=== PATIENT | female | born 1955 | race Caucasian/White ===

== ENCOUNTER 2016-08-07 20:48 | Observation (INO) | payer MEDICARE ==
[~2016-08-07] VITALS: Ht 157.5 cm; Wt 108.2 kg
[~2016-08-07 20:48] MED LIST: AVANDIA4 MG PO; CHEWABLE ASPIRI81 MG PO; CIPRO 500MG TA500 MG PO; COMBIVENT INH14.7 GM IN; DETROL LA4 MG PO; DIAZEPAM10 MG PO; DIOVAN80 MG PO; DUONEB 3 MG/3 ML3 ML IH; FLONASE 50 MCG16 GM; FUROSEMIDE20 MG PO; FUROSEMIDE40 MG PO; IMODIUM 2MG. CAP2 MG OR; K-TAB10 MEQ PO; LEVOTHYROXIN0.025 MG PO; LORTAB 500 MG-11 TAB PO; METFORMIN1000 MG PO; MICRO-K 10 MEQ10 MEQ PO; MUCINEX600 MG PO; OMEPRAZOLE40 MG PO; PHENERGAN 25MG.25 M1 PO; PRAVASTATIN SOD80 MG PO; PRILOSEC20 M1 PO; TRAZODONE150 MG PO; VITAMIN D1000 IU PO; WELLBUTRIN 100100 M1 PO; WELLBUTRIN XL150 MG PO; ZOLOFT100 MG PO
[2016-08-07 20:49] VITALS: BP 147/50
[2016-08-07] MEDS ORDERED: VALIUM10 M1 PO (20:58)
[2016-08-07] MEDS ORDERED: LEVOFLOXACIN 5500 M1 PO (21:00)
[2016-08-07] MEDS ORDERED: ROSUVASTATIN CA10 MG PO (21:02)
[2016-08-07 21:21] LABS: HEMOGLOBIN 13.8 g/dL (12.2-16.2); LYMPH % 42.7 % (10-50.0)
[2016-08-07 21:38] LABS: BUN 8 mg/dL (7-18)
[2016-08-07 21:41] LABS: GFR (ESTIMATED) 73 ML/MIN (59-)
--- NOTE | 2016-08-07 22:30 | Emergency Room Report ---
History of Present Illness Time Seen by 2048 Presenting Problem in Triage Pt arrived:Wheelchair Presenting Problem:C/O CHEST PAIN SINCE LAST PM. REPORTS COUGH WITH GREEEN SPUTUM AND SHORTNES OF BREATH. REPORTS PASSED OUT IN LOBBY Onset of symptoms date/time:08/06/16/ or onset unknown for:MEDICAL HX UNKNOWN Treatment Prior to Arrival: SEEN DR. PANTOJA SUPPLY ROOM CLERK Provided by:PHYSICIAN Sepsis Risk Assessment: Temp: 98.7 B/P: 81/44 MAP: 82 Pulse: 66 Resp: 20 Recent fever? Y Clinical Suspician of Infection? N Mental Status: 1 - Regular (Normal Baseline) Sepsis Risk:Low Sepsis Risk Have you (or family members/close friends) recently traveled outside the [place]? N If Yes, where/when: Have you had exposure to infectious disease within the past month? N TB? Other? Specify: Source patient, RN notes reviewed, family, old records Exam Limitations no limitations Comment pt with episode of chest pain yesterday and today with pressure pain and had syncopal episode this pm and no trauma- she also has recent uti/and has cough with greenish sputum over the last few days and has abn vag bleeding over the last month Cardiac Chest Pain Chest pain indicative of cardiac Yes Timing/Duration 1-3 hours, gone now Severity/Quality moderate, pressure Location central Chest Pain Radiation arm(s) Activities at Onset light activity Nitro Today/Relief no nitro taken today Aspirin Treatment Today 325 mg x 1, provided by ED Beta dk treatment today no beta dk taken Cardiac risk factors Diabetes, + family history, HTN controlled Prior Workup/Intervention no prior cardiac workup Timing/Duration this evening Severity moderate ALLERGIES Coded Allergies: nickel (Intermediate, I-RASH 01/03/16) Sulfa (Sulfonamide Antibiotics) (UNKNOWN 01/03/16) cefaclor (RASH/DIFF BREATHING 01/03/16) ibuprofen (NA-NAUSEA/VOMITING 01/03/16) levofloxacin (From Levaquin) (01/03/16) morphine ("BOTTOMS OUT UP" 01/03/16) Uncoded Allergies: SURGICAL STEEL (Intermediate, I-RASH 09/24/13) SILK TAPE (I-RASH 12/31/12) SUCTATE (09/24/13) Home Medications Reported Medications Trazodone Hcl 300 MG PO QHS Levothyroxine Sodium (Levothyroxine) 0.025 MG PO DAILY OMEPRAZOLE MAGNESIUM (Prilosec 20MG) 20 MG PO DAILY Tolterodine Tartrate (Detrol La) 4 MG PO DAILY Potassium Chloride (Klor-Con 10) 10 MEQ PO PRN Furosemide (Furosemide 40MG) 40 MG PO PRN Fluticasone Propionate (Flonase 50 Mcg Nasal [place]) 2 SPRAY NA DAILY #1 BOT SERTRALINE HYDROCHLORIDE (Zoloft 100MG) 100 MG PO BID CHOLECALCIFEROL (VITAMIN D3) (Vitamin D3) 1,000 IU PO DAILY Pravastatin Sodium (Pravastatin 80MG) 80 MG PO QHS Promethazine Hydrochloride (Phenergan 25MG Tab) 25 MG PO PRN METFORMIN HCL (Metformin) 500 MG PO DAILY Diazepam (Valium) 10 MG PO QID Levofloxacin (Levofloxacin 500MG TAB) 500 MG PO DAILY #10 Rosuvastatin Calcium 10 MG PO DAILY #30 Omeprazole (Omeprazole 40MG) 40 MG PO BID History Medical History General CAD? No Angina: Yes [place]: No Hypertension? No Hyperlipidemia? Yes CHF? Yes DVT? No PE? No COPD? Yes Asthma? Yes Anemia? No GERD? No Gastric ulcers? No GI Bleed? No Hernia? Yes Thyroid Problems? No Hypothyroidism? No CVA? Yes Seizures? No Diabetes? Yes Insulin Dependent: No Insulin Pump: No Home FSBS? Yes Renal Insuffiency? No End Stage Renal Disease? No UTI? Yes Stones? No BPH? No GB Disease: Yes Nephritic Syndrome? No Asplenia? No Hepatitis? No Sickle Cell Disease? No Arthritis? Yes Migraines? Yes Cataracts? No Glaucoma? No MRSA? No HIV? No TB? No Anxiety? No Depression? No Cancer? No More? No Immunization Hx DT/Tetanus 5-10 YRS Flu IN PAST Pneumonia Received In Past Surgical Hx Previous Surgery?Y X2 GALLBLADDER LT KNEE LAP COLONOSCOPY WITH POLYPS REMOVED RIGHT BREAST BIOPSY CYSTO URETHRAL DILATION Family History Family Hx Diabetes Yes CAD Yes Hypertension Yes Hyperlipidemia Yes Cancer Yes TB No Social History Smoking Hx Smoker: Current Every Day Smoker Tobacco: Yes Type Cigarettes Packs/day < 1 Pack Alcohol Alcohol: No Drugs none Review of Systems All Other Systems Reviewed and Negative Constitutional denies fever Eyes denies drainage ENT denies: ear discharge. Respiratory see HPI, cough, denies shortness of breath, denies wheezing Cardiovascular see HPI, chest pain, denies palpitations, syncope Gastrointestinal denies diarrhea, denies vomiting Genitourinary see HPI, abnormal vaginal bleeding. denies: dysuria, frequency, hesitancy, hematuria. Musculoskeletal denies back pain, denies joint pain, denies neck pain Skin denies rash Psychiatric/Neurological denies headache, denies seizure Physical Exam Vital Signs Vital Signs Date Time Temp Pulse Resp B/P Pulse O2 O2 Flow FiO2 Ox Delivery Rate 08/07 2216 66 20 81/44 97 08/07 2141 67 20 96/57 98 08/08 2111 74 103/60 08/08 2111 76 109/79 08/07 2110 67 116/45 08/07 2048 98.7 71 22 147/50 97 - WBC >12,000 or <4,000 or 10% bands? 2 or more SIRS Criteria Met? B/P:100/63 MAP:82 Creatinine >2.0? UA output<0.5ml/kg/hr for 2 hrs? Platelet count >100,000? Lactate >2.0mmol/1? INR >1.2 or PTT > than 60 sec? Evidence of Organ Dysfunction? Provider documented clinical suspician of infection? N Sepsis Criteria Count: 1 Sepsis Risk: Low Sepsis Risk General Appearance no apparent distress Eye Exam - bilateral eye PERRL, bilateral eye EOMI Ear, Nose, Throat normal ENT inspection Neck non-tender Respiratory Status No: respiratory distress. Lung Sounds bilateral: decreased breath sounds. 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 No Results/Orders Laboratory Tests 08/07/160: Urine Color YELLOW, Urine Appearance CLEAR, Urine pH 5.5, Ur Specific [place] >= 1.030, Urine Protein NEGATIVE, Urine Ketones NEGATIVE, Urine Blood TRACE-INTACT, Urine Nitrate NEGATIVE, Urine Bilirubin NEGATIVE, Urine Urobilinogen 0.2, Ur Leukocyte Esterase 1+ H, Urine RBC 5-10, Urine WBC 3-5, Ur Squamous Epith Cells OCC, Urine Bacteria 1+, Hyaline Casts 3-5, Urine Mucus OCC, Urine Glucose NEGATIVE 08/07/162101: Lactic Acid 1.5 08/07/162101: Sodium 133 L, Potassium 4.1, Chloride 100, Carbon Dioxide 26, BUN 8, Creatinine 0.8, Estimated Creat Clear 108, Estimated GFR (MDRD) 73, Glucose 148 H, Calcium 8.9, Total Bilirubin 0.2, AST 8 L, ALT 18, Alkaline Phosphatase 117 H, Creatine Kinase 30, CK-MB (CK-2) Rel Index 2.7, CK and CKMB Interp 0.8, Troponin I < 0.02, Total Protein 7.7, Albumin 3.3 L, Globulin 4.4 H, Albumin/Globulin Ratio 0.8 L, WBC 7.1, RBC 4.66, Hgb 13.8, Hct 40.5, MCV 86.9, RDW 13.8, Plt Count 170, MPV 5.7 L, Gran % 52.9, Gran # 3.8, Lymphocytes % 42.7, Monocytes % 3.0, Eosinophils % 1.0, Basophils % 0.5, Lymphocytes # 3.0, Monocytes # 0.2, Eosinophils # 0.1, Basophils # 0.0, PUBS MCHC 34.2, MCH 29.7 Current Medication Orders Sig/Mami Start time Last Medication Dose Route Stop Time Status Admin Sodium Chloride 1,000 ML .STK-MED ONE 08/07 2102 DC IV Sodium Chloride 10 ML PRN PRN 08/07 2099 AC IV 08/08 2053 Sodium Chloride 1,000 ML .Q1H1M 08/07 2099 DC 08/07 IV 08/07 Sodium Chloride 10 ML PRN PRN 08/07 2099 AC IV 08/08 2056 Orders Procedure Date/time Status DIET-NOTHING BY MOUTH 08/08 B Active Decision to admit 08/[address] ABD & PELVIS W/O CONTRAST 08/07 2099 Active CULTURE, BLOOD 08/07 2099 Active LACTIC ACID 08/07 2099 Complete 12 LEAD EKG-CORNELL (INITIAL) 08/07 2057 Active ELECTROCARDIOGRAM REQUEST 08/[address] ABD/PELVIS REQ 08/07 2057 Complete CHEST-AP VIEW ONLY 08/07 2057 Active IV SALINE LOCK 08/07 2057 Active ORTHOSTATIC B/P 08/07 2057 Active URINALYSIS/COMPLETE 08/07 2057 Complete CBC WITH AUTO DIFF 08/07 2057 Complete CARDIAC ENZYMES 08/07 2057 Complete CHEM 12 PROFILE 08/07 2057 Complete CM/EKG CM/spindle 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 of ischemic chgs XRAY/CT/US XRAY/CT/US 1 XRAY chest XR interpretation by reviewed by me Xray Results normal/NAD XRAY/CT/US 2 CT abdomen, pelvis CT interpretation by discussed w/radiologist Time results known: 2256 CT Results abnormal (see report) Departure Departure Time of Disposition 2237 Disposition Still a Patient Clinical Impression Primary Impression: Chest pain Qualifiers: Chest pain type: precordial pain Qualified Code: R07.2 - Precordial pain Secondary Impressions: Bronchitis Syncope Qualifiers: Syncope type: unspecified Qualified Code: R55 - Syncope and collapse Condition STABLE Referrals Js Stearns MD (Family) discussed with dr stearns ED Critical Care Critical Care No at 2256
[2016-08-07 22:45] LABS: URINE BILIRUBIN - DIPSTICK NEGATIVE (NEG); URINE BLOOD TRACE-INTACT (NEG)
[2016-08-07 22:49] LABS: URINE SQUAMOUS CELLS OCC #/hpf (0-5)
[2016-08-07 23:56] VITALS: BP 100/63
[2016-08-08 00:47] VITALS: BP 120/72
[2016-08-08 04:49] VITALS: BP 90/58
[2016-08-08 05:03] LABS: HEMOGLOBIN 12.7 g/dL (12.2-16.2); LYMPH # 2.3 K/mm3 (0.7-4.5); LYMPH % 42.8 % (10-50.0)
--- NOTE | 2016-08-08 07:57 | RADIOLOGY REPORT PS360 ---
CHEST-AP VIEW ONLY HISTORY: PROD COUGH ORDERING PHYSICIAN: Bill Britton MD PATIENT AGE: 60 years COMPARISON: 09/24/2013 FINDINGS: The cardiomediastinal silhouette and pulmonary vascularity are within normal limits. The lungs are clear without infiltrates, suspicious nodules, or pleural effusions. No acute bony abnormalities. IMPRESSION: Negative chest, no acute finding
[2016-08-08 08:00] VITALS: BP 112/63
[2016-08-08] MEDS ORDERED: ATENOLOL25 MG PO (08:15)
[2016-08-08] MEDS ORDERED: NORCO 325 MG-101 TAB PO (08:16)
[2016-08-08] MEDS ORDERED: CRESTOR10 MG PO (08:16)
[2016-08-08] MEDS ORDERED: LEVOTHYROXINE0.05 M3 NG (08:16)
[2016-08-08] MEDS ORDERED: CARAFATE 1GM TAB1 GM PO (08:16)
[2016-08-08] MEDS ORDERED: NITROGLYCERIN0.4 M1 SL (08:17)
--- NOTE | 2016-08-08 08:28 | RADIOLOGY REPORT PS360 ---
CT ABD PELVIS W/O CONTRAST CLINICAL INDICATION: ABD PAIN WITH VAGINAL BLEEDING ORDERING PHYSICIAN: Js Cox MD PATIENT AGE: 60 years COMPARISON: 04/16/2013 TECHNIQUE: Axial images obtained with sagittal and coronal reformats. PROCEDURE: Oral Contrast: None IV Contrast: None . FINDINGS: Lower thorax: Coronary artery calcification ABDOMEN: Liver: No masses or biliary dilatation. Gallbladder: Cholecystectomy. No biliary dilatation Pancreas: No masses or peripancreatic fluid collections. Spleen: Mild splenomegaly at 14 cm Adrenals: Unremarkable Kidneys/ureters: No masses. No renal calculi. No hydronephrosis. No perinephric fluid collections. No ureteral dilatation or obvious ureteral calculi. Stomach bowel: Nondistended. No obvious mass or thickening. Appendix: No evidence of appendicitis. PELVIS: Reproductive: Unremarkable Bladder: Nondistended. No obvious stones or masses. ABDOMEN & PELVIS: Peritoneum: No abnormal fluid collections. No obvious inflammatory changes. No free air. Lymph nodes: No enlarged lymph nodes apparent. Vasculature: No evidence of abdominal aortic aneurysm. No retroperitoneal hemorrhage evident. Bones: No acute fracture IMPRESSION: 1. No acute intra-abdominal or pelvic pathology. 2. Borderline splenomegaly
--- NOTE | 2016-08-08 08:29 | HISTORY AND PHYSICAL REPORT ---
History and Physical ([facility]) Date of admission: 08/07/16 Chief complaint: chest pain History: History of Present Illness: Ms. Lanier is a 60yo female with a hx of chronic asthma, COPD, HTN, HLP, chronic back pain, and tobacco addiction who was recently seen in the office of [facility] on 08[facility]. She had a nonproductive cough for a week, a fever as high as 102, and occasional tightness in her chest. She also had dysuria and hematuria. She was diagnosed with bronchitis and acute cystitis. She was started on Levaquin and promethazine DM cough syrup. She states her dysuria has improving slightly, but her hematuria continued. She continued to cough and began coughing up green sputum. Yesterday around 4 PM, she began having a pressure across her chest with some tingling while she was lying in bed. She states the pain went down her LEFT arm and around to her back. She presented to the emergency room for evaluation. According to the ER note, she had a syncopal episode in the lobby. She states the chest pain resolved on its own while in the ER, but this a.m. she is now sore under her LEFT breast. Past Medical History: Medical History: CAD? No Angina: Yes [place]: No Hypertension? Yes Hyperlipidemia? Yes CHF? Yes DVT? No PE? No COPD? Yes Asthma? Yes Anemia? No GERD? No Gastric ulcers? No GI Bleed? No Hernia? Yes Thyroid Problems? Yes Hypothyroidism? Yes CVA? Yes Seizures? No Diabetes? Yes Insulin Dependent: No Insulin Pump: No Home FSBS? Yes Renal Insuffiency? No UTI? Yes Stones? No BPH? No GB Disease: Yes Nephritic Syndrome? No Asplenia? No Hepatitis? No Sickle Cell Disease? No Arthritis? Yes Migraines? Yes Cataracts? No Glaucoma? No MRSA? No HIV? No TB? No Anxiety? Yes Depression? Yes Cancer? No More? No Additional hx: 1. Intermittent SVT 2. Overactive bladder 3. Tobacco use Surgical history: Previous Surgery?Y X2 GALLBLADDER LT KNEE LAP COLONOSCOPY WITH POLYPS REMOVED RIGHT BREAST BIOPSY CYSTO URETHRAL DILATION HEART CATH 2007 Allergies: Coded Allergies: nickel (Intermediate, I-RASH 01/03/16) Sulfa (Sulfonamide Antibiotics) (UNKNOWN 01/03/16) cefaclor (RASH/DIFF BREATHING 01/03/16) ibuprofen (NA-NAUSEA/VOMITING 01/03/16) levofloxacin (From Levaquin) (01/03/16) morphine ("BOTTOMS OUT UP" 01/03/16) nitrofurantoin (From MACROBID) (08/08/16) Uncoded Allergies: SURGICAL STEEL (Intermediate, I-RASH 09/24/13) SILK TAPE (I-RASH 12/31/12) SUCTATE (09/24/13) Family History: Family history: Postive for: DM, cancer (LUNG). Negative for: CAD, HTN, stroke. Additional family history: Alzheimers Social History: Smoking Hx Tobacco: Yes Smoker: Current Every Day Smoker Type: Cigarettes Packs/day: < 1 Pack Are you exposed to second hand No Alcohol: Alcohol: No Hx of Drug Use: Drug Use? No Review of Systems: Constitutional Positive for: fatigue, lethargy, malaise, weak. ENT Positive for: nasal congestion, sore throat. Cardiovascular Positive for: chest pain, edema, palpitations. Respiratory Positive for: shortness of air, productive cough (sputum), wheezing. GI Positive for: abdominal pain (suprapubic), diarrhea. No: nausea, vomitting. (female) Positive for: frequency, hematuria. Neurological Positive for: headache, syncope, weakness. No: dizziness. Musculoskeletal No: extremity pain, joint pain, myalgias. Physical Exam: Vital signs: 1ST Vital Signs Result Date Time Pulse Ox 97 08/07 2048 B/P 147/50 08/07 2048 Temp 98.7 08/07 2048 Pulse 71 08/07 2048 Resp 22 08/07 2048 O2 Delivery OXYGEN 08/07 2356 O2 Flow Rate 2 08/08 0000 Exam: General appearance: alert, awake, no acute distress Eyes: EOM's w/normal ROM, PERRLA ENT: nose normal, pharynx normal, tympanic membranes normal, dry mucous membranes Neck: non-tender, no carotid bruit, full range of motion, supple Cardiovascular: regular rate & rhythm Respiratory: diminshed breath sounds, faint wheezes bilaterally ABD: non-distended, normal bowel sounds, no rebound, soft, no tenderness, no guarding Extremities: trace pretibial edema bilaterally Musculoskeletal: equal muscle strength, motor intact, sensation intact Skin: normal color Neuro: normal mood/affect, oriented, speech clear Lab data: Labs: Laboratory Tests 08/08/16414: Creatine Kinase 27, CK-MB (CK-2) Rel Index 1.9, CK and CKMB Interp < 0.5, Troponin I < 0.02 08/08/16414: Sodium 137, Potassium 4.1, Chloride 105, Carbon Dioxide 27, BUN 7, Creatinine 0.7, Estimated Creat Clear 144, Estimated GFR (MDRD) 85, Glucose 135 H, Calcium 8.4 L, WBC 5.4, RBC 4.30, Hgb 12.7, Hct 37.8, MCV 88.0, RDW 13.9, Plt Count 141 L, MPV 5.5 L, Gran % 52.7, Gran # 2.8, Lymphocytes % 42.8, Monocytes % 2.8, Eosinophils % 1.3, Basophils % 0.5, Lymphocytes # 2.3, Monocytes # 0.2, Eosinophils # 0.1, Basophils # 0.0, PUBS MCHC 33.6, MCH 29.6 08/08/16 0105: Creatine Kinase 27, CK-MB (CK-2) Rel Index 1.9, CK and CKMB Interp < 0.5, Troponin I < 0.02 08/07/162229: Urine Color YELLOW, Urine Appearance CLEAR, Urine pH 5.5, Ur Specific [place] >= 1.030, Urine Protein NEGATIVE, Urine Ketones NEGATIVE, Urine Blood TRACE-INTACT, Urine Nitrate NEGATIVE, Urine Bilirubin NEGATIVE, Urine Urobilinogen 0.2, Ur Leukocyte Esterase 1+ H, Urine RBC 5-10, Urine WBC 3-5, Ur Squamous Epith Cells OCC, Urine Bacteria 1+, Hyaline Casts 3-5, Urine Mucus OCC, Urine Glucose NEGATIVE 08/07/162101: Lactic Acid 1.5 08/07/162101: Sodium 133 L, Potassium 4.1, Chloride 100, Carbon Dioxide 26, BUN 8, Creatinine 0.8, Estimated Creat Clear 108, Estimated GFR (MDRD) 73, Glucose 148 H, Calcium 8.9, Total Bilirubin 0.2, AST 8 L, ALT 18, Alkaline Phosphatase 117 H, Creatine Kinase 30, CK-MB (CK-2) Rel Index 2.7, CK and CKMB Interp 0.8, Troponin I < 0.02, Total Protein 7.7, Albumin 3.3 L, Globulin 4.4 H, Albumin/Globulin Ratio 0.8 L, WBC 7.1, RBC 4.66, Hgb 13.8, Hct 40.5, MCV 86.9, RDW 13.8, Plt Count 170, MPV 5.7 L, Gran % 52.9, Gran # 3.8, Lymphocytes % 42.7, Monocytes % 3.0, Eosinophils % 1.0, Basophils % 0.5, Lymphocytes # 3.0, Monocytes # 0.2, Eosinophils # 0.1, Basophils # 0.0, PUBS MCHC 34.2, MCH 29.7 Microbiology 08/07 2101 BLOOD: Anaerobic Blood Culture - RECD 08/07 2101 BLOOD: Aerobic Blood Culture - RECD 08/07 2101 BLOOD: Anaerobic Blood Culture - RECD 08/07 2101 BLOOD: Aerobic Blood Culture - RECD Radiology results: Results: CXR - nothing acute Diagnosis(es): 1. Bronchitis Status: Acute 2. Chest pain Status: Acute 3. Syncope Status: Acute 4. UTI (urinary tract infection) Status: Acute 5. COPD (chronic obstructive pulmonary disease) 6. Hypertension 7. Tobacco use Plan: Pt's cardiac enzymes were normal. Her urine has actually improved from the office U/A. Her white blood cell count has improved as well. CXR was normal. She has been started on Levaquin IV. Her chest pain has resolved, but she still has some soreness under her LEFT breast. The chest pain is more than likely due to excessive coughing. Will discuss further care with Dr. Cox. (Judi Jones) Date of admission: 08/07/16 Past Medical History: Medications: Reported Medications Rosuvastatin Calcium (Crestor) 10 MG PO QHS Sucralfate (Carafate Tab) 1 GM PO QID Nitroglycerin 0.4 MG SL PRN PRN CHEST PAIN METFORMIN HCL (Metformin) 500 MG PO DAILY Trazodone Hcl 300 MG PO QHS Potassium Chloride (Klor-Con 10) 10 MEQ PO PRN Furosemide (Furosemide 40MG) 40 MG PO PRN PRN DIURETIC Fluticasone Propionate (Flonase 50 Mcg Nasal [place]) 2 SPRAY NA DAILY #1 BOT SERTRALINE HYDROCHLORIDE (Zoloft 100MG) 100 MG PO BID Levofloxacin (Levofloxacin 500MG TAB) 500 MG PO DAILY #10 TAB Atenolol (Atenolol) 12.5 MG PO DAILY HYDROCODONE/ACETAMINOPHEN ([place] 10-325 Tablet) 1 TAB PO Q6HP PRN PAIN LEVOTHYROXINE SOD (Levothyroxine 0.05MG) 0.05 MG NG DAILY Diazepam (Valium) 10 MG PO QID Omeprazole (Omeprazole 40MG) 40 MG PO BID Diagnosis(es): 1. Chest pain Status: Acute 2. Syncope Status: Acute 3. Bronchitis Status: Acute 4. UTI (urinary tract infection) Status: Acute 5. COPD (chronic obstructive pulmonary disease) 6. Hypertension 7. Tobacco use 8. Type 2 diabetes mellitus 9. Hyperlipidemia 10. Depression 11. Dysfunctional uterine bleeding Plan: Pt seen and examined. States she feels a little better. CHest is just sore. Still with cough. She feels that her bleeding is coming from the vagina rather than the bladder. No dysuria. CT scan was unremarkable. Enzymes are negative. Echo is pending and if this is OK, can discharge home with plans for outpt stress test when acute illness resolves as well as outpt f/u with Dr. Dudley regarding her vaginal bleeding. . (Js Cox MD) at [phone] at [phone]
[2016-08-08 09:00] VITALS: BP 112/63
--- NOTE | 2016-08-08 09:41 | PHARMACY CLINIC NOTE ---
Patient Demographics Patient Demographics Admission date: 08/07/16 Date: 08/08/16 Time: 0941 Allergies Coded Allergies: nickel (Intermediate, I-RASH 01/03/16) Sulfa (Sulfonamide Antibiotics) (UNKNOWN 01/03/16) cefaclor (RASH/DIFF BREATHING 01/03/16) ibuprofen (NA-NAUSEA/VOMITING 01/03/16) levofloxacin (From Levaquin) (01/03/16) morphine ("BOTTOMS OUT UP" 01/03/16) nitrofurantoin (From MACROBID) (08/08/16) Uncoded Allergies: SURGICAL STEEL (Intermediate, I-RASH 09/24/13) SILK TAPE (I-RASH 12/31/12) SUCTATE (09/24/13) HEIGHT- FT: 5 IN: 2.00 K.182 VTE General Information Labs: Laboratory Tests 08/08 08/07 0415 2102 Hematology Hgb (12.2 - 16.2 g/dL) 12.7 13.8 Hct (37.0 - 47.0 %) 37.8 40.5 Plt Count (142 - 424 K/mm3) 141 L 170 Disclaimer The following section includes nursing documentation that has been pulled in for pharmacy review. Patient's VTE score: 6 Patient's VTE Risk: MOD RISK Clinical trial participant? No VTE prophylaxis NQF [id number] VTE prophylaxis ordered? Yes Type of prophylaxis/treatment: TATIANA at 0941
[2016-08-08 13:58] VITALS: BP 116/68
--- NOTE | 2016-08-09 14:39 | DISCHARGE SUMMARY STANDARD ---
Discharge Summary (FCA2) Date of admission: 08/07/16 Date of discharge: 08/08/16 Problem List: 1. Chest pain 2. Syncope 3. Bronchitis 4. UTI (urinary tract infection) 5. COPD (chronic obstructive pulmonary disease) 6. Hypertension 7. Tobacco use 8. Type 2 diabetes mellitus 9. Hyperlipidemia 10. Depression 11. Dysfunctional uterine bleeding History of present illness: Ms. Lanier is a 60yo female with a hx of chronic asthma, COPD, HTN, HLP, chronic back pain, and tobacco addiction who was recently seen in the office of [facility] on 08/02/16. She had a nonproductive cough for a week, a fever as high as 102, and occasional tightness in her chest. She also had dysuria and hematuria. She was diagnosed with bronchitis and acute cystitis. She was started on Levaquin and promethazine DM cough syrup. She stated her dysuria had improving slightly, but her hematuria continued. She continued to cough and began coughing up green sputum. She began having a pressure across her chest with some tingling while she was lying in bed. She stated the pain went down her LEFT arm and around to her back. She presented to the emergency room for evaluation. According to the ER note, she had a syncopal episode in the lobby. She stated the chest pain resolved on its own while in the ER. Exam on admission: General appearance: alert, awake, no acute distress Eyes: EOM's w/normal ROM, PERRLA ENT: nose normal, pharynx normal, tympanic membranes normal, dry mucous membranes Neck: non-tender, no carotid bruit, full range of motion, supple Cardiovascular: regular rate & rhythm Respiratory: diminshed breath sounds, faint wheezes bilaterally ABD: non-distended, normal bowel sounds, no rebound, soft, no tenderness, no guarding Extremities: trace pretibial edema bilaterally Musculoskeletal: equal muscle strength, motor intact, sensation intact Skin: normal color Neuro: normal mood/affect, oriented, speech clear Hospital Course: The patient's cardiac enzymes were normal. Her urine had actually improved from the office U/A. Her white blood cell count had improved as well. Her CXR was normal and a CT of the abdomen and pelvis showed nothing acute. She was started on Levaquin IV. Her chest pain resolved, but she still had some soreness under her LEFT breast. She felt the blood she saw in her urine was coming from the vagina rather than the bladder. Her echo results were called to the office and her EF was normal. She was stable to be discharged home and an outpatient stress test will be scheduled when her acute illness resolves as well as an outpatient f/u with Dr. Dudley regarding her vaginal bleeding. She will continue her oral levaquin and cough syrup. Discharge medications: Continue taking these medications: METFORMIN HCL (Metformin) 1,000 MG TABLET 500 MILLIGRAM ORAL DAILY Trazodone Hcl (Trazodone HCl) 150 MG TABLET 300 MILLIGRAM ORAL AT BEDTIME NIGHTLY POTASSIUM CHL (Potassium Chloride) 10 MEQ CAPSULE.ER 10 Milliequivalent ORAL DAILY Furosemide (Furosemide 40MG) 40 MG TABLET 40 MILLIGRAM ORAL DAILY NEEDED as needed for DIURETIC Instructions: TAKE WITH POTASSIUM CHL. Fluticasone Propionate (Flonase 50 Mcg Nasal [place]) 16 GM SPRAY.SUSP 2 SPRAY Nasal DAILY Qty = 1 SERTRALINE HYDROCHLORIDE (Zoloft 100MG) 100 MG TABLET 100 MILLIGRAM ORAL TWICE A DAY Omeprazole (Omeprazole 40MG) 40 MG ECC 40 MILLIGRAM ORAL TWICE A DAY Diazepam (Valium) 10 MG TABLET 10 MILLIGRAM ORAL FOUR TIMES A DAY Levofloxacin (Levofloxacin 500MG TAB) 500 MG TABLET 500 MILLIGRAM ORAL DAILY Qty = 10 Atenolol (Atenolol) 25 MG TABLET 25 MILLIGRAM ORAL DAILY HYDROCODONE/ACETAMINOPHEN ([place] 10-325 Tablet) 1 EACH TABLET 0.5-1 TABLET ORAL EVERY 6 HOURS NEEDED as needed for PAIN LEVOTHYROXINE SOD (Levothyroxine 0.05MG) 50 MCG TABLET 0.05 MILLIGRAM NASOGASTRIC TUBE DAILY Rosuvastatin Calcium (Crestor) 10 MG TABLET 10 MILLIGRAM ORAL AT BEDTIME NIGHTLY Nitroglycerin (Nitroglycerin) 0.4 MG TAB.SUBL 0.4 MILLIGRAM SUBLINGUAL As Needed as needed for CHEST PAIN Disposition: F/U with: Js Cox MD Follow up: 5 DAYS Activity: Limited activity Diet: Continue same diet Discharge to: HOME Agency needed? N at 0815
--- NOTE | 2016-08-09 14:58 | RADIOLOGY REPORT PS360 ---
PROCEDURE: 2-D M-mode and color Doppler study INDICATIONS FOR THE TEST: Chest pain+ COPD+ Heart Murmur Tobacco Smoking+ Palpitations Fatigue Syncope Edema Hypertension+Diabetes Mellitus+ Rheumatic Fever SOB+ALVAREZ Obesity Hyperlipidemia+ Family History HD Additional History asthma, cath 2008, CVA PATIENT INFORMATION HEIGHT: 62 WEIGHT: 205 GENDER: Female B/P:147/50 2-D/M-MODE INTERPRETATION: 2-D MEASUREMENTS OBSERVED VALUES IN CMS Right Ventricular Dimension (RVDd) 2.9 Interventricular Septum (Thickness)(IVsd) 1.5 Left Ventricular Internal Dimensions(LVIDd) 4.2 Left Ventricular Posterior Wall (Thickness)(LVP) 1.2 Aortic Root 2.9 Aortic Cusp Separation 2.0 Left Atrial Dimensions (LAD) 3.5 2D 1. The left atrium is qualitatively mildly enlarged, left ventricle is normal size, there is mild concentric left ventricular hypertrophy present, visually estimated ejection fraction of 55% with no obvious regional wall motion abnormality. 2. The right atrium is normal size, the right ventricle is mildly enlarged with normal contractility. 3. The aortic valve is mildly thickened and calcified. 4. The tricuspid valve is structurally normal. 5. The mitral valve leaflets are minimally thickened, there is no mitral stenosis. 6. Pulmonic valve is not well visualized. 7. No significant pericardial effusion noted. DOPPLER INTERROGATION: Doppler interrogation of the aortic mitral and tricuspid valvular presence of mild mitral and tricuspid regurgitation, tricuspid regurgitant jet velocity is insufficient for calculation of right ventricular systolic pressure, grade 1 diastolic dysfunction seen with tissue Doppler evidence of raised left atrial pressure. CONCLUSION: 1. Normal left ventricular size, mild qualitative concentric left ventricular hypertrophy, preserved left ventricular systolic function, visually estimated ejection fraction 55% with no obvious regional wall motion abnormality, grade 1 diastolic dysfunction without tissue Doppler evidence of raised left atrial pressure. 2. Mild mitral and tricuspid regurgitation. 3. No significant pericardial effusion noted.
--- OUTSIDE RECORDS SUMMARY | 2016-08-18 01:20 | External Medical Summary Rpt ---
Author Author , Organization [employer] Address Unknown Phone Unavailable Care Team Providers Care Local Truck Driver Name Role Phone DONNA VELAZCO, Unavailable Unavailable DONNA VELAZCO MD Un[facility] Unavailable [facility]available [facility] Un[facility]available [facility], Unavailable [facility]available [facility] Un[facility] Unavailable Unavailable LAB, [facility] DAT BERNARD, Unavailable Unavailable DAT BERNARD [facility], Unavailable Unavailable [facility] Un[facility], [facility] SHEBA CARROLL, Unavailable Unavailable SHEBA CARROLL [facility] Unavailable Unavailable INC, [facility] ROSA LEVY, Unavailable Unavailable ROSA LEVY DAVID L, Unavailable Unavailable KHUSHI TODD [facility] Unavailable Unavailable IMAGING ASS, [facility], Unavailable Unavailable [facility] REKHA SARABIA, Unavailable Unavailable REKHA SARABIA JAMES, Unavailable Unavailable LISSY NARVAEZ JR, WILLIAM Unavailable SCOT Vieira JR, WILLIAM F MOBLEY, EMMETT P, Unavailable Unavailable BEVERLY BRADY WILLIAM F, Unavailable Unavailable BALAJI HASTINGS BRIAN T, Unavailable Unavailable JOS DUNBAR, Unavailable Unavailable Honey CUELLO, Unavailable Unavailable Honey [facility] & Unavailable Unavailable [facility], [facility] & Unavailable Unavailable [facility], [facility]OLOGY [facility] CYTOLOGY Unavailable Unavailable LAB, PATHOLOGY & CYTOLOGY LAB [facility] Unavailable Unavailable LAB, PATHOLOGY & CYTOLOGY LAB CUONG, LUANN, CUONG, Unavailable Unavailable LUANN [id number], Unavailable Unavailable [id number] RE CAO, Unavailable Unavailable KILEY, RE C SCHULSTAD JEN, Unavailable Unavailable SCHULSTAD JEN RONNIE TOBIAS, Unavailable Unavailable SCHULSTAD RONNIE [facility] Un[facility] Unavailable [facility] NICANOR HERNANDEZ, NICANOR Unavailable Unavailable [facility], [facility], Unavailable Unavailable INC [facility] Unavailable Unavailable #[id number], [id number] # Unavailable Unavailable [id number], [facility] # [id number] BALAJI MESA III, Unavailable Unavailable BALAJI MESA III [facility], Unavailable [facility]available [facility], Unavailable Unavailable [facility] Purpose Continuity of Care Document - 05-08-2007 through 2016 Problems Code Diagnosis DOS Provider Status [id number] PERSONAL 05-18-2010 [facility] COLONIC [facility] POLYPS V5869 LONG-TERM 05-18-2010 [facility] ([facility] USE OF INC OTHER MEDICATIONS V7651 SPECIAL 05-18-2010 [facility] FOR INC MALIGNANT NEOPLASMS COLON 01395 OBSTRUCTIVE 05-15-2010 [facility] 496 CHRONIC 05-15-2010 [facility] NEC 37545 HYPERSOMNIA 05-15-2010 [facility] UNSPECIFIED 38558 DIAB W/O 05-11-2010 C RONNIE COMP TYPE SCHULSTAD II/UNS NOT PSC STATED UNCNTRL V7612 OTHER 05-11-2010 [place] [facility] 2689 UNSPECIFIED 05-01-2010 [facility] VITAMIN D [facility] DEFICIENCY INC 2724 OTHER AND 05-01-2010 [facility] HYPERLIPIDE SONU V762 SCREENING 05-01-2010 PATHOLOGY & FOR CYTOLOGY MALIGNANT LAB NEOPLASM OF THE CERVIX 4019 UNSPECIFIED 04-27-2010 [facility] HYPERTENSIO N 71971 PAIN IN 04-27-2010 [facility] JOINT[facility] LOWER LEG 7862 COUGH 04-27-2010 [facility] V0382 NEED PROPH 04-27-2010 [facility] VACCINATION [facility] AGAINST STREP PNEUMONE 7823 EDEMA 04-19-2010 [facility] REGISTRY & HOME [place] 73054 UNSPECIFIED 04-19-2010 NURSES URINARY REGISTRY & INCONTINENC HOME HE E 13318 OTHER 02-14-2010 [facility] MALAISE [facility] FATIGUE 9134 ELB 02-14-2010 [facility] FORARM&WRST [facility] INSECT BITE NONVENOMOUS W/O INF V0481 NEED 02-14-2010 [facility] PROPHYLACTI [facility] C VACCINATION &INOCULATIO N FLU 15972 OSTEOARTHRO 11-29-2009 [facility] S UNSPEC [facility] WHETHER GEN/LOC UNSPEC SITE 7904 NONSPEC 11-29-2009 [facility] ELEVATION [facility] OF LEVELS OF TRANSAMINAS E/LDH 5990 URINARY 10-11-2009 [facility] TRACT [facility] INFECTION SITE NOT SPECIFIED 6961 OTHER 10-11-2009 [facility] PSORIASIS [facility] AND SIMILAR DISORDERS 42725 CHEST PAIN 10-11-2009 [facility] UNSPECIFIED [facility] 37533 ESOPHAGEAL 06-24-2009 [facility] REFLUX [facility] 4619 ACUTE 06-14-2009 [facility] SINUSITIS[facility] UNSPECIFIED 2512 HYPOGLYCEMI 03-24-2009 [facility] A[facility] UNSPECIFIED 460 ACUTE 03-24-2009 [facility] NASOPHARYNG [facility] ITIS 2449 UNSPECIFIED 01-18-2009 [facility] HYPOTHYROID INC ISM 76908 BLEPHARITIS 01-14-2009 LEVY BRETT A UNSPECIFIED 14164 COR 01-12-2009 [facility] U[facility]PEC [facility]OSP[facility] TYPE VESSEL PROF SERV SPIRIT LAKE/PINKY T 1120 CANDIDIASIS 01-06-2009 [facility] M[facility]TH [facility] 6268 OTH D/O 01-06-2009 [facility] MENSTRUATIO [facility] N&OTH ABN BLEED FE GNT TRACT 7245 UNSPECIFIED 01-06-2009 [facility] BACKACHE [facility] 4660 ACUTE 12-23-2008 [facility] BRONCHITIS [facility] 7239 UNSPEC 10-01-2008 [facility] MUSCULOSKEL [facility] D/O&SYMPTOM S REFERABLE NECK 25674 SPASM OF 10-01-2008 [facility]CLE [facility] 6101 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, CYSTIC RONNIE MASTOPATHY 91220 LUMP OR 09-06-2008 SCHULSTAD, MASS IN RONNIE BREAST 54405 OTHER 09-06-2008 SCHULSTAD, ABNORMAL RONNIE FINDING RADIOLOGICA L EXAM BREAST V7281 PRE-OPERATI 09-02-2008 [facility] LAR PROF SERV EXAMINATION 07110 UNSPECIFIED 08-31-2008 SCHULSTAD, ABNORMAL RONNIE MAMMOGRAM 95310 HYPERTONICI 08-27-2008 [facility] TY OF [facility] BLADDER 7881 DYSURIA 08-27-2008 [facility] 4280 CONGESTIVE 08-13-2008 [facility] UNSPECIFIED PROF SERV 08468 SHORTNESS 08-13-2008 [facility] 28636 MIGRAINE 07-14-2008 SOLANGE, W/AURA W/O LISSY INTRACT W/O STATUS MIGRNOSUS 15522 NONEXUDATIV 07-14-2008 Sky NARVAEZ SENILE LISSY MACULAR DEGENERATIO N RETINA 14385 TRANSIENT 07-14-2008 NARVAEZ, VISUAL LOSS LISSY 7019 UNSPECIFIED 07-02-2008 [facility] HYPERTROPHI C&ATROPHIC CONDITION SKIN 81894 OTHER 05-06-2008 [facility] DYSPNEA [facility] RESPIRATORY ABNORMALITI ES 2381 NEOPLASM 04-02-2008 [facility] UNCERTAIN [facility] BHV CNCTV&OTH SOFT TISSUE 49713 MIGRAINE 03-08-2008 CUONG, W/O AURA LUANN INTRACT W/O STATUS MIGRAINOSUS 7295 PAIN IN 10-22-2007 [facility] C[facility] SOFT [facility] TISSUES OF LIMB 35530 OBESITY, 10-18-2007 RADI[facility] UNSPECIFIED ASSOCIATES PSC 4109 ACUTE 10-18-2007 [facility] PSC UNSPECIFIED SITE 40102 OTHER 10-18-2007 [facility] DISEASES OF ASSOCIATES LUNG NOT PSC ELSEWHERE CLASSIFIED 76562 PAIN IN 08-08-2007 [place] [employer] JOINT PELVIC REGION AND THIGH 76405 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 [place] [employer] 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 7812 ABNORMALITY 08-08-2007 [place] [employer] OF GAIT 3689 UNSPECIFIED 07-11-2007 JOANA, VISUAL DAT DISTURBANCE 99825 PERIPH 07-09-2007 SOL[facility] CHORIORETIN LISSY AL SCARS E11.9 TYPE 2 DIABETES MELLITUS WITHOUT COMPLICATIO NS E78.4 OTHER HYPERLIPIDE SONU J40 BRONCHITIS, NOT SPECIFIED ACUTE OR CHRONIC R07.9 CHEST PAIN, UNSPECIFIED R55 SYNCOPE AND COLLAPSE Medications Na ND Rx Da Fi Fi Am Da Di Ph RX Ph St me C No te ll ll ou ys ag ar # ys at rm s nt no ma ic us Or Da si cy ia de te s n re d DI 00 10 01 4 90 30 CL 22 AK Ac AZ 59 -0 -2 .0 IN 44 LL ti EP 15 5- 1- 00 IC 27 ER ve AM 62 20 20 01 10 11 PH CA 10 0 AR RO MA L MG CY J TA LL BL C ET DI 00 10 12 4 90 30 CL 22 AK Ac AZ 59 -0 -2 .0 IN 44 LL ti EP 15 5- 2- 00 IC 27 ER ve AM 62 20 20 01 10 10 PH CA 10 0 AR RO MA L MG CY J TA LL BL C ET 60 11 11 0 18 5 CL 22 NO Ac 25 -2 -2 0. IN 73 RF ti 80 3- 3 00 IC 81 LE ve 41 20 20 0 ET 51 10 10 PH R 6 AR MA HE CY NR Y LL C DI 00 10 11 4 90 30 CL 22 AK Ac AZ 59 -0 -1 .0 IN 44 LL ti EP 15 IC 27 ER ve AM 62 20 20 01 10 10 PH CA 10 0 AR RO MA L MG CY J TA LL BL C ET DI 00 07 10 3 12 30 CL 21 AK Ac AZ 59 -1 -1 0. IN 98 LL ti EP 15 IC 49 ER ve AM 62 20 20 0 01 10 10 PH CA 10 0 AR RO MA L MG CY J TA LL BL C ET DI 00 07 09 3 12 30 CL 21 AK Ac AZ 59 -1 -1 0. IN 98 LL ti EP 15 IC 49 ER ve AM 62 20 20 0 01 10 10 PH CA 10 0 AR RO MA L MG CY J TA LL BL C ET MU 63 08 08 2 40 20 CL 22 NO Ac CI 82 -1 -1 .0 IN 16 RF ti NE 40 IC 42 LE ve X 00 20 20 ET ER 83 10 10 PH R 4 AR 60 MA HE 0 CY NR MG Y LL TA C BL ET DI 00 07 08 3 12 30 CL 21 AK Ac AZ 59 -1 -1 0. IN 98 LL ti EP 15 IC 49 ER ve AM 62 20 20 0 01 10 10 PH CA 10 0 AR RO MA L MG CY J TA LL BL C ET DI 00 07 07 3 12 30 CL 21 AK Ac AZ 59 -1 -1 0. IN 98 LL ti EP 15 IC 49 ER ve AM 62 20 20 0 01 10 10 PH CA 10 0 AR RO MA L MG CY J TA LL BL C ET MU 63 04 06 2 40 20 CL 21 NO Ac CI 82 -1 -1 .0 IN 46 RF ti NE 40 6- 7- 00 IC 77 LE ve X 00 20 20 ET ER 83 10 10 PH R 4 AR 60 MA HE 0 CY NR MG Y LL TA C BL ET DI 00 03 06 2 12 30 CL 21 AK Ac AZ 59 -3 -1 0. IN 41 LL ti EP 15 0- 7- 00 IC 81 ER ve AM 62 20 20 0 01 10 10 PH CA 10 0 AR RO MA L MG CY J TA LL BL C ET DI 00 03 05 2 12 30 CL 21 AK Ac AZ 59 -3 -1 0. IN 41 LL ti EP 15 0- 7- 00 IC 81 ER ve AM 62 20 20 0 01 10 10 PH CA 10 0 AR RO MA L MG CY J TA LL BL C ET MU 63 04 05 2 40 20 CL 21 NO Ac CI 82 -1 -1 .0 IN 46 RF ti NE 40 6- 7- 00 IC 77 LE ve X 00 20 20 ET ER 83 10 10 PH R 4 AR 60 MA HE 0 CY NR MG Y LL TA C BL ET AL 00 05 05 0 [address] Ac OM 60 -0 -0 0. L- 85 EP ti ET 31 9- 9- 00 MA 47 HE ve GUTIERREZ 58 20 20 0 RT 4 NS ZI 85 10 10 NE 8 PH DO AR N VC MA R -C CY OD # EI NE 10 05 SY 91 RU P DI 00 03 04 2 12 30 CL 21 AK Ac AZ 59 -3 -1 0. IN 41 LL ti EP 15 0- 6- 00 IC 81 ER ve AM 62 20 20 0 01 10 10 PH CA 10 0 AR RO MA L MG CY J TA LL BL C ET MU 63 04 04 2 40 20 CL 21 NO Ac CI 82 -1 -1 .0 IN 46 RF ti NE 40 6- 6- 00 IC 77 LE ve X 00 20 20 ET ER 83 10 10 PH R 4 AR 60 MA HE 0 CY NR MG Y LL TA C BL ET DI 00 01 03 2 12 30 CL 20 AK Ac AZ 59 -0 -1 0. IN 81 LL ti EP 15 5- 6- 00 IC 98 ER ve AM 62 20 20 0 01 10 10 PH CA 10 0 AR RO MA L MG CY J TA LL BL C ET DI 00 01 02 00 12 30 CL 20 No Ac AZ 59 -0 -2 0. IN 81 t ti EP 15 5- 6- 00 IC 98 Av ve AM 62 20 20 0 ai 01 10 10 PH la 10 0 AR bl MA e MG CY TA BL ET MU 63 12 02 02 40 20 CL 20 NO Ac CI 82 -0 -2 .0 IN 60 RF ti NE 40 3- 6- 00 IC 21 LE ve X 00 20 20 ET ER 83 09 10 PH R 4 AR 60 MA HE 0 CY NR MG Y TA BL ET MU 63 12 01 01 40 20 CL 20 NO Ac CI 82 -0 -2 .0 IN 60 RF ti NE 40 3- 8- 00 IC 21 LE ve X 00 20 20 ET ER 83 09 10 PH R 4 AR 60 MA HE 0 CY NR MG Y TA BL ET DI 00 11 01 01 12 30 CL 20 No Ac AZ 59 -1 -2 0. IN 48 t ti EP 15 3- 8- 00 IC 53 Av ve AM 62 20 20 0 ai 01 09 10 PH la 10 0 AR bl MA e MG CY TA BL ET 60 01 01 00 18 5 CL 20 GUTIERREZ Ac 25 -0 -1 0. IN 81 MM ti 80 6- 4- 00 IC 84 ON ve 23 20 20 0 D 91 10 10 PH KA 6 AR TH MA AR CY IN E Y DI 00 11 12 00 12 30 CL 20 No Ac AZ 59 -1 -3 0. IN 48 t ti EP 15 3- 1- 00 IC 53 Av ve AM 62 20 20 0 ai 01 09 09 PH la 10 0 AR bl MA e MG CY TA BL ET MU 63 12 12 00 40 20 CL 20 NO Ac CI 82 -0 -1 .0 IN 60 RF ti NE 40 3- 7- 00 IC 21 LE ve X 00 20 20 ET ER 83 09 09 PH R 4 AR 60 MA HE 0 CY NR MG Y TA BL ET 60 12 12 00 18 5 CL 20 NO Ac 25 -0 -1 0. IN 60 RF ti 80 3- 7- 00 IC 22 LE ve 23 20 20 0 ET 91 09 09 PH R 6 AR MA HE CY NR Y 60 10 12 01 18 5 CL 20 NO Ac 25 -1 -0 0. IN 25 RF ti 80 3- 3- 00 IC 90 LE ve 23 20 20 0 ET 91 09 09 PH R 6 AR MA HE CY NR Y DI 00 08 12 02 12 30 CL 20 No Ac AZ 59 -2 -0 0. IN 07 t ti EP 15 0- 3- 00 IC 18 Av ve AM 62 20 20 0 ai 01 09 09 PH la 10 0 AR bl MA e MG CY TA BL ET 60 10 10 00 18 5 CL 20 NO Ac 25 -1 -2 0. IN 25 RF ti 80 3- 2- 00 IC 90 LE ve 23 20 20 0 ET 91 09 09 PH R 6 AR MA HE CY NR Y DI 00 08 10 01 12 30 CL 20 No Ac AZ 59 -2 -2 0. IN 07 t ti EP 15 0- 2- 00 IC 18 Av ve AM 62 20 20 0 ai 01 09 09 PH la 10 0 AR bl MA e MG CY TA BL ET DI 00 08 09 00 12 30 CL 20 No Ac AZ 59 -2 -2 0. IN 07 t ti EP 15 0- 4- 00 IC 18 Av ve AM 62 20 20 0 ai 01 09 09 PH la 10 0 AR bl MA e MG CY TA BL ET 60 08 09 00 18 8 RI 79 NO Ac 25 -2 -1 0. TE 71 RF ti 80 5- 0- 00 48 LE ve 23 20 20 0 AI ET 91 09 09 D R 6 PH AR HE M NR #3 Y 93 8 60 09 09 00 18 5 CL 20 NO Ac 25 -0 -1 0. IN 01 RF ti 80 3- 0- 00 IC 06 LE ve 23 20 20 0 ET 91 09 09 PH R 6 AR MA HE CY NR Y DI 00 06 08 02 12 30 CL 19 No Ac AZ 59 -1 -2 0. IN 54 t ti EP 15 2- 7- 00 IC 46 Av ve AM 62 20 20 0 ai 01 09 09 PH la 10 0 AR bl MA e MG CY TA BL ET DI 00 06 07 01 12 30 CL 19 No Ac AZ 59 -1 -1 0. IN 54 t ti EP 15 2- 6- 00 IC 46 Av ve AM 62 20 20 0 ai 01 09 09 PH la 10 0 AR bl MA e MG CY TA BL ET DI 00 06 06 00 12 30 CL 19 No Ac AZ 59 -1 -1 0. IN 54 t ti EP 15 2- 8- 00 IC 46 Av ve AM 62 20 20 0 ai 01 09 09 PH la 10 0 AR bl MA e MG CY TA BL ET DI 00 03 05 02 12 30 CL 18 No Ac AZ 59 -1 -2 0. IN 97 t ti EP 15 7- 1- 00 IC 71 Av ve AM 62 20 20 0 ai 01 09 09 PH la 10 0 AR bl MA e MG CY TA BL ET DI 00 03 04 01 12 30 CL 18 No Ac AZ 59 -1 -2 0. IN 97 t ti EP 15 7- 3- 00 IC 71 Av ve AM 62 20 20 0 ai 01 09 09 PH la 10 0 AR bl MA e MG CY TA BL ET DI 00 03 03 00 12 30 CL 18 No Ac AZ 59 -1 -2 0. IN 97 t ti EP 15 7- 6- 00 IC 71 Av ve AM 62 20 20 0 ai 01 09 09 PH la 10 0 AR bl MA e MG CY TA BL ET AL 00 02 03 00 18 4 WA 70 NO Ac OM 60 -2 -1 0. L- 09 RF ti ET 31 1- 2- 00 MA 01 LE ve GUTIERREZ 58 20 20 0 RT 7 ET ZI 65 09 09 R NE 8 PH -D AR HE M MA NR SY CY Y RU P #5 91 DI 00 11 02 02 12 30 CL 18 No Ac AZ 59 -1 -2 0. IN 20 t ti EP 15 7- 6- 00 IC 99 Av ve AM 62 20 20 0 ai 01 08 09 PH la 10 0 AR bl MA e MG CY TA BL ET DI 00 11 01 01 12 30 CL 18 No Ac AZ 59 -1 -3 0. IN 20 t ti EP 15 7- 0- 00 IC 99 Av ve AM 62 20 20 0 ai 01 08 09 PH la 10 0 AR bl MA e MG CY TA BL ET BE 00 01 01 00 30 10 CL 18 MU Ac NZ 55 -1 -3 .0 IN 58 LB ti ON 51 5- 0- 00 IC 27 ER ve AT 88 20 20 RY AT 30 09 09 PH E 2 AR BR 20 MA IA 0 CY N MG T CA PS UL E DI 00 11 01 00 12 30 CL 18 No Ac AZ 59 -1 -0 0. IN 20 t ti EP 15 7- 1- 00 IC 99 Av ve AM 62 20 20 0 ai 01 08 09 PH la 10 0 AR bl MA e MG CY TA BL ET DI 00 08 12 01 12 30 CL 17 No Ac AZ 59 -2 -0 0. IN 69 t ti EP 15 7- 4- 00 IC 10 Av ve AM 62 20 20 0 ai 01 08 08 PH la 10 0 AR bl MA e MG CY TA BL ET DI 00 08 10 00 12 30 CL 17 No Ac AZ 59 -2 -2 0. IN 69 t ti EP 15 7- 3- 00 IC 10 Av ve AM 62 20 20 0 ai 01 08 08 PH la 10 0 AR bl MA e MG CY TA BL ET DI 00 07 09 02 12 30 CL 17 No Ac AZ 59 -0 -2 0. IN 36 t ti EP 15 1- 6- 00 IC 01 Av ve AM 62 20 20 0 ai 01 08 08 PH la 10 0 AR bl MA e MG CY TA BL ET DI 00 07 08 01 12 30 CL 17 No Ac AZ 59 -0 -2 0. IN 36 t ti EP 15 1- 8- 00 IC 01 Av ve AM 62 20 20 0 ai 01 08 08 PH la 10 0 AR bl MA e MG CY TA BL ET DI 00 07 08 00 12 30 CL 17 No Ac AZ 59 -0 -0 0. IN 36 t ti EP 15 1- 1- 00 IC 01 Av ve AM 62 20 20 0 ai 01 08 08 PH la 10 0 AR bl MA e MG CY TA BL ET MU 63 07 08 01 20 10 CL 17 No Ac CI 82 -0 -0 .0 IN 36 t ti NE 40 2- 1- 00 IC 81 Av ve X 05 20 20 ai DM 62 08 08 PH la 0 AR bl ER MA e CY 60 0- 30 MG TA BL ET HY 60 07 07 00 12 6 CL [address] 43 -0 -1 0. IN 36 t ti OC 20 2- 7- 00 IC 82 Av ve OD 45 20 20 0 ai ON 51 08 08 PH la E- 6 AR bl HO MA e MA CY TR OP IN E SY RU P MU 63 07 07 00 20 10 CL 17 No Ac CI 82 -0 -1 .0 IN 36 t ti NE 40 2- 7- 00 IC 81 Av ve X 05 20 20 ai DM 62 08 08 PH la 0 AR bl ER MA e CY 60 0- 30 MG TA BL ET DI 00 06 07 00 12 30 CL 17 No Ac AZ 59 -1 -0 0. IN 27 t ti EP 15 9- 3- 00 IC 96 Av ve AM 62 20 20 0 ai 01 08 08 PH la 10 0 AR bl MA e MG CY TA BL ET DI 00 05 06 00 12 30 CL 17 No Ac AZ 59 -1 -0 0. IN 09 t ti EP 15 9- 5- 00 IC 81 Av ve AM 62 20 20 0 ai 01 08 08 PH la 10 0 AR bl MA e MG CY TA BL ET DI 00 04 04 00 12 30 CL 16 No Ac AZ 59 -1 -2 0. IN 90 t ti EP 15 8- 4- 00 IC 86 Av ve AM 62 20 20 0 ai 01 08 08 PH la 10 0 AR bl MA e MG CY TA BL ET DI 00 01 04 02 12 30 CL 16 No Ac AZ 59 -1 -1 0. IN 30 t ti EP 15 9- 7- 00 IC 26 Av ve AM 62 20 20 0 ai 01 08 08 PH la 10 0 AR bl MA e MG CY TA BL ET 50 02 04 01 30 10 CL 16 No Ac 11 -2 -0 .0 IN 54 t ti 10 2- 7- 00 IC 75 Av ve 85 20 20 ai 10 08 08 PH la 1 AR bl MA e CY DI 00 01 03 01 12 30 CL 16 No Ac AZ 59 -1 -2 0. IN 30 t ti EP 15 9 6 IC 26 Av ve AM 62 20 20 0 ai 01 08 08 PH la 10 0 AR bl MA e MG CY TA BL ET 50 02 03 00 30 10 CL 16 No Ac 11 -2 -2 .0 IN 54 t ti 10 2- 6 IC 75 Av ve 85 20 20 ai 10 08 08 PH la 1 AR bl MA e CY DI 00 01 03 00 12 30 CL 16 No Ac AZ 59 -1 -2 0. IN 30 t ti EP 15 IC 26 Av ve AM 62 20 20 0 ai 01 08 08 PH la 10 0 AR bl MA e MG CY TA BL ET Immunization Name Date Route CVX Reacti Commen Provid Is Given on t er Refuse d PPSV23 NORFLE No 2010 ET R H VACCIN E 2 YRS OR OLDER FOR SUBQ/I M USE IIV3 FAMILY No VACCIN 2009 CARE E ASSOC[facility] SPLIT ATES VIRUS 0.5 ML DOSAGE IM USE Procedures Procedure DOS Code Location Performer Comment ANES [address] [facility] 1 ANESTH DAVID INTESTINE OF [place] [address] [facility] INC PROPHYLAX IS/DX EA HOUR COLOREC G0105 C RONNIE TOBIAS CANCR 1 JATINDER LI SCR; PSC COLONSCPY [place]DIV[place] @[place] [address] [facility]APY/P INC INC ROPHYLAXI S /DX 1ST TO 1 HR ALBUTEROL J7620 YOUR YOUR TO 2.5 1 PHARMACY PHARMACY [facility] LLC IPRATROPI UM BROM TO 0.5 MG ADMN SET A7003 YOUR YOUR SM VOL 1 PHARMACY PHARMACY NONFILTR LLC LLC PNEUMAT NEBULIZR DISPBL PHRM Q0513 YOUR YOUR DISPENSIN 1 PHARMACY PHARMACY G FEE LLC LLC INHALATIO N RX; PER 30 DAYS COMPUTER- 78923 [facility] AIDED 1 [facility] DET[facility] INC SCREENING MAMMOGRAP HY SCREENING G0202 [facility] 1 [facility] MAMMOGRAP INC INC HY LISANDRO INCL CAD WHEN PERFORMD LIPID 65660 [facility] PANEL 1 [facility] INC INC HEPATIC 78885 [facility] FUNCTION 1 [facility] PANEL INC INC HEMOGLOBI 59437 [facility] N 1 [facility] H[facility] GLYCOSYLA INC INC TATIANA A1C COLLECTIO 67820 [facility] N VENOUS 1 [facility] BLOOD INC INC VENIPUNCT URE SCR G0145 PATHOLOGY PATHOLOGY CYTOPATH 1 & & CERV/VAG CYTOLOGY CYTOLOGY SCR LAB LAB AUTO&MNL RSCR PHYS 25 24212 [facility] HYDROXY 1 [facility] INCLUDES INC INC FRACTIONS IF PERFORMED PPSV23 62289 [facility] VACCINE 2 1 CARE R H YRS OR ASSOCIATE OLDER FOR S SUBQ/IM USE ADMINISTR G0009 [facility] ATION OF 1 CARE R H PNEUMOCOC ASSOCIATE PERFECTO S VACCINE ADLT SZD T4526 NURSES NURSES DISPBL 0 REGISTRY REGISTRY INCONT & HOME HE & HOME HE PROD [facility]WEAR [facility] A4258 DISCOUNT DISCOUNT WERED 0 DIABETIC DIABETIC DEVICE FOR LANCET EACH REPL ARANZA A4233 DISCOUNT DISCOUNT ALKALINE 0 DIABETIC DIABETIC NOT J CELL SACHA BG MON OWND PT BLD GLU A4253 DISCOUNT DISCOUNT TEST/REAG 0 DIABETIC DIABETIC T STRIPS HOME BLD GLU MON-50 NORMAL A4256 DISCOUNT DISCOUNT LOW AND 0 DIABETIC DIABETIC HIGH CALIBRATO R SOLUTION/ CHIPS LANCETS A4259 DISCOUNT DISCOUNT PER BOX 0 DIABETIC DIABETIC OF 100 FILTER A7038 LACIE MEDELLIN DISPBL 0 HOME MED HOME MED USED EQUIP. L EQUIP. L W/POS ARWAY PRESSURE DEVICE NASL A7034 LACIE MEDELLIN INTRFCE 0 HOME MED HOME MED POS ARWAY EQUIP. L EQUIP. L PRSS DEVC W/WO HEAD STRAP HEADGEAR A7035 LACIE MEDELLIN USED 0 HOME MED HOME MED W/POSITIV EQUIP. L EQUIP. L E AIRWAY PRESSURE DEVICE TUBING A7037 LACIE MEDELLIN USED WITH 0 HOME MED HOME MED POSITIVE EQUIP. L EQUIP. L AIRWAY PRESSURE DEVICE ADLT SZD T4526 NURSES NURSES DISPBL 0 REGISTRY REGISTRY INCONT & HOME HE & HOME HE PROD UNDWEAR MED EA CONTINUOU E0601 LACIE MEDELLIN S 0 HOME MED HOME MED POSITIVE EQUIP. L EQUIP. L AIRWAY PRESSURE DEVICE ADLT D T4526 NURSES NURSES DISPBL 0 REGISTRY REGISTRY INCONT & HOME HE & HOME HE PROD UNDWEAR MED EA IIV3 06076 FAMILY FAMILY VACCINE 0 CARE CARE SPLIT ASSOCIATE ASSOCIATE VIRUS 0.5 S S ML DOSAGE IM USE ADMINISTR G0008 FAMILY [facility] ATION OF 0 CARE R H INFLUENZA ASSOCIATE VIRUS S VACCINE CYANOCOBA 05137 COMBINED COMBINED CORETTA 0 PHYSICIAN PHYSICIAN VITAMIN S LA S LA B-12 COMPREHEN 26666 COMBINED COMBINED SIVE 0 PHYSICIAN PHYSIC[place] [address] COMBINED COMBINED THYROID 0 PHYSICIAN PHYSICIAN STIMULATI S LA S LA NG HORMONE TSH HEMOGLOBI 40306 FAMILY ROS[facility] ELENA N 0 CARE R H GLYCOSYLA ASSOCIATE TATIANA A1C S LIPID 90568 FAMILY FAMILY PANEL 0 CARE STOCKBROKER ASSOCIATE S S COLLECTIO 71616 FAMILY [facility]LE[facility] N VENOUS 0 CARE R H BLOOD ASSOCIATE VENIPUNCT S URE THERAPEUT 76813 [facility]ILY [facility] IC 0 CARE R H PROPHYLAC ASSOCIATE TIC/DX S INJECTION SUBQ/IM BLOOD 54888 FAMILY FAMILY COUNT 0 CARE CARE COMPLETE ASSOCIATE ASSOCIATE AUTO&AUTO S S DIFRNTL WBC ADLT D T4526 NURSES NURSES DISPBL 0 REGISTRY REGISTRY INCONT & HOME HE & HOME HE PROD UNDWEAR MED EA BLD GLU A4253 DISCOUNT DISCOUNT TEST/REAG 0 DIABETIC DIABETIC T STRIPS HOME BLD GLU MON-50 NORMAL A4256 DISCOUNT DISCOUNT LOW AND 0 DIABETIC DIABETIC HIGH CALIBRATO R SOLUTION/ CHIPS LANCETS A4259 DISCOUNT DISCOUNT PER BOX 0 DIABETIC DIABETIC OF 100 ADLT [facility] T4526 NURSES NURSES DISPBL 0 REGISTRY REGISTRY INCONT & HOME HE & HOME HE PROD UNDWEAR MED EA PHRM Q0513 YOUR YOUR DISPENSIN 0 PHARMACY PHARMACY G F[facility] INHALATIO N RX; PER 30 DAYS ALBUTEROL J7620 YOUR YOUR TO 2.5 0 PHARMACY PHARMACY MG & [facility] IPRATROPI UM BROM TO 0.5 MG ADMN SET A7003 YOUR YOUR SM VOL 0 PHARMACY PHARMACY NONFILTR [facility] PNEUMAT NEBULIZR DISPBL HEPATIC 96505 COMBINED COMBINED FUNCTION 0 PHYSICIAN PHYSICIAN PANEL S LA S LA THERAPEUT 20989 FAMILY ROSA ELENA IC 0 CARE R H PROPHYLAC ASSOCIATE TIC/DX S INJECTION SUBQ/IM COLLECTIO 61704 FAMILY FAMILY N VENOUS 0 CARE CARE BLOOD ASSOCIATE ASSOCIATE VENIPUNCT S S URE INJECTION J3420 FAMILY ROSA ELENA VIT B-12 0 CARE R H ASSOCIATE CYANOCOBA S CORETTA TO 1000 MCG [facility] T4528 NURSES NURSES DISPBL 0 REGISTRY REGISTRY INCONT & HOME HE & HOME HE PROD UNDWEAR XTRA LG EA [facility] T4528 NURSES NURSES DISPBL 0 REGISTRY REGISTRY INCONT & HOME HE & HOME HE PROD UNDWEAR XTRA LG BASIC 38956 COMBINED COMBINED METABOLIC 0 PHYSICIAN PHYSICIAN PANEL S LAB S LAB CALCIUM TOTAL URNLS DIP 55159 FAMILY ROSA ELENA, 0 CARE R RACHEL STICK/TAB ASSOCIATE LET RGNT S NON-AUTO W/O MICRSCP COLLECTIO 37681 FAMILY ROSA ELENA, N VENOUS 0 CARE R RACHEL BLOOD ASSOCIATE VENIPUNCT S URE LIPID 96107 FAMILY ROSA ELENA, PANEL 0 CARE R RACHEL ASSOCIATE S RADIOLOGI 30109 Angela NAM 0 MEDICAL DAT EXAMINATI IMAGING ON KNEE 3 ASSOCIATE VIEWS S TRANSFERA 57966 FAMILY CUBA, SE 0 CARE Honey RAMOS ASPARTATE ASSOCIATE AMINO S AST SGOT TRANSFERA 04042 FAMILY CU[place], SE 0 CARE R RACHEL ALANINE ASSOCIATE AMINO ALT S SGPT NORMAL A4256 DISCOUNT DISCOUNT LOW AND 0 DIABETIC DIABETIC HIGH CALIBRATO R SOLUTION/ CHIPS BLD GLU A4253 DISCOUNT DISCOUNT TEST/REAG 0 DIABETIC DIABETIC T STRIPS HOME BLD GLU MON-50 LANCETS A4259 DISCOUNT DISCOUNT PER BOX 0 DIABETIC DIABETIC OF 100 REPL ARANZA A4233 DISCOUNT DISCOUNT ALKALINE 0 DIABETIC DIABETIC NOT J CELL SACHA BG MON OWND PT SPRING-PO A4258 DISCOUNT DISCOUNT WERED 0 DIABETIC DIABETIC DEVICE FOR LANCET EACH [facility] T4528 NURSES NURSES DISPBL 0 REGISTRY REGISTRY INCONT & HOME [facility] EA CONTINUOU E0601 LACIE MEDELLIN S 0 HOME MED HOME MED POSITIVE EQUIP. L EQUIP. L AIRWAY PRESSURE DEVICE [facility] T4528 NURSES NURSES DISPBL 0 REGISTRY REGISTRY INCONT & HOME & HOME PROD [facility] UNDWEAR XTRA LG EA FILTER A7038 LACIE MEDELLIN DISPBL 0 HOME MED HOME MED USED EQUIP. L EQUIP. L W/POS ARWAY PRESSURE DEVICE HEADGEAR A7035 LACIE MEDELLIN USED 0 HOME MED HOME MED W/POSITIV EQUIP. L EQUIP. L E AIRWAY PRESSURE DEVICE NASL A7034 LACIE MEDELLIN INTRFCE 0 HOME MED HOME MED POS ARWAY EQUIP. L EQUIP. L PRSS DEVC W/WO HEAD STRAP ADLT D T4528 NURSES NURSES DISPBL 0 REGISTRY REGISTRY INCONT & HOME & HOME PROD ERLANGER [facility] [place] [facility] [address] [facility] 0 [facility] ECG INC INC W/LEAST 12 LDS TRCG ONLY W/O I&R CREATINE 87676 [facility] KINASE 0 [facility] TOTAL INC INC COMPREHEN 86082 [facility] SIVE 0 [facility] METABOLIC INC INC PANEL BLOOD 55200 [facility] COUNT 0 [facility] COMPLETE INC INC AUTO&AUTO DIFRNTL WBC RADIOLOGI 82268 ARJUN Angela BRADY EXAM 0 MEDICAL BEVERLY P CHEST 2 IMAGING VIEWS ASSOCIATE FRONTAL&[place] [address] [facility] TROPONIN 0 [facility] QUANTITAT INC INC ROSETTE CREATINE 56336 [facility] TEM[facility] KINASE MB 0 [facility] FRACTION INC INC ONLY ECG 26422 MICKEY MESA ROUTINE 0 EMERGENCY III, ECG SERVICES BALAJI W/XOCHITL 12 MARIE ASSOCIATE I&R ONLY S NEBULIZER E0570 LACIE MEDELLIN WITH 0 HOME MED HOME MED COMPRESSO EQUIP. EQUIP. R [employer] [facility] T4528 NURSES NURSES DISPBL 0 REGISTRY REGISTRY INCONT & HOME & HOME PROD [facility] UNDWEAR XTRA [facility] URNLS DIP 91766 FAMILY ROSA ELENA, 0 CARE R RACHEL STICK/TAB ASSOCIATE LET RGNT S NON-AUTO W/O MICRSCP NEBULIZER E0570 LACIE MEDELLIN WITH 0 HOME MED HOME MED COMPRESSO EQUIP. EQUIP. R [employer] [facility] T4528 NURSES NURSES DISPBL 0 REGISTRY REGISTRY INCONT & HOME & HOME PROD [facility] UNDWEAR XTRA KIT [facility] A4258 DISCOUNT DISCOUNT WERED 0 DIABETIC DIABETIC DEVICE FOR LANCET EACH REPL ARANZA A4233 DISCOUNT DISCOUNT ALKALINE 0 DIABETIC DIABETIC NOT J CELL SACHA BG MON OWND PT DIAB ONLY A5500 CLINIC CLINIC FIT CSTM 0 PHARMACY PHARMACY PREP&SPL SHOE MX DNSITY INSRT FOR DIAB A5513 CLINIC CLINIC ONLY MX 0 PHARMACY PHARMACY DNSITY INSRT CSTM MOLD CSTM EA LANCETS A4259 DISCOUNT DISCOUNT PER BOX 0 DIABETIC DIABETIC OF 100 BLD GLU A4253 DISCOUNT DISCOUNT TEST/REAG 0 DIABETIC DIABETIC T STRIPS HOME BLD GLU MON-50 NORMAL A4256 DISCOUNT DISCOUNT LOW AND 0 DIABETIC DIABETIC HIGH CALIBRATO R SOLUTION/ CHIPS FILTER A7038 LACIE LACIE DISPBL 0 HOME MED HOME MED USED EQUIP. EQUIP. W/POS [facility] ARWAY PRESSURE DEVICE NEBULIZER E0570 LACIE MEDELLIN WITH 9 HOME MED HOME MED COMPRESSO EQUIP. EQUIP. R [facility] BASIC 21399 COMBINED COMBINED METABOLIC 9 PHYSICIAN PHYSICIAN PANEL S LAB S LAB CALCIUM TOTAL COLLECTIO 07682 FAMILY CUBA, N VENOUS 9 GORGE RAMOS BLOOD ASSOCIATE VENIPUNCT S URE BLOOD 48729 FAMILY CUBA, COUNT 9 GORGE RAMOS COMPLETE ASSOCIATE AUTO&AUTO S DIFRNTL WBC URNLS DIP 48427 FAMILY CUBA, 9 GORGE RAMOS STICK/TAB ASSOCIATE LET RGNT S NON-AUTO W/O MICRSCP LIPID 87611 FAMILY CUBA, PANEL 9 GORGE RAMOS ASSOCIATE S HEMOGLOBI 19597 FAMILY CUAB, N 9 GORGE RAMOS GLYCOSYLA ASSOCIATE [place] A1C S CONTINUOU E0601 LACIE LACIE S 9 HOME MED HOME MED POSITIVE EQUIP. EQUIP. AIRWAY [facility] PRESSURE DEVICE FILTER A7039 LACIE MEDELLIN NON 9 HOME MED HOME MED DISPBL EQUIP. EQUIP. USED [facility] W/POS ARWAY PRESS DEVICE FILTER A7038 LACIE LACIE DISPBL 9 HOME MED HOME MED USED EQUIP. EQUIP. W/POS [facility] ARWAY PRESSURE DEVICE NEBULIZER E0570 LACIE MEDELLIN WITH 9 HOME MED HOME MED COMPRESSO EQUIP. EQUIP. R [facility] CREATINE 97647 M[facility]ICK LOZANOON KINASE 9 [facility] [place] [address] [facility] TEM[facility] TROPONIN 9 [facility] QUANTITAT INC INC ROSETTE CREATINE 95074 M[facility]ERICK LOZANOON KINASE MB 9 [facility] FRACTION INC INC ONLY CREATINE 24389 MAVERICK LOZANOON KINASE MB 9 [facility] FRACTION INC INC ONLY ECG 18807 MAVERICK SARABIA ROUTINE 9 [facility] W/LEAST PROF SERV 12 LDS I&[place] [address] MAVERICKKATHIE TEMPLE TROPONIN 9 [facility] QUANTITAT INC INC ROSETTE BLOOD 79694 M[facility]ICK TEMPLE COUNT 9 [facility] COMPLETE INC INC AUTO&AUTO DIFRNTL WBC RADIOLOGI 74393 M[facility]ERICK TEMPLE C 9 [facility] EXAMINATI INC INC ON CHEST SINGLE VIEW FRONTAL CREATINE 89794 M[facility]ICK TEMPLE KINASE 9 [facility] TOTAL INC INC THER 38087 MAVERICK TEMPLE PROPH/DX 9 [facility] NJX IV INC INC PUSH SINGLE/1S T SBST/DRUG BASIC 55842 MAVERICK TEMPEL METABOLIC 9 [facility] PANEL INC INC CALCIUM TOTAL ECG 40319 M[facility]ERICK TEMPLE ROUTINE 9 [facility] ECG INC INC W/LEAST 12 LDS TRCG ONLY W/O I&R NEBULIZER E0570 LACIE MEDELLIN WITH 9 HOME MED HOME MED COMPRESSO EQUIP. EQUIP. R LLC LLC PHRM Q0513 YOUR YOUR DISPENSIN 9 PHARMACY PHARMACY G FEE LLC LLC INHALATIO N RX; PER 30 DAYS ALBUTEROL J7620 YOUR YOUR TO 2.5 9 PHARMACY PHARMACY MG & LLC LLC IPRATROPI UM BROM TO 0.5 MG ADLT SZD T4528 NURSES NURSES DISPBL 9 REGISTRY REGISTRY INCONT & HOME & HOME PROD [facility] XTRA LG EA BASIC 52480 M[facility] TEMPLE METABOLIC 9 [facility] PANEL INC INC CALCIUM TOTAL COLLECTIO 11657 MAVERICK TEMPLE N VENOUS 9 [facility] BLOOD INC INC VENIPUNCT URE HEPATIC 23632 M[facility]ERICK TEMPLE FUNCTION 9 [facility] PANEL INC INC LIPID 20813 M[facility]ICK TEMPLE PANEL 9 [facility] INC INC HEMOGLOBI 92706 MAVERICK TEMPLE N 9 [facility] GLYCOSYLA [place] [address] MAVERICK TEMPLE THYROID 9 [facility] STIMULATI INC INC NG HORMONE TSH OPHTH 50890 CAM LEVY, MEDICAL 9 ROSA A ROSA A XM&EVAL COMPRHNSV ESTAB PT 1/> CUSHN A7032 LACIE LACIE NASAL 9 HOME MED HOME MED MASK EQUIP. EQUIP. INTERFACE [employer] [facility] REPLACEME NT ONLY EACH NASL A7034 LACIE MEDELLIN INTRFCE 9 HOME MED HOME MED POS ARWAY EQUIP. EQUIP. PRSS [employer] LLC DEVC W/WO HEAD STRAP HEADGEAR A7035 LACIE MEDELLIN USED 9 HOME MED HOME MED W/POSITIV EQUIP. EQUIP. E AIRW[employer] [facility] PRESSURE DEVICE FILTER A7038 LACIE MEDELLIN DISPBL 9 HOME MED HOME MED USED EQUIP. EQUIP. W/POS [facility] AR[facility]AY PRESSURE DEVICE TUBING A7037 LACIE MEDELLIN USED WITH 9 HOME MED HOME MED POSITIVE EQUIP. EQUIP. AIRWAY [facility] PRESSURE DEVICE RADIOLOGI 92743 [place] JOANA, C 9 MEDICAL DAT EXAMINATI IMAGING ON CHEST ASSOCIATE SINGLE S VIEW FRONTAL ECG 61300 MAVERICK SARABIA, ROUTINE 9 [facility] ECG HOSPITAL W/LEAST PROF SERV 12 LDS I&R ONLY ECG 69043 MICKEY CARROLL, ROUTINE 9 EMERGENCY SHEBA S ECG SERVICES W/LEAST 12 LDS ASSOCIATE I&R ONLY S URNLS DIP 51162 FAMILY ROSA ELENA, 9 CARE R RACHEL STICK/TAB ASSOCIATE LET RGNT S NON-AUTO W/O MICRSCP NEBULIZER E0570 LACIE MEDELLIN WITH 9 HOME MED HOME MED COMPRESSO EQUIP. EQUIP. R LLC LLC ADLT SZD T4528 NURSES NURSES DISPBL 9 REGISTRY REGISTRY INCONT & HOME & HOME PROD [facility] UNDWEAR XTRA LG EA LANCETS A4259 DISCOUNT DISCOUNT PER BOX 9 DIABETIC DIABETIC OF 100 BLD GLU A4253 DISCOUNT DISCOUNT TEST/REAG 9 DIABETIC DIABETIC T STRIPS HOME BLD GLU MON-50 NORMAL A4256 DISCOUNT DISCOUNT LOW AND 9 DIABETIC DIABETIC HIGH CALIBRATO R SOLUTION/ CHIPS NEBULIZER E0570 LACIE MEDELLIN WITH 9 HOME MED HOME MED COMPRESSO EQUIP. EQUIP. R LLC LLC ADLT SZD T4528 NURSES NURSES DISPBL 9 REGISTRY REGISTRY INCONT & HOME & HOME PROD [facility] UNDAR XTRA EA NEBULIZER E0570 LACIE MEDELLIN WITH 9 HOME MED HOME MED COMPRESSO EQUIP. EQUIP. R [facility] ADLT D T4528 NURSES NURSES DISPBL 9 REGISTRY REGISTRY INCONT & HOME & HOME PROD [facility] UNDAR XTRA LG EA PHRM Q0513 YOUR YOUR DISPENSIN 9 PHARMACY PHARMACY G FEE [employer] [facility] INHALATIO N RX; PER 30 DAYS ALBUTEROL J7620 YOUR YOUR TO 2.5 9 PHARMACY PHARMACY MG & [facility] IPRATROPI UM BROM TO 0.5 MG ADMN SET A7003 YOUR YOUR SM VOL 9 PHARMACY PHARMACY NONFILInstant [employer] [facility] PNEUMAT NEBULIZR DISPBL CUSHN A7032 LACIE MEDELLIN NASAL 9 HOME MED HOME MED MASK EQUIP. EQUIP. INTERFACE [facility] REPLACEME NT ONLY EACH NASL A7034 LACIE MEDELLIN INTRFCE 9 HOME MED HOME MED POS ARWAY EQUIP. EQUIP. PRSS [facility] DEVC W/WO HEAD STRAP FILTER A7038 LACIE MEDELLIN DISPBL 9 HOME MED HOME MED USED EQUIP. EQUIP. W/POS [facility] ARWAY PRESSURE DEVICE TUBING A7037 LACIE MEDELLIN USED WITH 9 HOME MED HOME MED POSITIVE EQUIP. EQUIP. AIRWAY [facility] PRESSURE DEVICE NEBULIZER E0570 LACIE MEDELLIN WITH 9 HOME MED HOME MED COMPRESSO EQUIP. EQUIP. [facility] T4528 NURSES NURSES DISPBL 9 REGISTRY REGISTRY INCONT & HOME & HOME PROD [facility] XTRA EA CONTINUOU E0601 LACIE LACIE S 9 HOME MED HOME MED POSITIVE EQUIP. EQUIP. AIRWAY [facility] PRESSURE DEVICE PHRM Q0513 YOUR YOUR DISPENSIN 9 PHARMACY PHARMACY G [employer] INHALATIO N RX; PER 30 DAYS ADMN SET A7003 YOUR YOUR SM VOL 9 PHARMACY PHARMACY NONFILInstant [employer] [facility] PNEUMAT NEBULIZR DISPBL ALBUTEROL J7613 YOUR YOUR INHAL 9 PHARMACY PHARMACY NON-CP [facility] PROD THRU DME U DOSE 1 MG INJECTION J2405 [facility] 9 [facility] ONDANSETR INC INC ON HCL PER 1 [place] [address] [facility] TEMPLE INFUSION 9 [facility] THERAPY/P INC INC ROPHYLAXI S /DX 1ST TO 1 HR GLUC BLD 73428 [facility]PLE GLUC MNTR 9 [facility] DEV INC INC CLEARED FDA SPEC HOME USE THERAPEUT 47733 [facility] TEM[facility] IC 9 [facility] INJECTION INC INC IV PUSH EACH NEW DRUG BIOPSY 65374 ARJUN BERNARD BREAST 9 MEDICAL DAT NEEDLE IMAGING CORE ASSOCIATE W/IMAGING S GUIDANCE PREOP 03650 [facility] PLACEMENT 9 [facility] INC INC LOCALIZAT ION WIRE BREAST RADIOLOGI 92367 ARJUN BERNARD PERFECTO 9 MEDICAL DAT EXAMINATI IMAGING ON ASSOCIATE SURGICAL S SPECIMEN MAMMOGRAP 51370 [facility] TEM[facility] HY 9 [facility] UNILATERA INC INC L ANES 32536 COMMUNITY HASTINGS, INTEG 9 ANESTH BALAJI F EXTREMITI OF THE ES ANT BLUEGRASS TRUNK & PERINEUM NOS IMG GID 62072 FRANCIS NAM MTLC 9 MEDICAL DTA LOCLZJ IMAGING CLIP PRQ ASSOCIATE BRST S BX/[place] [address] CORA NAM 9 MEDICAL DAT NEEDLE IMAGING PLACEMENT ASSOCIATE IMG S&I S BIOPSY 88695 [facility] TEMPLE BREAST 9 [facility] OPEN INC INC INCISIONA L EXC 77030 SCHULSTSYDNI SCHULSTAD BREAST 9 , RONNIE , RONNIE LES PREOP PLMT RAD MARKER OPEN 1 [place] [address] [facility] INFUSION 9 [facility] THERAPY INC INC PROPHYLAX IS/DX EA HOUR US BREAST 93075 [facility] TEMPLE REAL 9 [facility] TIME INC INC W/IMAGE DOCUMENTA TION BASIC 39731 [facility] TEMPLE METABOLIC 9 [facility] PANEL INC INC CALCIUM TOTAL COLLECTIO 94282 [facility] TEM[facility] N VENOUS 9 [facility] BLOOD INC INC VENIPUNCT URE ECG 86367 [facility] TEMPLE ROUTINE 9 [facility] ECG INC INC W/LEAST 12 LDS TRCG ONLY W/O I&R BLOOD 42558 [facility] TEMPLE COUNT 9 [facility] COMPLETE INC INC AUTO&AUTO DIFRNTL WBC ECG 25396 MAVERICK MCKEMIE ROUTINE 9 [facility] W/LEAST PROF SERV 12 LDS I&R ONLY NEBULIZER E0570 LACIEFRANCOIS MEDELLIN WITH 9 HOME MED HOME MED COMPRESSO EQUIP. EQUIP. R [employer] LLC COLLECTIO 79298 M[facility]ICK TEMPLE N VENOUS 9 [facility] BLOOD INC INC VENIPUNCT URE BASIC 29850 [facility] TEMPLE METABOLIC 9 [facility] PANEL INC INC CALCIUM TOTAL HEPATIC 49590 MAVERICK MAVERICK FUNCTION 9 [facility] PANEL INC INC LIPID 86745 M[facility]ICK TEMPLE PANEL 9 [facility] INC INC HEMOGLOBI 89047 MAVERICK TEMPLE N 9 [facility] GLYCOSYLA INC INC [place] A1C LANCETS A4259 DISCOUNT DISCOUNT PER BOX 9 DIABETIC DIABETIC OF 100 BLD GLU A4253 DISCOUNT DISCOUNT TEST/REAG 9 DIABETIC DIABETIC T STRIPS HOME BLD GLU MON-50 NORMAL A4256 DISCOUNT DISCOUNT LOW AND 9 DIABETIC DIABETIC HIGH CALIBRATO R SOLUTION/ CHIPS REPL ARANZA A4235 DISCOUNT DISCOUNT LITHIUM 9 DIABETIC DIABETIC MED NECES SACHA BG MON OWN PT EA SPRING-PO A4258 DISCOUNT DISCOUNT WERED 9 DIABETIC DIABETIC DEVICE FOR LANCET EACH URNLS DIP 58263 FAMILY ROSA ELENA, 9 CARE R RACHEL STICK/TAB ASSOCIATE LET RGNT S NON-AUTO W/O MICRSCP CULTURE 12796 MAVERICK MAVERICK BACTERIAL 9 [facility] INC INC QUANTTATI VE COLONY COUNT URINE ADLT SZD T4528 NURSES NURSES DISPBL 9 REGISTRY REGISTRY INCONT & HOME & HOME PROD [facility] XTRA LG EA US BREAST 37017 ELLY CHASE 9 MEDICAL BEVERLY P TIME IMAGING W/[place] [address] ARJUN JOSE ANTONIO, GUIDANCE 9 MEDICAL BEVERLY P NEEDLE IMAGING PLACEMENT ASSOCIATE IMG S&I S BREAST 73132 ARJUN BRADY, BIOPSY 9 MEDICAL BEVERLY P VACUUM IMAGING ASSISTED/ ASSOCIATE ROTATING S DEVICE PREOP 75673 [facility] PLACEMENT 9 [facility] INC INC LOCALIZAT ION WIRE BREAST PROBE/NEE C2618 [facility] DLE 9 [facility] [place] [address] PATHOLOGY PATHOLOGY SURG 9 & & PATHOLOGY CYTOLOGY CYTOLOGY LAB LAB GROSS&[place] [address] M[facility] TEM[facility] THYROID 9 [facility] STIMULATI [place] [address] [facility] TEM[facility] TROPONIN 9 [facility] QUANTITAT INC INC ROSETTE BLOOD 48384 [facility] TEMPLE COUNT 9 [facility] COMPLETE INC INC AUTO&AUTO DIFRNTL WBC CULTURE 40376 [facility] BCT 9 [facility] ISOL&PRSM INC INC PTV ID ISOLATE EA URINE RADIOLOGI 67903 Angela SEGUNDO 9 EMERGENCY LORENZO S EXAMINATI SERVICES ON CHEST SING[place] [address] [facility] TEMPLE THYROXINE 9 [facility] TOTAL INC INC CULTURE 45126 [facility] TEMPLE BACTERIAL 9 [facility] INC INC QUANTTATI VE COLONY COUNT URINE CREATINE 05705 M[facility]ICK TEMPLE KINASE MB 9 [facility] FRACTION INC INC ONLY NATRIURET 23146 [facility] TEM[facility] IC 9 [facility] PEPTIDE INC INC URNLS DIP 03256 [facility] 9 [facility] STICK/TAB INC INC LET REAGENT AUTO MICROSCOP Y ECG 28999 LIZETH SEGUNOD 9 EMERGENCY LORENZO S ECG SERVICES W/LEAST 12 LDS ASSOCIATE I&R ONLY S THER 72168 [facility] TEMPLE PROPH/DX 9 [facility] NJX IV INC INC PUSH SINGLE/1S T SBST/DRUG BASIC 42695 [facility] TEMPLE METABOLIC 9 [facility] PANEL INC INC CALCIUM TOTAL CREATINE 88964 [facility]PLE KINASE 9 [facility] TOTAL INC INC INSJ TEMP 90985 [facility] TEMPLE NDWELLG 9 [facility] BLADDER INC INC CATHETER SIMPLE ECG 78057 M[facility] TEMPLE ROUTINE 9 [facility] ECG INC INC W/LEAST 12 LDS TRCG ONLY W/O I&R SUSCEPTIB 48066 [facility] TEMPLE LTY STDY 9 [facility] ANTIMICRB INC INC IAL MICRO/AGA R DILUTJ MAMMOGRAP 68986 [facility] TEMPLE HY 9 [facility] UNILATERA INC INC L US BREAST 04864 ELLY CHASE 9 MEDICAL BEVERLY P TIME IMAGING W/IMAGE ASSOCIATE DOCUMENTA S TION NEBULIZER E0570 LACIE MEDELLIN WITH 9 HOME MED HOME MED COMPRESSO EQUIP. EQUIP. R LLC LLC ADLT [facility] T4528 NURSES NURSES DISPBL 9 REGISTRY REGISTRY INCONT & HOME & HOME PROD [facility] UNDWEAR XTRA EA OPHTHALMO 10471 SOLANGE NARVAEZ, SCPY 9 LISSY YUAN EXTENDED RETINAL DRAWING I&R 1ST NEBULIZER E0570 LACIE MEDELLIN WITH 9 HOME MED HOME MED COMPRESSO EQUIP. EQUIP. R LLC LLC PHARM G0333 YOUR YOUR DISPEN 9 PHARMACY PHARMACY FEE INHAL LLC LLC RX; INITIAL 30-DAY SUPPLY ALBUTEROL J7620 YOUR YOUR TO 2.5 9 PHARMACY PHARMACY MG & LLC LLC IPRATROPI UM BROM TO 0.5 MG ADMN SET A7003 LACIE MEDELLIN SM VOL 9 HOME MED HOME MED NONFILTR EQUIP. EQUIP. PNEUMAT LLC LLC NEBULIZR DISPBL ADLT SZD T4528 NURSES NURSES DISPBL 9 REGISTRY REGISTRY INCONT & HOME & HOME PROD [facility] UNDWEAR XTRA LG EA ADLT SZD T4528 NURSES NURSES DISPBL 9 REGISTRY REGISTRY INCONT & HOME & HOME PROD [facility] UNDWEAR XTRA LG EA SMR PRIM 02722 [facility] OF [facility] OF SRC 9 [facility] INC GRAM/GIEM SA STAIN BCT FUNGI/BIJU L ADLT SZD T4528 NURSES NURSES DISPBL 9 REGISTRY REGISTRY INCONT & HOME & HOME PROD [facility] UNDWEAR XTRA KIT EA NASL A7034 LACIE LACIE INTRFCE 8 HOME MED HOME MED POS ARWAY EQUIP. EQUIP. PRSS LLC LLC DEVC W/WO HEAD STRAP FILTER A7038 LACIE LACIE DISPBL 8 HOME MED HOME MED USED EQUIP. EQUIP. W/POS LLC LLC ARWAY PRESSURE DEVICE FILTER A7039 LACIE LACIE NON 8 HOME MED HOME MED DISPBL EQUIP. EQUIP. USED LLC LLC W/POS ARWAY PRESS DEVICE CUSHN A7032 LACIE LACIE NASAL 8 HOME MED HOME MED MASK EQUIP. EQUIP. INTERFACE LLC LLC REPLACEME NT ONLY EACH TUBING A7037 LACIE LACIE USED WITH 8 HOME MED HOME MED POSITIVE EQUIP. EQUIP. AIRWAY [facility] PRESSURE DEVICE LIPID 04625 COMBINED COMBINED PANEL 8 PHYSICIAN PHYSICIAN S LAB S LAB HEMOGLOBI 59297 COMBINED COMBINED N 8 PHYSICIAN PHYSICIAN GLYCOSYLA S LAB [place] [address] COMBINED COMBINED THYROID 8 PHYSICIAN PHYSICIAN STIMULATI S LAB S LAB NG HORMONE TSH COMPREHEN 84962 COMBINED COMBINED SIVE 8 PHYSICIAN PHYSICIAN METABOLIC S LAB S LAB PANEL COLLECTIO 99397 FAMILY MULBERRY, N VENOUS 8 CARE JOS T BLOOD ASSOCIATE VENIPUNCT S URE URNLS DIP 53561 FAMILY MULBERRY, 8 CARE JOS T STICK/TAB ASSOCIATE LET RGNT S NON-AUTO W/O MICRSCP ADLT SZD T4528 NURSES NURSES DISPBL 8 REGISTRY REGISTRY INCONT & HOME & [facility] ASC[facility] LG, EA CONTINUOU E0601 LACIE LACIE S 8 HOME MED HOME MED POSITIVE EQUIP. EQUIP. AIRWAY LLC LLC PRESSURE DEVICE CUSHN A7032 LACIE LACIE NASAL 8 HOME MED HOME MED MASK EQUIP. EQUIP. INTERFACE LLC LLC REPLACEME NT ONLY EACH FILTER A7038 LACIE LACIE DISPBL 8 HOME MED HOME MED USED EQUIP. EQUIP. W/POS LLC LLC ARWAY PRESSURE DEVICE ADLT SZD T4528 NURSES NURSES DISPBL 8 REGISTRY REGISTRY INCONT & HOME & HOME PROD [facility] UNDWEAR XTRA LG EA FILTER A7038 LACIE LACIE DISPBL 8 HOME MED HOME MED USED EQUIP. EQUIP. W/POS LLC LLC ARWAY PRESSURE DEVICE CUSHN A7032 LACIE LACIE NASAL 8 HOME MED HOME MED MASK EQUIP. EQUIP. INTERFACE LLC LLC REPLACEME NT ONLY EACH ADLT SZD T4528 NURSES NURSES DISP 8 REGISTRY REGISTRY INCONT & HOME & HOME PROD [facility] UNDWEAR XTRA LG EA COMPUTER- 25316 JAYLENEWAYNECristina MANPREET BRADY 8 MEDICAL BEVERLY P DETECTION IMAGING ASSOCIATE SCREENING S MAMMOGRAP HY SCREENING 08971 MAVERICK MAVERICK 8 [facility] MAMMOGRAP INC INC HY BILATERAL CUSHN A7032 LACIE LACIE NASAL 8 HOME MED HOME MED MASK EQUIP. EQUIP. INTERFACE LLC LLC REPLACEME NT ONLY EACH FILTER A7038 LACIE LACIE DISPBL 8 HOME MED HOME MED USED EQUIP. EQUIP. W/POS LLC LLC ARWAY PRESSURE DEVICE NASL A7034 LACIE LACIE INTRFCE 8 HOME MED HOME MED POS ARWAY EQUIP. EQUIP. PRSS LLC LLC DEVC W/WO HEAD STRAP TUBING A7037 LACIE LACIE USED WITH 8 HOME MED HOME MED POSITIVE EQUIP. EQUIP. AIRWAY LLC LLC PRESSURE DEVICE ADLT SZD T4528 NURSES NURSES DISPBL 8 REGISTRY REGISTRY INCONT & HOME & HOME PROD [facility] UNDWEAR XTRA LG EA OPHTH 64653 CAM LEVY, MEDICAL 8 ROSA A ROSA A XM&EVAL COMPRHNSV ESTAB PT 1/> CUSHN A7032 LACIE LACIE NASAL 8 HOME MED HOME MED MASK EQUIP. EQUIP. INTERFACE LLC LLC REPLACEME NT ONLY EACH FILTER A7038 LACIE LACIE DISPBL 8 HOME MED HOME MED USED EQUIP. EQUIP. W/POS LLC LLC ARWAY PRESSURE DEVICE ADLT SZD T4528 NURSES NURSES DISPBL 8 REGISTRY REGISTRY INCONT & HOME & HOME PROD [facility] UNDWEAR XTRA LG EA L HRT 32807 ELADIA TODD CATHETERI 8 NIMA Loja ZATION CLINIC RETROGRAD PSC E BRACHIAL PERQ INJECTION 45055 ELADIA TODD CARDIAC 8 NIMA Loja CATHJ L CLINIC VENTR/[place] [address] ELADIA TODD, C-CATHJ 8 NIMA Loja F/SLCTV C CLINIC ANGRPH PSC I SI&R 25966 ELADIA PEYTON, F/NJX PX 8 NIMA Loja DURING CLINIC C-CATHJ PSC VENTR&/AT R ANGRPH I SI&R 12196 ELADIA PEYTON, F/NJX PX 8 NIMA Loja DURING CLINIC C-CATHJ PSC PULM&/OR SELECT RADIOLOGI 87973 RADIOLOGY Angela CAO 8 RE Miller EXAMINATI ASSOCIATE ON CHEST S PSC SINGLE VIEW FRONTAL NASL A7034 LACIE MEDELLIN INTRFCE 8 HOME MED HOME MED POS ARWAY EQUIP. EQUIP. PRSS LLC LLC DEVC W/WO HEAD STRAP FILTER A7038 LACIE MEDELLIN DISPBL 8 HOME MED HOME MED USED EQUIP. EQUIP. W/POS LLC LLC ARWAY PRESSURE DEVICE CUSHN A7032 LACIE MEDELLIN NASAL 8 HOME MED HOME MED MASK EQUIP. EQUIP. [employer] REPLACEME NT ONLY EACH TUBING A7037 LACIE MEDELLIN USED WITH 8 HOME MED HOME MED POSITIVE EQUIP. EQUIP. AIR[employer] [facility] PRESSURE DEVICE ADLT SZD T4528 NURSES NURSES DISPBL 8 REGISTRY REGISTRY INCONT & HOME & HOME PROD [facility] UNDWEAR XTRA LG EA ADLT SZD T4528 NURSES NURSES DISPBL 8 REGISTRY REGISTRY INCONT & HOME & HOME PROD [facility] UNDWEAR XTRA LG EA CONTINUOU E0601 LACIE MEDELLIN S 8 HOME MED HOME MED POSITIVE EQUIP. EQUIP. [employer] PRESSURE DEVICE ADLT SZD T4528 NURSES NURSES DISPBL 8 REGISTRY REGISTRY INCONT & HOME & HOME PROD [facility] UNDWEAR XTRA LG EA HOS BED E0260 CLEMENTE CORNEJO, SEMI-ELEC 8 INC INC W/ANY TYPE SIDE RAIL W/MATTRSS ADLT SZD T4528 NURSES NURSES DISPBL 8 REGISTRY REGISTRY INCONT & HOME & HOME PROD HEALH HEAL UNDWEAR XTRA LG EA MRI BRAIN 33184 JOANABRISEIDAJOANA, BRAIN 8 DAT DAT STEM W/O W/CONTRAS T MATERIAL MRI ORBIT 53250 JOANA, JOANA, FACE & 8 DAT DAT NECK W/O & W/CONTRAS T MATRL OPHTHALMO 78817 SOLANGE NARVAEZ, SCPY 8 LISSY YUAN EXTENDED RETINAL DRAWING I&R 1ST HOS BED E0260 CLEMENTE CORNEJO, SEMI-ELEC 8 INC INC W/ANY TYPE SIDE RAIL W/MATTRSS ADLT D T4528 NURSES NURSES DISPBL 8 REGISTRY REGISTRY INCONT & HOME & HOME PROD [facility] UNDWEAR XTRA LG EA LANCETS A4259 CLINIC CLINIC PER BOX 8 PHARMACY PHARMACY OF 100 BLD GLU A4253 CLINIC CLINIC TEST/REAG 8 PHARMACY PHARMACY T STRIPS HOME BLD GLU MON-50 HOS BED E0260 CLEMENTE CORNEJO, SEMI-ELEC 8 INC INC W/ANY TYPE SIDE RAIL W/MATTRSS DOPPLER 66703 MAVERICK ELLISON ECHOCARD 8 [facility] F WAVE PROF SERV W/SPECTRA L DISPLAY ECHO 99087 MAVERICK ELLISON TRANSTHOR 8 [facility] R-T [address] [place] [address] W/WO PROF SERV M-MODE REC COMP DOP 38640 MAVERICK ELLISON ECHOCARD 8 [facility] FLOW PROF SERV VELOCITY MAPPING HOS BED E0260 CLEMENTE CORNEJO, SEMI-ELEC 8 INC INC W/ANY TYPE SIDE RAIL W/MATTRSS US BREAST 51808 MAVERICK TEMPLE REAL 8 [facility] TIME INC INC W/IMAGE DOCUMENTA TION FILTER A7039 LACIEFRANCOIS MEDELLIN NON 8 HOME MED HOME MED DISPBL EQUIP. EQUIP. USED [facility] W/POS AR[facility]AY PRESS DEVICE NASL A7034 LACIE MEDELLIN INTRFCE 8 HOME MED HOME MED POS ARWAY EQUIP. EQUIP. [employer] DEVC W/WO HEAD STRAP PILLW A7033 LACIE MENONRELL NASL 8 HOME MED HOME MED CANNULA EQUIP. EQUIP. [employer] [facility] INTERFCE REPL ONLY PAIR TUBING A7037 LACIE LACIE USED WITH 8 HOME MED HOME MED POSITIVE EQUIP. EQUIP. AIR[facility]AY [facility] PRESSURE DEVICE Encounters Encounter Start End Date Code Location Performer Type Date [facility] MAVERICK - 1 1 [facility] OUTPATIEN [facility] OFFICE [id number] Angela TOBIAS OUTPATIEN 1 1 JATINDER Newman MD [facility] MINUTES [facility] - 1 1 [facility] - 1 1 [facility]PATI[facility] T OFFICE [id number] FAMILY ROSA ELENA OUTPATIEN 1 1 CARE R H T VISIT ASSOCIATE 25 S MINUTES HOME NURSES HEALTH, 0 0 REGISTRY OUTPATIEN & HOME HE T HOME NURSES HEALTH, 0 0 REGISTRY OUTPATIEN & HOME HE T HOME NURSES HEALTH, 0 0 REGISTRY OUTPATIEN & HOME HE T OFFICE 22076 FAMILY ROSA ELENA OUTPATIEN 0 0 CARE R H T VISIT ASSOCIATE 15 S MINUTES OFFICE [id number] FAMILY ROSA ELENA OUTPATIEN 0 0 CARE R H T VISIT ASSOCIATE 25 S MINUTES HOME NURSES HEALTH, 0 0 REGISTRY OUTPATIEN & HOME HE T HOME NURSES HEALTH, 0 0 REGISTRY OUTPATIEN & HOME HE T OFFICE [id number] FAMILY ROSA ELENA OUTPATIEN 0 0 CARE R H T VISIT ASSOCIATE 25 S MINUTES HOME NURSES HEALTH, 0 0 REGISTRY OUTPATIEN & HOME HE T HOME NURSES HEALTH, 0 0 REGISTRY OUTPATIEN & HOME HE T OFFICE [id number] FAMILY ROSA ELENA, OUTPATIEN 0 0 CARE R RACHEL T VISIT ASSOCIATE 25 S MINUTES [facility]OSPITAL [facility]ES [facility], 0 0 REGISTRY OUTPATIEN & HOME T [facility] HOME NURSES HEALTH, 0 0 REGISTRY OUTPATIEN & HOME T [facility] HOME NURSES HEALTH, 0 0 REGISTRY OUTPATIEN & HOME T [facility] EMERGENCY [id number] MICKEY MESA 0 0 [facility]ER[facility]Y [facility], [facility]ISIT HIGH/URGE ASSOCIATE NT S SEVERITY [facility] T OFFICE [id number] FAMILY MANJINDER, OUTPATIEN 0 0 CARE JOS T T VISIT ASSOCIATE 25 S MINUTES HOME NURSES HEALTH, 0 0 REGISTRY OUTPATIEN & HOME T [facility] OFFICE 36497 FAMILY ROSA ELENA, OUTPATIEN 0 0 CARE R RACHEL T VISIT ASSOCIATE 25 S MINUTES HOME NURSES HEALTH, 0 0 REGISTRY OUTPATIEN & HOME T [facility] OFFICE 66890 FAMILY ROSA ELENA, OUTPATIEN 9 9 CARE R RACHEL T VISIT ASSOCIATE 25 S MINUTES [facility] - 9 9 [facility] T EMERGENCY 91679 [facility] 9 9 [facility] DEPARTMEN INC T VISIT HIGH/URGE NT SEVERITY EMERGENCY 06220 MICKEY CARROLL, DEPT 9 9 EMERGENCY SHEBA S VISIT SERVICES HIGH SEVERITY& ASSOCIATE THREAT S [facility] NURSES HEALTH, 9 9 REGISTRY OUTPATIEN & HOME T [facility] - 9 9 [facility] T EMERGENCY 15219 MICKEY CARROLL, DEPT 9 9 EMERGENCY SHEBA S VISIT SERVICES HIGH SEVERITY& ASSOCIATE THREAT S [facility] EMERGENCY 58183 MICKEY CARROLL, DEPT 9 9 EMERGENCY SHE[place] S VISIT SERVICES HIGH SEVERITY& ASSOCIATE THREAT S [facility] OFFICE 74190 FAMILY ROSA ELENA, OUTPATIEN 9 9 CARE R RACHEL T VISIT ASSOCIATE 25 S MINUTES OFFICE 78364 FAMILY ROSA ELENA, OUTPATIEN 9 9 CARE R RACHEL T VISIT ASSOCIATE 15 S MINUTES HOME NURSES HEALTH, 9 9 REGISTRY OUTPATIEN & HOME T [facility] NURSES HEALTH, 9 9 REGISTRY OUTPATIEN & HOME T [facility] NURSES HEALTH, 9 9 REGISTRY OUTPATIEN & HOME T [facility] OFFICE 96176 FAMILY MANJINDER, OUTPATIEN 9 9 CARE JOS T T VISIT ASSOCIATE 15 S MINUTES HOME NURSES HEALTH, 9 9 REGISTRY OUTPATIEN & HOME T [facility] - 9 9 [facility] T OFFICE 25020 ARJUN BERNARD OUTPATIEN 9 9 MEDICAL DAT T NEW 10 IMAGING MINUTES [facility] - 9 9 [facility] T OFFICE 14535 JATINDER TOBIAS CONSULTAT 9 9 , RONNIE TRUJILLO NEW/ESTAB PATIENT 60 MIN [facility] - 9 9 [facility] T OFFICE 75424 FAMILY ROSA ELENA, OUTPATIEN 9 9 CARE R RACHEL T VISIT ASSOCIATE 25 S MINUTES [facility] - 9 9 [facility] T HOME NURSES HEALTH, 9 9 REGISTRY OUTPATIEN & HOME T [facility] - 9 9 [facility] OUT[facility] T EMERGENCY 68545 [facility] 9 9 [facility] DEPARTMEN INC T VISIT HIGH/URGE NT SEVERITY [facility] - 9 9 [facility] T EMERGENCY 58753 MICKEY CARROLL, DEPT 9 9 EMERGENCY SHEBA S VISIT SERVICES HIGH SEVERITY& ASSOCIATE THREAT S [facility] - 9 9 [facility] OUTPATIEN INC T HOME NURSES HEALTH, 9 9 REGISTRY OUTPATIEN & HOME T [facility] OFFICE 09739 SOLANGE NARVAEZ, CONSULTAT 9 9 LISSY YUAN ION NEW/ESTAB PATIENT 80 MIN OFFICE 31473 FAMILY MULBERRY, OUTPATIEN 9 9 CARE JOS T T VISIT ASSOCIATE 15 S MINUTES HOME NURSES HEALTH, 9 9 REGISTRY OUTPATIEN & HOME T [facility] OFFICE 90673 FAMILY MULBERRY, OUTPATIEN 9 9 CARE JOS T T VISIT ASSOCIATE 15 S MINUTES HOME NURSES HEALTH, 9 9 REGISTRY OUTPATIEN & HOME T [facility] OFFICE 63805 FAMILY MULBERRY, OUTPATIEN 8 8 CARE JOS T T VISIT ASSOCIATE 25 S MINUTES HOME NURSES HEALTH, 8 8 REGISTRY OUTPATIEN & HOME T [facility] OFFICE 53117 CUONG, CUONG, OUTPATIEN 8 8 LUANN LUANN T VISIT 15 MINUTES HOME NURSES HEALTH, 8 8 REGISTRY OUTPATIEN & HOME T [facility] HOME NURSES HEALTH, 8 8 REGISTRY OUTPATIEN & HOME T [facility] - 8 8 [facility] OUT[facility]IEN INC HOME NURSES HEALTH, 8 8 REGISTRY OUTPATIEN & HOME T [facility] HOME NURSES HEALTH, 8 8 REGISTRY OUTPATIEN & HOME T [facility] OFFICE 77640 FAMILY [facility]JINDER, [facility] 8 8 CARE JOS [facility] VISIT ASSOCIATE 15 S MINUTES HOME NURSES HEALTH, 8 8 REGISTRY OUTPATIEN & HOME T [facility] NURSES HEALTH, 8 8 REGISTRY OUTPATIEN & HOME T [facility] OFFICE 82873 SOLANGE NARVAEZ, CONSULTAT 8 8 LISSY BRAMBILA [facility] PATIENT 80 MIN HOME NURSES HEALTH, 8 8 REGISTRY OUTPATIEN & HOME T [facility] - 8 8 [facility]EN [facility] - 8 8 [facility]
--- OUTSIDE RECORDS SUMMARY | 2016-08-18 01:20 | External Medical Summary Rpt ---
Author Author , Organization [employer] Address Unknown Phone Unavailable Care Team Providers Care Ledger Poster Name Role Phone DONNA VELAZCO, Unavailable Unavailable DONNA VELAZCO MD Un[facility], Unavailable Unavailable CLINIC PHARMACY [...] [facility] Unavailable Unavailable INC, [facility] ROSA LEVY, Unavailable Unavailable ROSA LEVY DAVID L, Unavailable Unavailable [facility]US[facility] TODD [facility] Unavailable Unavailable IMAGING ASS, [facility] [employer], Unavailable Unavailable [facility] REKHA SARABIA, Unavailable Unavailable REKHA SARABIA [...] PHARMACY #591 [facility] # Unavailable Unavailable [id number], [facility] # [id number] BALAJI MESA III, Unavailable Unavailable BALAJI MESA [...] [facility] MALIGNANT NEOPLASMS COLON 24420 OBSTRUCTIVE 05-15-2010 [facility] 496 CHRONIC 05-15-2010 [facility] NEC 87920 HYPERSOMNIA 05-15-2010 YOUR WITH [facility]EP [facility]ARMAC[facility] UNSPECIFIED 46622 DIAB W/O 05-11-2010 C RONNIE COMP TYPE SCHULSTAD II/UNS NOT PSC STATED UNCNTRL V7612 OTHER 05-11-2010 [place] SCREENING MEDICAL MAMMOGRAM [facility] 2689 UNSPECIFIED 05-01-2010 [facility] DEFICIENC[facility] 2724 OTHER AND 05-01-2010 [facility]PECIFIED [facility] HYPERLIPIDE SONU V762 SCREENING 05-01-2010 PATHOLOGY & FOR CYTOLOGY MALIGNANT LAB NEOPLASM OF THE CERVIX 4019 UNSPECIFIED 04-27-2010 [facility] HYPERTENSIO N 85693 PAIN IN 04-27-2010 [facility] JOINT[facility] LOWER LEG 7862 COUGH 04-27-2010 [facility] V0382 NEED PROPH 04-27-2010 [facility] AGAINST STREP PNEUMONE 7823 EDEMA 04-19-2010 NURSES REGISTRY & HOME HE 65028 UNSPECIFIED 04-19-2010 NURSES URINARY REGISTRY & INCONTINENC HOME HE E 46013 OTHER 02-14-2010 [facility] MALAISE [facility] FATIGUE 9134 ELB 02-14-2010 [facility] FORARM&WRST [facility] INSECT BITE NONVENOMOUS W/O INF V0481 NEED 02-14-2010 [facility] PROPHYLACTI [facility] C VACCINATION &INOCULATIO N FLU 96027 OSTEOARTHRO 11-29-2009 [facility] S UNSPEC [facility] WHETHER GEN/LOC UNSPEC SITE 7904 NONSPEC 11-29-2009 [facility] ELEVATION [facility] OF LEVELS OF TRANSAMINAS E/LDH 5990 URINARY 10-11-2009 [facility]CT [facility] INFECTION SITE NOT SPECIFIED 6961 OTHER 10-11-2009 [facility] PSORIASIS [facility] AND SIMILAR DISORDERS 72452 CHEST PAIN 10-11-2009 [facility] UNSPECIFIED [facility] 83862 ESOPHAGEAL 06-24-2009 [facility] REFLUX [facility] 4619 ACUTE 06-14-2009 [facility] SINUSITIS[facility] UNSPECIFIED 2512 HYPOGLYCEMI 03-24-2009 [facility] A[facility] UNSPECIFIED 460 ACUTE 03-24-2009 [facility] NASOPHARYNG [facility] ITIS 2449 UNSPECIFIED 01-18-2009 [facility] HYPOTHYROID INC ISM 74828 BLEPHARITIS 01-14-2009 LEVY BRETT A UNSPECIFIED 57097 COR 01-12-2009 [facility] UNSPEC HOSPITAL TYPE VESSEL PROF SERV MOAPA/PINKY T 1120 CANDIDIASIS 01-06-2009 [facility] 6268 OTH D/O 01-06-2009 [facility] MENSTRUATIO [facility] N&OTH ABN BLEED FE GNT TRACT 7245 UNSPECIFIED 01-06-2009 [facility] BACKACHE [facility] 4660 ACUTE 12-23-2008 [facility] BRONCHITIS [facility] 7239 UNSPEC 10-01-2008 [facility] MUSCULOSKEL [facility] D/O&SYMPTOM S REFERABLE NECK 53355 SPASM OF 10-01-2008 [facility]CLE [facility] 6101 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, CYSTIC RONNIE MASTOPATHY 24307 LUMP OR 09-06-2008 SCHULSTAD, MASS IN RONNIE BREAST 05671 OTHER 09-06-2008 SCHUL[facility], ABNORMAL RONNIE FINDING RADIOLOGICA L EXAM BREAST V7281 PRE-OPERATI 09-02-2008 [facility] PROF SERV EXAMINATION 90725 UNSPECIFIED 08-31-2008 SCHULSTAD, ABNORMAL RONNIE MAMMOGRAM 41120 HYPERTONICI 08-27-2008 [facility] TY OF [facility] BLADDER 7881 DYSURIA 08-27-2008 [facility] 4280 CONGESTIVE 08-13-2008 [facility] UNSPECIFIED PROF SERV 60238 SHORTNESS 08-13-2008 [facility] 92642 MIGRAINE 07-14-2008 SOLANGE, W/AURA W/O LISSY INTRACT W/O STATUS MIGRNOSUS 56007 NONEXUDATIV 07-14-2008 Sky NARVAEZ SENILE LISSY MACULAR DEGENERATIO N RETINA 76257 TRANSIENT 07-14-2008 NARVAEZ, VISUAL LOSS LISSY 7019 UNSPECIFIED 07-02-2008 [facility] HYPERTROPHI C&ATROPHIC CONDITION SKIN 04803 OTHER 05-06-2008 [facility] DYSPNEA [facility] RESPIRATORY ABNORMALITI ES 2381 NEOPLASM 04-02-2008 [facility] UNCERTAIN [facility] BHV CNCTV&OTH SOFT TISSUE 74506 MIGRAINE 03-08-2008 CUONG, W/O AURA LUANN INTRACT W/O STATUS MIGRAINOSUS 7295 PAIN IN 10-22-2007 [facility] CARE SOFT ASSOCIATES TISSUES OF LIMB 90681 OBESITY, 10-18-2007 RADIOLOGY UNSPECIFIED ASSOCIATES PSC 4109 ACUTE 10-18-2007 [facility] PSC UNSPECIFIED SITE 86162 OTHER 10-18-2007 RADIOLOGY DISEASES OF ASSOCIATES LUNG NOT PSC ELSEWHERE CLASSIFIED 27802 PAIN IN 08-08-2007 [facility] [place] JOINT PELVIC REGION AND THIGH 28158 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 [facility] [place] [facility] [place] 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 IN 98 LL ti EP 15 IC 49 ER ve AM 62 20 20 0 01 10 10 PH CA 10 0 AR RO MA L MG CY J TA LL BL C ET DI 00 07 09 3 12 30 CL 21 PA Ac AZ 59 -1 -1 0. IN [...] 07 08 3 12 30 CL 21 PA Ac AZ 59 -1 -1 0. IN 98 LL ti EP 15 IC 49 ER ve AM 62 20 20 0 01 10 10 PH CA 10 0 AR RO MA L MG CY J TA LL BL C ET DI 00 07 07 3 12 30 CL 21 PA Ac AZ 59 -1 -1 0. IN [...] 03 06 2 12 30 CL 21 PA Ac AZ 59 -3 -1 0. IN 41 LL ti EP 15 0- 7- 00 IC 81 ER ve AM 62 20 20 0 01 10 10 PH CA 10 0 AR RO MA L MG CY J TA LL BL C ET DI 00 03 05 2 12 30 CL 21 PA Ac AZ 59 -3 -1 0. IN [...] MG Y LL TA C BL ET SD 00 05 05 0 12 6 WA [...] 03 04 2 12 30 CL 21 PA Ac AZ 59 -3 -1 0. IN [...] 01 03 2 12 30 CL 20 PA Ac AZ 59 -0 -1 0. IN [...] MA e MG CY TA BL ET SD 00 02 03 00 18 4 WA [...] Procedure DOS Code Location Performer Comment ANES 83007 [facility] 1 ANESTH DAVID INTESTINE OF [place] [address] [facility] THERAPY INC INC PROPHYLAX IS/DX EA HOUR COLOREC G0105 C RONNIE TOBIAS CANCR 1 JATINDER LI SCR; PSC COLONSCPY INDIV[place] @[place] [address] [facility] MEM [...] INHALATIO N RX; PER 30 DAYS COMPUTER- 34267 [facility] AIDED 1 MEM [facility] DETECTION INC INC SCREENING MAMMOGRAP HY SCREENING G0202 [facility] 1 [facility] MAMMOGRAP INC INC HY LISANDRO INCL CAD WHEN PERFORMD LIPID 68862 [facility]KATH[facility] PANEL 1 [facility] INC INC HEPATIC 53864 [facility] FUNCTION 1 [facility] PANEL INC INC HEMOGLOBI 56126 [facility] TEM[facility] N 1 [facility] GLYCOSYLA INC INC TATIANA A1C COLLECTIO 30822 [facility] N VENOUS 1 [facility] BLOOD INC INC VENIPUNCT URE SCR G0145 PATHOLOGY PATHOLOGY CYTOPATH 1 & & CERV/VAG CYTOLOGY CYTOLOGY SCR LAB LAB AUTO&MNL RSCR PHYS 25 99078 [facility] HYDROXY 1 [facility] INCLUDES INC INC FRACTIONS IF PERFORMED PPSV23 37479 FAMILY ROSA ELENA VACCINE 2 1 CARE R H YRS OR ASSOCIATE OLDER FOR S SUBQ/IM USE ADMINISTR G0009 FAMILY ROSA ELENA ATION OF 1 CARE R H PNEUMOCOC ASSOCIATE PERFECTO S VACCINE ADLT SZD T4526 NURSES NURSES DISPBL 0 REGISTRY REGISTRY INCONT & HOME HE & HOME HE PROD UNDWEAR MED EA [facility] A4258 DISCOUNT DISCOUNT WERED 0 DIABETIC [...] HOME HE PROD UNDWEAR MED EA IIV3 13613 FAMILY FAMILY VACCINE 0 CARE CARE SPLIT ASSOCIATE ASSOCIATE VIRUS 0.5 S S ML DOSAGE IM USE ADMINISTR G0008 FAMILY ROSA ELENA ATION OF 0 CARE R H INFLUENZA ASSOCIATE VIRUS S VACCINE CYANOCOBA 96666 COMBINED COMBINED CORETTA 0 PHYSICIAN PHYSICIAN VITAMIN S LA S LA B-12 COMPREHEN 53715 COMBINED COMBINED SIVE 0 PHYSICIAN PHYSIC[place] [address] COMBINED COMBINED THYROID 0 PHYSICIAN PHYSICIAN STIMULATI S LA S LA NG HORMONE TSH HEMOGLOBI 31424 FAMILY ROSA ELENA N 0 CARE R H GLYCOSYLA ASSOCIATE TATIANA A1C S LIPID 70640 FAMILY FAMILY PANEL 0 CARE IMPLEMENTATION PROJECT COORDINATOR ASSOCIATE S S COLLECTIO 09652 FAMILY ROSA ELENA N VENOUS 0 CARE R H BLOOD ASSOCIATE VENIPUNCT S URE THERAPEUT 50272 FAMILY ROSA ELENA IC 0 CARE R H PROPHYLAC ASSOCIATE TIC/DX S INJECTION SUBQ/IM BLOOD 71388 FAMILY FAMILY COUNT 0 CARE CARE COMPLETE [...] BOX 0 DIABETIC DIABETIC OF 100 ADLT [facility] T4526 NURSES NURSES DISPBL 0 REGISTRY REGISTRY INCONT & HOME HE & HOME HE PROD UNDWEAR MED EA PHRM Q0513 YOUR YOUR DISPENSIN 0 PHARMACY PHARMACY G FEE [employer] INHALATIO N RX; PER 30 DAYS ALBUTEROL J7620 YOUR YOUR TO 2.5 0 PHARMACY PHARMACY MG & [employer] IPRATROPI UM BROM TO 0.5 MG ADMN SET A7003 YOUR YOUR SM VOL 0 PHARMACY PHARMACY NONFILTR [employer] PNEUMAT NEBULIZR DISPBL HEPATIC 50043 COMBINED COMBINED FUNCTION 0 PHYSICIAN PHYSICIAN PANEL S LA S LA THERAPEUT 97715 FAMILY ROSA ELENA IC 0 CARE R H PROPHYLAC ASSOCIATE TIC/DX S INJECTION SUBQ/IM COLLECTIO 09629 FAMILY FAMILY N VENOUS 0 CARE CARE BLOOD ASSOCIATE ASSOCIATE VENIPUNCT S S URE INJECTION J3420 FAMILY ROSA ELENA VIT B-12 0 CARE R H ASSOCIATE CYANOCOBA S CORETTA TO 1000 MCG ADLT [facility] T4528 NURSES NURSES DISPBL 0 REGISTRY REGISTRY INCONT & HOME HE & HOME HE PROD UNDWEAR XTRA LG EA ADLT [facility] T4528 NURSES NURSES DISPBL 0 REGISTRY REGISTRY INCONT & HOME HE & HOME HE PROD UNDWEAR XTRA LG BASIC 38394 COMBINED COMBINED METABOLIC 0 PHYSICIAN PHYSICIAN PANEL S LAB S LAB CALCIUM TOTAL URNLS DIP 22451 FAMILY ROSA ELENA, 0 CARE R RACHEL STICK/TAB ASSOCIATE LET RGNT S NON-AUTO W/O MICRSCP COLLECTIO 03422 FAMILY ROSA ELENA, N VENOUS 0 CARE R RACHEL BLOOD ASSOCIATE VENIPUNCT S URE LIPID 44589 FAMILY ROSA ELENA, PANEL 0 CARE R RACHEL ASSOCIATE S RADIOLOGI 03692 Angela NAM 0 MEDICAL DAT EXAMINATI IMAGING ON KNEE 3 ASSOCIATE VIEWS S TRANSFERA 61959 FAMILY CUBA, SE 0 CARE Honey RAMOS ASPARTATE ASSOCIATE AMINO S AST SGOT TRANSFERA 75107 FAMILY CUBA, SE 0 CARE R RACHEL [...] DIABETIC DIABETIC DEVICE FOR LANCET EACH ADLT [facility] T4528 NURSES NURSES DISPBL 0 REGISTRY REGISTRY INCONT & HOME & [facility] LG EA CONTINUOU E0601 LACIE MEDELLIN S 0 HOME MED HOME MED POSITIVE EQUIP. L EQUIP. L AIRWAY PRESSURE DEVICE ADLT [facility] T4528 NURSES NURSES DISPBL 0 REGISTRY REGISTRY INCONT & HOME & HOME PROD [facility] UNDWEAR XTRA LG EA FILTER A7038 LACIE [...] REGISTRY INCONT & HOME & [facility] X[facility] LG [place] [facility] 62129 [facility] ROUTINE 0 [facility] ECG INC INC W/LEAST 12 LDS TRCG ONLY W/O I&R CREATINE 70083 [facility] KINASE 0 [facility] TOTAL INC INC COMPREHEN 61123 [facility] SIVE 0 [facility] METABOLIC INC INC PANEL BLOOD 88383 [facility] COUNT 0 [facility]OS[facility] COMPLETE INC INC AUTO&AUTO DIFRNTL WBC RADIOLOGI 89597 ARJUN Angela BRADY EXAM 0 MEDICAL BEVERLY P CHEST 2 IMAGING VIEWS ASSOCIATE FRONTAL&[place] [address] [facility] TROPONIN 0 [facility]OS[facility] QUANTITAT INC INC ROSETTE CREATINE 48010 [facility] KINASE MB 0 MEM HOS[facility] FRACTION INC INC ONLY ECG 46821 MICKEY MESA ROUTINE 0 EMERGENCY III, ECG SERVICES BALAJI W/XOCHITL 12 MARIE ASSOCIATE I&R ONLY S NEBULIZER E0570 LACIE MEDELLIN WITH 0 HOME MED HOME MED COMPRESSO EQUIP. EQUIP. R [facility] T4528 NURSES NURSES DISPBL 0 REGISTRY REGISTRY INCONT & HOME & HOME PROD [facility] UNDWEAR XTRA [facility] URNLS DIP 91432 FAMILY ROSA ELENA, 0 CARE R RACHEL STICK/TAB ASSOCIATE LET RGNT S NON-AUTO W/O MICRSCP NEBULIZER E0570 LACIE MEDELLIN WITH 0 HOME MED HOME MED COMPRESSO EQUIP. EQUIP. R [employer] [facility] T4528 NURSES NURSES DISPBL 0 REGISTRY REGISTRY INCONT & HOME & HOME PROD [facility] UNDWEAR XTRA KIT [facility] A4258 DISCOUNT DISCOUNT WERED 0 [...] MED HOME MED USED EQUIP. EQUIP. W/POS [facility] ARWAY PRESSURE DEVICE NEBULIZER E0570 LACIE MEDELLIN WITH 9 HOME MED HOME MED COMPRESSO EQUIP. EQUIP. R [facility] BASIC 83490 COMBINED COMBINED METABOLIC 9 PHYSICIAN PHYSICIAN PANEL S LAB S LAB CALCIUM TOTAL COLLECTIO 95582 FAMILY CUBA, N VENOUS 9 GORGE RAMOS BLOOD ASSOCIATE VENIPUNCT S URE BLOOD 91185 FAMILY CUBA, COUNT 9 GORGE RAMOS COMPLETE ASSOCIATE AUTO&AUTO S DIFRNTL WBC URNLS DIP 89296 FAMILY CUBA, 9 GORGE RAMOS STICK/TAB ASSOCIATE LET RGNT S NON-AUTO W/O MICRSCP LIPID 57476 FAMILY CUBA, PANEL 9 GORGE RAMOS ASSOCIATE S HEMOGLOBI 63649 FAMILY CUBA, N 9 GORGE RAMOS GLYCOSYLA ASSOCIATE [place] A1C S CONTINUOU E0601 LACIE LACIE S 9 HOME MED HOME MED POSITIVE EQUIP. EQUIP. AIRWAY [facility] PRESSURE DEVICE FILTER A7039 LACIE MEDELLIN NON 9 HOME MED HOME MED DISPBL EQUIP. EQUIP. USED [facility] W/POS ARWAY PRESS DEVICE FILTER A7038 LACIE LACIE DISPBL 9 HOME MED HOME MED USED EQUIP. EQUIP. W/POS [facility] ARWAY PRESSURE DEVICE NEBULIZER E0570 LACIE MEDELLIN WITH 9 HOME MED HOME MED COMPRESSO EQUIP. EQUIP. R [facility] CREATINE 45770 [facility] LOZANOON KINASE 9 [facility] [place] [address] [facility] TROPONIN 9 [facility] QUANTITAT INC INC ROSETTE CREATINE 98850 MAVERICK LOZANOON KINASE MB 9 [facility] FRACTION INC INC ONLY CREATINE 21798 [facility] LOZANOON KINASE MB 9 [facility] FRACTION INC INC ONLY ECG 83775 M[facility]ICK SARABIA ROUTINE 9 [facility] W/LEAST PROF SERV 12 LDS I&[place] [address] [facility]ERICKKATHIE TEMPLE TROPONIN 9 [facility] QUANTITAT INC INC ROSETTE BLOOD 10975 [facility] COUNT 9 [facility] COMPLETE INC INC AUTO&AUTO DIFRNTL WBC RADIOLOGI 22074 [facility] C 9 [facility] EXAMINATI INC INC ON CHEST SINGLE VIEW FRONTAL CREATINE 42828 [facility] TEM[facility] KINASE 9 [facility] TOTAL INC INC THER 41474 [facility] TEM[facility] PROPH/DX 9 [facility] NJX IV INC INC PUSH SINGLE/1S T SBST/DRUG BASIC 76305 [facility] TEM[facility] METABOLIC 9 [facility] PANEL INC INC CALCIUM TOTAL ECG 47958 [facility] TEMPLE ROUTINE 9 [facility]OS[facility] ECG INC INC W/LEAST 12 LDS [...] [facility]AL[facility]AL[facility] UNDWEAR XTRA LG EA BASIC 95022 [facility] METABOLIC 9 [facility]OS[facility] PANEL INC INC CALCIUM TOTAL COLLECTIO 66063 [facility] N VENOUS 9 [facility] BLOOD INC INC VENIPUNCT URE HEPATIC 38050 [facility] FUNCTION 9 [facility] PANEL INC INC LIPID 92303 [facility] PANEL 9 [facility]OS[facility] INC INC HEMOGLOBI 53598 [facility] TEM[facility] N 9 [facility] GLYCOSYLA [place] [address] [facility] THYROID 9 [facility] STIMULATI INC INC NG HORMONE TSH OPHTH 03926 CAM LEVY, MEDICAL 9 ROSA A ROSA A XM&EVAL COMPRHNSV ESTAB PT 1/> CUSHN A7032 LACIE LACIE NASAL 9 HOME MED HOME MED MASK EQUIP. EQUIP. INTERFACE [employer] [facility] REPLACEME NT ONLY EACH NASL A7034 LACIE MEDELLIN INTRFCE 9 HOME MED HOME MED POS ARWAY EQUIP. EQUIP. PRSS [employer] DEVC W/WO HEAD STRAP HEADGEAR A7035 LACIE MEDELLIN USED 9 HOME MED HOME MED W/POSITIV EQUIP. EQUIP. E AIRWAY [facility] PRESSURE DEVICE FILTER A7038 LACIE MEDELLIN DISPBL 9 HOME MED HOME MED USED EQUIP. EQUIP. W/POS [facility] ARWAY PRESSURE DEVICE TUBING A7037 LACIE MEDELLIN USED WITH 9 HOME MED HOME MED POSITIVE EQUIP. EQUIP. AIRWAY [facility] PRESSURE DEVICE RADIOLOGI 86095 [place] JOANA, C 9 MEDICAL DAT EXAMINATI IMAGING ON CHEST ASSOCIATE SINGLE S VIEW FRONTAL ECG 95209 MAVERICK SARABIA, ROUTINE 9 [facility] ECG HOSPITAL W/LEAST PROF SERV 12 LDS I&R ONLY ECG 87675 MICKEY CARROLL, ROUTINE 9 EMERGENCY SHEBA S ECG SERVICES W/LEAST 12 LDS ASSOCIATE I&R ONLY S URNLS DIP 57709 FAMILY ROSA ELENA, 9 CARE R RACHEL STICK/TAB ASSOCIATE LET RGNT S NON-AUTO W/O MICRSCP NEBULIZER E0570 LACIE MEDELLIN WITH 9 HOME MED HOME MED COMPRESSO EQUIP. EQUIP. R LLC LLC ADLT SZD T4528 NURSES NURSES DISPBL 9 REGISTRY REGISTRY INCONT & HOME & HOME PROD [facility] UNDWEAR XTRA LG EA LANCETS A4259 DISCOUNT [...] REGISTRY INCONT & HOME & HOME PROD [facility] UNDAR XTRA EA NEBULIZER E0570 LACIE MEDELLIN WITH 9 HOME MED HOME MED COMPRESSO EQUIP. EQUIP. R [facility] ADLT D T4528 NURSES NURSES DISPBL 9 REGISTRY REGISTRY INCONT & HOME & HOME PROD [facility] UNDAR XTRA LG EA PHRM Q0513 YOUR YOUR DISPENSIN 9 PHARMACY PHARMACY G FEE [employer] [facility] INHALATIO N RX; PER 30 DAYS ALBUTEROL J7620 YOUR YOUR TO 2.5 9 PHARMACY PHARMACY MG & [facility] IPRATROPI UM BROM TO 0.5 MG ADMN SET A7003 YOUR YOUR SM VOL 9 PHARMACY PHARMACY [employer]FIL[employer] [facility] PNEUMAT NEBULIZR DISPBL CUSHN A7032 LACIE MEDELLIN NASAL 9 HOME MED HOME MED MASK EQUIP. EQUIP. INTERFACE [facility] REPLACEME NT ONLY EACH NASL A7034 LACIE MEDELLIN INTRFCE 9 HOME MED HOME MED POS ARWAY EQUIP. EQUIP. PRSS [facility] DEVC W/WO HEAD STRAP FILTER A7038 LACIE MEDELLIN DISPBL 9 HOME MED HOME MED USED EQUIP. EQUIP. W/POS [facility] ARWAY PRESSURE DEVICE TUBING A7037 LACIE MEDELLIN USED WITH 9 HOME MED HOME MED POSITIVE EQUIP. EQUIP. AIRWAY [facility] PRESSURE DEVICE NEBULIZER E0570 LACIE MEDELLIN WITH 9 HOME MED HOME MED COMPRESSO [facility]QUIP. [facility]. [facility] NURSES NURSES DISPBL 9 REGISTRY REGISTRY INCONT & HOME & HOME PROD [facility] XTRA EA CONTINUOU E0601 LACIE LACIE S 9 HOME MED HOME MED POSITIVE EQUIP. EQUIP. AIRWAY [facility] PRESSURE DEVICE PHRM Q0513 YOUR YOUR DISPENSIN 9 PHARMACY PHARMACY G [employer] INHALATIO N RX; PER 30 DAYS ADMN SET A7003 YOUR YOUR SM VOL 9 PHARMACY PHARMACY [employer] [facility] PNEUMAT NEBULIZR DISPBL ALBUTEROL J7613 YOUR YOUR INHAL 9 PHARMACY PHARMACY NON-CP [facility] PROD THRU DME U DOSE 1 MG INJECTION J2405 [facility] 9 MEM HOS[facility] ONDANSETR INC INC ON HCL PER 1 [place] [address] [facility] INFUSION 9 [facility] THERAPY/P INC INC ROPHYLAXI S /DX 1ST TO 1 HR GLUC BLD 03123 [facility] GLUC MNTR 9 [facility] DEV INC INC CLEARED FDA SPEC HOME USE THERAPEUT 03689 [facility] TEM[facility] IC 9 [facility] INJECTION INC INC IV PUSH EACH NEW DRUG BIOPSY 71194 ARJUN BERNARD BREAST 9 MEDICAL DAT NEEDLE IMAGING CORE ASSOCIATE W/IMAGING S GUIDANCE PREOP 10781 [facility] TEMPLE PLACEMENT 9 [facility] HOSP INC INC LOCALIZAT ION WIRE BREAST RADIOLOGI 81203 ARJUN BERNARD PERFECTO 9 MEDICAL DAT EXAMINATI IMAGING ON ASSOCIATE SURGICAL S SPECIMEN MAMMOGRAP 65650 [facility] TEM[facility] HY 9 [facility] INC INC L ANES 27869 [facility] HASTINGS, INTEG 9 ANESTH BALAJI F EXTREMITI OF THE ES ANT BLUEGRASS TRUNK & PERINEUM NOS IMG GID 18456 FRANCIS NAM MTLC 9 MEDICAL DAT LOCLZJ IMAGING CLIP PRQ ASSOCIATE BRST S BX/[place] [address] CORA NAM 9 MEDICAL DAT NEEDLE IMAGING PLACEMENT ASSOCIATE IMG S&I S BIOPSY 92784 M[facility] TEMPLE BREAST 9 [facility] OPEN INC INC INCISIONA L EXC 16181 SCHULSTSYDNI SCHULSTAD BREAST 9 , RONNIE , RONNIE LES PREOP PLMT [place] MARKER OPEN 1 [place] [address] M[facility] TEMPLE INFUSION 9 [facility] THERAPY INC INC PROPHYLAX IS/DX EA HOUR US BREAST 71598 MAVERICK TEMPLE REAL 9 [facility] TIME INC INC W/IMAGE DOCUMENTA TION BASIC 00846 M[facility]ERICK TEMPLE METABOLIC 9 [facility] PANEL INC INC CALCIUM TOTAL COLLECTIO 66463 [facility] TEMPLE N VENOUS 9 [facility] BLOOD INC INC VENIPUNCT URE ECG 14016 [facility] TEMPLE ROUTINE 9 [facility] ECG INC INC W/LEAST 12 LDS TRCG ONLY W/O I&R BLOOD 40980 [facility] TEMPLE COUNT 9 [facility] COMPLETE INC INC AUTO&AUTO DIFRNTL WBC ECG 56791 MAVERICK MCKEMIE ROUTINE 9 [facility] W/LEAST PROF SERV 12 LDS I&R ONLY NEBULIZER E0570 LACIEFRANCOIS MEDELLIN WITH 9 HOME MED HOME MED COMPRESSO EQUIP. EQUIP. R [employer] COLLECTIO 39428 MAVERICK TEMPLE N VENOUS 9 [facility] BLOOD INC INC VENIPUNCT URE BASIC 43078 MAVERICK TEMPLE METABOLIC 9 [facility] PANEL INC INC CALCIUM TOTAL HEPATIC 63906 MAVERICK MAVERICK FUNCTION 9 [facility] PANEL INC INC LIPID 21870 M[facility] TEMPLE PANEL 9 [facility] INC INC HEMOGLOBI 45030 MAVERICK TEMPLE N 9 [facility] GLYCOSYLA INC INC TATIANA A1C LANCETS [...] DIABETIC DEVICE FOR LANCET EACH URNLS DIP 39875 FAMILY ROSA ELENA, 9 CARE R RACHEL STICK/TAB ASSOCIATE LET RGNT S NON-AUTO W/O MICRSCP CULTURE 96362 MAVERICK MAVERICK BACTERIAL 9 [facility] INC INC QUANTTATI VE COLONY COUNT URINE ADLT SZD T4528 NURSES NURSES DISPBL 9 REGISTRY REGISTRY INCONT & HOME & HOME PROD HEALH HEALH UNDWEAR XTRA LG EA US BREAST 61845 ELLY CHASE 9 MEDICAL [facility] P TIME IMAGING W/[place] [address] ARJUN JOSE ANTONIO, GUIDANCE 9 MEDICAL [facility] P NEEDLE IMAGING PLACEMENT ASSOCIATE IMG S&I S BREAST 92007 ARJUN BRADY, BIOPSY 9 MEDICAL [facility] P VACUUM IMAGING ASSISTED/ ASSOCIATE ROTATING S DEVICE PREOP 90430 [facility] PLACEMENT 9 [facility] INC INC LOCALIZAT ION WIRE BREAST PROBE/NEE C2618 [facility] TEM[facility] DLE 9 [facility] [place] [address] PATHOLOGY PATHOLOGY SURG 9 & & PATHOLOGY CYTOLOGY CYTOLOGY LAB LAB GROSS&[place] [address] M[facility] TEMPLE THYROID 9 [facility] STIMULATI [place] [address] M[facility]ER[facility] TEMPLE TROPONIN 9 [facility] QUANTITAT INC INC ROSETTE BLOOD 75391 [facility] TEMPLE COUNT 9 [facility] COMPLETE INC INC AUTO&AUTO DIFRNTL WBC CULTURE 63435 [facility] TEM[facility] BCT 9 [facility] ISOL&PRSM INC INC PTV ID ISOLATE EA URINE RADIOLOGI 63781 Angela SEGUNDO 9 EMERGENCY PEARCY S EXAMINATI SERVICES ON CHEST [place] [address] M[facility] TEMPLE THYROXINE 9 [facility] TOTAL INC INC CULTURE 11949 [facility] 9 [facility] INC INC QUANTTATI VE COLONY COUNT URINE CREATINE 94437 [facility] KINASE MB 9 [facility] FRACTION INC INC ONLY NATRIURET 02043 [facility] IC 9 [facility] PEPTIDE INC INC URNLS DIP 17375 [facility] STICK/TAB INC INC LET REAGENT AUTO MICROSCOP Y ECG 49696 LIZETH SEGUNDO 9 EMERGENCY PEARCY S ECG SERVICES W/LEAST 12 LDS ASSOCIATE I&R ONLY S THER 09195 [facility] PROPH/DX 9 [facility] NJX IV INC INC PUSH SINGLE/1S T SBST/DRUG BASIC 04298 [facility] METABOLIC 9 [facility] PANEL INC INC CALCIUM TOTAL CREATINE 24619 [facility] KINASE 9 [facility] TOTAL INC INC INSJ TEMP 03465 [facility] NDWELLG 9 [facility] BLADDER INC INC CATHETER SIMPLE ECG 51731 [facility] ROUTINE 9 [facility] ECG INC INC W/LEAST 12 LDS TRCG ONLY W/O I&R SUSCEPTIB 42039 [facility] LTY STDY 9 [facility] ANTIMICRB INC INC IAL MICRO/AGA R DILUTJ MAMMOGRAP 06353 [facility] HY 9 [facility] UNILATERA INC INC L US BREAST 83684 ELLY CHASE 9 MEDICAL BEVERLY P TIME IMAGING W/IMAGE ASSOCIATE DOCUMENTA S TION NEBULIZER E0570 LACIE MEDELLIN WITH 9 HOME MED HOME MED COMPRESSO EQUIP. EQUIP. R LLC LLC ADLT [facility] T4528 NURSES NURSES DISPBL 9 REGISTRY REGISTRY INCONT & HOME & HOME PROD [facility] UNDWEAR XTRA EA OPHTHALMO 30497 SOLANGE NARVAEZ, SCPY 9 LISSY YUAN EXTENDED [...] HEAL UNDWEAR XTRA LG EA SMR PRIM 86878 LABONE OF [facility]ONE OF [facility] 9 [place] INC [place] INC GRAM/GIEM SA STAIN BCT FUNGI/BIJU L ADLT SZD T4528 NURSES NURSES DISPBL 9 REGISTRY REGISTRY INCONT & HOME & HOME PROD [facility] UNDWEAR XTRA KIT EA NASL A7034 LACIE [...] MED HOME MED POSITIVE EQUIP. EQUIP. AIRWAY [facility] PRESSURE DEVICE LIPID 57434 COMBINED COMBINED PANEL 8 PHYSICIAN PHYSICIAN S LAB S LAB HEMOGLOBI 22862 COMBINED COMBINED N 8 PHYSICIAN PHYSICIAN GLYCOSYLA S LAB [place] [address] COMBINED COMBINED THYROID 8 PHYSICIAN PHYSICIAN STIMULATI S LAB S LAB NG HORMONE TSH COMPREHEN 65251 COMBINED COMBINED SIVE 8 PHYSICIAN PHYSICIAN METABOLIC S LAB S LAB PANEL COLLECTIO 73666 FAMILY MULBERRY, N VENOUS 8 CARE JOS T BLOOD ASSOCIATE VENIPUNCT S URE URNLS DIP 58951 FAMILY MULBERRY, 8 CARE JOS T STICK/TAB ASSOCIATE LET RGNT S NON-AUTO W/O MICRSCP ADLT SZD T4528 NURSES NURSES DISPBL 8 REGISTRY REGISTRY INCONT & HOME & [facility] ASCENCIO LG, EA CONTINUOU E0601 LACIE [...] REGISTRY INCONT & HOME & HOME PROD [facility] UNDWEAR XTRA LG EA FILTER A7038 LACIE LACIE DISPBL 8 HOME MED HOME MED USED EQUIP. EQUIP. W/POS LLC LLC ARWAY PRESSURE DEVICE CUSHN A7032 LACIE LACIE NASAL 8 HOME MED HOME MED MASK EQUIP. EQUIP. INTERFACE LLC LLC REPLACEME NT ONLY EACH ADLT SZD T4528 NURSES NURSES DISP 8 REGISTRY REGISTRY INCONT & HOME & HOME PROD [facility] UNDWEAR XTRA LG EA COMPUTER- 95123 JAYLENEWAYNECristina MANPREET BRADY 8 MEDICAL BEVERLY P DETECTION IMAGING ASSOCIATE SCREENING S MAMMOGRAP HY SCREENING 90057 [facility] 8 [facility] [...] REGISTRY INCONT & HOME & HOME PROD [facility] UNDWEAR XTRA LG EA OPHTH 53427 CAM LEVY, MEDICAL 8 ROSA A ROSA [...] REGISTRY INCONT & HOME & HOME PROD [facility] UNDWEAR XTRA LG EA L HRT 26319 ELADIA TODD CATHETERI 8 NIMA Loja ZATION CLINIC RETROGRAD PSC E BRACHIAL PERQ INJECTION 68566 ELADIA TODD CARDIAC 8 NIMA Loja CATHJ L CLINIC VENTR/[place] [address] ELADIA TODD, C-CATHJ 8 NIMA Loja F/SLCTV C CLINIC ANGRPH PSC I SI&R 47590 ELADIA PEYTON, F/NJX PX 8 NIMA Loja DURING CLINIC C-CATHJ PSC VENTR&/AT R ANGRPH I SI&R 73393 ELADIA PEYTON, F/NJX PX 8 NIMA Loja DURING CLINIC C-CATHJ PSC PULM&/OR SELECT RADIOLOGI 71233 RADIOLOGY Angela CAO 8 RE Miller EXAMINATI [...] MED HOME MED POSITIVE EQUIP. EQUIP. AIRWAY [facility] LLC PRESSURE DEVICE ADLT SZD T4528 NURSES NURSES DISPBL 8 REGISTRY REGISTRY INCONT & HOME & HOME PROD [facility] UNDWEAR XTRA LG EA ADLT SZD T4528 NURSES NURSES DISPBL 8 REGISTRY REGISTRY INCONT & HOME & HOME PROD [facility] UNDWEAR XTRA LG EA CONTINUOU E0601 LACIE MEDELLIN S 8 HOME MED HOME MED POSITIVE EQUIP. EQUIP. AIRWAY LLC LLC PRESSURE DEVICE ADLT SZD T4528 NURSES NURSES DISPBL 8 REGISTRY REGISTRY INCONT & HOME & HOME PROD [facility] UNDWEAR XTRA LG EA HOS BED E0260 CLEMENTE CORNEJO, SEMI-ELEC 8 INC INC W/ANY TYPE SIDE RAIL W/MATTRSS ADLT SZD T4528 NURSES NURSES DISPBL 8 REGISTRY REGISTRY INCONT & HOME & HOME PROD [facility]AL[facility]AL UNDWEAR XTRA LG EA MRI BRAIN 94928 JOANABRISEIDAJOANA, BRAIN 8 DAT DAT STEM W/O W/CONTRAS T MATERIAL MRI ORBIT 30253 JOANA, JOANA, FACE & 8 DAT DAT NECK W/O & W/CONTRAS T MATRL OPHTHALMO 81792 SOLANGE NARVAEZ, SCPY 8 LISSY YUAN EXTENDED RETINAL DRAWING I&R 1ST HOS BED E0260 CLEMENTE CORNEJO, SEMI-ELEC 8 INC INC W/ANY TYPE SIDE RAIL W/MATTRSS ADLT D T4528 NURSES NURSES DISPBL 8 REGISTRY REGISTRY INCONT & HOME & HOME PROD [facility] UNDWEAR XTRA LG EA LANCETS A4259 CLINIC CLINIC PER BOX 8 PHARMACY PHARMACY OF 100 BLD GLU A4253 CLINIC CLINIC TEST/REAG 8 PHARMACY PHARMACY T STRIPS HOME BLD GLU MON-50 HOS BED E0260 CLEMENTE CORNEJO, SEMI-ELEC 8 INC INC W/ANY TYPE SIDE RAIL W/MATTRSS DOPPLER 04950 M[facility]ICK ELLISON ECHOCARD 8 [facility] F WAVE PROF SERV W/SPECTRA L DISPLAY ECHO 01240 M[facility] ELLISON TRANSTHOR 8 [facility] R-T [address] [place] [address] W/WO PROF SERV M-MODE REC COMP DOP 03972 M[facility]ERICK ELLISON ECHOCARD 8 [facility] F FLOW PROF SERV VELOCITY MAPPING HOS BED E0260 CLEMENTE CORNEJO, SEMI-ELEC 8 INC INC W/ANY TYPE SIDE RAIL W/MATTRSS US BREAST 47072 [facility] REAL 8 [facility] TIME INC INC W/IMAGE DOCUMENTA TION FILTER A7039 LACIEFRANCOIS MEDELLIN NON 8 HOME MED HOME MED DISPBL EQUIP. EQUIP. USED [facility] LLC W/POS ARWAY PRESS DEVICE NASL A7034 LACIE MEDELLIN INTRFCE 8 HOME MED HOME MED POS ARWAY EQUIP. EQUIP. PRSS LLC LLC DEVC W/WO HEAD STRAP PILLW A7033 LACIE MENONRELL NASL 8 HOME MED HOME MED CANNULA EQUIP. EQUIP. TYPE LLC LLC INTERFCE REPL ONLY PAIR TUBING A7037 LACIE LACIE USED WITH 8 HOME MED HOME MED POSITIVE EQUIP. EQUIP. AIRWAY [facility] PRESSURE DEVICE Encounters Encounter Start End Date Code Location Performer Type Date [facility] - 1 1 [facility] OFFICE 92963 Angela TOBIAS [facility]PATIEN 1 1 JATINDER Newman MD [facility] MINUTES [facility] - 1 1 [facility] - 1 1 [facility]PATIEN [facility] T OFFICE 57629 FAMILY ROSA ELENA OUTPATIEN 1 1 CARE R H T VISIT ASSOCIATE 25 S MINUTES HOME NURSES HEALTH, 0 0 REGISTRY OUTPATIEN & HOME HE T HOME NURSES HEALTH, 0 0 REGISTRY OUTPATIEN & HOME HE T HOME NURSES HEALTH, 0 0 REGISTRY OUTPATIEN & HOME HE T OFFICE 77907 FAMILY ROSA ELENA OUTPATIEN 0 0 CARE R H T VISIT ASSOCIATE 15 S MINUTES OFFICE 41048 FAMILY ROSA ELENA OUTPATIEN 0 0 CARE R H T VISIT ASSOCIATE 25 S MINUTES HOME NURSES HEALTH, 0 0 REGISTRY OUTPATIEN & HOME HE T HOME NURSES HEALTH, 0 0 REGISTRY OUTPATIEN & HOME HE T OFFICE 23676 FAMILY ROSA ELENA OUTPATIEN 0 0 CARE R H T VISIT ASSOCIATE 25 S MINUTES HOME NURSES HEALTH, 0 0 REGISTRY OUTPATIEN & HOME HE T HOME NURSES HEALTH, 0 0 REGISTRY OUTPATIEN & HOME HE T OFFICE 39740 FAMILY ROSA ELENA, OUTPATIEN 0 0 CARE R RACHEL T VISIT ASSOCIATE 25 S MINUTES [facility]OSP[facility] - 0 0 [facility] OUTPATIEN INC T HOME NURSES HEALTH, 0 0 REGISTRY OUTPATIEN & HOME T [facility] HOME NURSES HEALTH, 0 0 REGISTRY OUTPATIEN & HOME T [facility] HOME NURSES HEALTH, 0 0 REGISTRY OUTPATIEN & HOME T [facility] EMERGENCY 70646 MICKEY MESA 0 0 EMERGENCY III, [facility] BAL[facility] VISIT HIGH/URGE ASSOCIATE NT S SEVERITY [facility]OSP[facility] - 0 0 [facility] OUTPATIEN INC T OFFICE 61437 FAMILY MANJINDER, OUTPATIEN 0 0 CARE JOS T T VISIT ASSOCIATE 25 S MINUTES HOME NURSES HEALTH, 0 0 REGISTRY OUTPATIEN & HOME T [facility] OFFICE 48663 FAMILY ROSA ELENA, OUTPATIEN 0 0 CARE R RACHEL T VISIT ASSOCIATE 25 S MINUTES HOME NURSES HEALTH, 0 0 REGISTRY OUTPATIEN & HOME T [facility] OFFICE 54112 FAMILY ROSA ELENA, OUTPATIEN 9 9 CARE R RACHEL T VISIT ASSOCIATE 25 S MINUTES [facility] - 9 9 [facility] OUTPATIEN INC T EMERGENCY 66045 [facility] 9 9 [facility] DEPARTMEN INC T VISIT HIGH/URGE NT SEVERITY EMERGENCY 64762 MICKEY CARROLL, DEPT 9 9 EMERGENCY SHEBA S VISIT SERVICES HIGH SEVERITY& ASSOCIATE THREAT S [facility] HOME NURSES HEALTH, 9 9 REGISTRY OUTPATIEN & HOME T [facility] - 9 9 [facility] OUTPATIEN INC T EMERGENCY 73723 MICKEY CARROLL, DEPT 9 9 EMERGENCY SHEBA S VISIT SERVICES HIGH SEVERITY& ASSOCIATE THREAT S [facility] EMERGENCY 16947 MICKEY CARROLL, DEPT 9 9 EMERGENCY SHEBA S VISIT SERVICES HIGH SEVERITY& ASSOCIATE THREAT S [facility] OFFICE 75496 FAMILY ROSA ELENA, OUTPATIEN 9 9 CARE R RACHEL T VISIT ASSOCIATE 25 S MINUTES OFFICE 13101 FAMILY ROSA ELENA, OUTPATIEN 9 9 CARE R RACHEL T VISIT ASSOCIATE 15 S MINUTES HOME NURSES HEALTH, 9 9 REGISTRY OUTPATIEN & HOME T [facility] NURSES HEALTH, 9 9 REGISTRY OUTPATIEN & HOME T [facility] NURSES HEALTH, 9 9 REGISTRY OUTPATIEN & HOME T [facility] OFFICE 76832 FAMILY MANJINDER, OUTPATIEN 9 9 CARE JOS T T VISIT ASSOCIATE 15 S MINUTES HOME NURSES HEALTH, 9 9 REGISTRY OUTPATIEN & HOME T [facility] - 9 9 [facility] OUTPATIEN INC T OFFICE 28227 ARJUN BRENARD OUTPATIEN 9 9 MEDICAL DAT T NEW 10 IMAGING MINUTES [facility] - 9 9 [facility] OUTPATIEN INC T OFFICE 79606 JATINDER TOBIAS CONSULTAT 9 9 , RONNIE TRUJILLO NEW/ESTAB PATIENT 60 MIN [facility] - 9 9 [facility] OUTPATIEN INC T OFFICE 23133 FAMILY ROSA ELENA, OUTPATIEN 9 9 CARE R RACHEL T VISIT ASSOCIATE 25 S MINUTES [facility] - 9 9 [facility] OUTPATIEN INC T HOME NURSES HEALTH, 9 9 REGISTRY OUTPATIEN & HOME T [facility] - 9 9 [facility] OUTPATIEN INC T EMERGENCY 35027 [facility] 9 9 [facility] DEPARTMEN INC T VISIT HIGH/URGE NT SEVERITY [facility] - 9 9 [facility] OUTPATIEN INC T EMERGENCY 90562 MICKEY CARROLL, DEPT 9 9 EMERGENCY SHEBA S VISIT SERVICES HIGH SEVERITY& ASSOCIATE THREAT S [facility] - 9 9 [facility] OUTPATIEN INC T HOME NURSES HEALTH, 9 9 REGISTRY OUTPATIEN & HOME T [facility] OFFICE 48957 SOLANGE NARVAEZ, CONSULTAT 9 9 LISSY YUAN ION NEW/ESTAB PATIENT 80 MIN OFFICE 27315 FAMILY MULBERRY, OUTPATIEN 9 9 CARE JOS T T VISIT ASSOCIATE 15 S MINUTES HOME NURSES HEALTH, 9 9 REGISTRY OUTPATIEN & HOME T [facility] OFFICE 57005 FAMILY MULBERRY, OUTPATIEN 9 9 CARE JOS T T VISIT ASSOCIATE 15 S MINUTES HOME NURSES HEALTH, 9 9 REGISTRY OUTPATIEN & HOME T [facility] OFFICE 28298 FAMILY MULBERRY, OUTPATIEN 8 8 CARE JOS T T VISIT ASSOCIATE 25 S MINUTES HOME NURSES HEALTH, 8 8 REGISTRY OUTPATIEN & HOME T [facility] OFFICE 57104 CUONG, CUONG, OUTPATIEN 8 8 LUANN LUANN T VISIT 15 MINUTES HOME NURSES HEALTH, 8 8 REGISTRY OUTPATIEN & HOME T [facility] HOME NURSES HEALTH, 8 8 REGISTRY OUTPATIEN & HOME T [facility] - 8 8 [facility] OUTPATIEN INC HOME NURSES HEALTH, 8 8 REGISTRY OUTPATIEN & HOME T [facility] HOME NURSES HEALTH, 8 8 REGISTRY OUTPATIEN & HOME T [facility] OFFICE 96244 FAMILY MANJINDER[facility] CARE JOS [facility] VISIT ASSOCIATE 15 S MINUTES HOME NURSES HEALTH, 8 8 REGISTRY OUTPATIEN & HOME T [facility] NURSES HEALTH, 8 8 REGISTRY OUTPATIEN & HOME T [facility] OFFICE 24926 SOLANGE NARVAEZ, CONSULTAT 8 8 LISSY BRAMBILA [facility] PAT[facility] 80 MIN HOME NURSES HEALTH, 8 8 REGISTRY OUTPATIEN & HOME T [facility] - 8 8 [facility] OUTPATIEN [facility] - 8 8 [facility]IEN [facility]
--- OUTSIDE RECORDS SUMMARY | 2016-08-18 01:27 | External Medical Summary Rpt ---
Author Author , Organization [employer] Address Unknown Phone Unavailable Care Team Providers Care Senior Net Application Developer Name Role Phone DONNA VELAZCO, Unavailable Unavailable DONNA VELAZCO MD Un[facility], Un[facility]available [facility] Un[facility]available [facility], Unavailable [facility]available [facility] Un[facility] [place] Unavailable Unavailable LAB, [facility] JOANA AMANDA, Unavailable Unavailable JOANA AMANDA DAT BERNARD, Unavailable Unavailable DAT BERNARD [facility], Unavailable Unavailable [facility] Unavailable [facility], [facility] SHEBA CARROLL, Unavailable Unavailable SHEBA CARROLL [facility] Un[facility] Unavailable INC, [facility] ROSA LEVY, Unavailable Unavailable ROSA LEVY DAVID L, Unavailable Unavailable KHUSHI TODD [facility] Unavailable Unavailable [facility], [facility] Unavailable [facility]available [facility], Unavailable Unavailable [facility] REKHA SARABIA, Unavailable Unavailable REKHA SARABIA JAMES, Unavailable Unavailable LISSY NARVAEZ JR, WILLIAM Unavailable Unavailable SCOT Graham JR, WILLIAM F MOBLEY, EMMETT P, Unavailable Unavailable BEVERLY BRADY WILLIAM F, Unavailable Unavailable BALAJI HASTINGS BRIAN T, Unavailable Unavailable OJS DUNBAR, Unavailable Unavailable Honey CUELLO, Unavailable Unavailable [...] [id number] RE CAO, Unavailable Unavailable RE CAO JATINDER LI, Unavailable Unavailable SCHULRONNIE LOMELI, Unavailable Unavailable RONNIE TOBIAS [facility] Unavailable Unavailable [facility] Unavailable [facility]available [facility], [facility] NICANOR GIMENEZ Unavailable Unavailable DAVID [facility], Unavailable Unavailable INC [facility] Unavailable Unavailable #[id number], [id number] # Unavailable Unavailable [id number], [facility] # [id number] [facility], Unavailable Unavailable [facility] [...] [facility] MALIGNANT NEOPLASMS COLON 31733 OBSTRUCTIVE 05-15-2010 [facility] 496 CHRONIC 05-15-2010 [facility] NEC 72946 HYPERSOMNIA 05-15-2010 [facility] UNSPECIFIED 26855 DIAB W/O 05-11-2010 C RONNIE COMP TYPE SCHULSTSYDNI II/UNS NOT MD PSC STATED UNCNTRL V7612 OTHER 05-11-2010 [facility] SCRE[facility] 2689 UNSPECIFIED 05-01-2010 [facility] VITAMIN D [facility] DEFICIENCY [facility] 2724 OTHER AND 05-01-2010 [facility] UNSPECIFIED [facility] HYPERLIPIDE SONU V762 SCREENING 05-01-2010 PATHOLOGY & FOR CYTOLOGY MALIGNANT LAB NEOPLASM OF THE CERVIX 4019 UNSPECIFIED 04-27-2010 [facility] [place]YP[place]SIO N 29698 PAIN IN 04-27-2010 [facility] JOINT[facility] LOWER LEG 7862 COUGH 04-27-2010 [facility] V0382 NEED PROPH 04-27-2010 [facility] VACCINATION [facility] AGAINST STREP PNEUMONE 7823 EDEMA 04-19-2010 [facility] [place]IST[place] & [place] 27174 UNSPECIFIED 04-19-2010 NURSES URINARY REGISTRY [place] [address] OTHER 02-14-2010 [facility] MALAISE [facility] FATIGUE 9134 ELB 02-14-2010 [facility] FORARM&WRST [facility] INSECT BITE NONVENOMOUS W/O INF V0481 NEED 02-14-2010 [facility] PROPHYLACTI [facility] C VACCINATION &INOCULATIO N FLU 01101 OSTEOARTHRO 11-29-2009 [facility] S UNSPEC [facility] WHETHER GEN/LOC UNSPEC SITE 7904 NONSPEC 11-29-2009 [facility] ELEVATION [facility] OF LEVELS OF TRANSAMINAS E/LDH 5990 URINARY 10-11-2009 [facility]CT [facility] INFECTION SITE NOT SPECIFIED 6961 OTHER 10-11-2009 [facility] PSORIASIS [facility] AND SIMILAR DISORDERS 43965 CHEST PAIN 10-11-2009 [facility] UNSPECIFIED [facility]ATES 13359 ESOPHAGEAL 06-24-2009 [facility] REFLUX [facility] 4619 ACUTE 06-14-2009 [facility] SINUSITIS[facility] UNSPECIFIED 2512 HYPOGLYCEMI 03-24-2009 [facility] A, [facility] UNSPECIFIED 460 ACUTE 03-24-2009 [facility] NASOPHARYNG [facility] ITIS 2449 UNSPECIFIED 01-18-2009 [facility] HOSP HYPOTHYROID INC ISM 95941 BLEPHARITIS 01-14-2009 LEVY BRETT A UNSPECIFIED 14607 COR 01-12-2009 [facility] TYPE VESSEL PROF SERV [place]/PINKY T 1120 CANDIDIASIS 01-06-2009 [facility] 6268 OTH D/O 01-06-2009 [facility] MENSTRUATIO [facility] N&OTH ABN BLEED FE GNT TRACT 7245 UNSPECIFIED 01-06-2009 [facility] BACKACHE [facility] 4660 ACUTE 12-23-2008 [facility] BRONCHITIS [facility] 7239 UNSPEC 10-01-2008 [facility] MUSCULOSKEL [facility] D/O&SYMPTOM S REFERABLE NECK 52154 SPASM OF 10-01-2008 [facility]CLE [facility] 6101 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, CYSTIC RONNIE MASTOPATHY 95859 LUMP OR 09-06-2008 SCHULSTAD, MASS IN RONNIE BREAST 98514 OTHER 09-06-2008 SCHULSTAD, ABNORMAL RONNIE FINDING RADIOLOGICA L EXAM BREAST V7281 PRE-OPERATI 09-02-2008 [facility] L[facility] PROF SERV EXAMINATION 20781 UNSPECIFIED 08-31-2008 SCHULSTAD, ABNORMAL RONNIE MAMMOGRAM 54761 HYPERTONICI 08-27-2008 [facility] TY OF [facility] BLADDER 7881 DYSURIA 08-27-2008 [facility] 4280 CONGESTIVE 08-13-2008 [facility] UNSPECIFIED PROF SERV 60857 SHORTNESS 08-13-2008 [facility] 23523 MIGRAINE 07-14-2008 [facility], W/AURA W/O LISSY INTRACT W/O STATUS MIGRNOSUS 95302 NONEXUDATIV 07-14-2008 Sky NARVAEZ SENILE LISSY MACULAR DEGENERATIO N RETINA 95353 TRANSIENT 07-14-2008 [facility], VISUAL LOSS LISSY 7019 UNSPECIFIED 07-02-2008 [facility] HYPERTROPHI C&ATROPHIC CONDITION SKIN 32536 OTHER 05-06-2008 [facility] DYSPNEA [facility] RESPIRATORY ABNORMALITI ES 2381 NEOPLASM 04-02-2008 [facility] UNCERTAIN [facility] BHV CNCTV&OTH SOFT TISSUE 49242 MIGRAINE 03-08-2008 CUONG, W/O AURA LUANN INTRACT W/O STATUS MIGRAINOSUS 7295 PAIN IN 10-22-2007 [facility] SOFT [facility] TISSUES OF LIMB 93709 OBESITY, 10-18-2007 RADI[facility] UNSPECIFIED ASSOCIATES PSC 4109 ACUTE 10-18-2007 [facility] PSC UNSPECIFIED SITE 84313 OTHER 10-18-2007 RADI[facility] DISEASES OF ASSOCIATES LUNG NOT PSC ELSEWHERE CLASSIFIED 06392 PAIN IN 08-08-2007 [employer] JOINT [place]ELVIC REGION AND THIGH 93519 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 [employer] 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 7812 ABNORMALITY 08-08-2007 [employer] OF GAIT 3689 UNSPECIFIED 07-11-2007 JOANA, VISUAL DAT DISTURBANCE 11941 PERIPH 07-09-2007 [facility] CHORIORETIN LISSY AL SCARS Medications Na ND Rx Da Fi Fi Am Da Di Ph RX Ph St me C No te ll ll ou ys ag ar # ys at rm s nt no ma ic us Or Da si cy ia de te s n re d DI 00 10 01 4 90 30 CL 22 SD Ac AZ 59 -0 -2 .0 IN 44 LL ti EP 15 5- 1- 00 IC 27 ER ve AM 62 20 20 01 10 11 PH CA 10 0 AR RO MA L MG CY J TA LL BL C ET DI 00 10 12 4 90 30 CL 22 SD Ac AZ 59 -0 -2 .0 IN 44 LL ti EP 15 5- 2- 00 IC 27 ER ve AM 62 20 20 01 10 10 PH CA 10 0 AR RO MA L MG CY J TA LL BL C ET 60 11 11 0 18 5 CL 22 NO Ac 25 -2 -2 0. IN 73 RF ti 80 3- 3- 00 IC 81 LE ve 41 20 20 0 ET 51 10 10 PH R 6 AR MA HE CY NR Y LL C DI 00 10 11 4 90 30 CL 22 SD Ac AZ 59 -0 -1 .0 IN 44 LL ti EP 15 5- 9 00 IC 27 ER ve AM 62 20 20 01 10 10 PH CA 10 0 AR RO MA L MG CY J TA LL BL C ET DI 00 07 10 3 12 30 CL 21 SD Ac AZ 59 -1 -1 0. IN 98 LL ti EP 15 00 IC 49 ER ve AM 62 20 20 0 01 10 10 PH CA 10 0 AR RO MA L MG CY J TA LL BL C ET DI 00 07 09 3 12 30 CL 21 SD Ac AZ 59 -1 -1 0. IN [...] 07 08 3 12 30 CL 21 SD Ac AZ 59 -1 -1 0. IN 98 LL ti EP 15 IC 49 ER ve AM 62 20 20 0 01 10 10 PH CA 10 0 AR RO MA L MG CY J TA LL BL C ET DI 00 07 07 3 12 30 CL 21 SD Ac AZ 59 -1 -1 0. IN 98 LL ti EP 15 6 IC 49 ER ve AM 62 20 20 0 01 10 10 PH CA 10 0 AR RO MA L MG CY J TA LL BL C ET DI 00 03 06 2 12 30 CL 21 SD Ac AZ 59 -3 -1 0. IN [...] MG Y LL TA C BL ET MU 63 04 05 2 40 20 CL 21 NO Ac CI 82 -1 -1 .0 IN 46 RF ti NE 40 6- 7- 00 IC 77 LE ve X 00 20 20 ET ER 83 10 10 PH R 4 AR 60 MA HE 0 CY NR MG Y LL TA C BL ET DI 00 03 05 2 12 30 CL 21 SD Ac AZ 59 -3 -1 0. IN 41 LL ti EP 15 0- 7- 00 IC 81 ER ve AM 62 20 20 0 01 10 10 PH CA 10 0 AR RO MA L MG CY J TA LL BL C ET CT 00 05 05 0 [address] Ac OM 60 -0 -0 0. L- 85 EP ti ET 31 9- 9- 00 MA 47 HE ve GUTIERREZ 58 20 20 0 RT 4 NS ZI 85 10 10 NE 8 PH DO AR N VC MA R -C CY OD # EI NE 10 05 SY 91 RU P MU 63 04 04 2 40 20 CL 21 NO Ac CI 82 -1 -1 .0 IN 46 RF ti NE 40 6- 6- 00 IC 77 LE ve X 00 20 20 ET ER 83 10 10 PH R 4 AR 60 MA HE 0 CY NR MG Y LL TA C BL ET DI 00 03 04 2 12 30 CL 21 SD Ac AZ 59 -3 -1 0. IN 41 LL ti EP 15 0- 6- 00 IC 81 ER ve AM 62 20 20 0 01 10 10 PH CA 10 0 AR RO MA L MG CY J TA LL BL C ET DI 00 01 03 2 12 30 CL 20 SD Ac AZ 59 -0 -1 0. IN 81 LL ti EP 15 5- 6- 00 IC 98 ER ve AM 62 20 20 0 01 10 10 PH CA 10 0 AR RO MA L MG CY J TA LL BL C ET MU 63 12 02 02 40 20 CL 20 NO Ac CI 82 -0 -2 .0 IN 60 RF ti NE 40 3- 6- 00 IC 21 LE ve X 00 20 20 ET ER 83 09 10 PH R 4 AR 60 MA HE 0 CY NR MG Y TA BL ET DI 00 01 02 00 12 30 CL 20 No Ac AZ 59 -0 -2 0. IN 81 t ti EP 15 5- 6- 00 IC 98 Av ve AM 62 20 20 0 ai 01 10 10 PH la 10 0 AR bl MA e MG CY TA BL ET MU 63 12 01 [...] e MG CY TA BL ET 60 12 12 00 18 5 CL 20 NO Ac 25 -0 -1 0. IN 60 RF ti 80 3- 7- 00 IC 22 LE ve 23 20 20 0 ET 91 09 09 PH R 6 AR MA HE CY NR Y MU 63 12 12 00 40 20 CL 20 NO Ac CI 82 -0 -1 .0 IN 60 RF ti NE 40 3- 7- 00 IC 21 LE ve X 00 20 20 ET ER 83 09 09 PH R 4 AR 60 MA HE 0 CY NR MG Y TA BL ET DI 00 08 12 02 12 30 CL 20 No Ac AZ 59 -2 -0 0. IN 07 t ti EP 15 0- 3- 00 IC 18 Av ve AM 62 20 20 0 ai 01 09 09 PH la 10 0 AR bl MA e MG CY TA BL ET 60 10 12 01 18 5 CL [...] HE CY NR Y DI 00 08 09 00 12 30 [...] MA e MG CY TA BL ET CT 00 02 03 00 18 4 WA [...] PS UL E DI 00 11 01 01 12 30 CL 18 No Ac AZ 59 -1 -3 0. IN 20 t ti EP 15 7- 0- 00 IC 99 Av ve AM 62 20 20 0 ai 01 08 09 PH la 10 0 AR bl MA e MG CY TA BL ET DI 00 11 01 00 12 30 [...] 30 MG TA BL ET DI 00 07 08 00 12 30 CL 17 No Ac AZ 59 -0 -0 0. IN 36 t ti EP 15 1- 1- 00 IC 01 Av ve AM 62 20 20 0 ai 01 08 08 PH la 10 0 AR bl MA e MG CY TA BL ET HY 60 07 07 [...] la 1 AR bl MA e CY 50 02 03 00 30 10 CL 16 No Ac 11 -2 -2 .0 IN 54 t ti 10 2- 6- 00 IC 75 Av ve 85 20 20 ai 10 08 08 PH la 1 AR bl MA e CY DI 00 01 03 01 12 30 CL 16 No Ac AZ 59 -1 -2 0. IN 30 t ti EP 15 9- 6- 00 IC 26 Av ve AM 62 20 20 0 ai 01 08 08 PH la 10 0 AR bl MA e MG CY TA BL ET DI 00 01 03 00 12 30 CL 16 No Ac AZ 59 -1 -2 0. IN 30 t ti EP 15 9- 5- 00 IC 26 Av ve AM 62 [...] Procedures Procedure [place] [address] [facility]ON [facility] THERAPY/P INC INC ROPHYLAXI S /DX 1ST TO 1 HR COLOREC G0105 C RONNIE TOBIAS CANCR 1 JATINDER LI SCR; PSC COLONSCPY [place]DIVID[place] @[place] [address] [facility] THERAPY INC INC PROPHYLAX IS/DX EA HOUR ANES 99283 [facility] 1 ANESTH DAVID INTESTINE OF THE BLUE ENDOSCOPY DISTAL DUODENUM PHRM Q0513 YOUR YOUR DISPENSIN 1 PHARMACY PHARMACY G FEE [facility] INHALATIO N RX; PER 30 DAYS ALBUTEROL J7620 YOUR YOUR TO 2.5 1 PHARMACY PHARMACY MG & [facility] IPRATROPI UM BROM TO 0.5 MG ADMN SET A7003 YOUR YOUR SM VOL 1 PHARMACY PHARMACY NONFILTR [facility] PNEUMAT NEBULIZR DISPBL COMPUTER- 83053 I[facility] JOANA AIDED 1 MEDICAL AMANDA DETECTION IMAGING ASS SCREENING MAMMOGRAP HY SCREENING G0202 [facility] JOANA 1 MEDICAL AMANDA MAMMOGRAP IMAGING HY LISANDRO ASS INCL CAD WHEN PERFORMD SCR G0145 PATHOLOGY PATHOLOGY CYTOPATH 1 & & CERV/VAG CYTOLOGY CYTOLOGY SCR LAB LAB AUTO&MNL RSCR PHYS 25 47735 [facility] HYDROXY 1 [facility] INCLUDES INC INC FRACTIONS IF PERFORMED LIPID 22881 [facility] PANEL 1 [facility] INC INC HEPATIC 40939 [facility] FUNCTION 1 [facility] PANEL INC INC HEMOGLOBI 09602 [facility] N 1 [facility] GLYCOSYLA INC INC [place] A1C COLLECTIO 87557 [facility] N VENOUS 1 [facility] BLOOD INC INC VENIPUNCT URE PPSV23 26336 [facility]ILY [facility] E[facility] VACCINE 2 1 CARE R H YRS OR ASSOCIATE OLDER FOR S SUBQ/IM USE ADMINISTR G0009 [facility]ILY [facility] ATION OF 1 CARE R H PNEUMOCOC ASSOCIATE PERFECTO S VACCINE ADLT SZD T4526 NURSES NURSES DISPBL 0 REGISTRY REGISTRY INCONT & HOME HE & HOME HE PROD UNDWEAR MED EA A4258 DISCOUNT DISCOUNT WERED 0 DIABETIC DIABETIC [...] PER BOX 0 DIABETIC DIABETIC OF 100 TUBING A7037 LACIE MEDELLIN USED WITH 0 HOME MED HOME MED POSITIVE EQUIP. L EQUIP. L [facility] PRESSURE DEVICE FILTER A7038 LACIE MEDELLIN DISPBL 0 HOME MED HOME MED USED EQUIP. L EQUIP. L W/POS ARWAY PRESSURE DEVICE NASL A7034 LACIE MEDELLIN INTRFCE 0 HOME MED HOME MED POS ARWAY EQUIP. L EQUIP. L PRSS DEVC W/WO HEAD STRAP HEADGEAR A7035 LACIE MEDELLIN USED 0 HOME MED HOME MED W/POSITIV EQUIP. L EQUIP. L E AIRWAY PRESSURE DEVICE ADLT [facility] T4526 NURSES NURSES DISPBL 0 REGISTRY REGISTRY INCONT & HOME HE & HOME HE PROD UNDWEAR MED EA CONTINUOU E0601 LACIE MEDELLIN S 0 HOME MED HOME MED POSITIVE EQUIP. L EQUIP. L AIRWAY PRESSURE DEVICE [facility] T4526 NURSES NURSES DISPBL 0 REGISTRY REGISTRY INCONT & HOME HE & HOME HE PROD UNDWEAR MED EA ADMINISTR G0008 FAMILY ROSA ELENA ATION OF 0 CARE R H INFLUENZA ASSOCIATE VIRUS S VACCINE IIV3 68645 FAMILY FAMILY VACCINE 0 CARE CARE SPLIT ASSOCIATE ASSOCIATE VIRUS 0.5 S S ML DOSAGE IM USE COMPREHEN 46358 COMBINED COMBINED SIVE 0 PHYSICIAN PHYSICIAN METABOLIC S LA S LA PANEL CYANOCOBA 99804 COMBINED COMBINED CORETTA 0 PHYSICIAN PHYSICIAN VITAMIN S LA S LA B-12 [place] [address] COMBINED COMBINED THYROID 0 PHYSICIAN PHYSICIAN STIMULATI S LA S LA NG HORMONE TSH BLOOD 51693 FAMILY FAMILY COUNT 0 CARE CARE COMPLETE ASSOCIATE ASSOCIATE AUTO&AUTO S S DIFRNTL WBC THERAPEUT 68503 [facility] IC 0 CARE R H PROPHYLAC ASSOCIATE TIC/DX S INJECTION SUBQ/IM HEMOGLOBI 99584 FAMILY [facility] ELE[facility] N 0 CARE R H GLYCOSYLA ASSOCIATE TATIANA A1C S LIPID 49976 FAMILY FAMILY PANEL 0 CARE MANAGER HELPDESK ASSOCIATE S S COLLECTIO 12295 [facility]ILY [facility] N VENOUS 0 CARE R H BLOOD ASSOCIATE VENIPUNCT S URE [facility] T4526 NURSES NURSES DISPBL 0 REGISTRY REGISTRY INCONT & HOME HE & HOME HE PROD UNDWEAR MED EA LANCETS A4259 DISCOUNT DISCOUNT PER BOX 0 DIABETIC DIABETIC OF 100 NORMAL A4256 DISCOUNT DISCOUNT LOW AND 0 DIABETIC DIABETIC HIGH CALIBRATO R SOLUTION/ CHIPS BLD GLU A4253 DISCOUNT DISCOUNT TEST/REAG 0 DIABETIC DIABETIC T STRIPS HOME BLD GLU MON-50 [facility] T4526 NURSES NURSES DISPBL 0 REGISTRY REGISTRY INCONT & HOME HE & HOME HE PROD UNDWEAR MED EA PHRM Q0513 YOUR YOUR DISPENSIN 0 PHARMACY PHARMACY G FEE [facility] INHALATIO N RX; PER 30 DAYS ALBUTEROL J7620 YOUR YOUR TO 2.5 0 PHARMACY PHARMACY [facility] IPRATROPI UM BROM TO 0.5 MG ADMN SET A7003 YOUR YOUR SM VOL 0 PHARMACY PHARMACY NONFILTR [facility] PNEUMAT NEBULIZR DISPBL HEPATIC 65045 COMBINED COMBINED FUNCTION 0 PHYSICIAN PHYSICIAN PANEL S LA S LA COLLECTIO 00596 FAMILY FAMILY N VENOUS 0 CARE CARE BLOOD ASSOCIATE ASSOCIATE VENIPUNCT S S URE THERAPEUT 58454 [facility] IC [facility] CARE R H PROPHYLAC ASSOCIATE TIC/DX S INJECTION SUBQ/IM INJECTION J3420 [facility] VIT B-12 0 CARE R H ASSOCIATE CYANOCOBA S CORETTA TO 1000 MCG [facility] T4528 NURSES NURSES DISPBL 0 REGISTRY REGISTRY INCONT & HOME HE & HOME HE PROD UNDWEAR XTRA LG EA [facility] T4528 NURSES NURSES DISPBL 0 REGISTRY REGISTRY INCONT & HOME HE & HOME HE PROD UNDWEAR XTRA LG EA BASIC 96549 COMBINED COMBINED METABOLIC 0 PHYSICIAN PHYSICIAN PANEL S LAB S LAB CALCIUM TOTAL RADIOLOGI 15780 IDAHO Angela BERNARD 0 MEDICAL DAT EXAMINATI IMAGING ON KNEE 3 ASSOCIATE VIEWS S TRANSFERA 45550 [facility] SE 0 CARE Honey RAMOS ASPARTATE ASSOCIATE AMINO S AST SGOT TRANSFERA 47633 [facility] SE 0 CARE Honey RAMOS ALANINE ASSOCIATE AMINO ALT S SGPT COLLECTIO 17669 FAMILY ROSA ELENA, N VENOUS 0 CARE Honey RAMOS BLOOD ASSOCIATE VENIPUNCT S URE URNLS DIP 19747 [facility], 0 CARE Honey RAMOS STICK/TAB ASSOCIATE LET RGNT S NON-AUTO W/O MICRSCP LIPID 88836 [facility], PANEL 0 CARE R RACHEL ASSOCIATE S [facility] A4258 DISCOUNT DISCOUNT WERED 0 DIABETIC DIABETIC DEVICE FOR LANCET EACH [facility] T4528 NURSES NURSES DISPBL 0 REGISTRY REGISTRY INCONT & HOME & HOME PROD [facility] XTRA LG EA REPL ARANZA A4233 DISCOUNT DISCOUNT ALKALINE 0 DIABETIC DIABETIC NOT J CELL SACHA BG MON OWND PT NORMAL A4256 DISCOUNT DISCOUNT LOW AND 0 DIABETIC DIABETIC HIGH CALIBRATO R SOLUTION/ CHIPS BLD GLU A4253 DISCOUNT DISCOUNT TEST/REAG 0 DIABETIC DIABETIC T STRIPS HOME BLD GLU MON-50 LANCETS A4259 DISCOUNT DISCOUNT PER BOX 0 DIABETIC DIABETIC OF 100 CONTINUOU E0601 LACIE MENONRELL S 0 HOME MED HOME MED POSITIVE EQUIP. L EQUIP. L AIRWAY PRESSURE DEVICE [facility] T4528 NURSES NURSES DISPBL 0 REGISTRY REGISTRY INCONT & HOME & [facility] EA NASL A7034 LACIE MEDELLIN INTRFCE 0 HOME MED HOME MED POS ARWAY EQUIP. L EQUIP. L PRSS DEVC W/WO HEAD STRAP HEADGEAR A7035 LACIE MEDELLIN USED 0 HOME MED HOME MED W/POSITIV EQUIP. L EQUIP. L E AIRWAY PRESSURE DEVICE FILTER A7038 LACIE MEDELLIN DISPBL 0 HOME MED HOME MED USED EQUIP. L EQUIP. L W/POS ARWAY PRESSURE DEVICE [facility] T4528 NURSES NURSES DISPBL 0 REGISTRY REGISTRY INCONT & HOME & HOME PROD [facility] XTRA LG EA CREATINE 40873 [facility] KINASE MB 0 [facility] FRACTION INC INC ONLY COMPREHEN 42073 [facility] SIVE 0 [facility] METABOLIC INC INC PANEL RADIOLOGI 62854 IDAHO Angela BRADY EXAM 0 MEDICAL BEVERLY P CHEST 2 IMAGING VIEWS ASSOCIATE FRONTAL&L S ATERAL CREATINE 09128 [facility] KINASE 0 [facility] TOTAL INC INC ECG 88620 [facility] ROUTINE 0 [facility] ECG INC INC W/LEAST 12 LDS TRCG ONLY W/O I&R ECG 50123 [facility] CORNELL, ROUTINE 0 [facility] W/LEAST PROF SERV 12 LDS I&[place] [address] [facility] TROPONIN 0 [facility] QUANTITAT INC INC ROSETTE BLOOD 29431 [facility] COUNT 0 [facility] COMPLETE INC INC AUTO&AUTO DIFRNTL WBC NEBULIZER E0570 LACIE MEDELLIN WITH 0 HOME MED HOME MED COMPRESSO EQUIP. EQUIP. R [facility] ADLT D T4528 NURSES NURSES DISPBL 0 REGISTRY REGISTRY INCONT & HOME & HOME PROD [facility] UNDWEAR XTRA LG EA URNLS DIP 94712 FAMILY ROSA ELENA, 0 CARE R RACHEL STICK/TAB ASSOCIATE LET RGNT S NON-AUTO W/O MICRSCP NEBULIZER E0570 LACIE MEDELLIN WITH 0 HOME MED HOME MED COMPRESSO EQUIP. EQUIP. R [facility] ADLT D T4528 NURSES NURSES DISPBL 0 REGISTRY REGISTRY INCONT & HOME & HOME PROD [facility] SocialPandasWEAR XTRA LG EA FOR DIAB A5513 CLINIC CLINIC ONLY MX 0 PHARMACY PHARMACY DNSITY INSRT CSTM MOLD CSTM EA DIAB ONLY A5500 CLINIC CLINIC FIT CSTM 0 PHARMACY PHARMACY PREP&SPL SHOE MX DNSITY INSRT SPRING-PO A4258 DISCOUNT DISCOUNT WERED 0 DIABETIC DIABETIC DEVICE FOR LANCET EACH LANCETS A4259 DISCOUNT DISCOUNT PER BOX 0 DIABETIC DIABETIC OF 100 BLD GLU A4253 DISCOUNT DISCOUNT TEST/REAG 0 DIABETIC DIABETIC T STRIPS HOME BLD GLU MON-50 NORMAL A4256 DISCOUNT DISCOUNT LOW AND 0 DIABETIC DIABETIC HIGH CALIBRATO R SOLUTION/ CHIPS REPL ARANZA A4233 DISCOUNT DISCOUNT ALKALINE 0 DIABETIC DIABETIC NOT J CELL SACHA BG MON OWND PT FILTER A7038 LACIE MEDELLIN DISPBL 0 HOME MED HOME MED USED EQUIP. EQUIP. W/POS [facility] ARWAY PRESSURE DEVICE NEBULIZER E0570 LACIE MEDELLIN WITH 9 HOME MED HOME MED COMPRESSO EQUIP. EQUIP. R [facility] BASIC 75532 COMBINED COMBINED METABOLIC 9 PHYSICIAN PHYSICIAN PANEL S LAB S LAB CALCIUM TOTAL BLOOD 01065 FAMILY CUBA, COUNT 9 GORGE RAMOS COMPLETE ASSOCIATE AUTO&AUTO S DIFRNTL WBC LIPID 96856 FAMILY CUBA, PANEL 9 CARE Honey RAMOS ASSOCIATE S HEMOGLOBI 83675 FAMILY CUBA, N 9 [facility] Honey RAMOS GLYCOSYLA ASSOCIATE TATIA[place] A1C S COLLECTIO 58378 FAMILY CUBA, N VENOUS 9 [facility] Honey RAMOS BLOOD ASSOCIATE VENIPUNCT S URE URNLS DIP 32470 FAMILY CUBA, 9 GORGE RAMOS STICK/TAB ASSOCIATE LET RGNT S NON-AUTO W/O MICRSCP CONTINUOU E0601 LACIE MEDELLIN S 9 HOME MED HOME MED POSITIVE EQUIP. EQUIP. AIRWAY [facility] PRESSURE DEVICE FILTER A7039 LACIE MEDELLIN NON 9 HOME MED HOME MED DISPBL EQUIP. EQUIP. USED [facility] W/POS ARWAY PRESS DEVICE FILTER A7038 LACIE MENONRELL DISPBL 9 HOME MED HOME MED USED EQUIP. EQUIP. W/POS [facility] ARWAY PRESSURE DEVICE NEBULIZER E0570 LACIE MEDELLIN WITH 9 HOME MED HOME MED COMPRESSO EQUIP. EQUIP. R [facility] CREATINE 56245 [facility] KINASE 9 [facility] TOTAL INC INC CREATINE 14899 [facility] KINASE MB 9 [facility] [place] [address] [facility] TROPONIN 9 [facility] [id number] [facility] TROPONIN 9 [facility] QUANTITAT INC INC [place] BLOOD 19522 [facility] COUNT 9 [facility] COMPLETE INC INC AUTO&AUTO DIFRNTL WBC THER 47409 [facility] PROPH/DX 9 [facility] NJX IV INC INC PUSH SINGLE/1S T SBST/DRUG BASIC 10907 [facility] METABOLIC 9 [facility] PANEL INC INC CALCIUM TOTAL RADIOLOGI 12037 Angela CHASE 9 MEDICAL BEVERLY Nesbitt EXAMINATI IMAGING ON CHEST ASSOCIATE SINGLE S VIEW FRONTAL CREATINE 91239 MAVERICK MAVERICK KINASE MB 9 [facility] FRACTION INC INC ONLY ECG 45641 MICKEY BRENNANEY, ROUTINE 9 EMERGENCY SHEBA S ECG SERVICES W/LEAST 12 LDS ASSOCIATE I&R ONLY S CREATINE 40999 [facility]ICK [facility]ICK KINASE 9 [facility] TOTAL INC INC ECG 64974 [facility] TEM[facility] ROUTINE 9 [facility] ECG INC INC W/LEAST 12 LDS TRCG ONLY W/O I&R NEBULIZER [id number] LACIE MEDELLIN WITH 9 HOME MED HOME MED COMPRESSO EQUIP. EQUIP. [facility] PHRM Q0513 YOUR YOUR DISPENSIN 9 PHARMACY PHARMACY G FEE Synthelis INHALATIO N RX; PER 30 DAYS ALBUTEROL J7620 YOUR YOUR TO 2.5 9 PHARMACY PHARMACY [facility] & [facility] LLC IPRATROPI UM BROM TO 0.5 MG ADLT SZD [id number] NURSES NURSES DISPBL 9 REGISTRY REGISTRY INCONT & HOME & HOME PROD HEALH HEALH UNDWEAR XTRA LG EA BASIC 59382 MAVERICK TEMPLE METABOLIC 9 [facility] [place] [address] MAVERICK TEMPLE THYROID 9 [facility] STIMULATI INC INC NG HORMONE TSH HEMOGLOBI 47222 MAVERICK TEMPLE N 9 [facility] GLYCOSYLA INC INC T[place] A1C HEPATIC 68668 M[facility] TEM[facility] FUNCTION 9 [facility] PANEL INC INC LIPID 75939 [facility] TEM[facility] PANEL 9 [facility] INC INC COLLECTIO 43962 M[facility] TEMPLE N VENOUS 9 [facility] BLOOD INC INC VENIPUNCT URE OPHTH 89874 CAM LEVY MEDICAL 9 ROSA A ROSA A XM&EVAL COMPRHNSV ESTAB PT 1/> FILTER A7038 LACIE MEDELLIN DISPBL 9 HOME MED HOME MED USED EQUIP. EQUIP. W/POS [facility] PRESSURE DEVICE CUSHN A7032 LACIE MEDELLIN NASAL 9 HOME MED HOME MED MASK EQUIP. EQUIP. INTERFACE [facility] REPLACEME NT ONLY EACH TUBING A7037 LACIE MEDELLIN USED WITH 9 HOME MED HOME MED POSITIVE EQUIP. EQUIP. AIRWAY [facility] PRESSURE DEVICE HEADGEAR A7035 LACIE MEDELLIN USED 9 HOME MED HOME MED W/POSITIV EQUIP. EQUIP. E AIRWAY [facility] PRESSURE DEVICE NASL A7034 LACIE MEDELLIN INTRFCE 9 HOME MED HOME MED POS ARWAY EQUIP. EQUIP. PRSS [facility] DEVC W/WO HEAD STRAP RADIOLOGI 49712 Angela NAM 9 MEDICAL DAT EXAMINATI IMAGING ON CHEST ASSOCIATE SINGLE S VIEW FRONTAL ECG 47067 MICKEY CARROLL, ROUTINE 9 EMERGENCY SHEBA S ECG SERVICES W/LEAST 12 LDS ASSOCIATE I&R ONLY S ECG 56488 MICKEY CARROLL, ROUTINE 9 EMERGENCY SHEBA S ECG SERVICES W/LEAST 12 LDS ASSOCIATE I&R ONLY S URNLS DIP 26753 FAMILY ROSA ELENA, 9 CARE R RACHEL STICK/TAB ASSOCIATE LET RGNT S NON-AUTO W/O MICRSCP NEBULIZER E0570 LACIE LACIE WITH 9 HOME MED HOME MED COMPRESSO EQUIP. EQUIP. R [facility] ADLT SZD T4528 NURSES NURSES DISPBL 9 REGISTRY REGISTRY INCONT & HOME & HOME PROD [facility] XTRA EA LANCETS A4259 DISCOUNT DISCOUNT PER BOX 9 DIABETIC DIABETIC OF 100 NORMAL A4256 DISCOUNT DISCOUNT LOW AND 9 DIABETIC DIABETIC HIGH CALIBRATO R SOLUTION/ CHIPS BLD GLU A4253 DISCOUNT DISCOUNT TEST/REAG 9 DIABETIC DIABETIC T STRIPS HOME BLD GLU MON-50 NEBULIZER E0570 LACIEFRANCOIS MEDELLIN WITH 9 HOME MED HOME MED COMPRESSO EQUIP. EQUIP. R [facility] ADLT SZD T4528 NURSES NURSES DISPBL 9 REGISTRY REGISTRY INCONT & HOME & HOME PROD [facility] UNDWEAR XTRA LG EA NEBULIZER E0570 LACIE MEDELLIN WITH 9 HOME MED HOME MED COMPRESSO EQUIP. EQUIP. R [facility] ADLT SZD T4528 NURSES NURSES DISPBL 9 REGISTRY REGISTRY [facility]CONT & HOME [facility] EA ADMN SET A7003 YOUR YOUR SM VOL 9 PHARMACY PHARMACY NONFILAboutMyStar [facility] PNEUMAT NEBULIZR DISPBL ALBUTEROL J7620 YOUR YOUR TO 2.5 9 PHARMACY PHARMACY MG & [facility] LLC IPRATROPI UM BROM TO 0.5 MG PHRM Q0513 YOUR YOUR DISPENSIN 9 PHARMACY PHARMACY G [employer] [facility] INHALATIO N RX; PER 30 DAYS NASL A7034 LACIE MEDELLIN INTRFCE 9 HOME MED HOME MED POS ARWAY EQUIP. EQUIP. PRSS [facility] DEVC W/WO HEAD STRAP CUSHN A7032 LACIE MEDELLIN NASAL 9 HOME MED HOME MED MASK EQUIP. EQUIP. INTERFACE [facility] REPLACEME NT ONLY EACH TUBING A7037 LACIE LACIE USED WITH 9 HOME MED HOME MED POSITIVE EQUIP. EQUIP. AIRWAY [facility] PRESSURE DEVICE FILTER A7038 LACIE MEDELLIN DISPBL 9 HOME MED HOME MED USED EQUIP. EQUIP. W/POS [facility] ARWAY PRESSURE DEVICE NEBULIZER E0570 LACIE MEDELLIN WITH 9 HOME MED HOME MED COMPRESSO EQUIP. EQUIP. R [facility] ADLT SZD T4528 NURSES NURSES DISPBL 9 REGISTRY REGISTRY INCONT & HOME & HOME [facility]OD [facility] ASC[facility] LG EA CONTINUOU E0601 LACIE LACIE S 9 HOME MED HOME MED POSITIVE EQUIP. EQUIP. AIRWAY [facility] PRESSURE DEVICE ALBUTEROL J7613 YOUR YOUR INHAL 9 PHARMACY PHARMACY NON-CP Synthelis PROD THRU DME U DOSE 1 MG ADMN SET A7003 YOUR YOUR SM VOL 9 PHARMACY PHARMACY NONFILAboutMyStar [facility] PNEUMAT NEBULIZR DISPBL PHRM Q0513 YOUR YOUR DISPENSIN 9 PHARMACY PHARMACY G Discount Ramps [facility] INHALATIO N RX; PER 30 DAYS US BREAST 54084 ELLY NAM 9 MEDICAL DAT TIME IMAGING W/[place] [address] [facility] INFUSION 9 [facility] THERAPY INC INC PROPHYLAX IS/DX EA HOUR ANES 98736 [facility]LY [facility], 1928–1983 HASTINGS BOBBY 9 ANESTH BALAJI Gladys ORELLANA OF THE ES ANT [place] TRUNK & PERINEUM NOS IMG GID 93702 ARJUN BERNARD, PLKY MTLC 9 MEDICAL DAT LOCLZJ IMAGING CLIP PRQ ASSOCIATE BRST S BX/[place] [address] [facility] GUIDANCE 9 [facility] NEEDLE INC INC PLACEMENT IMG S&I INJECTION J2405 [facility] 9 [facility] ONDANSETR INC INC ON HCL PER 1 MG RADIOLOGI 71911 [facility] PERFECTO 9 [facility] EXAMINATI INC INC ON SURGICAL SPECIMEN BIOPSY 49334 [facility] TALIHINACristina JOANA, BREAST 9 MEDICAL DAT NEEDLE IMAGING CORE ASSOCIATE W/IMAGING S GUIDANCE PREOP 30321 [facility] PLACEMENT 9 [facility] INC INC LOCALIZAT ION WIRE BREAST THERAPEUT 92824 [facility] IC 9 [facility] INJECTION INC INC IV PUSH EACH NEW DRUG MAMMOGRAP 77607 [facility] SCHAEFERJOANA, 9 MEDICAL [place] [address] [facility] INFUSION 9 [facility] THERAPY/P INC INC ROPHYLAXI S /DX 1ST TO 1 HR GLUC BLD 33918 [facility] GLUC MNTR 9 [facility] DEV INC INC CLEARED FDA SPEC HOME USE BIOPSY 11867 [facility] BREAST 9 [facility] OPEN INC INC INCISIONA L EXC 51891 SCHULSTAD SCHULSTAD BREAST 9 , RONNIE , RONNIE LES PREOP PLMT RAD MARKER OPEN 1 LES COLLECTIO 42182 [facility] N VENOUS 9 [facility] BLOOD INC INC VENIPUNCT URE ECG 59112 [facility] ROUTINE 9 [facility] ECG INC INC W/LEAST 12 LDS TRCG ONLY W/O I&R BLOOD 08246 [facility] COUNT 9 [facility] COMPLETE INC INC AUTO&AUTO DIFRNTL WBC ECG 09228 [facility] ANDRADEKEMISky ROUTINE 9 [facility] BALAJI W/LEAST PROF SERV 12 LDS I&R ONLY BASIC 19174 [facility] METABOLIC 9 [facility] PANEL INC INC CALCIUM TOTAL NEBULIZER E0570 LACIE MEDELLIN WITH 9 HOME MED HOME MED COMPRESSO EQUIP. EQUIP. R LLC LLC LIPID 53809 [facility] PANEL 9 [facility] INC INC HEPATIC 96279 [facility] FUNCTION 9 [facility] PANEL INC INC HEMOGLOBI 68117 [facility] N 9 [facility] GLYCOSYLA INC INC TATIANA A1C COLLECTIO 69458 [facility] N VENOUS 9 [facility] BLOOD INC INC VENIPUNCT URE BASIC 69577 [facility] METABOLIC 9 [facility] PANEL INC INC CALCIUM TOTAL REPL ARANZA A4235 DISCOUNT DISCOUNT LITHIUM 9 DIABETIC DIABETIC MED NECES SACHA BG MON OWN PT EA SPRING-PO A4258 DISCOUNT DISCOUNT WERED 9 DIABETIC DIABETIC DEVICE FOR LANCET EACH BLD GLU A4253 DISCOUNT DISCOUNT TEST/REAG 9 DIABETIC DIABETIC T STRIPS HOME BLD GLU MON-50 NORMAL A4256 DISCOUNT DISCOUNT LOW AND 9 DIABETIC DIABETIC HIGH CALIBRATO R SOLUTION/ CHIPS LANCETS A4259 DISCOUNT DISCOUNT PER BOX 9 DIABETIC DIABETIC OF 100 CULTURE 42060 [facility] BACTERIAL 9 [facility] INC INC QUANTTATI VE COLONY COUNT URINE URNLS DIP 75698 FAMILY ROSA ELENA, 9 CARE R RACHEL STICK/TAB ASSOCIATE LET RGNT S NON-AUTO W/O MICRSCP ADLT SZD T4528 NURSES NURSES DISPBL 9 REGISTRY REGISTRY INCONT & HOME & HOME PROD [facility] XTRA LG EA US BREAST 75212 [facility] REAL 9 [facility] TIME INC INC W/IMAGE DOCUMENTA TION PROBE/NEE C2618 [facility] DLE 9 [facility] [place] [address] PATHOLOGY PATHOLOGY SURG 9 & & PATHOLOGY CYTOLOGY CYTOLOGY LAB LAB GROSS&MEGHA ROSCOPIC EXAM PREOP 46828 [facility] PLACEMENT 9 [facility] [place] [address] CORA CHASE 9 MEDICAL BEVERLY P NEEDLE IMAGING PLACEMENT ASSOCIATE IMG S&I S BREAST 20723 [facility] BIOPSY 9 [facility] VACUUM INC INC ASSISTED/ ROTATING DEVICE ECG 31172 [facility] VELAZCO, ROUTINE 9 [facility] W/LEAST PROF SERV 12 LDS I&R ONLY THER 48694 [facility] PROPH/DX 9 [facility] NJX IV INC INC PUSH SINGLE/1S T SBST/DRUG BLOOD 36142 [facility] COUNT 9 [facility] COMPLETE INC INC AUTO&[place] [address] [facility] TROPONIN 9 [facility]OS[facility] QUANTITAT INC INC ROSETTE INSJ TEMP 46484 [facility] NDWELLG 9 [facility] BLADDER INC INC CATHETER SIMPLE BASIC 84358 [facility] METABOLIC 9 [facility] [place] [address] [facility] THYROID 9 [facility] STIMULATI INC INC NG HORMONE TSH SUSCEPTIB 56881 [facility] LTY STDY 9 [facility] ANTIMICRB INC INC IAL MICRO/AGA R DILUTJ RADIOLOGI 46005 Angela CHASE 9 MEDICAL BEVERLY P EXAMINATI IMAGING ON CHEST ASSOCIATE SINGLE S VIEW FRONTAL CULTURE 78844 [facility] BACTERIAL 9 [facility] INC INC QUANTTATI VE COLONY COUNT URINE CULTURE 61240 [facility] BCT 9 [facility] ISOL&PRSM INC [place] [address] [facility] THYROXINE 9 [facility] TOTAL INC INC CREATINE 61978 [facility] KINASE MB 9 [facility] FRACTION INC INC ONLY URNLS DIP 64741 [facility] 9 [facility] STICK/TAB INC INC LET REAGENT AUTO MICROSCOP Y ECG 27990 [facility] ROUTINE 9 [facility] ECG INC INC W/LEAST 12 LDS TRCG ONLY W/O I&R NATRIURET 84285 [facility] IC 9 [facility] PEPTIDE INC INC CREATINE 49192 [facility] KINASE 9 [facility] TOTAL INC INC US BREAST 53952 [facility] REAL 9 [facility] TIME INC INC W/IMAGE DOCUMENTA TION MAMMOGRAP 13372 [facility] JOSE ANTONIO, 9 MEDICAL BEVERLY P UNILATERA IMAGING L ASSOCIATE S NEBULIZER E0570 LACIE MEDELLIN WITH 9 HOME MED HOME MED COMPRESSO EQUIP. EQUIP. R LLC [facility] ADLT SZD T4528 NURSES NURSES DISPBL 9 REGISTRY REGISTRY INCONT & HOME & HOME PROD [facility] UNDWEAR XTRA KIT EA OPHTHALMO 11257 SOLANGE NARVAEZ, SCPY 9 LISSY YUAN EXTENDED RETINAL DRAWING I&R 1ST NEBULIZER E0570 LACIE MEDELLIN WITH 9 HOME MED HOME MED COMPRESSO EQUIP. EQUIP. R LLC LLC ADMN SET A7003 LACIE MEDELLIN SM VOL 9 HOME MED HOME MED NONFILTR EQUIP. EQUIP. PNEUMAT LLC LLC NEBULIZR DISPBL PHARM G0333 YOUR YOUR DISPEN 9 PHARMACY PHARMACY FEE INHAL LLC LLC RX; INITIAL 30-DAY SUPPLY ALBUTEROL J7620 YOUR YOUR TO 2.5 9 PHARMACY PHARMACY MG & LLC LLC IPRATROPI UM BROM TO 0.5 MG ADLT SZD T4528 NURSES NURSES DISPBL 9 REGISTRY REGISTRY INCONT & HOME & HOME PROD [facility] XTRA LG EA ADLT SZD T4528 NURSES NURSES DISPBL 9 REGISTRY REGISTRY INCONT & HOME & HOME PROD [facility] XTRA LG EA SMR PRIM 01977 [facility] 9 [facility] INC GRAM/GIEM SA STAIN BCT FUNGI/BIJU L ADLT SZD T4528 NURSES NURSES DISPBL 9 REGISTRY REGISTRY INCONT & HOME & HOME PROD [facility] UND[facility] XTRA LG EA NASL A7034 LACIE LACIE INTRFCE 8 HOME MED HOME MED POS ARWAY EQUIP. EQUIP. PRSS LLC LLC DEVC W/WO HEAD STRAP TUBING A7037 LACIE LACIE USED WITH 8 HOME MED HOME MED POSITIVE EQUIP. EQUIP. AIRWAY LLC LLC PRESSURE DEVICE FILTER A7039 LACIE LACIE NON 8 HOME MED HOME MED DISPBL EQUIP. EQUIP. USED LLC LLC W/POS ARWAY PRESS DEVICE FILTER A7038 LACIE LACIE DISPBL 8 HOME MED HOME MED USED EQUIP. EQUIP. W/POS LLC LLC ARWAY PRESSURE DEVICE CUSHN A7032 LACIE LACIE NASAL 8 HOME MED HOME MED MASK EQUIP. EQUIP. INTERFACE [facility] REPLACEME NT ONLY EACH COMPREHEN 26076 COMBINED COMBINED SIVE 8 PHYSICIAN PHYSICIAN METABOLIC S LAB S LAB PANEL HEMOGLOBI 97913 COMBINED COMBINED N 8 PHYSICIAN PHYSICIAN GLYCOSYLA S LAB S LAB TATIANA A1C LIPID 69755 COMBINED COMBINED PANEL 8 PHYSICIAN [place] [address] COMBINED COMBINED THYROID 8 PHYSICIAN PHYSICIAN STIMULATI S LAB S LAB NG HORMONE TSH URNLS DIP 65345 FAMILY MULBERRY, 8 CARE JOS T STICK/TAB ASSOCIATE LET RGNT S NON-AUTO W/O MICRSCP COLLECTIO 35525 FAMILY MANJINDER, N VENOUS 8 CARE JOS T BLOOD ASSOCIATE VENIPUNCT S URE ADLT SZD T4528 NURSES NURSES DISPBL 8 REGISTRY REGISTRY INCONT & HOME & HOME PROD [facility] XTRA LG EA CONTINUOU E0601 LACIE LACIE S 8 HOME MED HOME MED POSITIVE EQUIP. EQUIP. AIRWAY [facility] LLC PRESSURE DEVICE CUSHN A7032 LACIE LACIE NASAL 8 HOME MED HOME MED MASK EQUIP. EQUIP. INTERFACE [facility] REPLACEME NT ONLY EACH FILTER A7038 LACIE LACIE DISPBL 8 HOME MED HOME MED USED EQUIP. EQUIP. W/POS LLC LLC ARWAY PRESSURE DEVICE ADLT SZD T4528 NURSES NURSES DISPBL 8 REGISTRY REGISTRY INCONT & HOME & HOME PROD [facility] UND[facility] XTRA LG EA FILTER A7038 LACIE LACIE DISPBL 8 HOME MED HOME MED USED EQUIP. EQUIP. W/POS LLC LLC ARWAY PRESSURE DEVICE CUSHN A7032 LACIE LACIE NASAL 8 HOME MED HOME MED MASK EQUIP. EQUIP. INTERFACE LLC LLC REPLACEME NT ONLY EACH ADLT SZD T4528 NURSES NURSES DISPBL 8 REGISTRY REGISTRY INCONT & HOME & HOME PROD [facility] XTRA LG EA COMPUTER- 62271 [facility] AIDED 8 [facility] DETECTION INC INC SCREENING MAMMOGRAP HY SCREENING 34928 [facility] LOZANOON 8 [facility] MAMMOGRAP INC INC HY BILATERAL CUSHN A7032 LACIE LACIE NASAL 8 HOME MED HOME MED MASK EQUIP. EQUIP. INTERFACE LLC LLC REPLACEME NT ONLY EACH FILTER A7038 LACIE LACIE DISPBL 8 HOME MED HOME MED USED EQUIP. EQUIP. W/POS LLC LLC ARWAY PRESSURE DEVICE TUBING A7037 LACIE MENONRELL USED WITH 8 HOME MED HOME MED POSITIVE EQUIP. EQUIP. AIRWAY LLC LLC PRESSURE DEVICE NASL A7034 LACIE LACIE INTRFCE 8 HOME MED HOME MED POS ARWAY EQUIP. EQUIP. PRSS LLC LLC DEVC W/WO HEAD STRAP ADLT SZD T4528 NURSES NURSES DISPBL 8 REGISTRY REGISTRY INCONT & HOME & HOME PROD [facility] FELICIAWEAR XTRA EA OPHTH 82352 CAM, CAM, MEDICAL 8 ROSA A ROSA A XM&EVAL COMPRHNSV ESTAB PT 1/> FILTER A7038 LACIE LACIE DISPBL 8 HOME MED HOME MED USED EQUIP. EQUIP. W/POS LLC LLC ARWAY PRESSURE DEVICE CUSHN A7032 LACIE LACIE NASAL 8 HOME MED HOME MED MASK EQUIP. EQUIP. INTERFACE LLC LLC REPLACEME NT ONLY EACH ADLT SZD T4528 NURSES NURSES DISPBL 8 REGISTRY REGISTRY INCONT & HOME & HOME PROD [facility] XTRA LG EA L HRT 51351 ELADIA TODD CATHETERI 8 NIMA Loja ZATION CLINIC [place] [address] ELADIA TODD C-CATHJ 8 NIMA Loja F/SLCTV C CLINIC ANGRPH PSC I SI&R 37550 ELADIA TODD, F/NJX PX 8 NIMA Loja DURING CLINIC C-CATHJ PSC VENTR&/AT R ANGRPH I SI&R 33066 ELADIA TODD, F/NJX PX 8 NIMA Loja DURING CLINIC C-CATHJ PSC PULM&/OR SELECT INJECTION 86764 ELADIA TODD CARDIAC 8 NIMA Loja CATHJ L CLINIC VENTR/L PSC ATR ANGIOGRAP H RADIOLOGI 83645 RADIOLOGY Angela CAO 8 RE Miller EXAMLUCIANO ASSOCIATE ON CHEST S PSC SINGLE VIEW FRONTAL CUSHN A7032 LACIE MEDELLIN NASAL 8 HOME MED HOME MED MASK EQUIP. EQUIP. INTERFACE LLC LLC REPLACEME NT ONLY EACH FILTER A7038 LACIE MEDELLIN DISPBL 8 HOME MED HOME MED USED EQUIP. EQUIP. W/POS LLC LLC ARWAY PRESSURE DEVICE TUBING A7037 LACIE MEDELLIN USED WITH 8 HOME MED HOME MED POSITIVE EQUIP. EQUIP. AIRWAY [facility] PRESSURE DEVICE NASL A7034 LACIE MEDELLIN INTRFCE 8 HOME MED HOME MED POS ARWAY EQUIP. EQUIP. PRSS LLC LLC DEVC W/WO HEAD STRAP ADLT SZD T4528 NURSES NURSES DISPBL 8 REGISTRY REGISTRY INCONT & HOME & HOME PROD [facility]AR XTRA LG EA ADLT SZD T4528 NURSES NURSES DISPBL 8 REGISTRY REGISTRY INCONT & HOME & HOME PROD [facility]WEAR XTRA LG EA CONTINUOU E0601 LACIE MEDELLIN S 8 HOME MED HOME MED POSITIVE EQUIP. EQUIP. AIRWAY [employer] [facility] PRESSURE DEVICE ADLT SZD T4528 NURSES NURSES DISPBL 8 REGISTRY REGISTRY INCONT & HOME & HOME PROD [facility]WEAR XTRA LG EA HOS BED E0260 CLEMENTE CORNEJO, SEMI-ELEC 8 INC INC W/ANY TYPE SIDE RAIL W/MATTRSS ADLT SZD T4528 NURSES NURSES DISPBL 8 REGISTRY REGISTRY INCONT & HOME & HOME PROD [facility] HEAL UNDWEAR XTRA LG EA MRI ORBIT 60342 JOANA, JOANA, FACE & 8 DAT DAT NECK W/O & W/CONTRAS T MATRL MRI BRAIN 47728 JOANA, JOANA, BRAIN 8 DAT DAT STEM W/O W/CONTRAS T MATERIAL OPHTHALMO 49397 SOLANGE NARVAEZ, SCPY 8 LISSY YUAN EXTENDED RETINAL DRAWING I&R 1ST HOS BED E0260 CLEMENTE CORNEJO SEMI-ELEC 8 INC INC W/ANY TYPE SIDE RAIL W/MATTRSS ADLT SZD T4528 NURSES NURSES DISPBL 8 REGISTRY REGISTRY INCONT & HOME & HOME PROD [facility] XTRA LG EA LANCETS A4259 CLINIC CLINIC PER BOX 8 PHARMACY PHARMACY OF 100 BLD GLU A4253 CLINIC CLINIC TEST/REAG 8 PHARMACY PHARMACY T STRIPS HOME BLD GLU MON-50 HOS BED E0260 CLEMENTE CORNEJO SEMI-ELEC 8 INC INC W/ANY TYPE SIDE RAIL W/MATTRSS ECHO 49313 [facility] ELLISON TRANSTHOR 8 [facility] R[facility]T [address] [place] [address] W/WO PROF SERV M-MODE REC COMP DOP 06747 [facility] ELLISON ECHOCARD 8 [facility] FLOW PROF SERV VELOCITY MAPPING DOPPLER 23921 [facility] ECHOCARD 8 [facility] PULSE INC INC WAVE W/SPECTRA L DISPLAY HOS BED E0260 CLEMENTE CORNEJO SEMI-ELEC 8 INC INC W/ANY TYPE SIDE RAIL W/MATTRSS NASL A7034 LACIE MEDELLIN INTRFCE 8 HOME MED HOME MED POS ARWAY EQUIP. EQUIP. PRSS LLC [facility] DEVC W/WO HEAD STRAP FILTER A7039 LACIE MEDELLIN NON 8 HOME MED HOME MED DISPBL EQUIP. EQUIP. USED [facility] W/POS ARWAY PRESS DEVICE TUBING A7037 LACIE MEDELLIN USED WITH 8 HOME MED HOME MED POSITIVE EQUIP. EQUIP. AIRWAY [facility] PRESSURE DEVICE US BREAST 71955 [facility] REAL 8 MEDICAL MEDICAL TIME IMAGING IMAGING W/IMAGE ASSOCIATE ASSOCIATE DOCUMENTA Nick COULTER PILLW A7033 LACIE MEDELLIN NASL 8 HOME MED HOME MED CANNULA EQUIP. EQUIP. TYPE LLC LLC INTERFCE REPL ONLY PAIR Encounters Encounter Start End Date Code Location Performer Type Date [facility] - 1 1 [facility] T OFFICE 65474 C RONNIE TOBIAS OUTPATIEN 1 1 JATINDER Newman [facility] 1 1 [facility] T OFFICE 76295 FAMILY ROSA ELENA OUTPATIEN 1 1 CARE R H T VISIT ASSOCIATE 25 S MINUTES HOME NURSES HEALTH, 0 0 REGISTRY OUTPATIEN & HOME HE T HOME NURSES HEALTH, 0 0 REGISTRY OUTPATIEN & HOME HE T HOME NURSES HEALTH, 0 0 REGISTRY OUTPATIEN & HOME HE T OFFICE 16160 FAMILY ROSA ELENA OUTPATIEN 0 0 CARE R H T VISIT ASSOCIATE 15 S MINUTES OFFICE 80870 FAMILY ROSA ELENA OUTPATIEN 0 0 CARE R H T VISIT ASSOCIATE 25 S MINUTES HOME NURSES HEALTH, 0 0 REGISTRY OUTPATIEN & HOME HE T HOME NURSES HEALTH, 0 0 REGISTRY OUTPATIEN & HOME HE T OFFICE 60308 FAMILY ROSA ELENA OUTPATIEN 0 0 CARE R H T VISIT ASSOCIATE 25 S MINUTES HOME NURSES HEALTH, 0 0 REGISTRY OUTPATIEN & HOME HE T HOME NURSES HEALTH, 0 0 REGISTRY OUTPATIEN & HOME HE [facility] OUTPATIEN INC T OFFICE 15643 FAMILY ROSA ELENA, OUTPATIEN 0 0 CARE R RACHEL T VISIT ASSOCIATE 25 S MINUTES HOME NURSES HEALTH, 0 0 REGISTRY OUTPATIEN & HOME T [facility] HOME NURSES HEALTH, 0 0 REGISTRY OUTPATIEN & HOME T [facility] HOME NURSES HEALTH, 0 0 REGISTRY OUTPATIEN & HOME T [facility] [place] [facility] - 0 0 [facility] OUTPATIEN INC T EMERGENCY 26053 [facility] 0 0 [facility] DEPARTMEN INC T VISIT HIGH/URGE NT SEVERITY OFFICE 49840 FAMILY SOHEILABERRY, OUTPATIEN 0 0 CARE JOS T T VISIT ASSOCIATE 25 S MINUTES HOME NURSES HEALTH, 0 0 REGISTRY OUTPATIEN & HOME T [facility] OFFICE 12489 FAMILY ROSA ELENA, OUTPATIEN 0 0 CARE R RACHEL T VISIT ASSOCIATE 25 S MINUTES HOME NURSES HEALTH, 0 0 REGISTRY OUTPATIEN & HOME T [facility] OFFICE 19707 FAMILY ROSA ELENA, OUTPATIEN 9 9 CARE R RACHEL T VISIT ASSOCIATE 25 S MINUTES EMERGENCY 72775 MICKEY CARROLL, DEPT 9 9 EMERGENCY SHEBA S VISIT SERVICES HIGH SEVERITY& ASSOCIATE THREAT S [facility] - 9 9 [facility] OUTPATIEN INC T EMERGENCY 74384 [facility] 9 9 [facility] DEPARTMEN INC T VISIT HIGH/URGE NT SEVERITY HOME NURSES HEALTH, 9 9 REGISTRY OUTPATIEN & HOME T [facility] [place] [facility] - 9 9 [facility] OUTPATIEN INC T EMERGENCY 73186 MICKEY CARROLL, DEPT 9 9 EMERGENCY SHEBA S VISIT SERVICES HIGH SEVERITY& ASSOCIATE THREAT S [facility] EMERGENCY 81244 MICKEY CARROLL, DEPT 9 9 EMERGENCY SHEBA S VISIT SERVICES HIGH SEVERITY& ASSOCIATE THREAT S [facility] OFFICE 19982 FAMILY ROSA ELENA, OUTPATIEN 9 9 CARE R RACHEL T VISIT ASSOCIATE 25 S MINUTES OFFICE 96652 FAMILY ROSA ELENA, OUTPATIEN 9 9 CARE R RACHEL T VISIT ASSOCIATE 15 S MINUTES HOME NURSES HEALTH, 9 9 REGISTRY OUTPATIEN & HOME T [facility] HOME NURSES HEALTH, 9 9 REGISTRY OUTPATIEN & HOME T [facility] HOME NURSES HEALTH, 9 9 REGISTRY OUTPATIEN & HOME T [facility] OFFICE 84215 FAMILY SOHEILABERRY, OUTPATIEN 9 9 CARE JOS T T VISIT ASSOCIATE 15 S MINUTES HOME NURSES HEALTH, 9 9 REGISTRY OUTPATIEN & HOME T [facility] OFFICE 18142 ARJUN BERNARD OUTPATIEN 9 9 MEDICAL DAT T NEW 10 IMAGING MINUTES ASSOCIATE [facility] - 9 9 [facility]EN [facility] - 9 9 [facility] OUTPATIEN [facility] OFFICE [id number] JATINDER TOBIAS CONSULTAT 9 9 , RONNIE TRUJILLO ION NEW/ESTAB PATIENT 60 MIN [facility] - 9 9 [facility] OUT[facility]EN [facility] - 9 9 [facility] OFFICE [id number] FAMILY ROSA ELENA, OUTPATIEN 9 9 CARE R RACHEL T VISIT ASSOCIATE 25 S MINUTES HOME N[facility]SES HEALTH, 9 9 REGISTRY OUTPATIEN & HOME T [facility] [place] [facility] - 9 9 [facility] OUTPATIEN INC T EMERGENCY [id number] MICKEY CARROLL, DEPT 9 9 EMERGENCY SHEBA S VISIT SERVICES HIGH SEVERITY& ASSOCIATE THREAT S [facility] - 9 9 [facility] OUTPATIEN INC T EMERGENCY [id number] [facility] 9 9 [facility] DEPARTMEN INC T VISIT HIGH/URGE NT SEVERITY [facility] - 9 9 [facility] OUTPATIEN INC T HOME NURSES HEALTH, 9 9 REGISTRY OUTPATIEN & HOME T [facility] OFFICE 37633 SOLANGE NARVAEZ, CONSULTAT 9 9 LISSY YUAN ION NEW/ESTAB PATIENT 80 MIN OFFICE 11880 FAMILY MULBERRY, OUTPATIEN 9 9 CARE JOS T T VISIT ASSOCIATE 15 S MINUTES HOME NURSES HEALTH, 9 9 REGISTRY OUTPATIEN & HOME T [facility] OFFICE 40048 FAMILY MULBERRY, OUTPATIEN 9 9 CARE JOS T T VISIT ASSOCIATE 15 S MINUTES HOME NURSES HEALTH, 9 9 REGISTRY OUTPATIEN & HOME T [facility] OFFICE 85271 FAMILY MULBERRY, OUTPATIEN 8 8 CARE JOS T T VISIT ASSOCIATE 25 S MINUTES HOME NURSES HEALTH, 8 8 REGISTRY OUTPATIEN & HOME T [facility] OFFICE 90463 CUONG, CUONG, OUTPATIEN 8 8 LUANN LUANN T VISIT 15 MINUTES HOME NURSES HEALTH, 8 8 REGISTRY OUTPATIEN & HOME T [facility] HOME NURSES HEALTH, 8 8 REGISTRY OUTPATIEN & HOME T [facility] - 8 8 [facility] OUTPATIEN INC T HOME NURSES HEALTH, 8 8 REGISTRY OUTPATIEN & HOME T [facility] HOME NURSES HEALTH, 8 8 REGISTRY OUTPATIEN & HOME T [facility] OFFICE 74568 FAMILY [facility] 8 8 CARE JOS T VISIT ASSOCIATE 15 S MINUTES HOME NURSES HEALTH, 8 8 REGISTRY OUTPATIEN & HOME T [facility] NURSES HEALTH, 8 8 REGISTRY OUTPATIEN & HOME T [facility] OFFICE 03804 SOLANGE NARVAEZ, CONSULTAT 8 8 LISSY [facility] PATIENT 80 MIN HOME NURSES HEALTH, 8 8 REGISTRY OUTPATIEN & HOME T [facility] [place] [facility] - 8 8 [facility] OUTPATIEN [facility] - 8 8 [facility]
--- OUTSIDE RECORDS SUMMARY | 2016-08-18 01:27 | External Medical Summary Rpt ---
Author Author , Organization [employer] Address Unknown Phone Unavailable Care Team Providers Care Sample Prep Technician Name Role Phone DONNA VELAZCO, Unavailable Unavailable DONNA VELAZCO MD Un[facility], Unavailable Unavailable [facility] [...] SHEBA CARROLL, Unavailable Unavailable SHEBA CARROLL [facility] Unavailable Unavailable INC, [facility] ROSA LEVY, Unavailable Unavailable ROSA LEVY DAVID L, Unavailable Unavailable KHUSHI TODD [facility] Unavailable Unavailable [facility], [facility] Unavailable Un[facility], [facility], Unavailable Unavailable [facility] REKHA SARABIA, Unavailable Unavailable REKHA SARABIA [...] PHARMACY #[id number] [facility] # Unavailable Unavailable [id number], [facility] # [id number] [facility], Unavailable Unavailable [facility] [...] [facility] MALIGNANT NEOPLASMS COLON 63098 OBSTRUCTIVE 05-15-2010 [facility] 496 CHRONIC 05-15-2010 [facility] NEC 83168 HYPERSOMNIA 05-15-2010 [facility] UNSPECIFIED 83089 DIAB W/O 05-11-2010 C RONNIE COMP TYPE SCHULSTSYDNI II/UNS NOT MD PSC STATED UNCNTRL V7612 OTHER 05-11-2010 [place] SCREEN[facility]ICAL MAMMO[facility] 2689 UNSPECIFIED 05-01-2010 [facility] VITAMIN D [facility] DEFICIENCY [facility] 2724 OTHER AND 05-01-2010 [facility] UNSPECIFIED [facility] HYPERLIPIDE SONU V762 SCREENING 05-01-2010 PATHOLOGY & FOR CYTOLOGY MALIGNANT LAB NEOPLASM OF THE CERVIX 4019 UNSPECIFIED 04-27-2010 [facility] HYPERTENSIO N 54395 PAIN IN 04-27-2010 [facility] JOINT[facility] LOWER LEG 7862 COUGH 04-27-2010 [facility] V0382 NEED PROPH 04-27-2010 [facility] VACCINATION [facility] AGAINST STREP PNEUMONE 7823 EDEMA 04-19-2010 NURSES REGISTRY & HOME HE 16064 UNSPECIFIED 04-19-2010 NURSES URINARY REGISTRY & [place] [address] OTHER 02-14-2010 [facility] MALAISE [facility] FATIGUE 9134 ELB 02-14-2010 [facility] FORARM&WRST [facility] INSECT BITE NONVENOMOUS W/O INF V0481 NEED 02-14-2010 [facility] PROPHYLACTI [facility] C VACCINATION &INOCULATIO N FLU 46985 OSTEOARTHRO 11-29-2009 [facility] S UNSPEC [facility] WHETHER GEN/LOC UNSPEC SITE 7904 NONSPEC 11-29-2009 [facility] ELEVATION [facility] OF LEVELS OF TRANSAMINAS E/LDH 5990 URINARY 10-11-2009 [facility] TRACT [facility] INFECTION SITE NOT SPECIFIED 6961 OTHER 10-11-2009 [facility] PSORIASIS [facility] AND SIMILAR DISORDERS 24488 CHEST PAIN 10-11-2009 [facility] UNSPECIFIED [facility]ATES 83145 ESOPHAGEAL 06-24-2009 [facility] REFLUX [facility] 4619 ACUTE 06-14-2009 [facility] SINUSITIS[facility] UNSPECIFIED 2512 HYPOGLYCEMI 03-24-2009 [facility] A, [facility] UNSPECIFIED 460 ACUTE 03-24-2009 [facility] NASOPHARYNG [facility] ITIS 2449 UNSPECIFIED 01-18-2009 [facility] HOSP HYPOTHYROID INC ISM 91217 BLEPHARITIS 01-14-2009 LEVY BRETT A UNSPECIFIED 20361 COR 01-12-2009 [facility] UNSPEC HOSPITAL TYPE VESSEL PROF SERV [place]/PINKY T 1120 CANDIDIASIS 01-06-2009 [facility] MOUTH [facility] 6268 OTH D/O 01-06-2009 [facility] MENSTRUATIO [facility] N&OTH ABN BLEED FE GNT TRACT 7245 UNSPECIFIED 01-06-2009 [facility] BACKACHE [facility] 4660 ACUTE 12-23-2008 [facility] BRONCHITIS [facility] 7239 UNSPEC 10-01-2008 [facility] MUSCULOSKEL [facility] D/O&SYMPTOM S REFERABLE NECK 40749 SPASM OF 10-01-2008 [facility] MUSCLE [facility] 6101 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, CYSTIC RONNIE MASTOPATHY 08333 LUMP OR 09-06-2008 SCHULSTAD, MASS IN RONNIE BREAST 43495 OTHER 09-06-2008 [facility], ABNORMAL RONNIE FINDING RADIOLOGICA L EXAM BREAST V7281 PRE-OPERATI 09-02-2008 [facility] PROF SERV EXAMINATION 29638 UNSPECIFIED 08-31-2008 SCHULSTAD, ABNORMAL RONNIE MAMMOGRAM 70546 HYPERTONICI 08-27-2008 [facility] TY OF [facility] BLADDER 7881 DYSURIA 08-27-2008 [facility] 4280 CONGESTIVE 08-13-2008 [facility] UNSPECIFIED PROF SERV 31269 SHORTNESS 08-13-2008 [place] [facility] 22622 MIGRAINE 07-14-2008 [facility], W/AURA W/O LISSY INTRACT W/O STATUS MIGRNOSUS 27663 NONEXUDATIV 07-14-2008 Sky NARVAEZ SENILE LISSY MACULAR DEGENERATIO N RETINA 63983 TRANSIENT 07-14-2008 [facility], VISUAL LOSS LISSY 7019 UNSPECIFIED 07-02-2008 [facility] HYPERTROPHI C&ATROPHIC CONDITION SKIN 55672 OTHER 05-06-2008 [facility] DYSPNEA [facility] RESPIRATORY ABNORMALITI ES 2381 NEOPLASM 04-02-2008 [facility] UNCERTAIN [facility] BHV CNCTV&OTH SOFT TISSUE 42921 MIGRAINE 03-08-2008 CUONG, W/O AURA LUANN INTRACT W/O STATUS MIGRAINOSUS 7295 PAIN IN 10-22-2007 [facility] SOFT [facility] TISSUES OF LIMB 69582 OBESITY, 10-18-2007 RADIOLOGY UNSPECIFIED ASSOCIATES PSC 4109 ACUTE 10-18-2007 [facility] PSC UNSPECIFIED SITE 25986 OTHER 10-18-2007 RADIOLOGY DISEASES OF ASSOCIATES LUNG NOT PSC ELSEWHERE CLASSIFIED 11737 PAIN IN 08-08-2007 [facility] JOINT PELVIC REGION AND THIGH 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 7812 ABNORMALITY 08-08-2007 [facility] OF GAIT 3689 UNSPECIFIED 07-11-2007 JOANA, VISUAL DAT DISTURBANCE 07348 PERIPH 07-09-2007 [facility] CHORIORETIN LISSY AL SCARS Medications Na ND Rx Da Fi Fi Am Da Di Ph RX Ph St me C No te ll ll ou ys ag ar # ys at rm s nt no ma ic us Or Da si cy ia de te s n re d DI 00 10 01 4 90 30 CL 22 OR Ac AZ 59 -0 -2 .0 IN 44 LL ti EP 15 5- 1- 00 IC 27 ER ve AM 62 20 20 01 10 11 PH CA 10 0 AR RO MA L MG CY J TA LL BL C ET DI 00 10 12 4 90 30 CL 22 OR Ac AZ 59 -0 -2 .0 IN [...] 10 11 4 90 30 CL 22 OR Ac AZ 59 -0 -1 .0 IN 44 LL ti EP 15 5- 9 00 IC 27 ER ve AM 62 20 20 01 10 10 PH CA 10 0 AR RO MA L MG CY J TA LL BL C ET DI 00 07 10 3 12 30 CL 21 OR Ac AZ 59 -1 -1 0. IN 98 LL ti EP 15 00 IC 49 ER ve AM 62 20 20 0 01 10 10 PH CA 10 0 AR RO MA L MG CY J TA LL BL C ET DI 00 07 09 3 12 30 CL 21 OR Ac AZ 59 -1 -1 0. IN [...] 07 08 3 12 30 CL 21 OR Ac AZ 59 -1 -1 0. IN 98 LL ti EP 15 IC 49 ER ve AM 62 20 20 0 01 10 10 PH CA 10 0 AR RO MA L MG CY J TA LL BL C ET DI 00 07 07 3 12 30 CL 21 OR Ac AZ 59 -1 -1 0. IN 98 LL ti EP 15 6 IC 49 ER ve AM 62 20 20 0 01 10 10 PH CA 10 0 AR RO MA L MG CY J TA LL BL C ET DI 00 03 06 2 12 30 CL 21 OR Ac AZ 59 -3 -1 0. IN [...] 03 05 2 12 30 CL 21 OR Ac AZ 59 -3 -1 0. IN 41 LL ti EP 15 0- 7- 00 IC 81 ER ve AM 62 20 20 0 01 10 10 PH CA 10 0 AR RO MA L MG CY J TA LL BL C ET IA 00 05 05 0 12 6 WA [...] 03 04 2 12 30 CL 21 OR Ac AZ 59 -3 -1 0. IN 41 LL ti EP 15 0- 6- 00 IC 81 ER ve AM 62 20 20 0 01 10 10 PH CA 10 0 AR RO MA L MG CY J TA LL BL C ET DI 00 01 03 2 12 30 CL 20 OR Ac AZ 59 -0 -1 0. IN [...] MA e MG CY TA BL ET IA 00 02 03 00 18 4 WA [...] Procedure [place] [address] [facility] LO[facility]OON [facility] THERAPY/P INC INC ROPHYLAXI S /DX 1ST TO 1 HR COLOREC G0105 C RONNIE TOBIAS CANCR 1 JATINDER LI SCR; PSC COLONSCPY INDIVID[place] @[place] [address] [facility] THERAPY INC INC PROPHYLAX IS/DX EA HOUR ANES 39130 [facility] 1 ANESTH DAVID INTESTINE OF THE BLUE ENDOSCOPY DISTAL DUODENUM PHRM Q0513 YOUR YOUR DISPENSIN 1 PHARMACY PHARMACY G [facility] INHALATIO N RX; PER 30 DAYS ALBUTEROL J7620 YOUR YOUR TO 2.5 1 PHARMACY PHARMACY MG & [facility] IPRATROPI UM BROM TO 0.5 MG ADMN SET A7003 YOUR YOUR SM VOL 1 PHARMACY PHARMACY NONFILTR [facility] PNEUMAT NEBULIZR DISPBL COMPUTER- 50285 [place] JOANA AIDED 1 MEDICAL AMANDA DETECTION IMAGING ASS SCREENING MAMMOGRAP HY SCREENING G0202 [place] JOANA 1 MEDICAL AMANDA MAMMOGRAP IMAGING HY LISANDRO ASS INCL CAD WHEN PERFORMD SCR G0145 PATHOLOGY PATHOLOGY CYTOPATH 1 & & CERV/VAG CYTOLOGY CYTOLOGY SCR LAB LAB AUTO&MNL RSCR PHYS 25 65907 [facility] HYDROXY 1 [facility] INCLUDES INC INC FRACTIONS IF PERFORMED LIPID 40196 [facility] PANEL 1 [facility] INC INC HEPATIC 91801 [facility] FUNCTION 1 [facility] PANEL INC INC HEMOGLOBI 54798 [facility] N 1 [facility] GLYCOSYLA INC INC [place] A1C COLLECTIO 03286 [facility] N VENOUS 1 [facility] BLOOD INC INC VENIPUNCT URE PPSV23 06420 FAMILY ROSA ELENA VACCINE 2 1 CARE [...] L W/POS [facility] PRESSURE DEVICE NASL A7034 LACEI MEDELLIN INTRFCE 0 HOME MED HOME MED POS ARWAY EQUIP. L EQUIP. L PRSS DEVC W/WO HEAD STRAP HEADGEAR A7035 LACIE MEDELLIN USED 0 HOME MED HOME MED W/POSITIV EQUIP. L EQUIP. L E AIR[facility] PRESSURE DEVICE [facility] T4526 NURSES NURSES DISPBL 0 REGISTRY REGISTRY INCONT & HOME HE & HOME HE PROD UNDWEAR MED EA CONTINUOU E0601 LACIE MEDELLIN S 0 HOME MED HOME MED POSITIVE EQUIP. L EQUIP. L [facility] PRESSURE DEVICE [facility] T4526 NURSES NURSES DISPBL 0 REGISTRY REGISTRY INCONT & HOME HE & HOME HE PROD UNDWEAR MED EA ADMINISTR G0008 FAMILY ROSA ELENA ATION OF 0 CARE R H INFLUENZA ASSOCIATE VIRUS S VACCINE IIV3 52349 FAMILY FAMILY VACCINE 0 CARE CARE SPLIT ASSOCIATE ASSOCIATE VIRUS 0.5 S S ML DOSAGE IM USE COMPREHEN 02818 COMBINED COMBINED SIVE 0 PHYSICIAN PHYSICIAN METABOLIC S LA S LA PANEL CYANOCOBA 84698 COMBINED COMBINED CORETTA 0 PHYSICIAN PHYSICIAN VITAMIN S LA S LA B-12 [place] [address] COMBINED COMBINED THYROID 0 PHYSICIAN PHYSICIAN STIMULATI S LA S LA NG HORMONE TSH BLOOD 91078 FAMILY FAMILY COUNT 0 CARE CARE COMPLETE ASSOCIATE ASSOCIATE AUTO&AUTO S S DIFRNTL WBC THERAPEUT 42601 FAMILY ROSA ELENA IC 0 CARE R H PROPHYLAC ASSOCIATE TIC/DX S INJECTION SUBQ/IM HEMOGLOBI 14769 FAMILY ROSA ELENA N 0 CARE R H GLYCOSYLA ASSOCIATE [place] A1C S LIPID 76956 FAMILY FAMILY PANEL 0 CARE POWER PLANT ENGINEER ASSOCIATE S S COLLECTIO 86970 FAMILY ROSA ELENA N VENOUS 0 CARE R H BLOOD ASSOCIATE VENIPUNCT S URE [facility] T4526 NURSES NURSES DISPBL 0 REGISTRY REGISTRY INCONT & HOME HE & HOME HE PROD UNDWEAR MED EA LANCETS A4259 DISCOUNT DISCOUNT PER BOX 0 DIABETIC DIABETIC OF 100 NORMAL A4256 DISCOUNT DISCOUNT LOW AND 0 DIABETIC DIABETIC HIGH CALIBRATO R SOLUTION/ CHIPS BLD GLU A4253 DISCOUNT DISCOUNT TEST/REAG 0 DIABETIC DIABETIC T STRIPS HOME BLD GLU MON-50 [facility] T4526 NURSES NURSES DISPBL 0 REGISTRY REGISTRY INCONT & HOME HE & HOME HE PROD UNDWEAR MED EA PHRM Q0513 YOUR YOUR DISPENSIN 0 PHARMACY PHARMACY G [facility] INHALATIO N RX; PER 30 DAYS ALBUTEROL J7620 YOUR YOUR TO 2.5 0 PHARMACY PHARMACY [facility] IPRATROPI UM BROM TO 0.5 MG ADMN SET A7003 YOUR YOUR SM VOL 0 PHARMACY PHARMACY NONFILTR [facility] PNEUMAT NEBULIZR DISPBL HEPATIC 74204 COMBINED COMBINED FUNCTION 0 PHYSICIAN PHYSICIAN PANEL S LA S LA COLLECTIO 96066 FAMILY FAMILY N VENOUS 0 CARE CARE BLOOD ASSOCIATE ASSOCIATE VENIPUNCT S S URE THERAPEUT 75168 [facility] R H PROPHYLAC ASSOCIATE TIC/DX S INJECTION SUBQ/IM INJECTION J3420 [facility] VIT B-12 0 CARE R H ASSOCIATE CYANOCOBA S CORETTA TO 1000 MCG [facility] T4528 NURSES NURSES DISPBL 0 REGISTRY REGISTRY INCONT & HOME HE & HOME HE PROD UNDWEAR XTRA LG EA [facility] T4528 NURSES NURSES DISPBL 0 REGISTRY REGISTRY INCONT & HOME HE & HOME HE PROD UNDWEAR XTRA LG EA BASIC 77671 COMBINED COMBINED METABOLIC 0 PHYSICIAN PHYSICIAN PANEL S LAB S LAB CALCIUM TOTAL RADIOLOGI 50899 [place] Angela BERNARD 0 MEDICAL DAT EXAMINATI IMAGING ON KNEE 3 ASSOCIATE VIEWS S TRANSFERA 29080 [facility] CARE Honey RAMOS ASPARTATE ASSOCIATE AMINO S AST SGOT TRANSFERA 83456 [facility] CARE Honey RAMOS ALANINE ASSOCIATE AMINO ALT S SGPT COLLECTIO 08089 FAMILY ROSA ELENA, N VENOUS 0 CARE Honey RAMOS BLOOD ASSOCIATE VENIPUNCT S URE URNLS DIP 73198 [facility] 0 CARE Honey RAMOS STICK/TAB ASSOCIATE LET RGNT S NON-AUTO W/O MICRSCP LIPID 41773 [facility], PANEL 0 CARE R RACHEL ASSOCIATE S [facility] A4258 DISCOUNT DISCOUNT WERED 0 DIABETIC DIABETIC DEVICE FOR LANCET EACH [facility] T4528 NURSES NURSES DISPBL 0 REGISTRY REGISTRY INCONT & HOME & HOME PROD [facility] XTRA LG EA REPL ARANZA A4233 DISCOUNT [...] L EQUIP. L [facility] PRESSURE DEVICE [facility] T4528 NURSES NURSES DISPBL 0 REGISTRY REGISTRY INCONT & HOME & [facility] EA NASL A7034 LACIE MEDELLIN INTRFCE 0 HOME MED HOME MED POS ARWAY EQUIP. L EQUIP. L PRSS DEVC W/WO HEAD STRAP HEADGEAR A7035 LACIE MEDELLIN USED 0 HOME MED HOME MED W/POSITIV EQUIP. L EQUIP. L E [facility] PRESSURE DEVICE FILTER A7038 LACIE MEDELLIN DISPBL 0 HOME MED HOME MED USED EQUIP. L EQUIP. L W/POS [facility] PRESSURE DEVICE [facility] T4528 NURSES NURSES DISPBL 0 REGISTRY REGISTRY INCONT & HOME & HOME PROD [facility] XTRA LG EA CREATINE 07370 [facility] KINASE MB 0 [facility] FRACTION INC INC ONLY COMPREHEN 77006 [facility] SIVE 0 [facility] METABOLIC INC INC PANEL RADIOLOGI 60313 [place] Angela BRADY EXAM 0 MEDICAL BEVERLY P CHEST 2 IMAGING VIEWS ASSOCIATE FRONTAL&L S ATERAL CREATINE 01537 [facility] KINASE 0 [facility] TOTAL INC INC ECG 85500 [facility] ROUTINE 0 [facility] ECG INC INC W/LEAST 12 LDS TRCG ONLY W/O I&R ECG 16562 [facility] CORNELL, ROUTINE 0 [facility] W/LEAST PROF SERV 12 LDS I&[place] [address] [facility] TROPONIN 0 [facility] QUANTITAT INC INC ROSETTE BLOOD 53956 [facility] COUNT 0 [facility] COMPLETE INC INC AUTO&AUTO DIFRNTL WBC NEBULIZER E0570 LACIE MEDELLIN WITH 0 HOME MED HOME MED COMPRESSO EQUIP. EQUIP. R [facility] ADLT D T4528 NURSES NURSES DISPBL 0 REGISTRY REGISTRY INCONT & HOME & HOME PROD [facility] UNDWEAR XTRA LG EA URNLS DIP 20727 FAMILY ROSA ELENA, 0 CARE R RACHEL STICK/TAB ASSOCIATE LET RGNT S NON-AUTO W/O MICRSCP NEBULIZER E0570 LACIE MEDELLIN WITH 0 HOME MED HOME MED COMPRESSO EQUIP. EQUIP. R [facility] ADLT D T4528 NURSES NURSES DISPBL 0 REGISTRY REGISTRY INCONT & HOME & HOME PROD [facility] IngenicWEAR XTRA LG EA FOR DIAB A5513 CLINIC [...] MED HOME MED USED EQUIP. EQUIP. W/POS [facility]WAY PRESSURE DEVICE NEBULIZER E0570 LACIE MEDELLIN WITH 9 HOME MED HOME MED COMPRESSO EQUIP. EQUIP. R [facility] LLC BASIC 90039 COMBINED COMBINED METABOLIC 9 PHYSICIAN PHYSICIAN PANEL S LAB S LAB CALCIUM TOTAL BLOOD 63036 FAMILY CUBA, COUNT 9 GORGE RAMOS COMPLETE ASSOCIATE AUTO&AUTO S DIFRNTL WBC LIPID 56565 FAMILY [facility], PANEL 9 CARE Honey RAMOS ASSOCIATE S HEMOGLOBI 76537 FAMILY [place], N 9 [facility] Honey RAMOS GLYCOSYLA ASSOCIATE [place] A1C S COLLECTIO 96211 FAMILY CUBA, N VENOUS 9 [facility] Honey RAMOS BLOOD ASSOCIATE VENIPUNCT S URE URNLS DIP 67751 FAMILY CUBA, 9 GORGE RAMOS STICK/TAB ASSOCIATE LET RGNT S NON-AUTO W/O MICRSCP CONTINUOU E0601 LACIE MEDELLIN S 9 HOME MED HOME MED POSITIVE EQUIP. EQUIP. AIRWAY [facility] PRESSURE DEVICE FILTER A7039 LACIE MEDELLIN NON 9 HOME MED HOME MED DISPBL EQUIP. EQUIP. USED [facility] LLC W/POS ARWAY PRESS DEVICE FILTER A7038 LACIE EMNONRELL DISPBL 9 HOME MED HOME MED USED EQUIP. EQUIP. W/POS [facility] ARWAY PRESSURE DEVICE NEBULIZER E0570 LACIE MEDELLIN WITH 9 HOME MED HOME MED COMPRESSO EQUIP. EQUIP. R [facility] CREATINE 07826 [facility] KINASE 9 [facility] TOTAL INC INC CREATINE 77440 [facility] KINASE MB 9 [facility] [place] [address] [facility] TROPONIN 9 [facility] [address] [facility] TROPONIN 9 [facility] QUANTITAT INC INC ROSETTE BLOOD 68498 [facility] COUNT 9 [facility] COMPLETE INC INC AUTO&AUTO DIFRNTL WBC THER 04045 [facility] PROPH/DX 9 [facility] NJX IV INC INC PUSH SINGLE/1S T SBST/DRUG BASIC 97927 [facility] METABOLIC 9 [facility] PANEL INC INC CALCIUM TOTAL RADIOLOGI 43824 Angela CHASE 9 MEDICAL BEVERLY Nesbitt EXAMINATI IMAGING ON CHEST ASSOCIATE SINGLE S VIEW FRONTAL CREATINE 96220 [facility] KINASE MB 9 [facility] FRACTION INC INC ONLY ECG 84998 MICKEY BRENNANEY, ROUTINE 9 EMERGENCY SHEBA S ECG SERVICES W/LEAST 12 LDS ASSOCIATE I&R ONLY S CREATINE 70003 [facility] KINASE 9 [facility] TOTAL INC INC ECG 91218 [facility] ROUTINE 9 [facility] ECG INC INC W/LEAST 12 LDS TRCG ONLY W/O I&R NEBULIZER E0570 LACIE MEDELLIN WITH 9 HOME MED HOME MED COMPRESSO EQUIP. EQUIP. R LLC LLC PHRM Q0513 YOUR YOUR DISPENSIN 9 PHARMACY PHARMACY G [facility] INHALATIO N RX; PER 30 DAYS ALBUTEROL J7620 YOUR YOUR TO 2.5 9 PHARMACY PHARMACY [facility] IPRATROPI UM BROM TO 0.5 MG ADLT SZD T4528 NURSES NURSES DISPBL 9 REGISTRY REGISTRY INCONT & HOME & HOME PROD [facility] UNDWEAR XTRA LG EA BASIC 12925 [facility] METABOLIC 9 [facility] [place] [address] [facility] THYROID 9 [facility] STIMULATI INC INC NG HORMONE TSH HEMOGLOBI 56706 [facility] N 9 [facility] GLYCOSYLA INC INC [place] A1C HEPATIC 72515 [facility] FUNCTION 9 [facility] PANEL INC INC LIPID 47056 [facility] PANEL 9 [facility] INC INC COLLECTIO 50800 [facility] N VENOUS 9 [facility] BLOOD INC INC VENIPUNCT URE OPHTH 42326 CAM LEVY MEDICAL 9 ROSA A ROSA A XM&EVAL COMPRHNSV ESTAB PT 1/> FILTER A7038 LACIE MEDELLIN DISPBL 9 HOME MED HOME MED USED EQUIP. EQUIP. W/POS [facility] ARWAY PRESSURE DEVICE CUSHN A7032 LACIE MEDELLIN NASAL 9 HOME MED HOME MED MASK EQUIP. EQUIP. INTERFACE [facility] REPLACEME NT ONLY EACH TUBING A7037 LACIE MEDELLIN USED WITH 9 HOME MED HOME MED POSITIVE EQUIP. EQUIP. AIRWAY [facility] PRESSURE DEVICE HEADGEAR A7035 LACIE MEDELLIN USED 9 HOME MED HOME MED W/POSITIV EQUIP. EQUIP. E AIRWAY [facility] PRESSURE DEVICE NASL A7034 LACIE MEDELLIN INTRFCE 9 HOME MED HOME MED POS ARWAY EQUIP. EQUIP. PRSS [facility] DEVC W/WO HEAD STRAP RADIOLOGI 31879 Angela NAM 9 MEDICAL DAT EXAMINATI IMAGING ON CHEST ASSOCIATE SINGLE S VIEW FRONTAL ECG 94917 MICKEY CARROLL, ROUTINE 9 EMERGENCY SHEBA S ECG SERVICES W/LEAST 12 LDS ASSOCIATE I&R ONLY S ECG 14749 MICKEY CARROLL, ROUTINE 9 EMERGENCY SHEBA S ECG SERVICES W/LEAST 12 LDS ASSOCIATE I&R ONLY S URNLS DIP 79542 FAMILY ROSA ELENA, 9 CARE R RACHEL STICK/TAB ASSOCIATE LET RGNT S NON-AUTO W/O MICRSCP NEBULIZER E0570 LACIE LACIE WITH 9 HOME MED HOME MED COMPRESSO EQUIP. EQUIP. R [facility] ADLT SZD T4528 NURSES NURSES DISPBL 9 REGISTRY REGISTRY INCONT & HOME & HOME PROD [facility] XTRA EA LANCETS A4259 DISCOUNT DISCOUNT PER BOX 9 DIABETIC DIABETIC OF 100 NORMAL A4256 DISCOUNT DISCOUNT LOW AND 9 DIABETIC DIABETIC HIGH CALIBRATO R SOLUTION/ CHIPS BLD GLU A4253 DISCOUNT DISCOUNT TEST/REAG 9 DIABETIC DIABETIC T STRIPS HOME BLD GLU MON-50 NEBULIZER E0570 LACIEFRANCOIS MEDELLIN WITH 9 HOME MED HOME MED COMPRESSO EQUIP. EQUIP. R [facility] ADLT SZD T4528 NURSES NURSES DISPBL 9 REGISTRY REGISTRY INCONT & HOME & HOME PROD [facility] UNDWEAR XTRA LG EA NEBULIZER E0570 LACIE MEDELLIN WITH 9 HOME MED HOME MED COMPRESSO EQUIP. EQUIP. R [facility] ADLT SZD T4528 NURSES NURSES DISPBL 9 REGISTRY REGISTRY INCONT & HOME & [facility] EA ADMN SET A7003 YOUR YOUR SM VOL 9 PHARMACY PHARMACY [employer] [facility] PNEUMAT NEBULIZR DISPBL ALBUTEROL J7620 YOUR YOUR TO 2.5 9 PHARMACY PHARMACY MG & [facility] LLC IPRATROPI UM BROM TO 0.5 MG PHRM Q0513 YOUR YOUR DISPENSIN 9 PHARMACY PHARMACY G [employer] [facility] INHALATIO N RX; PER 30 DAYS NASL A7034 LACIE MEDELLIN INTRFCE 9 HOME MED HOME MED POS ARWAY EQUIP. EQUIP. PRSS [facility] DEVC W/WO HEAD STRAP CUSHN A7032 LACIE MEDELLIN NASAL 9 HOME MED HOME MED MASK EQUIP. EQUIP. INTERFACE [facility] REPLACEME NT ONLY EACH TUBING A7037 LACIE LACIE USED WITH 9 HOME MED HOME MED POSITIVE EQUIP. EQUIP. AIRWAY [facility] PRESSURE DEVICE FILTER A7038 LACIE MEDELLIN DISPBL 9 HOME MED HOME MED USED EQUIP. EQUIP. W/POS [facility] ARWAY PRESSURE DEVICE NEBULIZER E0570 LACIE MEDELLIN WITH 9 HOME MED HOME MED COMPRESSO EQUIP. EQUIP. R [facility] ADLT SZD [id number] NURSES NURSES DISPBL 9 REGISTRY REGISTRY INCONT & HOME & HOME [facility] EA CONTINUOU E0601 LACIE LACIE S 9 HOME MED HOME MED POSITIVE EQUIP. EQUIP. AIRWAY [facility] PRESSURE DEVICE ALBUTEROL [id number] YOUR YOUR INHAL 9 PHARMACY PHARMACY NON-CP [facility] PROD THRU DME U DOSE 1 MG ADMN SET A7003 YOUR YOUR SM VOL 9 PHARMACY PHARMACY [employer] [facility] PNEUMAT NEBULIZR DISPBL PHRM Q0513 YOUR YOUR DISPENSIN 9 PHARMACY PHARMACY G [employer] [facility] INHALATIO N RX; PER 30 DAYS US BREAST 14876 ELLY NAM 9 MEDICAL DAT TIME IMAGING W/[place] [address] [facility] INFUSION 9 [facility] THERAPY INC INC PROPHYLAX IS/DX EA HOUR ANES 49966 [facility] HASTINGS BOBBY 9 ANESTH BALAJI Gladys ORELLANA OF THE ES ANT [place] TRUNK & PERINEUM NOS IMG GID 7[address]08 ARJUN BERNARD, PLAZ MTLC 9 MEDICAL DAT LOCLZJ IMAGING CLIP PRQ ASSOCIATE BRST S BX/[place] [address] [facility] GUIDANCE 9 [facility] NEEDLE INC INC PLACEMENT IMG S&I INJECTION J2405 [facility] 9 [facility] ONDANSETR INC INC ON HCL PER 1 MG RADIOLOGI 58903 [facility] PERFECTO 9 [facility] EXAMINATI INC INC ON SURGICAL SPECIMEN BIOPSY 61186 [facility] JOANA, BREAST 9 MEDICAL DAT NEEDLE IMAGING CORE ASSOCIATE W/IMAGING S GUIDANCE PREOP 49514 [facility] PLACEMENT 9 [facility] INC INC LOCALIZAT ION WIRE BREAST THERAPEUT 77163 [facility] IC 9 [facility] INJECTION INC INC IV PUSH EACH NEW DRUG MAMMOGRAP [address] [facility] SCHAEFERJOANA, 9 MEDICAL [place] [address] [facility] INFUSION 9 [facility] THERAPY/P INC INC ROPHYLAXI S /DX 1ST TO 1 HR GLUC BLD 98497 [facility] GLUC MNTR 9 [facility] DEV INC INC CLEARED FDA SPEC HOME USE BIOPSY 50698 [facility] BREAST 9 [facility] OPEN INC INC INCISIONA L EXC 72714 SCHULSTAD SCHULSTAD BREAST 9 , RONNIE , RONNIE LES PREOP PLMT RAD MARKER OPEN 1 LES COLLECTIO 98076 [facility] N VENOUS 9 [facility] BLOOD INC INC VENIPUNCT URE ECG 45407 [facility] ROUTINE 9 [facility] ECG INC INC W/LEAST 12 LDS TRCG ONLY W/O I&R BLOOD 17279 [facility] COUNT 9 [facility] COMPLETE INC INC AUTO&AUTO DIFRNTL WBC ECG 14913 [facility] ANDRADEKEMISky ROUTINE 9 [facility] BALAJI W/LEAST PROF SERV 12 LDS I&R ONLY BASIC 77071 [facility] METABOLIC 9 [facility] PANEL INC INC CALCIUM TOTAL NEBULIZER E0570 LACIE MEDELLIN WITH 9 HOME MED HOME MED COMPRESSO EQUIP. EQUIP. R [employer] LLC LIPID 81685 [facility] TEMPLE PANEL 9 [facility] INC INC HEPATIC 71916 MAVERICK TEMPLE FUNCTION 9 [facility] PANEL INC INC HEMOGLOBI 29671 MAVERICK TEMPLE N 9 [facility] GLYCOSYLA INC INC TATIANA A1C COLLECTIO 34923 M[facility] TEMPLE N VENOUS 9 [facility] BLOOD INC INC VENIPUNCT URE BASIC 52714 M[facility]ERICK TEMPLE METABOLIC 9 [facility] PANEL INC INC CALCIUM TOTAL REPL [...] BOX 9 DIABETIC DIABETIC OF 100 CULTURE 26212 M[facility] TEMPLE BACTERIAL 9 [facility] INC INC QUANTTATI VE COLONY COUNT URINE URNLS DIP 27726 FAMILY ROSA ELENA, 9 CARE R RACHEL STICK/TAB ASSOCIATE LET RGNT S NON-AUTO W/O MICRSCP ADLT SZD T4528 NURSES NURSES DISPBL 9 REGISTRY REGISTRY INCONT & HOME & HOME PROD HEALH HEALH UNDWEAR XTRA LG EA US BREAST 30302 M[facility] TEM[facility] REAL 9 [facility] TIME INC INC W/IMAGE DOCUMENTA TION PROBE/NEE C2618 [facility] TEMPLE DLE 9 [facility] [place] [address] PATHOLOGY PATHOLOGY SURG 9 & & PATHOLOGY CYTOLOGY CYTOLOGY LAB LAB GROSS&MEGHA ROSCOPIC EXAM PREOP 58141 M[facility] TEMPLE PLACEMENT 9 [facility] [place] [address] CORA CHASE 9 MEDICAL BEVERLY P NEEDLE IMAGING PLACEMENT ASSOCIATE IMG S&I S BREAST 66772 M[facility]ICK TEMPLE BIOPSY 9 [facility] VACUUM INC INC ASSISTED/ ROTATING DEVICE ECG 45509 MAVERICK VELAZCO, ROUTINE 9 [facility] W/LEAST PROF SERV 12 LDS I&R ONLY THER 95958 M[facility]ERICK TEMPLE PROPH/DX 9 [facility] NJX IV INC INC PUSH SINGLE/1S T SBST/DRUG BLOOD 79528 [facility] TEMPLE COUNT 9 [facility] COMPLETE INC INC AUTO&[place] [address] M[facility]ICK TEMPLE TROPONIN 9 [facility] QUANTITAT INC INC ROSETTE INSJ TEMP 33355 [facility] TEMPLE NDWELLG 9 [facility] BLADDER INC INC CATHETER SIMPLE BASIC 54311 [facility] TEMPLE METABOLIC 9 [facility] [place] [address] M[facility] TEMPLE THYROID 9 [facility] STIMULATI INC INC NG HORMONE TSH SUSCEPTIB 84616 M[facility] TEMPLE LTY STDY 9 [facility] ANTIMICRB INC INC IAL MICRO/AGA R DILUTJ RADIOLOGI 50343 Angela CHASE 9 MEDICAL BEVERLY P EXAMINATI IMAGING ON CHEST ASSOCIATE SINGLE S VIEW FRONTAL CULTURE 41584 [facility] TEM[facility] BACTERIAL 9 [facility] INC INC QUANTTATI VE COLONY COUNT URINE CULTURE 08196 [facility] TEM[facility] BCT 9 [facility] ISOL&PRSM INC [place] [address] [facility] TEMPLE THYROXINE 9 [facility] TOTAL INC INC CREATINE 63575 M[facility] TEMPLE KINASE MB 9 [facility] FRACTION INC INC ONLY URNLS DIP 70719 [facility] TEMPLE 9 [facility] STICK/TAB INC INC LET REAGENT AUTO MICROSCOP Y ECG 11813 [facility] TEM[facility] ROUTINE 9 [facility] ECG INC INC W/LEAST 12 LDS TRCG ONLY W/O I&R NATRIURET 46933 M[facility] TEMPLE IC 9 [facility] PEPTIDE INC INC CREATINE 73565 [facility] TEM[facility] KINASE 9 [facility] TOTAL INC INC US BREAST 02431 [facility] TEMPLE REAL 9 [facility] TIME INC INC W/IMAGE DOCUMENTA TION MAMMOGRAP 86526 [facility], 9 MEDICAL BEVERLY P UNILATERA IMAGING L ASSOCIATE S NEBULIZER E0570 LACIE MEDELLIN WITH 9 HOME MED HOME MED COMPRESSO EQUIP. EQUIP. [employer] ADLT SZD T4528 NURSES NURSES DISPBL 9 REGISTRY REGISTRY INCONT & HOME & HOME PROD HEALH HEAL UNDWEAR XTRA KIT EA OPHTHALMO 98416 SOLANGE NARVAEZ, SCPY 9 LISSY YUAN EXTENDED [...] HEALH UNDWEAR XTRA LG EA SMR PRIM 40431 LABONE OF LABONE OF [facility] 9 [facility] INC GRAM/GIEM SA STAIN BCT FUNGI/BIJU L ADLT SZD T4528 NURSES NURSES DISPBL 9 REGISTRY REGISTRY INCONT & HOME & HOME PROD [facility] UNDWEAR XTRA LG EA NASL A7034 [...] MED HOME MED MASK EQUIP. EQUIP. INTERFACE [facility] REPLACEME NT ONLY EACH COMPREHEN 01552 COMBINED COMBINED SIVE 8 PHYSICIAN PHYSICIAN METABOLIC S LAB S LAB PANEL HEMOGLOBI 80837 COMBINED COMBINED N 8 PHYSICIAN PHYSICIAN GLYCOSYLA S LAB S LAB TATIANA A1C LIPID 36554 COMBINED COMBINED PANEL 8 PHYSICIAN [place] [address] COMBINED COMBINED THYROID 8 PHYSICIAN PHYSICIAN STIMULATI S LAB S LAB NG HORMONE TSH URNLS DIP 10271 FAMILY MULBERRY, 8 CARE JOS T STICK/TAB ASSOCIATE LET RGNT S NON-AUTO W/O MICRSCP COLLECTIO 34225 FAMILY MANJINDER, N VENOUS 8 CARE JOS T BLOOD ASSOCIATE VENIPUNCT S URE ADLT SZD T4528 NURSES NURSES DISPBL 8 REGISTRY REGISTRY INCONT & HOME & HOME PROD [facility] XTRA LG EA CONTINUOU E0601 LACIE LACIE S 8 HOME MED HOME MED POSITIVE EQUIP. EQUIP. AIRWAY [facility] LLC PRESSURE DEVICE CUSHN A7032 LACIE LACIE NASAL 8 HOME MED HOME MED MASK EQUIP. EQUIP. INTERFACE [facility] REPLACEME NT ONLY EACH FILTER A7038 LACIE LACIE DISPBL 8 HOME MED HOME MED USED EQUIP. EQUIP. W/POS LLC LLC ARWAY PRESSURE DEVICE ADLT SZD T4528 NURSES NURSES DISPBL 8 REGISTRY REGISTRY INCONT & HOME & HOME PROD [facility] UNDWEAR XTRA LG EA FILTER A7038 LACIE LACIE DISPBL 8 HOME MED HOME MED USED EQUIP. EQUIP. W/POS LLC LLC ARWAY PRESSURE DEVICE CUSHN A7032 LACIE LACIE NASAL 8 HOME MED HOME MED MASK EQUIP. EQUIP. INTERFACE LLC LLC REPLACEME NT ONLY EACH ADLT SZD T4528 NURSES NURSES DISPBL 8 REGISTRY REGISTRY INCONT & HOME & HOME PROD [facility] UNDWEAR XTRA LG EA COMPUTER- 48995 [facility] TEM[facility] AIDED 8 [facility] DETECTION INC INC SCREENING MAMMOGRAP HY SCREENING 57060 M[facility]ICK LOZANOON 8 [facility] [...] REGISTRY INCONT & HOME & HOME PROD [facility] FELICIAWEAR XTRA EA OPHTH 89578 CAM, CAM, MEDICAL 8 ROSA A ROSA [...] REGISTRY INCONT & HOME & HOME PROD [facility] UNDWEAR XTRA LG EA L HRT 19246 ELADIA TODD CATHETERI 8 NIMA Loja Z[facility]IN[facility] [place] [address] ELADIA TODD C-CATHJ 8 NIMA Loja F/SLCTV C CLINIC ANGRPH PSC I SI&R 13785 ELADIA TODD, F/NJX PX 8 NIMA Loja DURING CLINIC C-CATHJ PSC VENTR&/AT R ANGRPH I SI&R 63953 ELADIA TODD, F/NJX PX 8 NIMA Loja DURING CLINIC C-CATHJ PSC PULM&/OR SELECT INJECTION 82352 ELADIA TODD CARDIAC 8 NIMA Loja CATHJ L CLINIC VENTR/L PSC ATR ANGIOGRAP H RADIOLOGI 30440 RADIOLOGY Angela CAO 8 RE Miller EXAMLUCIANO [...] MED HOME MED POSITIVE EQUIP. EQUIP. AIRWAY [facility] PRESSURE DEVICE NASL A7034 LACIE MEDELLIN INTRFCE [...] MED HOME MED POSITIVE EQUIP. EQUIP. AIRWAY [employer] [facility] PRESSURE DEVICE ADLT SZD T4528 NURSES NURSES DISPBL 8 REGISTRY REGISTRY INCONT & HOME & HOME PROD HEALH HEAL UNDWEAR XTRA LG EA HOS BED E0260 CLEMENTE CORNEJO, SEMI-ELEC 8 INC INC W/ANY TYPE SIDE RAIL W/MATTRSS ADLT SZD T4528 NURSES NURSES DISPBL 8 REGISTRY REGISTRY INCONT & HOME & HOME PROD [facility] HEAL UNDWEAR XTRA LG EA MRI ORBIT 68651 JOANA, JOANA, FACE & 8 DAT DAT NECK W/O & W/CONTRAS T MATRL MRI BRAIN 73433 JOANA, JOANA, BRAIN 8 DAT DAT STEM W/O W/CONTRAS T MATERIAL OPHTHALMO 44377 SOLANGE NARVAEZ, SCPY 8 LISSY YUAN EXTENDED RETINAL DRAWING I&R 1ST HOS BED E0260 CLEMENTE CORNEJO SEMI-ELEC 8 INC INC W/ANY TYPE SIDE RAIL W/MATTRSS ADLT SZD T4528 NURSES NURSES DISPBL 8 REGISTRY REGISTRY INCONT & HOME & HOME PROD [facility] UNDWEAR XTRA LG EA LANCETS A4259 CLINIC CLINIC PER BOX 8 PHARMACY PHARMACY OF 100 BLD GLU A4253 CLINIC CLINIC TEST/REAG 8 PHARMACY PHARMACY T STRIPS HOME BLD GLU MON-50 HOS BED E0260 CLEMENTE CORNEJO SEMI-ELEC 8 INC INC W/ANY TYPE SIDE RAIL W/MATTRSS ECHO 65524 MAVERICK ELLISON TRANSTHOR 8 [facility] R-T [address] [place] [address] W/WO PROF SERV M-MODE REC COMP DOP 52474 MAVERICK ELLISON ECHOCARD 8 [facility] FLOW PROF SERV VELOCITY MAPPING DOPPLER 86262 MAVERICK TEMPLE ECHOCARD 8 [facility] PULSE INC INC WAVE W/SPECTRA L DISPLAY HOS BED E0260 CLEMENTE CORNEJO SEMI-ELEC 8 INC INC W/ANY TYPE SIDE RAIL W/MATTRSS NASL A7034 LACIE MEDELLIN INTRFCE 8 HOME MED HOME MED POS ARWAY EQUIP. EQUIP. PRSS LLC [facility] DEVC W/WO HEAD STRAP FILTER A7039 LACIE MEDELLIN NON 8 HOME MED HOME MED DISPBL EQUIP. EQUIP. USED [facility] W/POS ARWAY PRESS DEVICE TUBING A7037 LACIE MEDELLIN USED WITH 8 HOME MED HOME MED POSITIVE EQUIP. EQUIP. AIRWAY [facility] PRESSURE DEVICE US BREAST 51684 [facility] REAL 8 MEDICAL MEDICAL TIME IMAGING IMAGING W/IMAGE ASSOCIATE ASSOCIATE DOCUMENTA Nick COULTER PILLW A7033 LACIE MEDELLIN NASL 8 HOME MED HOME MED CANNULA EQUIP. EQUIP. TYPE LLC LLC INTERFCE REPL ONLY PAIR Encounters Encounter Start End Date Code Location Performer Type Date HOSPITAL [facility] - 1 1 [facility]EN [facility] M[facility] - 1 1 [facility] T OFFICE 05250 C RONNIE TOBIAS OUTPATIEN 1 1 JATINDER Newman MD [facility] MINUTES HOSPITAL [facility] - 1 1 [facility] OUTPATIEN [facility] T OFFICE 98045 FAMILY ROSA ELENA OUTPATIEN 1 1 CARE R H T VISIT ASSOCIATE 25 S MINUTES HOME NURSES HEALTH, 0 0 REGISTRY OUTPATIEN & HOME HE T HOME NURSES HEALTH, 0 0 REGISTRY OUTPATIEN & HOME HE T HOME NURSES HEALTH, 0 0 REGISTRY OUTPATIEN & HOME HE T OFFICE 79718 FAMILY ROSA ELENA OUTPATIEN 0 0 CARE R H T VISIT ASSOCIATE 15 S MINUTES OFFICE 24956 FAMILY ROSA ELENA OUTPATIEN 0 0 CARE R H T VISIT ASSOCIATE 25 S MINUTES HOME NURSES HEALTH, 0 0 REGISTRY OUTPATIEN & HOME HE T HOME NURSES HEALTH, 0 0 REGISTRY OUTPATIEN & HOME HE T OFFICE 64027 FAMILY ROSA ELENA OUTPATIEN 0 0 CARE R H T VISIT ASSOCIATE 25 S MINUTES HOME NURSES HEALTH, 0 0 REGISTRY OUTPATIEN & HOME HE T HOME NURSES HEALTH, 0 0 REGISTRY OUTPATIEN & HOME HE [facility] - 0 0 [facility] OUTPATIEN INC T OFFICE 96006 FAMILY ROSA ELENA, OUTPATIEN 0 0 CARE R RACHEL T VISIT ASSOCIATE 25 S MINUTES HOME NURSES HEALTH, 0 0 REGISTRY OUTPATIEN & HOME T [facility] HOME NURSES HEALTH, 0 0 REGISTRY OUTPATIEN & HOME T [facility] HOME NURSES HEALTH, 0 0 REGISTRY OUTPATIEN & HOME T [facility] MAVERICK - 0 0 [facility] OUTPATIEN INC T EMERGENCY 28476 [facility] 0 0 [facility] DEPARTMEN INC T VISIT HIGH/URGE NT SEVERITY OFFICE 96502 FAMILY SOHEILABERRY, OUTPATIEN 0 0 CARE JOS T T VISIT ASSOCIATE 25 S MINUTES HOME NURSES HEALTH, 0 0 REGISTRY OUTPATIEN & HOME T [facility] OFFICE 58156 FAMILY ROSA ELENA, OUTPATIEN 0 0 CARE R RACHEL T VISIT ASSOCIATE 25 S MINUTES HOME NURSES HEALTH, 0 0 REGISTRY OUTPATIEN & HOME T [facility] OFFICE 39453 FAMILY ROSA ELENA, OUTPATIEN 9 9 CARE R RACHEL T VISIT ASSOCIATE 25 S MINUTES EMERGENCY 53676 MICKEY CARROLL, DEPT 9 9 EMERGENCY SHEBA S VISIT SERVICES HIGH SEVERITY& ASSOCIATE THREAT S [facility] MAVERICK - 9 9 [facility] OUTPATIEN INC T EMERGENCY 93841 [facility]ERICK 9 9 [facility] DEPARTMEN INC T VISIT HIGH/URGE NT SEVERITY HOME NURSES HEALTH, 9 9 REGISTRY OUTPATIEN & HOME T [facility] M[facility]ERICK - 9 9 [facility] OUTPATIEN INC T EMERGENCY 19699 MICKEY CARROLL, DEPT 9 9 EMERGENCY SHEBA S VISIT SERVICES HIGH SEVERITY& ASSOCIATE THREAT S [facility] EMERGENCY 21769 MICKEY CARROLL, DEPT 9 9 EMERGENCY SHEBA S VISIT SERVICES HIGH SEVERITY& ASSOCIATE THREAT S [facility] OFFICE 19068 FAMILY ROSA ELENA, OUTPATIEN 9 9 CARE R RACHEL T VISIT ASSOCIATE 25 S MINUTES OFFICE 22608 FAMILY ROSA ELENA, OUTPATIEN 9 9 CARE R RACHEL T VISIT ASSOCIATE 15 S MINUTES HOME NURSES HEALTH, 9 9 REGISTRY OUTPATIEN & HOME T [facility] HOME NURSES HEALTH, 9 9 REGISTRY OUTPATIEN & HOME T [facility] HOME NURSES HEALTH, 9 9 REGISTRY OUTPATIEN & HOME T [facility] OFFICE 68567 FAMILY SOHEILABERRY, OUTPATIEN 9 9 CARE JOS T T VISIT ASSOCIATE 15 S MINUTES HOME NURSES HEALTH, 9 9 REGISTRY OUTPATIEN & HOME T [facility] OFFICE 00547 ARJUN BERNARD OUTPATIEN 9 9 MEDICAL DAT T NEW 10 IMAGING MINUTES ASSOCIATE [facility] M[facility]ERICK - 9 9 [facility] M[facility]ER[facility] - 9 9 [facility] OUTPATIEN [facility] OFFICE 97389 JATINDER TOBIAS CONSULTAT 9 9 , RONNIE TRUJILLO ION NEW/ESTAB PATIENT 60 MIN [facility] - 9 9 [facility]IEN [facility] - 9 9 [facility] OUTPATIEN INC OFFICE 35601 FAMILY ROSA ELENA, OUTPATIEN 9 9 CARE R RACHEL T VISIT ASSOCIATE 25 S MINUTES HOME NURSES HEALTH, 9 9 REGISTRY OUTPATIEN & HOME T [facility]ER[facility] - 9 9 [facility] OUTPATIEN INC T EMERGENCY 87253 MICKEY CARROLL, DEPT 9 9 EMERGENCY SHEBA S VISIT SERVICES HIGH SEVERITY& ASSOCIATE THREAT S [facility] M[facility]ERICK - 9 9 [facility] OUTPATIEN INC T EMERGENCY 74330 M[facility]ERICK 9 9 [facility] DEPARTMEN INC T VISIT HIGH/URGE NT SEVERITY HOSPITAL [facility] - 9 9 [facility] OUTPATIEN INC T HOME NURSES HEALTH, 9 9 REGISTRY OUTPATIEN & HOME T [facility] OFFICE 61764 SOLANGE NARVAEZ, CONSULTAT 9 9 LISSY YUAN ION NEW/ESTAB PATIENT 80 MIN OFFICE 25013 FAMILY MULBERRY, OUTPATIEN 9 9 CARE JOS T T VISIT ASSOCIATE 15 S MINUTES HOME NURSES HEALTH, 9 9 REGISTRY OUTPATIEN & HOME T [facility] OFFICE 97918 FAMILY MULBERRY, OUTPATIEN 9 9 CARE JOS T T VISIT ASSOCIATE 15 S MINUTES HOME NURSES HEALTH, 9 9 REGISTRY OUTPATIEN & HOME T [facility] OFFICE 77459 FAMILY MULBERRY, OUTPATIEN 8 8 CARE JOS T T VISIT ASSOCIATE 25 S MINUTES HOME NURSES HEALTH, 8 8 REGISTRY OUTPATIEN & HOME T [facility] OFFICE 86269 CUONG, CUONG, OUTPATIEN 8 8 LUANN LUANN T VISIT 15 MINUTES HOME NURSES HEALTH, 8 8 REGISTRY OUTPATIEN & HOME T [facility] HOME NURSES HEALTH, 8 8 REGISTRY OUTPATIEN & HOME T [facility] HOSPITAL [facility] - 8 8 [facility] OUTPATIEN INC T HOME NURSES HEALTH, 8 8 REGISTRY OUTPATIEN & HOME T [facility] HOME NURSES HEALTH, 8 8 REGISTRY OUTPATIEN & HOME T [facility] OFFICE 48979 FAMILY MANJINDER [facility] 8 8 CARE JOS T VISIT ASSOCIATE 15 S MINUTES HOME NURSES HEALTH, 8 8 REGISTRY OUTPATIEN & HOME T [facility] NURSES HEALTH, 8 8 REGISTRY OUTPATIEN & HOME T [facility] OFFICE 40810 SOLANGE NARVAEZ, CONSULTAT 8 8 LISSY BRAMBILA [facility] PATIENT 80 MIN HOME NURSES HEALTH, 8 8 REGISTRY OUTPATIEN & HOME T [facility] MAVERICK - 8 8 [facility] OUTPATIEN [facility] M[facility]ERICK - 8 8 [facility]
--- OUTSIDE RECORDS SUMMARY | 2016-08-18 01:29 | External Medical Summary Rpt ---
Demographics Preferred Language Ukrainian Marital Status Unknown Hinduism Affiliation Unknown Race Unknown Ethnic Group Unknown Author Author , Organization [employer] Address Unknown Phone Unavailable Purpose Continuity of Care Document - through 2016 Immunization No patient found.
--- OUTSIDE RECORDS SUMMARY | 2016-08-18 01:29 | External Medical Summary Rpt ---
Demographics Preferred Language Maltese Marital Status Unknown Moravian Affiliation Unknown Race Unknown Ethnic Group Unknown Author Author , Organization [employer] Address Unknown Phone Unavailable Purpose Continuity of Care Document - through 2016 Immunization No patient found.
--- OUTSIDE RECORDS SUMMARY | 2016-08-18 01:29 | External Medical Summary Rpt ---
Author Author MAGGIE Freitas, MAGGIE Freitas Organization [employer] Address Unknown Phone Unavailable
--- OUTSIDE RECORDS SUMMARY | 2016-08-18 01:56 | External Medical Summary Rpt ---
Author Author , Organization [employer] Address Unknown Phone Unavailable Care Team Providers Care Bill Cutter Name Role Phone DONNA VELAZCO, Unavailable Unavailable DONNA VELAZCO MD Un[facility] Un[facility] Un[facility]available [facility], Un[facility] Un[facility] Un[facility], [facility] Unavailable Unavailable LAB, [facility] JOANA AMANDA, Unavailable Unavailable JOANA AMANDA DAT BERNARD, Unavailable Unavailable JOANA, DAT [facility], Unavailable Unavailable [facility], [facility] SHEBA CARROLL, Unavailable Unavailable SHEBA CARROLL [facility] Unavailable Unavailable INC, [facility] ROSA LEVY, Unavailable Unavailable ROSA LEVY DAVID L, Unavailable Unavailable KHUSHI TODD [facility] Unavailable Unavailable [facility] [place] [facility] Unavailable Unavailable [facility] [place] [facility] [place] [facility], Unavailable Unavailable [facility] REKHA SARABIA, Unavailable Unavailable REKHA SARABIA [...] Unavailable RE CAO JATINDER LI, Unavailable Unavailable RONNIE BURCIAGA, Unavailable Unavailable RONNIE TOBIAS [facility] Unavailable Unavailable [facility] Unavailable [facility]available [facility] NICANOR DAVID, NICANOR Unavailable Unavailable DAVID [facility], [facility], Unavailable Unavailable INC [facility] Unavailable Unavailable #[id number], [id number] # Unavailable Unavailable [id number], [facility] # [id number] [facility], Unavailable Unavailable [facility] [...] [facility] MALIGNANT NEOPLASMS COLON 84222 OBSTRUCTIVE 05-15-2010 [facility] 496 CHRONIC 05-15-2010 [facility] NEC 05490 HYPERSOMNIA 05-15-2010 [facility] UNSPECIFIED 96194 DIAB W/O 05-11-2010 C RONNIE COMP TYPE [...] 04-27-2010 [facility] HYPERTENSIO N 68712 PAIN IN 04-27-2010 [facility] JOINT[facility] LOWER LEG 7862 COUGH 04-27-2010 [facility] V0382 NEED PROPH 04-27-2010 [facility] VACCINATION [facility] AGAINST STREP PNEUMONE 7823 EDEMA 04-19-2010 NURSES REGISTRY & HOME HE 29706 UNSPECIFIED 04-19-2010 NURSES URINARY REGISTRY & [place] E 811[address] OTHER 02-14-2010 [facility] MALAISE [facility] FATIGUE 9134 ELB 02-14-2010 [facility] FORARM&WRST [facility] INSECT BITE NONVENOMOUS W/O INF V0481 NEED 02-14-2010 [facility] PROPHYLACTI [facility] C VACCINATION &INOCULATIO N FLU 07182 OSTEOARTHRO 11-29-2009 [facility] S UNSPEC [facility] WHETHER GEN/LOC UNSPEC SITE 7904 NONSPEC 11-29-2009 [facility] ELEVATION [facility] OF LEVELS OF TRANSAMINAS E/LDH 5990 URINARY 10-11-2009 [facility]CT [facility] INFECTION SITE NOT SPECIFIED 6961 OTHER 10-11-2009 [facility] PSORIASIS [facility] AND SIMILAR DISORDERS 67788 CHEST PAIN 10-11-2009 [facility] UNSPECIFIED [facility] 13229 ESOPHAGEAL 06-24-2009 [facility] REFLUX [facility] 4619 ACUTE 06-14-2009 [facility] SINUSITIS[facility] UNSPECIFIED 2512 HYPOGLYCEMI 03-24-2009 [facility] A, [facility] UNSPECIFIED 460 ACUTE 03-24-2009 [facility] NASOPHARYNG [facility] ITIS 2449 UNSPECIFIED 01-18-2009 [facility] HOSP HYPOTHYROID INC ISM 30477 BLEPHARITIS 01-14-2009 LEVY BRETT A UNSPECIFIED 59212 COR 01-12-2009 [facility] TYPE VESSEL PROF SERV LOWER KALSKAG/PINKY T 1120 CANDIDIASIS 01-06-2009 [facility] 6268 OTH D/O 01-06-2009 [facility] MENSTRUATIO [facility] N&OTH ABN BLEED FE GNT TRACT 7245 UNSPECIFIED 01-06-2009 [facility] BACKACHE [facility] 4660 ACUTE 12-23-2008 [facility] BRONCHITIS [facility] 7239 UNSPEC 10-01-2008 [facility] MUSCULOSKEL [facility] D/O&SYMPTOM S REFERABLE NECK 83052 SPASM OF 10-01-2008 [facility]CLE [facility] 6101 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, CYSTIC RONNIE MASTOPATHY 81360 LUMP OR 09-06-2008 [facility], MASS IN RONNIE BREAST 66502 OTHER 09-06-2008 [facility], ABNORMAL RONNIE FINDING RADIOLOGICA L EXAM BREAST V7281 PRE-OPERATI 09-02-2008 [facility] LAR PROF SERV EXAMINATION 48113 UNSPECIFIED 08-31-2008 [facility], ABNORMAL RONNIE MAMMOGRAM 57736 HYPERTONICI 08-27-2008 [facility] TY OF [facility] BLADDER 7881 DYSURIA 08-27-2008 [facility] 4280 CONGESTIVE 08-13-2008 [facility] UNSPECIFIED PROF SERV 47698 SHORTNESS 08-13-2008 [facility] 83224 MIGRAINE 07-14-2008 [facility], W/AURA W/O LISSY INTRACT W/O STATUS MIGRNOSUS 32195 NONEXUDATIV 07-14-2008 Sky NARVAEZ SENILE LISSY MACULAR DEGENERATIO N RETINA 03769 TRANSIENT 07-14-2008 [facility], VISUAL LOSS LISSY 7019 UNSPECIFIED 07-02-2008 [facility] HYPERTROPHI C&ATROPHIC CONDITION SKIN 58761 OTHER 05-06-2008 [facility] DYSPNEA [facility] RESPIRATORY ABNORMALITI ES 2381 NEOPLASM 04-02-2008 [facility] UNCERTAIN [facility] BHV CNCTV&OTH SOFT TISSUE 15438 MIGRAINE 03-08-2008 CUONG, W/O AURA LUANN INTRACT W/O STATUS MIGRAINOSUS 7295 PAIN IN 10-22-2007 [facility] SOFT [facility] TISSUES OF LIMB 54625 OBESITY, 10-18-2007 [facility] UNSPECIFIED ASSOCIATES PSC 4109 ACUTE 10-18-2007 [facility]SC UNSPECIFIED SITE 50421 OTHER 10-18-2007 RADIOLOG[facility] DISEASES OF ASSOCIATES LUNG NOT PSC ELSEWHERE CLASSIFIED 33166 PAIN IN 08-08-2007 [employer] JOINT PELVIC REGION AND THIGH 84794 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 [facility] [place] [employer] 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 7812 ABNORMALITY 08-08-2007 [employer] OF GAIT 3689 UNSPECIFIED 07-11-2007 JOANA, VISUAL DAT DISTURBANCE 85325 PERIPH 07-09-2007 [facility] CHORIORETIN LISSY AL SCARS [...] 10 01 4 90 30 CL 22 NC Ac AZ 59 -0 -2 .0 IN 44 LL ti EP 15 5- 1- 00 IC 27 ER ve AM 62 20 20 01 10 11 PH CA 10 0 AR RO MA L MG CY J TA LL BL C ET DI 00 10 12 4 90 30 CL 22 NC Ac AZ 59 -0 -2 .0 IN 44 LL ti EP 15 5- 00 IC 27 ER ve AM 62 [...] 10 11 4 90 30 CL 22 NC Ac AZ 59 -0 -1 .0 IN 44 LL ti EP 15 IC 27 ER ve AM 62 20 20 01 10 10 PH CA 10 0 AR RO MA L MG CY J TA BL C ET DI 00 07 10 3 12 30 CL 21 NC Ac AZ 59 -1 -1 0. IN 98 LL ti EP 15 IC 49 ER ve AM 62 20 20 0 01 10 10 PH CA 10 0 AR RO MA L MG CY J TA BL C ET DI 00 07 09 3 12 30 CL 21 NC Ac AZ 59 -1 -1 0. IN 98 LL ti EP 15 IC 49 ER ve AM 62 20 20 0 01 10 10 PH CA 10 0 AR RO MA L MG CY J TA BL C ET MU 63 08 08 [...] 07 08 3 12 30 CL 21 NC Ac AZ 59 -1 -1 0. IN 98 LL ti EP 15 IC 49 ER ve AM 62 20 20 0 01 10 10 PH CA 10 0 AR RO MA L MG CY J TA BL C ET DI 00 07 07 3 12 30 CL 21 NC Ac AZ 59 -1 -1 0. IN 98 LL ti EP 15 6- IC 49 ER ve AM 62 20 20 0 01 10 10 PH CA 10 0 AR RO MA L MG CY J TA LL BL C ET DI 00 03 06 2 12 30 CL 21 NC Ac AZ 59 -3 -1 0. IN 41 LL ti EP 15 0- 7 IC 81 ER ve AM 62 20 [...] 03 05 2 12 30 CL 21 NC Ac AZ 59 -3 -1 0. IN 41 LL ti EP 15 0- 7- 00 IC 81 ER ve AM 62 20 20 0 01 10 10 PH CA 10 0 AR RO MA L MG CY J TA LL BL C ET DE 00 05 05 0 12 6 WA [...] 03 04 2 12 30 CL 21 NC Ac AZ 59 -3 -1 0. IN 41 LL ti EP 15 0- 6- 00 IC 81 ER ve AM 62 20 20 0 01 10 10 PH CA 10 0 AR RO MA L MG CY J TA LL BL C ET DI 00 01 03 2 12 30 CL 20 NC Ac AZ 59 -0 -1 0. IN [...] MA e MG CY TA BL ET DE 00 02 03 00 18 4 WA [...] IN 30 t ti EP 15 9 00 IC 26 Av ve AM 62 [...] Procedure DOS Code Location Performer Comment ANES 99769 [facility] 1 ANESTH DAVID INTESTINE OF [place] [address] [facility] THERAPY INC INC PROPHYLAX IS/DX EA HOUR COLOREC G0105 C RONNIE TOBIAS CANCR 1 JATINDER ALEJANDRE; PSC COLONSCPY [place] @[place] [address] [facility] THERAPY/P INC INC ROPHYLAXI S /DX 1ST TO 1 HR PHRM Q0513 YOUR YOUR DISPENSIN 1 PHARMACY PHARMACY G FEE [employer] INHALATIO N RX; PER 30 DAYS ADMN SET A7003 YOUR YOUR SM VOL 1 PHARMACY PHARMACY NONFILTR LLC LLC PNEUMAT NEBULIZR DISPBL ALBUTEROL J7620 YOUR YOUR TO 2.5 1 PHARMACY PHARMACY MG & LLC LLC IPRATROPI UM BROM TO 0.5 MG SCREENING G0202 [place] JOANA 1 MEDICAL AMANDA MAMMOGRAP IMAGING HY LISANDRO ASS INCL CAD WHEN PERFORMD COMPUTER- 27599 [place] JOANA AIDED 1 MEDICAL AMANDA DETECTION IMAGING ASS SCREENING MAMMOGRAP HY COLLECTIO 82531 [facility] N VENOUS 1 [facility] BLOOD INC INC VENIPUNCT URE HEMOGLOBI 70877 [facility] N 1 [facility] GLYCOSYLA INC INC TATIANA A1C 25 56983 [facility] HYDROXY 1 [facility] INCLUDES INC INC FRACTIONS IF PERFORMED SCR G0145 PATHOLOGY PATHOLOGY CYTOPATH 1 & & CERV/VAG CYTOLOGY CYTOLOGY SCR LAB LAB AUTO&MNL RSCR PHYS LIPID 85161 [facility] PANEL 1 [facility] INC INC HEPATIC 22129 [facility] FUNCTION 1 [facility] PANEL INC INC PPSV23 97106 FAMILY ROSA ELENA VACCINE 2 1 CARE R H YRS OR ASSOCIATE OLDER FOR S SUBQ/IM USE ADMINISTR G0009 FAMILY ROSA ELENA ATION OF 1 CARE R H PNEUMOCOC ASSOCIATE PERFECTO S VACCINE ADLT SZD T4526 NURSES NURSES DISPBL 0 REGISTRY REGISTRY INCONT & HOME HE & HOME HE PROD UNDWEAR MED EA REPL ARANZA A4233 DISCOUNT DISCOUNT ALKALINE 0 DIABETIC DIABETIC NOT J CELL SACHA BG MON OWND PT BLD GLU A4253 DISCOUNT DISCOUNT TEST/REAG 0 DIABETIC DIABETIC T STRIPS HOME BLD GLU MON-50 NORMAL A4256 DISCOUNT DISCOUNT LOW AND 0 DIABETIC DIABETIC HIGH CALIBRATO R SOLUTION/ CHIPS LANCETS A4259 DISCOUNT DISCOUNT PER BOX 0 DIABETIC DIABETIC OF 100 SPRING-PO A4258 DISCOUNT DISCOUNT WERED 0 DIABETIC DIABETIC DEVICE FOR LANCET EACH FILTER A7038 LACIE MEDELLIN DISPBL 0 HOME MED HOME MED USED EQUIP. L EQUIP. L W/POS ARWAY PRESSURE DEVICE TUBING A7037 LACIE MEDELLIN USED WITH 0 HOME MED HOME MED POSITIVE EQUIP. L EQUIP. L AIRWAY PRESSURE DEVICE HEADGEAR A7035 LACIE MEDELLIN USED 0 HOME MED HOME MED W/POSITIV EQUIP. L EQUIP. L E AIRWAY PRESSURE DEVICE NASL A7034 LACIE MEDELLIN INTRFCE 0 HOME MED HOME MED POS ARWAY EQUIP. L EQUIP. L PRSS DEVC W/WO HEAD STRAP ADLT SZD T4526 NURSES NURSES DISPBL 0 REGISTRY REGISTRY INCONT & HOME HE & HOME HE PROD UNDWEAR MED EA CONTINUOU E0601 LACIE MEDELLIN S 0 HOME MED HOME MED POSITIVE EQUIP. L EQUIP. L AIRWAY PRESSURE DEVICE ADLT SZD T4526 NURSES NURSES DISPBL 0 REGISTRY REGISTRY INCONT & HOME HE & HOME HE PROD UNDWEAR MED EA IIV3 68402 FAMILY FAMILY VACCINE 0 CARE CARE SPLIT ASSOCIATE ASSOCIATE VIRUS 0.5 S S ML DOSAGE IM USE ADMINISTR G0008 FAMILY ROSA ELENA ATION OF 0 CARE R H INFLUENZA ASSOCIATE VIRUS S VACCINE COMPREHEN 53378 COMBINED COMBINED SIVE 0 PHYSICIAN PHYSICIAN METABOLIC S LA S LA PANEL CYANOCOBA 16267 COMBINED COMBINED CORETTA 0 PHYSICIAN PHYSICIAN VITAMIN S LA S LA B-12 [place] [address] COMBINED COMBINED THYROID 0 PHYSICIAN PHYSICIAN STIMULATI S LA S LA NG HORMONE TSH HEMOGLOBI 96120 FAMILY ROSA ELENA N 0 CARE R H GLYCOSYLA ASSOCIATE TATIANA A1C S COLLECTIO 50266 FAMILY ROSA ELENA N VENOUS 0 CARE R H BLOOD ASSOCIATE VENIPUNCT S URE BLOOD 27991 FAMILY FAMILY COUNT 0 CARE CARE COMPLETE ASSOCIATE ASSOCIATE AUTO&AUTO S S DIFRNTL WBC THERAPEUT 71778 FAMILY ROSA ELENA IC 0 CARE R H PROPHYLAC ASSOCIATE TIC/DX S INJECTION SUBQ/IM LIPID 40747 FAMILY FAMILY PANEL 0 CARE DAM OPERATOR ASSOCIATE S S ADLT SZD T4526 NURSES NURSES DISPBL 0 REGISTRY REGISTRY INCONT & HOME HE & HOME HE PROD UNDWEAR MED EA BLD GLU A4253 DISCOUNT DISCOUNT TEST/REAG 0 DIABETIC DIABETIC T STRIPS HOME BLD GLU MON-50 LANCETS A4259 DISCOUNT DISCOUNT PER BOX 0 DIABETIC DIABETIC OF 100 NORMAL A4256 DISCOUNT DISCOUNT LOW AND 0 DIABETIC DIABETIC HIGH CALIBRATO R SOLUTION/ CHIPS ADLT SZ T4526 NURSES NURSES DISPBL 0 REGISTRY REGISTRY INCONT & HOME HE & HOME HE PROD UNDWEAR MED EA PHRM Q0513 YOUR YOUR DISPENSIN 0 PHARMACY PHARMACY G FEE [employer] INHALATIO N RX; PER 30 DAYS ADMN SET A7003 YOUR YOUR SM VOL 0 PHARMACY PHARMACY NONFILTR [employer] PNEUMAT NEBULIZR DISPBL ALBUTEROL J7620 YOUR YOUR TO 2.5 0 PHARMACY PHARMACY MG & [employer] IPRATROPI UM BROM TO 0.5 MG HEPATIC 04282 COMBINED COMBINED FUNCTION 0 PHYSICIAN PHYSICIAN PANEL S LA S LA COLLECTIO 91983 FAMILY FAMILY N VENOUS 0 CARE CARE BLOOD ASSOCIATE ASSOCIATE VENIPUNCT S S URE THERAPEUT 38384 [facility] ROSA ELENA IC 0 CARE R H PROPHYLAC ASSOCIATE TIC/DX S INJECTION SUBQ/IM INJECTION J3420 FAMILY CUBA VIT B-12 0 CARE R H ASSOCIATE CYANOCOBA S CORETTA TO 1000 MCG ADLT [facility] T4528 NURSES NURSES DISPBL 0 REGISTRY REGISTRY INCONT & HOME HE & HOME HE PROD UNDWEAR XTRA LG EA ADLT D T4528 NURSES NURSES DISPBL 0 REGISTRY REGISTRY INCONT & HOME HE & HOME HE PROD UNDWEAR XTRA LG EA BASIC 65134 COMBINED COMBINED METABOLIC 0 PHYSICIAN PHYSICIAN PANEL S LAB S LAB CALCIUM TOTAL LIPID 92336 FAMILY ROSA ELENA, PANEL 0 CARE Honey RAMOS ASSOCIATE S URNLS DIP 25475 FAMILY ROSA ELENA, 0 GORGE RAMOS STICK/TAB ASSOCIATE LET RGNT S NON-AUTO W/O MICRSCP RADIOLOGI 47083 Angela NAM 0 MEDICAL DAT EXAMINATI IMAGING ON KNEE 3 ASSOCIATE VIEWS S COLLECTIO 58326 FAMILY ROSA ELENA, N VENOUS 0 CARE Honey RAMOS BLOOD ASSOCIATE VENIPUNCT S URE TRANSFERA 71128 FAMILY CUBA, SE 0 CARE Honey RAMOS ASPARTATE ASSOCIATE AMINO S AST SGOT TRANSFERA 75511 FAMILY CUBA, SE 0 CARE Honey RAMOS ALANINE ASSOCIATE AMINO ALT S SGPT REPL ARANZA A4233 DISCOUNT DISCOUNT ALKALINE 0 DIABETIC DIABETIC NOT J CELL SACHA BG MON OWND PT NORMAL A4256 DISCOUNT DISCOUNT LOW AND 0 DIABETIC DIABETIC HIGH CALIBRATO R SOLUTION/ CHIPS LANCETS A4259 DISCOUNT DISCOUNT PER BOX 0 DIABETIC DIABETIC OF 100 BLD GLU A4253 DISCOUNT DISCOUNT TEST/REAG 0 DIABETIC DIABETIC T STRIPS HOME BLD GLU MON-50 ADLT SZD T4528 NURSES NURSES DISPBL 0 REGISTRY REGISTRY INCONT & HOME & [facility] A4258 DISCOUNT DISCOUNT WERED 0 DIABETIC DIABETIC DEVICE FOR LANCET EACH [facility] E0601 LACIE MEDELLIN S 0 HOME MED HOME MED POSITIVE EQUIP. L EQUIP. L AIRWAY PRESSURE DEVICE ADLT [facility] T4528 NURSES NURSES DISPBL 0 REGISTRY REGISTRY INCONT & HOME & [facility] LG EA NASL A7034 LACIE MEDELLIN INTRFCE 0 HOME MED HOME MED POS ARWAY EQUIP. L EQUIP. L PRSS DEVC W/WO HEAD STRAP HEADGEAR A7035 LACIE MEDELLIN USED 0 HOME MED HOME MED W/POSITIV EQUIP. L EQUIP. L E AIRWAY PRESSURE DEVICE FILTER A7038 LACIE MEDELLIN DISPBL 0 HOME MED HOME MED USED EQUIP. L EQUIP. L W/POS ARWAY PRESSURE DEVICE ADLT D T4528 NURSES NURSES DISPBL 0 REGISTRY REGISTRY INCONT & HOME & HOME PROD [facility] XTRA LG EA CREATINE 20420 [facility] KINASE 0 [facility] TOTAL INC INC COMPREHEN 40161 [facility] SIVE 0 [facility] METABOLIC INC INC PANEL CREATINE 41894 [facility] KINASE MB 0 [facility] [place] [address] [facility] TROPONIN 0 [facility] QUANTITAT INC INC ROSETTE BLOOD 37753 [facility] COUNT 0 [facility] COMPLETE INC INC AUTO&AUTO DIFRNTL WBC RADIOLOGI 90682 [facility] Angela BRADY EXAM 0 MEDICAL BEVERLY P CHEST 2 IMAGING VIEWS ASSOCIATE FRONTAL&L S ATERAL ECG 17678 MAVERICK CORNELL, ROUTINE 0 [facility] W/LEAST PROF SERV 12 LDS I&R ONLY ECG 55996 [facility] ROUTINE 0 [facility] ECG INC INC W/LEAST 12 LDS TRCG ONLY W/O I&R NEBULIZER E0570 LACIE MEDELLIN WITH 0 HOME MED HOME MED COMPRESSO EQUIP. EQUIP. R [facility] T4528 NURSES NURSES DISPBL 0 REGISTRY REGISTRY INCONT & HOME & [facility] UND[facility]AR XTRA LG EA URNLS DIP 53789 FAMILY ROSA ELENA, 0 CARE R RACHEL STICK/TAB ASSOCIATE LET RGNT S NON-AUTO W/O MICRSCP NEBULIZER E0570 LACIE MEDELLIN WITH 0 HOME MED HOME MED COMPRESSO EQUIP. EQUIP. R [facility] T4528 NURSES NURSES DISPBL 0 REGISTRY REGISTRY INCONT & HOME & [facility] UND[facility] XTRA LG EA DIAB ONLY A5500 CLINIC CLINIC FIT [...] DIABETIC T STRIPS HOME BLD GLU MON-50 REPL ARANZA A4233 DISCOUNT DISCOUNT ALKALINE 0 DIABETIC DIABETIC NOT J CELL SACHA BG MON OWND PT SPRING-PO A4258 DISCOUNT DISCOUNT WERED 0 DIABETIC DIABETIC DEVICE FOR LANCET EACH FILTER A7038 LACIE LACIE DISPBL 0 HOME MED HOME MED USED EQUIP. EQUIP. W/POS [facility] ARWAY PRESSURE DEVICE NEBULIZER E0570 LACIE MEDELLIN WITH 9 HOME MED HOME MED COMPRESSO EQUIP. EQUIP. R LLC LLC BASIC 03595 COMBINED COMBINED METABOLIC 9 PHYSICIAN PHYSICIAN PANEL S LAB S LAB CALCIUM TOTAL LIPID 16253 FAMILY SANCHEZEET, PANEL 9 [facility] Honey RAMOS ASSOCIATE S HEMOGLOBI 89143 FAMILY CUBA, N 9 [facility] Honey RAMOS GLYCOSYLA ASSOCIATE TATIANA A1C S URNLS DIP 55607 FAMILY CUBA, 9 [facility] Honey RAMOS STICK/TAB ASSOCIATE LET RGNT S NON-AUTO W/O MICRSCP COLLECTIO 75553 FAMILY CUBA, N VENOUS 9 [facility] Honey RAMOS BLOOD ASSOCIATE VENIPUNCT S URE BLOOD 72602 FAMILY CUBA, COUNT 9 [facility] Honey RAMOS COMPLETE ASSOCIATE AUTO&AUTO S DIFRNTL WBC CONTINUOU E0601 LACIE MEDELLIN S 9 HOME MED HOME MED POSITIVE EQUIP. EQUIP. AIRWAY [facility] PRESSURE DEVICE FILTER A7039 LACIE MEDELLIN NON 9 HOME MED HOME MED DISPBL EQUIP. EQUIP. USED [facility] W/POS ARWAY PRESS DEVICE FILTER A7038 LACIE MENONRELL DISPBL 9 HOME MED HOME MED USED EQUIP. EQUIP. W/POS [facility] ARWAY PRESSURE DEVICE NEBULIZER E0570 LACIE MEDELLIN WITH 9 HOME MED HOME MED COMPRESSO EQUIP. EQUIP. R LLC LLC CREATINE 93823 [facility]ERICK LOZANOON KINASE MB 9 [facility] FRACTION INC INC ONLY CREATINE 24376 [facility] LOZANOON KINASE 9 [facility] [place] [address] MAVERICK LOZANOON TROPONIN 9 [facility] [address] MAVERICK MAVERICK TROPONIN 9 [facility] QUANTITAT INC INC ROSETTE BLOOD 36003 [facility]ICK LOZANOON COUNT 9 [facility] COMPLETE INC INC AUTO&AUTO DIFRNTL WBC RADIOLOGI 65020 Angela CHASE 9 MEDICAL BEVERLY Nesbitt EXAMINATI IMAGING ON CHEST ASSOCIATE SINGLE S VIEW FRONTAL THER 42445 [facility] PROPH/DX 9 [facility] NJX IV INC INC PUSH SINGLE/1S T SBST/DRUG ECG 84578 MICKEY BRENNANEY, ROUTINE 9 EMERGENCY SHEBA S ECG SERVICES W/LEAST 12 LDS ASSOCIATE I&R ONLY S CREATINE 75005 [facility] KINASE 9 [facility] TOTAL INC INC BASIC 57405 [facility] METABOLIC 9 [facility] PANEL INC INC CALCIUM TOTAL CREATINE 83486 MAV[facility]ICK TEMPLE KINASE MB 9 [facility] FRACTION INC INC ONLY ECG 65442 [facility] ROUTINE 9 [facility] MEM [...] [facility] UNDWEAR XTRA LG EA BASIC 12483 [facility] METABOLIC 9 [facility] PANEL INC INC CALCIUM TOTAL LIPID 45970 [facility] PANEL 9 [facility] INC INC HEMOGLOBI 00599 [facility] N 9 [facility] GLYCOSYLA INC INC TATIANA A1C HEPATIC 59883 M[facility] TEM[facility] FUNCTION 9 [facility] PANEL INC INC COLLECTIO 22661 [facility] N VENOUS 9 [facility] [place]LOOD [place] [address] MAVERICK ETMPLE THYROID 9 [facility] STIMULATI INC INC NG HORMONE TSH OPHTH 25894 [facility], [facility] 9 ROSA A ROSA A XM&EVAL COMPRHNSV ESTAB PT 1/> TUBING A7037 LACIE MEDELLIN USED WITH 9 HOME MED HOME MED POSITIVE EQUIP. EQUIP. AIRWAY [facility] PRESSURE DEVICE FILTER A7038 LACIE MEDELLIN DISPBL 9 HOME MED HOME MED USED EQUIP. EQUIP. W/POS [facility] ARWAY PRESSURE DEVICE CUSHN A7032 LACIE MEDELLIN NASAL 9 HOME MED HOME MED MASK EQUIP. EQUIP. INTERFACE [facility] REPLACEME NT ONLY EACH HEADGEAR A7035 LACIE MEDELLIN USED 9 HOME MED HOME MED W/POSITIV EQUIP. EQUIP. E AIRWAY [facility] PRESSURE DEVICE NASL A7034 LACIE MEDELLIN INTRFCE 9 HOME MED HOME MED POS ARWAY EQUIP. EQUIP. PRSS [facility] DEVC W/WO HEAD STRAP ECG 46512 MICKEY CARROLL, ROUTINE 9 EMERGENCY SHEBA S ECG SERVICES W/LEAST 12 LDS ASSOCIATE I&R ONLY S RADIOLOGI 76832 [place] JOANA, 9 MEDICAL DAT EXAMINATI IMAGING ON CHEST ASSOCIATE SINGLE S VIEW FRONTAL ECG 02937 MICKEY CARROLL, ROUTINE 9 EMERGENCY SHEBA S ECG SERVICES W/LEAST 12 [facility] ASSOCIATE I&R ONLY S URNLS DIP 64182 FAMILY [facility], 9 CARE R RACHEL STICK/TAB ASSOCIATE LET RGNT S NON-AUTO W/O MICRSCP NEBULIZER E0570 LACIE MEDELLIN WITH 9 HOME MED HOME MED COMPRESSO EQUIP. EQUIP. R LLC [facility] ADLT SZD T4528 NURSES NURSES DISPBL 9 REGISTRY REGISTRY INCONT & HOME & HOME PROD [facility] UNDWEAR XTRA LG EA NORMAL A4256 DISCOUNT DISCOUNT LOW AND 9 DIABETIC DIABETIC HIGH CALIBRATO R SOLUTION/ CHIPS LANCETS A4259 DISCOUNT DISCOUNT PER BOX 9 DIABETIC DIABETIC OF 100 BLD GLU A4253 DISCOUNT DISCOUNT TEST/REAG 9 DIABETIC DIABETIC T STRIPS HOME BLD GLU MON-50 NEBULIZER E0570 LACIE MEDELLIN WITH 9 HOME MED HOME MED COMPRESSO EQUIP. EQUIP. R [facility] ADLT [facility] T4528 NURSES NURSES DISPBL 9 REGISTRY REGISTRY INCONT & HOME & [facility] NEBULIZER E0570 LACIE MEDELLIN WITH 9 HOME MED HOME MED COMPRESSO EQUIP. EQUIP. R [facility] T4528 NURSES NURSES DISPBL 9 REGISTRY REGISTRY INCONT & HOME & HOME PROD [facility] X[facility]ON [facility] EA ADMN SET A7003 YOUR YOUR SM VOL 9 PHARMACY PHARMACY NONFILTR [facility] PNEUMAT NEBULIZR DISPBL PHRM Q0513 YOUR YOUR DISPENSIN 9 PHARMACY PHARMACY G FEE [facility] INHALATIO N RX; PER 30 DAYS ALBUTEROL J7620 YOUR YOUR TO 2.5 9 PHARMACY PHARMACY MG & [facility] IPRATROPI UM BROM TO 0.5 MG TUBING A7037 LACIE LACIE USED WITH 9 HOME MED HOME MED POSITIVE EQUIP. EQUIP. [employer] [facility] PRESSURE DEVICE FILTER A7038 LACIE MEDELLIN DISPBL 9 HOME MED HOME MED USED EQUIP. EQUIP. W/POS [facility] ARWAY PRESSURE DEVICE NASL A7034 LACIE MEDELLIN INTRFCE 9 HOME MED HOME MED POS ARWAY EQUIP. EQUIP. PRSS [facility] DEVC W/WO HEAD STRAP CUSHN A7032 LACIE MEDELLIN NASAL 9 HOME MED HOME MED MASK EQUIP. EQUIP. INTERFACE [facility] REPLACEME NT ONLY EACH NEBULIZER E0570 LACIE MEDELLIN WITH 9 HOME MED HOME MED COMPRESSO EQUIP. EQUIP. R [facility] D T4528 NURSES NURSES DISPBL 9 REGISTRY REGISTRY INCONT & HOME & HOME PROD [facility] EA CONTINUOU E0601 LACIE MEDELLIN S 9 HOME MED HOME MED POSITIVE EQUIP. EQUIP. [employer] [facility] PRESSURE DEVICE PHRM Q0513 YOUR YOUR DISPENSIN 9 PHARMACY PHARMACY [facility] [employer] INHALATIO N RX; PER 30 DAYS ALBUTEROL J7613 YOUR YOUR INHAL 9 PHARMACY PHARMACY NON-CP [facility] PROD THRU DME U DOSE 1 MG ADMN SET A7003 YOUR YOUR SM VOL 9 [facility] PNEUMAT NEBULIZR DISPBL US BREAST 27951 ARJUN BERNARD REAL 9 MEDICAL DAT TIME IMAGING W/[place] [address] [facility] INFUSION 9 [facility] PROPHYLAX IS/DX EA HOUR ANES 14874 [facility] PEGGY HASTINGS 9 ANESTH BALAJI Gladys EXTREMITI OF THE ES ANT [place] TRUNK & PERINEUM NOS GLUC BLD 46877 [facility] GLUC MNTR 9 [facility] DEV INC INC CLEARED FDA SPEC HOME USE IMG GID 67174 ARJUN BERNARD PLMT MTLC 9 MEDICAL DAT LOCLZJ IMAGING CLIP PRQ ASSOCIATE BRST S BX/[place] [address] [facility] GUIDANCE 9 [facility] NEEDLE INC INC PLACEMENT IMG S&I INJECTION J2405 [facility] 9 [facility] ONDANSETR INC INC ON HCL PER 1 MG THERAPEUT 83438 [facility] IC 9 [facility] [facility] INJECTION INC INC IV PUSH EACH NEW DRUG RADIOLOGI 62431 M[facility] TEM[facility] PERFECTO 9 [facility] EXAMINATI INC INC ON SURGICAL SPECIMEN MAMMOGRAP 74666 [facility] BERNARD 9 MEDICAL [place] [address] MAVERICK TEMPLE INFUSION 9 [facility] THERAPY/P INC INC ROPHYLAXI S /DX 1ST TO 1 HR BIOPSY 01339 ARJUN BERNARD BREAST 9 MEDICAL DAT NEEDLE IMAGING CORE ASSOCIATE W/IMAGING S GUIDANCE PREOP 45607 M[facility] TEM[facility] PLACEMENT 9 [facility] INC INC LOCALIZAT ION WIRE BREAST BIOPSY 04590 [facility] TEM[facility] BREAST 9 [facility] OPEN INC INC INCISIONA L EXC 96627 JATINDER TOBIAS BREAST 9 , RONNIE , RONNIE LES PREOP PLMT RAD MARKER OPEN 1 LES COLLECTIO 27613 [facility] TEM[facility] N VENOUS 9 [facility] BLOOD INC INC VENIPUNCT URE BLOOD 26273 [facility] TEM[facility] COUNT 9 [facility] COMPLETE INC INC AUTO&AUTO DIFRNTL WBC ECG 35492 MAVERICK MCKEMIE ROUTINE 9 [facility] BALAJI W/LEAST PROF SERV 12 LDS I&R ONLY BASIC 17986 [facility] TEM[facility] METABOLIC 9 [facility] PANEL INC INC CALCIUM TOTAL ECG 14011 [facility] TEMPLE ROUTINE 9 [facility] ECG INC INC W/LEAST 12 LDS TRCG ONLY W/O I&R NEBULIZER E0570 LACIE MEDELLIN WITH 9 HOME MED HOME MED COMPRESSO EQUIP. EQUIP. R [facility] LLC LIPID 57229 MAVERICK TEMPLE PANEL 9 [facility] INC INC HEMOGLOBI 06495 MAVERICK TEMPLE N 9 [facility] GLYCOSYLA INC INC TATIANA A1C HEPATIC 47445 MAVERICK TEMPLE FUNCTION 9 [facility] PANEL INC INC BASIC 89207 M[facility] TEMPLE METABOLIC 9 [facility] PANEL INC INC CALCIUM TOTAL COLLECTIO 08293 M[facility]ERICK TEMPLE N VENOUS 9 [facility] BLOOD INC INC VENIPUNCT URE SPRING-PO A4258 DISCOUNT DISCOUNT WERED 9 DIABETIC DIABETIC DEVICE FOR LANCET EACH LANCETS A4259 DISCOUNT DISCOUNT PER BOX 9 DIABETIC DIABETIC OF 100 REPL ARANZA A4235 DISCOUNT DISCOUNT LITHIUM 9 DIABETIC DIABETIC MED NECES SACHA BG MON OWN PT EA BLD GLU A4253 DISCOUNT DISCOUNT TEST/REAG 9 DIABETIC DIABETIC T STRIPS HOME BLD GLU MON-50 NORMAL A4256 DISCOUNT DISCOUNT LOW AND 9 DIABETIC DIABETIC HIGH CALIBRATO R SOLUTION/ CHIPS CULTURE 03049 MAVERICK MAVERICK BACTERIAL 9 [facility] INC INC QUANTTATI VE COLONY COUNT URINE URNLS DIP 24238 FAMILY ROSA ELENA, 9 CARE R RACHEL STICK/TAB ASSOCIATE LET RGNT S NON-AUTO W/O MICRSCP ADLT SZD T4528 NURSES NURSES DISPBL 9 REGISTRY REGISTRY INCONT & HOME & HOME PROD [facility] UNDWEAR XTRA LG EA US BREAST 04-28-200 41111 [facility] TEMPLE REAL 9 [facility] TIME INC INC W/IMAGE DOCUMENTA TION BREAST 67237 [facility] TEM[facility] BIOPSY 9 [facility] VACUUM INC [place] ASSISTED/ [place] [address] CORA CHASE 9 MEDICAL BEVERLY P NEEDLE IMAGING PLACEMENT ASSOCIATE IMG S&I S PREOP 57732 [facility] TEM[facility] PLACEMENT 9 [facility] INC INC LOCALIZAT ION WIRE BREAST PROBE/NEE C2618 [facility] TEM[facility] DLE 9 [facility] [place] [address] PATHOLOGY PATHOLOGY SURG 9 & & PATHOLOGY CYTOLOGY CYTOLOGY LAB LAB GROSS&[place] [address] M[facility] TEMPLE THYROID 9 [facility] STIMULATI INC INC NG HORMONE TSH BLOOD 24496 M[facility]ICK TEMPLE COUNT 9 [facility] COMPLETE INC INC AUTO&[place] [address] MAVERICK TEMPLE TROPONIN 9 [facility] QUANTITAT INC INC ROSETTE NATRIURET 36831 M[facility] TEMPLE IC 9 [facility] PEPTIDE INC INC ECG 78977 LIZETH BENNETT 9 [facility] W/LEAST PROF SERV 12 LDS I&R ONLY SUSCEPTIB 90154 M[facility] TEMPLE LTY STDY 9 [facility] ANTIMICRB INC INC IAL MICRO/AGA R DILUTJ THER 11014 MAVERICK TEMPLE PROPH/DX 9 [facility] NJX IV INC INC PUSH SINGLE/1S T SBST/DRUG RADIOLOGI 53934 Angela CHASE 9 MEDICAL BEVERLY P EXAMINATI IMAGING ON CHEST ASSOCIATE SINGLE S VIEW FRONTAL CREATINE 44983 M[facility] TEMPLE KINASE MB 9 [facility] FRACTION INC INC ONLY URNLS DIP 36655 [facility] TEMPLE 9 [facility] STICK/TAB INC INC LET REAGENT AUTO MICROSCOP Y INSJ TEMP 54153 M[facility] TEMPLE NDWELLG 9 [facility] BLADDER INC INC CATHETER SIMPLE CREATINE 89065 [facility] TEMPLE KINASE 9 [facility] TOTAL INC INC CULTURE 05482 [facility] TEMPLE BACTERIAL 9 [facility] INC INC QUANTTATI VE COLONY COUNT URINE CULTURE 13488 [facility] TEM[facility] BCT 9 [facility] ISOL&PRSM INC [place] [address] MAEVRICK TEMPLE THYROXINE 9 [facility] TOTAL INC INC BASIC 68555 [facility] TEMPLE METABOLIC 9 [facility] PANEL INC INC CALCIUM TOTAL ECG 97267 M[facility] TEMPLE ROUTINE 9 [facility] ECG INC INC W/LEAST 12 LDS TRCG ONLY W/O I&R BREAST 09099 [facility] TEMPLE REAL 9 [facility] TIME INC INC W/IMAGE DOCUMENTA TION MAMMOGRAP 11110 [place] JOSE ANTONIO 9 MEDICAL BEVERLY P UNILATERA IMAGING L ASSOCIATE S NEBULIZER E0570 LACIE MEDELLIN WITH 9 HOME MED HOME MED COMPRESSO EQUIP. EQUIP. R LLC LLC ADLT [facility] T4528 NURSES NURSES DISPBL 9 REGISTRY REGISTRY INCONT & HOME & HOME PROD [facility]ALH HEALH UNDWEAR XTRA LG EA OPHTHALMO 02097 SOLANGE NARVAEZ, SCPY 9 LISSY YUAN EXTENDED RETINAL DRAWING I&R 1ST ALBUTEROL J7620 YOUR YOUR TO 2.5 9 PHARMACY PHARMACY MG & LLC LLC IPRATROPI UM BROM TO 0.5 MG ADMN SET A7003 LACIE MEDELLIN VOL 9 HOME MED HOME MED NONFILTR EQUIP. EQUIP. PNEUMAT LLC LLC NEBULIZR DISPBL NEBULIZER E0570 LACIE MEDELLIN WITH 9 HOME MED HOME MED COMPRESSO EQUIP. EQUIP. R LLC LLC PHARM G0333 YOUR YOUR DISPEN 9 PHARMACY PHARMACY FEE INHAL LLC LLC RX; INITIAL 30-DAY SUPPLY ADLT [facility] T4528 NURSES NURSES DISPBL 9 REGISTRY REGISTRY INCONT & HOME & HOME PROD [facility]AL[facility]AL[facility] UNDWEAR XTRA LG EA ADLT [facility] T4528 NURSES NURSES DISPBL 9 REGISTRY REGISTRY INCONT & HOME & HOME PROD HEALH HEALH UNDWEAR XTRA LG EA SMR PRIM 69641 [facility] 9 [facility] INC GRAM/GIEM SA STAIN BCT FUNGI/BIJU L ADLT SZD T4528 NURSES NURSES DISPBL 9 REGISTRY REGISTRY INCONT & HOME [facility] UND[facility] XTRA LG EA NASL A7034 LACIE MENONRELL INTRFCE 8 HOME MED HOME MED POS ARWAY EQUIP. EQUIP. PRSS LLC LLC DEVC W/WO HEAD STRAP CUSHN A7032 LACIE LACIE NASAL 8 HOME MED HOME MED MASK EQUIP. EQUIP. INTERFACE [facility] REPLACEME NT ONLY EACH FILTER A7038 LACIE LACIE DISPBL 8 HOME MED HOME MED USED EQUIP. EQUIP. W/POS LLC [facility] ARWAY PRESSURE DEVICE TUBING A7037 LACIE MENONRELL USED WITH 8 HOME MED HOME MED POSITIVE EQUIP. EQUIP. AIRWAY [facility] PRESSURE DEVICE FILTER A7039 LACIE LACIE NON 8 HOME MED HOME MED DISPBL EQUIP. EQUIP. USED LLC LLC W/[place] [address] COMBINED COMBINED THYROID 8 PHYSICIAN PHYSICIAN STIMULATI S LAB S LAB NG HORMONE TSH COMPREHEN 56998 COMBINED COMBINED SIVE 8 PHYSICIAN PHYSICIAN METABOLIC S LAB S LAB PANEL HEMOGLOBI 44262 COMBINED COMBINED N 8 PHYSICIAN PHYSICIAN GLYCOSYLA S LAB S LAB TATIANA A1C LIPID 39280 COMBINED COMBINED PANEL 8 PHYSICIAN PHYSICIAN S LAB S LAB URNLS DIP 94924 FAMILY MULBERRY, 8 CARE JOS T STICK/TAB ASSOCIATE LET RGNT S NON-AUTO W/O MICRSCP COLLECTIO 95026 FAMILY MULBERRY, N VENOUS 8 CARE JOS T BLOOD ASSOCIATE VENIPUNCT S URE ADLT SZD T4528 NURSES NURSES DISPBL 8 REGISTRY REGISTRY INCONT & HOME [facility] XTRA LG EA CONTINUOU E0601 LACIE LACIE S 8 HOME MED HOME MED POSITIVE EQUIP. EQUIP. [employer] LLC LLC PRESSURE DEVICE FILTER A7038 LACIE LACIE DISPBL 8 HOME MED HOME MED USED EQUIP. EQUIP. W/POS LLC LLC ARWAY PRESSURE DEVICE CUSHN A7032 LACIE LACIE NASAL 8 HOME MED HOME MED MASK EQUIP. EQUIP. INTERFACE LLC LLC REPLACEME NT ONLY EACH ADLT SZD T4528 NURSES NURSES DISP 8 REGISTRY REGISTRY INCONT & HOME [facility] UND[facility] XTRA LG EA FILTER A7038 LACIE LACIE DISPBL 8 HOME MED HOME MED USED EQUIP. EQUIP. W/POS LLC LLC ARWAY PRESSURE DEVICE CUSHN A7032 LACIE LACIE NASAL 8 HOME MED HOME MED MASK EQUIP. EQUIP. INTERFACE LLC LLC REPLACEME NT ONLY EACH ADLT SZD T4528 NURSES NURSES DISP 8 REGISTRY REGISTRY INCONT & HOME [facility] UND[facility]AR XTRA LG EA COMPUTER- 72714 M[facility] TEMPLE AIDED 8 [facility] DETECTION INC INC SCREENING MAMMOGRAP HY SCREENING 43055 MAVERICK LOZANOON 8 [facility] MAMMOGRAP INC INC HY BILATERAL FILTER A7038 LACIE LACIE DISPBL 8 HOME MED HOME MED USED EQUIP. EQUIP. W/POS LLC LLC ARWAY PRESSURE DEVICE TUBING A7037 LACIE LACIE USED WITH 8 HOME MED HOME MED POSITIVE EQUIP. EQUIP. [employer] LLC LLC PRESSURE DEVICE CUSHN A7032 LACIE LACIE NASAL 8 HOME MED HOME MED MASK EQUIP. EQUIP. INTERFACE LLC LLC REPLACEME NT ONLY EACH NASL A7034 LACIE LACIE INTRFCE 8 HOME MED HOME MED POS ARWAY EQUIP. EQUIP. PRSS LLC LLC DEVC W/WO HEAD STRAP ADLT SZD T4528 NURSES NURSES DISPBL 8 REGISTRY REGISTRY INCONT & HOME [facility] UND[facility] XTRA LG EA OPHTH 51343 CAM LEVY MEDICAL 8 ROSA A ROSA A XM&EVAL [...] REGISTRY INCONT & HOME & [facility] UND[facility]AR XTRA LG EA L HRT 65134 ELADIA TODD CATHETERI 8 NIMA Loja ZATION CLINIC [place] [address] ELADIA MARYANNBRIANNACristina C-CATHJ 8 NIMA Loja F/SLCTV C CLINIC ANGRPH PSC I SI&R 17303 ELADIA TODD, F/NJX PX 8 NIMA Loja DURING CLINIC C-CATHJ PSC VENTR&/AT R ANGRPH I SI&R 92910 ELADIA TODD F/NJX PX 8 NIMA Loja [facility]ING CLIN[facility] C-CATHJ PSC PULM&/OR SELECT INJECTION 84977 ELADIA PEYTON CARDIAC 8 NIMA Loja CATHJ L CLINIC VENTR/L PSC ATR ANGIOGRAP H RADIOLOGI 47389 RADIOLOGY Angela CAO 8 RE Miller EXAMLUCIANO ASSOCIATE ON CHEST S PSC SINGLE VIEW FRONTAL FILTER A7038 LACIE MEDELLIN DISPBL 8 HOME MED HOME MED USED EQUIP. EQUIP. W/POS LLC LLC ARWAY PRESSURE DEVICE TUBING A7037 LACIE MEDELLIN USED WITH 8 HOME MED HOME MED POSITIVE EQUIP. EQUIP. AIRWAY LLC LLC PRESSURE DEVICE NASL A7034 LACIE MEDELLIN INTRFCE 8 HOME MED HOME MED POS ARWAY EQUIP. EQUIP. PRSS LLC LLC DEVC W/WO HEAD STRAP CUSHN A7032 LACIE MENONRELL NASAL 8 HOME MED HOME MED MASK EQUIP. EQUIP. INTERFACE LLC LLC REPLACEME NT ONLY EACH ADLT SZD T4528 NURSES NURSES DISPBL 8 REGISTRY REGISTRY INCONT & HOME [facility] XTRA LG EA ADLT SZD T4528 NURSES NURSES DISPBL 8 REGISTRY REGISTRY INCONT & HOME [facility] UND[facility] XTRA LG EA CONTINUOU E0601 LACIE MEDELLIN S 8 HOME MED HOME MED POSITIVE EQUIP. EQUIP. AIRWAY LLC LLC PRESSURE DEVICE ADLT SZD T4528 NURSES NURSES DISPBL 8 REGISTRY REGISTRY INCONT & HOME [facility] UND[facility] XTRA LG EA [facility] BED E0260 CLEMENTE CORNEJO SEMI-ELEC 8 INC INC W/ANY TYPE SIDE RAIL W/MATTRSS ADLT SZD T4528 NURSES NURSES DISPBL 8 REGISTRY REGISTRY INCONT & HOME & [facility] UND[facility] XTRA LG EA MRI BRAIN 97909 JOANA, JOANA, BRAIN 8 DAT DAT STEM W/O W/CONTRAS T MATERIAL MRI ORBIT 04179 JOANA, JOANA, FACE & 8 DAT DAT NECK W/O & W/CONTRAS T MATRL OPHTHALMO 84993 SOLANGE NARVAEZ, SCPY 8 LISSY YUAN EXTENDED RETINAL DRAWING I&R 1ST [facility] BED E0260 CLEMENTE CORNEJO, SEMI-ELEC 8 INC INC W/ANY TYPE SIDE RAIL W/MATTRSS ADLT D T4528 NURSES NURSES DISPBL 8 REGISTRY REGISTRY INCONT & HOME & [facility] XTRA LG EA BLD GLU A4253 CLINIC CLINIC TEST/REAG 8 PHARMACY PHARMACY T STRIPS HOME BLD GLU MON-50 LANCETS A4259 CLINIC CLINIC PER BOX 8 PHARMACY PHARMACY OF 100 [facility] BED E0260 CLEMENTE CORNEJO SEMI-ELEC 8 INC INC W/ANY TYPE SIDE RAIL W/MATTRSS DOPPLER 40308 MAVERICK TEMPLE ECHOCARD 8 MEM [facility] PULSE INC INC WAVE W/SPECTRA L DISPLAY ECHO 03906 MAVERICK ELLISON TRANSTHOR 8 [facility] R-T [address] [place] [address] BALAJI Graham W/WO PROF SERV M-MODE REC COMP DOP 79715 MAVERICK ELLISON ECHOCARD [address] [facility] BALAJI FLOW PROF SERV [facility] HOS BED E0260 CLEMENTE CORNEJO SEMI-ELEC 8 INC INC W/ANY TYPE SIDE RAIL W/MATTRSS PILLW A7033 LACIE LACIE NASL 8 HOME MED HOME MED CANNULA EQUIP. EQUIP. TYPE LLC LLC INTERFCE REPL ONLY PAIR US BREAST 42958 [facility] REAL 8 MEDICAL MEDICAL TIME IMAGING IMAGING W/IMAGE ASSOCIATE ASSOCIATE DOCUMENTA Nick COULTER NASL A7034 LACIE MENONRELL INTRFCE 8 HOME MED HOME MED POS ARWAY EQUIP. EQUIP. PRSS LLC LLC DEVC W/WO HEAD STRAP FILTER A7039 LAICE MEDELLIN NON 8 HOME MED HOME MED DISPBL EQUIP. EQUIP. USED LLC LLC W/POS ARWAY PRESS DEVICE TUBING A7037 LACIE LACIE USED WITH 8 HOME MED HOME MED POSITIVE EQUIP. EQUIP. AIRWAY LLC [facility] PRESSURE DEVICE Encounters Encounter Start End Date Code Location Performer Type Date [facility] - 1 1 [facility]EN [facility] MAVERICK - 1 1 [facility] OUTPATIEN [facility] T OFFICE 64580 Angela TOBIAS OUTPATIEN 1 1 JATINDER Newman MD [facility] MINUTES [facility] - 1 1 [facility] T OFFICE 22234 FAMILY ROSA ELENA OUTPATIEN 1 1 CARE R H T VISIT ASSOCIATE 25 S MINUTES HOME NURSES HEALTH, 0 0 REGISTRY OUTPATIEN & HOME HE T HOME NURSES HEALTH, 0 0 REGISTRY OUTPATIEN & HOME HE T HOME NURSES HEALTH, 0 0 REGISTRY OUTPATIEN & HOME HE T OFFICE 54107 FAMILY ROSA ELENA OUTPATIEN 0 0 CARE R H T VISIT ASSOCIATE 15 S MINUTES OFFICE 06399 FAMILY ROSA ELENA OUTPATIEN 0 0 CARE R H T VISIT ASSOCIATE 25 S MINUTES HOME NURSES HEALTH, 0 0 REGISTRY OUTPATIEN & HOME HE T HOME NURSES HEALTH, 0 0 REGISTRY OUTPATIEN & HOME HE T OFFICE 80078 FAMILY ROSA ELENA OUTPATIEN 0 0 CARE R H T VISIT ASSOCIATE 25 S MINUTES HOME NURSES HEALTH, 0 0 REGISTRY OUTPATIEN & HOME HE T HOME NURSES HEALTH, 0 0 REGISTRY OUTPATIEN & HOME HE T [facility] - 0 0 [facility] OUTPATIEN INC T OFFICE 08308 FAMILY ROSA ELENA, OUTPATIEN 0 0 CARE R RACHEL T VISIT ASSOCIATE 25 S MINUTES HOME NURSES HEALTH, 0 0 REGISTRY OUTPATIEN & HOME T [facility] HOME NURSES HEALTH, 0 0 REGISTRY OUTPATIEN & HOME T [facility] HOME NURSES HEALTH, 0 0 REGISTRY OUTPATIEN & HOME T [facility] EMERGENCY 34179 MAVERICK 0 0 [facility] DEPARTMEN INC T VISIT HIGH/URGE NT SEVERITY [facility]OSPITAL [facility] - 0 0 [facility] OUTPATIEN INC T OFFICE 69968 FAMILY MULBERRY, OUTPATIEN 0 0 CARE JOS T T VISIT ASSOCIATE 25 S MINUTES HOME NURSES HEALTH, 0 0 REGISTRY OUTPATIEN & HOME T [facility] OFFICE 57954 FAMILY ROSA ELENA, OUTPATIEN 0 0 CARE R RACHEL T VISIT ASSOCIATE 25 S MINUTES HOME NURSES HEALTH, 0 0 REGISTRY OUTPATIEN & HOME T [facility] OFFICE 43162 FAMILY ROSA ELENA, OUTPATIEN 9 9 CARE R RACHEL T VISIT ASSOCIATE 25 S MINUTES HOSPITAL [facility] - 9 9 [facility] OUTPATIEN INC T EMERGENCY 27953 MAVERICK 9 9 [facility] DEPARTMEN INC T VISIT HIGH/URGE NT SEVERITY EMERGENCY 59721 MICKEY CARROLL, DEPT 9 9 EMERGENCY [facility] VISIT SERVICES HIGH SEVERITY& ASSOCIATE THREAT S [facility] HOME NURSES HEALTH, 9 9 REGISTRY OUTPATIEN & HOME T [facility] MAVERICK - 9 9 MEM [facility] OUTPATIEN INC T EMERGENCY 72857 MICKEY CARROLL, DEPT 9 9 EMERGENCY [facility] S VISIT SERVICES HIGH SEVERITY& ASSOCIATE THREAT S [facility] EMERGENCY 57632 MICKEY CARROLL, DEPT 9 9 EMERGENCY [facility] S VISIT SERVICES HIGH SEVERITY& ASSOCIATE THREAT S [facility] OFFICE 15213 FAMILY ROSA ELENA, OUTPATIEN 9 9 CARE R RACHEL T VISIT ASSOCIATE 25 S MINUTES OFFICE 87624 FAMILY ROSA ELENA, OUTPATIEN 9 9 CARE R RACHEL T VISIT ASSOCIATE 15 S MINUTES HOME NURSES HEALTH, 9 9 REGISTRY OUTPATIEN & HOME T [facility] NURSES HEALTH, 9 9 REGISTRY OUTPATIEN & HOME T [facility] NURSES HEALTH, 9 9 REGISTRY OUTPATIEN & HOME T [facility] OFFICE 99597 FAMILY MANJINDER, OUTPATIEN 9 9 CARE JOS T T VISIT ASSOCIATE 15 S MINUTES HOME NURSES HEALTH, 9 9 REGISTRY OUTPATIEN & HOME T [facility] MAVERICK - 9 9 [facility] OUTPATIEN [facility] OFFICE 94552 ARJUN BERNARD OUTPATIEN 9 9 MEDICAL DAT T NEW 10 IMAGING MINUTES ASSOCIATE [facility] - 9 9 [facility]IEN [facility] M[facility] - 9 9 [facility] OUTPATIEN [facility] OFFICE 35643 JATINDER TOBIAS CONSULTAT 9 9 , RONNIE TRUJILLO ION NEW/ESTAB PATIENT 60 MIN [facility]OSPITAL [facility] - 9 9 [facility] OUTPATIEN [facility] OFFICE 99046 FAMILY ROSA ELENA, OUTPATIEN 9 9 CARE R RACHEL T VISIT ASSOCIATE 25 S MINUTES HOME NURSES HEALTH, 9 9 REGISTRY OUTPATIEN & HOME T [facility] M[facility] - 9 9 [facility] OUTPATIEN INC T EMERGENCY 76919 MICKEY CARROLL, DEPT 9 9 EMERGENCY [facility] S VISIT SERVICES HIGH SEVERITY& ASSOCIATE THREAT S [facility] MAVERICK - 9 9 MEM [facility] OUTPATIEN INC T EMERGENCY 88366 MAVERICK 9 9 [facility] DEPARTMEN INC T VISIT HIGH/URGE NT SEVERITY [facility]OSPITAL [facility] - 9 9 [facility] OUTPATIEN INC T HOME NURSES HEALTH, 9 9 REGISTRY OUTPATIEN & HOME T [facility] OFFICE 93565 SOLANGE NARVAEZ, CONSULTAT 9 9 LISSY YUAN ION NEW/ESTAB PATIENT 80 MIN OFFICE 73688 FAMILY MULBERRY, OUTPATIEN 9 9 CARE JOS T T VISIT ASSOCIATE 15 S MINUTES HOME NURSES HEALTH, 9 9 REGISTRY OUTPATIEN & HOME T [facility] OFFICE 20854 FAMILY MULBERRY, OUTPATIEN 9 9 CARE JOS T T VISIT ASSOCIATE 15 S MINUTES HOME NURSES HEALTH, 9 9 REGISTRY OUTPATIEN & HOME T [facility] OFFICE 90096 FAMILY MULBERRY, OUTPATIEN 8 8 CARE JOS T T VISIT ASSOCIATE 25 S MINUTES HOME NURSES HEALTH, 8 8 REGISTRY OUTPATIEN & HOME T [facility] OFFICE 55464 CUONG, CUONG, OUTPATIEN 8 8 LUANN LUANN T VISIT 15 MINUTES HOME NURSES HEALTH, 8 8 REGISTRY OUTPATIEN & HOME T [facility] HOME NURSES HEALTH, 8 8 REGISTRY OUTPATIEN & HOME T [facility] MAVERICK - 8 8 MEM [facility] OUTPATIEN INC HOME NURSES HEALTH, 8 8 REGISTRY OUTPATIEN & HOME T [facility] NURSES HEALTH, 8 8 REGISTRY OUTPATIEN & HOME T [facility] OFFICE 50370 FAMILY MANJINDER [facility] 8 8 CARE JOS [facility] VISIT ASSOCIATE 15 S MINUTES HOME NURSES HEALTH, 8 8 REGISTRY OUTPATIEN & HOME T [facility] NURSES HEALTH, 8 8 REGISTRY OUTPATIEN & HOME T [facility] OFFICE 39160 SOLANGE NARVAEZ, CONSULTAT 8 8 LISSY BRAMBILA [facility] PATIENT 80 MIN HOME NURSES HEALTH, 8 8 REGISTRY OUTPATIEN & HOME T [facility] MAVERICK - 8 8 MEM [facility] OUTPATIEN INC [facility] MAVERICK - 8 8 [facility]
--- OUTSIDE RECORDS SUMMARY | 2016-08-18 01:56 | External Medical Summary Rpt ---
Author Author , Organization [employer] Address Unknown Phone Unavailable Care Team Providers Care Grain Farmer Name Role Phone DONNA VELAZCO, Unavailable Unavailable DONNA VELAZCO MD Unavailable [facility], Unavailable Unavailable CLINIC [...] ASSOCIATES SHEBA CARROLL, Unavailable Unavailable SHEBA CARROLL [facility] Unavailable Unavailable INC, [facility] ROSA LEVY, Unavailable Unavailable ROSA LEVY DAVID L, Unavailable Unavailable [facility] Unavailable Unavailable [facility], [place] [facility] Unavailable Unavailable [facility], [facility], Unavailable Unavailable [facility] REKHA SARABIA, Unavailable Unavailable REKHA SARABIA [...] PHARMACY #[id number] [facility] # [facility]available Unavailable [id number], [facility] # [id number] [facility], Unavailable Unavailable [facility] [...] [facility] INC MALIGNANT NEOPLASMS COLON 88427 OBSTRUCTIVE 05-15-2010 [facility] 496 CHRONIC 05-15-2010 [facility] NEC 49065 HYPERSOMNIA 05-15-2010 YOUR WITH SLEEP [facility]ARMAC[facility] UNSPECIFIED 15267 DIAB W/O 05-11-2010 C RONNIE COMP TYPE SCHULSTAD II/UNS NOT PSC STATED UNCNTRL V7612 OTHER 05-11-2010 [place] [facility] 2689 UNSPECIFIED 05-01-2010 [facility] VITAMIN D [facility] DEFICIENCY INC 2724 OTHER AND 05-01-2010 [facility] UNSPECIFIED [facility] INC HYPERLIPIDE SONU V762 SCREENING 05-01-2010 PATHOLOGY & FOR CYTOLOGY MALIGNANT LAB NEOPLASM OF THE CERVIX 4019 UNSPECIFIED 04-27-2010 [facility] HYPERTENSIO N 73185 PAIN IN 04-27-2010 [facility] JOINT[facility] LOWER LEG 7862 COUGH 04-27-2010 [facility] V0382 NEED PROPH 04-27-2010 [facility] VACCINATION [facility] AGAINST STREP PNEUMONE 7823 EDEMA 04-19-2010 NURSES REGISTRY & HOME HE 75788 UNSPECIFIED 04-19-2010 NURSES URINARY REGISTRY [place] [address] OTHER 02-14-2010 [facility] MALAISE [facility] FATIGUE 9134 ELB 02-14-2010 [facility] FORARM&WRST [facility] INSECT BITE NONVENOMOUS W/O INF V0481 NEED 02-14-2010 [facility] PROPHYLACTI [facility]ATES C VACCINATION &INOCULATIO N FLU 65710 OSTEOARTHRO 11-29-2009 [facility] S UNSPEC ASSOCIATES WHETHER GEN/LOC UNSPEC SITE 7904 NONSPEC 11-29-2009 [facility] ELEVATION [facility] OF LEVELS OF TRANSAMINAS E/LDH 5990 URINARY 10-11-2009 [facility] TRACT [facility] INFECTION SITE NOT SPECIFIED 6961 OTHER 10-11-2009 [facility] PSORIASIS [facility] AND SIMILAR DISORDERS 72254 CHEST PAIN 10-11-2009 [facility] UNSPECIFIED [facility]IATES 77802 ESOPHAGEAL 06-24-2009 [facility] REFLUX [facility] 4619 ACUTE 06-14-2009 [facility] SINUSITIS, [facility] UNSPECIFIED 2512 HYPOGLYCEMI 03-24-2009 [facility] A, [facility] UNSPECIFIED 460 ACUTE 03-24-2009 [facility] NASOPHARYNG [facility] ITIS 2449 UNSPECIFIED 01-18-2009 [facility] HOSP HYPOTHYROID INC ISM 13566 BLEPHARITIS 01-14-2009 LEVY BRETT A UNSPECIFIED 20880 COR 01-12-2009 [facility] TYPE VESSEL PROF SERV AGDAAGUX/PINKY T 1120 CANDIDIASIS 01-06-2009 [facility] 6268 OTH D/O 01-06-2009 [facility] MENSTRUATIO [facility] N&OTH ABN BLEED FE GNT TRACT 7245 UNSPECIFIED 01-06-2009 [facility] BACKACHE [facility] 4660 ACUTE 12-23-2008 [facility] BRONCHITIS [facility] 7239 UNSPEC 10-01-2008 [facility] MUSCULOSKEL [facility] D/O&SYMPTOM S REFERABLE NECK 65401 SPASM OF 10-01-2008 [facility] MUSCLE [facility] 6101 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, CYSTIC RONNIE MASTOPATHY 85620 LUMP OR 09-06-2008 SCHULSTAD, MASS IN RONNIE BREAST 19962 OTHER 09-06-2008 [facility], ABNORMAL RONNIE FINDING RADIOLOGICA L EXAM BREAST V7281 PRE-OPERATI 09-02-2008 [facility] LAR PROF SERV EXAMINATION 77839 UNSPECIFIED 08-31-2008 SCHULSTAD, ABNORMAL RONNIE MAMMOGRAM 61034 HYPERTONICI 08-27-2008 [facility] TY OF [facility] BLADDER 7881 DYSURIA 08-27-2008 [facility] 4280 CONGESTIVE 08-13-2008 [facility] UNSPECIFIED PROF SERV 63092 SHORTNESS 08-13-2008 [facility] 67618 MIGRAINE 07-14-2008 SOL[facility], W/AURA W/O LISSY INTRACT W/O STATUS MIGRNOSUS 93003 NONEXUDATIV 07-14-2008 Sky NARVAE[facility] SENILE LISYS MACULAR DEGENERATIO N RETINA 27055 TRANSIENT 07-14-2008 SOLANGE, VISUAL LOSS LISSY 7019 UNSPECIFIED 07-02-2008 [facility] HYPERTROPHI C&ATROPHIC CONDITION SKIN 75550 OTHER 05-06-2008 [facility] DYSPNEA AND [facility] RESPIRATORY ABNORMALITI ES 2381 NEOPLASM 04-02-2008 [facility] UNCERTAIN [facility] BHV CNCTV&OTH SOFT TISSUE 47799 MIGRAINE 03-08-2008 CUONG, W/O AURA LUANN INTRACT W/O STATUS MIGRAINOSUS 7295 PAIN IN 10-22-2007 [facility] SOFT [facility] TISSUES OF LIMB 19942 OBESITY, 10-18-2007 RADIOLOGY UNSPECIFIED ASSOCIATES PSC 4109 ACUTE 10-18-2007 [facility] PSC UNSPECIFIED SITE 92927 OTHER 10-18-2007 RADIOLOGY DISEASES OF ASSOCIATES LUNG NOT PSC ELSEWHERE CLASSIFIED 76254 PAIN IN 08-08-2007 [facility] JOINT PELVIC REGION AND THIGH 47839 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 [employer], [employer] 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 7812 ABNORMALITY 08-08-2007 [facility], [facility] OF GAIT 3689 UNSPECIFIED 07-11-2007 JOANA, VISUAL DAT DISTURBANCE 44625 PERIPH 07-09-2007 SOLANGE CHORIORETIN LISSY AL SCARS [...] Procedure DOS Code Location Performer Comment ANES 99401 [facility] 1 ANESTH DAVID INTESTINE OF [place] [address] [facility] 1 [facility] THERAPY INC INC PROPHYLAX IS/DX EA HOUR COLOREC G0105 C RONNIE TOBIAS CANCR 1 JATINDER ALEJANDRE; PSC COLONSCPY [place]DIVID[place] @[place] [address] [facility] THERAPY/P INC INC ROPHYLAXI S /DX 1ST TO 1 HR PHRM Q0513 YOUR YOUR DISPENSIN 1 PHARMACY PHARMACY G FEE [employer] INHALATIO N RX; PER 30 DAYS ADMN SET A7003 YOUR YOUR SM VOL 1 PHARMACY PHARMACY NONFILTR LLC LLC PNEUMAT NEBULIZR DISPBL ALBUTEROL J7620 YOUR YOUR TO 2.5 1 PHARMACY PHARMACY MG & LLC LLC IPRATROPI UM BROM TO 0.5 MG SCREENING G0202 [place] JOANA 1 MEDICAL AMANDA MAMMOGRAP IMAGING HY LISANDRO ASS INCL CAD WHEN PERFORMD COMPUTER- 20157 [place] JOANA AIDED 1 MEDICAL AMANDA DETECTION IMAGING ASS SCREENING MAMMOGRAP HY COLLECTIO 36679 [facility] N VENOUS 1 [facility] BLOOD INC INC VENIPUNCT URE HEMOGLOBI 88293 [facility] N 1 [facility] MEM [facility]OSP GLYCOSYLA INC INC TATIANA A1C 25 02042 [facility] HYDROXY 1 [facility] INCLUDES INC INC FRACTIONS IF PERFORMED SCR G0145 PATHOLOGY PATHOLOGY CYTOPATH 1 & & CERV/VAG CYTOLOGY CYTOLOGY SCR LAB LAB AUTO&MNL RSCR PHYS LIPID 28074 [facility] PANEL 1 [facility] INC INC HEPATIC 40486 [facility] FUNCTION 1 [facility] PANEL INC INC PPSV23 52991 FAMILY ROSA ELENA VACCINE 2 1 CARE [...] HOME HE PROD UNDWEAR MED EA IIV3 41390 FAMILY FAMILY VACCINE 0 CARE CARE SPLIT ASSOCIATE ASSOCIATE VIRUS 0.5 S S ML DOSAGE IM USE ADMINISTR G0008 FAMILY ROSA ELENA ATION OF 0 CARE R H INFLUENZA ASSOCIATE VIRUS S VACCINE COMPREHEN 72133 COMBINED COMBINED SIVE 0 PHYSICIAN PHYSICIAN METABOLIC S LA S LA PANEL CYANOCOBA 29664 COMBINED COMBINED CORETTA 0 PHYSICIAN PHYSICIAN VITAMIN S LA S LA B-12 [place] [address] COMBINED COMBINED THYROID 0 PHYSICIAN PHYSICIAN STIMULATI S LA S LA NG HORMONE TSH HEMOGLOBI 85366 FAMILY ROSA ELENA N 0 CARE R H GLYCOSYLA ASSOCIATE TATIANA A1C S COLLECTIO 82136 FAMILY ROSA ELENA N VENOUS 0 CARE R H BLOOD ASSOCIATE VENIPUNCT S URE BLOOD 87773 FAMILY FAMILY COUNT 0 CARE CARE COMPLETE ASSOCIATE ASSOCIATE AUTO&AUTO S S DIFRNTL WBC THERAPEUT 29660 FAMILY ROSA ELENA IC 0 CARE R H PROPHYLAC ASSOCIATE TIC/DX S INJECTION SUBQ/IM LIPID 58289 FAMILY FAMILY PANEL 0 CARE SUPPLY CHAIN DESIGN MANAGER ASSOCIATE S S ADLT SZD T4526 NURSES [...] YOUR DISPENSIN 0 PHARMACY PHARMACY G FEE [employer] INHALATIO N RX; PER 30 DAYS ADMN SET A7003 YOUR YOUR SM VOL 0 PHARMACY PHARMACY NONFILTR [employer] PNEUMAT NEBULIZR DISPBL ALBUTEROL J7620 YOUR YOUR TO 2.5 0 PHARMACY PHARMACY MG & [employer] IPRATROPI UM BROM TO 0.5 MG HEPATIC 52028 COMBINED COMBINED FUNCTION 0 PHYSICIAN PHYSICIAN PANEL S LA S LA COLLECTIO 58106 FAMILY FAMILY N VENOUS 0 CARE CARE BLOOD ASSOCIATE ASSOCIATE VENIPUNCT S S URE THERAPEUT 35437 [facility] ROSA ELENA IC 0 CARE R H PROPHYLAC ASSOCIATE TIC/DX S INJECTION SUBQ/IM INJECTION J3420 FAMILY CUBA VIT B-12 0 CARE R H ASSOCIATE CYANOCOBA S CORETTA TO 1000 MCG ADLT [facility] T4528 NURSES NURSES DISPBL 0 REGISTRY REGISTRY INCONT & HOME HE & HOME HE PROD UNDWEAR XTRA LG EA ADLT D T4528 NURSES NURSES DISPBL 0 REGISTRY REGISTRY INCONT & HOME HE & HOME HE PROD UNDWEAR XTRA LG EA BASIC 09860 COMBINED COMBINED METABOLIC 0 PHYSICIAN PHYSICIAN PANEL S LAB S LAB CALCIUM TOTAL LIPID 46791 FAMILY ROSA ELENA, PANEL 0 CARE Honey RAMOS ASSOCIATE S URNLS DIP 76647 FAMILY ROSA ELENA, 0 GORGE RAMOS STICK/TAB ASSOCIATE LET RGNT S NON-AUTO W/O MICRSCP RADIOLOGI 66276 Angela NAM 0 MEDICAL DAT EXAMINATI IMAGING ON KNEE 3 ASSOCIATE VIEWS S COLLECTIO 55279 FAMILY ROSA ELENA, N VENOUS 0 CARE Honey RAMOS BLOOD ASSOCIATE VENIPUNCT S URE TRANSFERA 61349 FAMILY CUBA, SE 0 CARE Honey RAMOS ASPARTATE ASSOCIATE AMINO S AST SGOT TRANSFERA 72950 FAMILY CUBA, SE 0 CARE Honey RAMOS [...] & HOME & [facility] LG EA [facility] A4258 DISCOUNT DISCOUNT WERED 0 DIABETIC DIABETIC DEVICE FOR LANCET EACH [facility] E0601 LACIE MEDELLIN S 0 HOME MED HOME MED POSITIVE EQUIP. L EQUIP. L AIRWAY PRESSURE DEVICE ADLT [facility] T4528 NURSES NURSES DISPBL 0 REGISTRY REGISTRY INCONT & HOME & [facility] XTRA LG EA NASL A7034 LACIE MEDELLIN [...] REGISTRY INCONT & HOME & HOME PROD [facility] XTRA LG EA CREATINE 64342 [facility] KINASE 0 [facility] TOTAL INC INC COMPREHEN 34369 M[facility] SIVE 0 [facility] METABOLIC INC INC PANEL CREATINE 99281 [facility] KINASE MB 0 [facility] [place] [address] [facility] TEPMLE TROPONIN 0 [facility] QUANTITAT INC INC ROSETTE BLOOD 72332 [facility] COUNT 0 [facility] COMPLETE INC INC AUTO&AUTO DIFRNTL WBC RADIOLOGI 78241 [facility] Angela BRADY EXAM 0 MEDICAL BEVERLY P CHEST 2 IMAGING VIEWS ASSOCIATE FRONTAL&L S ATERAL ECG 13093 [facility] CORNELL, ROUTINE 0 [facility] W/LEAST PROF SERV 12 LDS I&R ONLY ECG 03432 [facility] ROUTINE 0 [facility] ECG INC INC W/LEAST 12 LDS TRCG ONLY W/O I&R NEBULIZER E0570 LACIE MEDELLIN WITH 0 HOME MED HOME MED COMPRESSO EQUIP. EQUIP. R [facility] T4528 NURSES NURSES DISPBL 0 REGISTRY REGISTRY INCONT & HOME & HOME PROD [facility] UNDWEAR XTRA LG EA URNLS DIP 48607 FAMILY ROSA ELENA, 0 CARE R RACHEL STICK/TAB ASSOCIATE LET RGNT S NON-AUTO W/O MICRSCP NEBULIZER E0570 LACIE MEDELLIN WITH 0 HOME MED HOME MED COMPRESSO EQUIP. EQUIP. R [facility] [facility] [facility] D T4528 NURSES NURSES DISPBL 0 REGISTRY REGISTRY INCONT & HOME & HOME PROD [facility] UNDWEAR XTRA LG EA DIAB ONLY A5500 [...] MED HOME MED USED EQUIP. EQUIP. W/POS [facility] ARWAY PRESSURE DEVICE NEBULIZER E0570 LACIE MEDELLIN WITH 9 HOME MED HOME MED COMPRESSO EQUIP. EQUIP. R LLC LLC BASIC 95650 COMBINED COMBINED METABOLIC 9 PHYSICIAN PHYSICIAN PANEL S LAB S LAB CALCIUM TOTAL LIPID 55221 FAMILY SANCHEZEET, PANEL 9 [facility] Honey RAMOS ASSOCIATE S HEMOGLOBI 23344 FAMILY CUBA, N 9 [facility] Honey RAMOS GLYCOSYLA ASSOCIATE TATIANA A1C S URNLS DIP 37712 FAMILY CUBA, 9 [facility] Honey RAMOS STICK/TAB ASSOCIATE LET RGNT S NON-AUTO W/O MICRSCP COLLECTIO 95941 FAMILY CUBA, N VENOUS 9 [facility] Honey RAMOS BLOOD ASSOCIATE VENIPUNCT S URE BLOOD 74374 FAMILY CUBA, COUNT 9 [facility] Honey RAMOS COMPLETE ASSOCIATE AUTO&AUTO S DIFRNTL WBC CONTINUOU E0601 LACIE MEDELLIN S 9 HOME MED HOME MED POSITIVE EQUIP. EQUIP. AIRWAY [facility] PRESSURE DEVICE FILTER A7039 LACIE MEDELLIN NON 9 HOME MED HOME MED DISPBL EQUIP. EQUIP. USED [facility] W/POS AR[facility] PRESS DEVICE FILTER A7038 LACIE MENONRELL DISPBL 9 HOME MED HOME MED USED EQUIP. EQUIP. W/POS [facility] ARWAY PRESSURE DEVICE NEBULIZER E0570 LACIE MEDELLIN WITH 9 HOME MED HOME MED COMPRESSO EQUIP. EQUIP. R LLC LLC CREATINE 18639 [facility] LOZANOON KINASE MB 9 [facility] FRACTION INC INC ONLY CREATINE 96500 [facility] LOZANOON KINASE 9 [facility] [place] [address] [facility] LOZANOON TROPONIN 9 [facility] [address] [facility] TROPONIN 9 [facility] QUANTITAT INC INC ROSETTE BLOOD 06602 [facility] LOZANOON COUNT 9 [facility] COMPLETE INC INC AUTO&AUTO DIFRNTL WBC RADIOLOGI 56811 Angela CHASE 9 MEDICAL BEVERLY Nesbitt EXAMINATI IMAGING ON CHEST ASSOCIATE SINGLE S VIEW FRONTAL THER 51341 [facility] PROPH/DX 9 [facility] NJX IV INC INC PUSH SINGLE/1S T SBST/DRUG ECG 57893 MICKEY BRENNANEY, ROUTINE 9 EMERGENCY SHEBA S ECG SERVICES W/LEAST 12 LDS ASSOCIATE I&R ONLY S CREATINE 87321 [facility] KINASE 9 [facility] TOTAL INC INC BASIC 29551 [facility] METABOLIC 9 [facility] PANEL INC INC CALCIUM TOTAL CREATINE 91874 [facility] KINASE MB 9 [facility] FRACTION INC INC ONLY ECG 81255 [facility] ROUTINE 9 [facility] MEM [...] [facility] UNDWEAR XTRA LG EA BASIC 90830 [facility] METABOLIC 9 [facility] PANEL INC INC CALCIUM TOTAL LIPID 81278 [facility] PANEL 9 [facility] INC INC HEMOGLOBI 70983 [facility] N 9 [facility]OS[facility] GLYCOSYLA INC INC TATIANA A1C HEPATIC 04422 [facility] FUNCTION 9 [facility] PANEL INC INC COLLECTIO 69513 [facility] N VENOUS 9 [facility] [place]LOOD [place] [address] [facility] THYROID 9 [facility] STIMULATI INC INC NG HORMONE TSH OPHTH 85769 CAM LEVY, [facility] 9 ROSA A ROSA A XM&EVAL COMPRHNSV ESTAB PT 1/> TUBING A7037 LACIE MEDELLIN USED WITH 9 HOME MED HOME MED POSITIVE EQUIP. EQUIP. AIRWAY [facility] PRESSURE DEVICE FILTER A7038 LACIE MEDELLIN DISPBL 9 HOME MED HOME MED USED EQUIP. EQUIP. W/POS [facility] ARWAY PRESSURE DEVICE CUSHN A7032 LACIE MEDELLIN NASAL 9 HOME MED HOME MED MASK EQUIP. EQUIP. INTERFACE [facility] REPLACEME NT ONLY EACH HEADGEAR A7035 LACIE MEDELLIN USED 9 HOME MED HOME MED W/POSITIV EQUIP. EQUIP. E AIRWAY [facility] PRESSURE DEVICE NASL A7034 LACIE MEDELLIN INTRFCE 9 HOME MED HOME MED POS ARWAY EQUIP. EQUIP. PRSS [facility] DEVC W/WO HEAD STRAP ECG 38069 MICKEY CARROLL, ROUTINE 9 EMERGENCY SHEBA S ECG SERVICES W/LEAST 12 LDS ASSOCIATE I&R ONLY S RADIOLOGI 60962 [place] JOANA, 9 MEDICAL DAT EXAMINATI IMAGING ON CHEST ASSOCIATE SINGLE S VIEW FRONTAL ECG 02121 MICKEY CARROLL, ROUTINE 9 EMERGENCY SHEBA S ECG SERVICES W/LEAST 12 [facility] ASSOCIATE I&R ONLY S URNLS DIP 10034 FAMILY [facility], 9 CARE R RACHEL STICK/TAB ASSOCIATE LET RGNT S NON-AUTO W/O MICRSCP NEBULIZER E0570 LACIE MEDELLIN WITH 9 HOME MED HOME MED COMPRESSO EQUIP. EQUIP. R LLC [facility] ADLT SZD T4528 NURSES NURSES DISPBL 9 [...] HOME MED COMPRESSO EQUIP. EQUIP. R LLC [facility] ADLT [facility] T4528 NURSES NURSES DISPBL 9 REGISTRY REGISTRY INCONT & HOME & [facility] XTRA EA NEBULIZER E0570 LACIE MEDELLIN WITH 9 HOME MED HOME MED COMPRESSO EQUIP. EQUIP. R [facility] T4528 NURSES NURSES DISPBL 9 REGISTRY REGISTRY INCONT & HOME & HOME PROD [facility] AD[facility] SET A7003 YOUR YOUR SM VOL 9 PHARMACY PHARMACY NONFILTR [facility] PNEUMAT NEBULIZR DISPBL PHRM Q0513 YOUR YOUR DISPENSIN 9 PHARMACY PHARMACY G FEE [facility] INHALATIO N RX; PER 30 DAYS ALBUTEROL J7620 YOUR YOUR TO 2.5 9 PHARMACY PHARMACY MG & [facility] IPRATROPI UM BROM TO 0.5 MG TUBING A7037 LACIE LACIE USED WITH 9 HOME MED HOME MED POSITIVE EQUIP. EQUIP. AIRWAY [facility] PRESSURE DEVICE FILTER A7038 LACIE MEDELLIN DISPBL 9 HOME MED HOME MED USED EQUIP. EQUIP. W/POS [facility] ARWAY PRESSURE DEVICE NASL A7034 LACIE MEDELLIN INTRFCE 9 HOME MED HOME MED POS ARWAY EQUIP. EQUIP. PRSS [facility] DEVC W/WO HEAD STRAP CUSHN A7032 LACIE MEDELLIN NASAL 9 HOME MED HOME MED MASK EQUIP. EQUIP. INTERFACE [facility] REPLACEME NT ONLY EACH NEBULIZER E0570 LACIE MEDELLIN WITH 9 HOME MED HOME MED COMPRESSO EQUIP. EQUIP. R [facility] T4528 NURSES NURSES DISPBL 9 REGISTRY REGISTRY INCONT & HOME & HOME PROD [facility] EA CONTINUOU E0601 LACIE MEDELLIN S 9 HOME MED HOME MED POSITIVE EQUIP. EQUIP. AIRWAY [facility] PRESSURE DEVICE PHRM Q0513 YOUR YOUR DISPENSIN 9 PHARMACY PHARMACY G Trivnet [facility] INHALATIO N RX; PER 30 DAYS ALBUTEROL J7613 YOUR YOUR INHAL 9 PHARMACY PHARMACY NON-CP [facility] PROD THRU DME U DOSE 1 MG ADMN SET A7003 YOUR YOUR SM VOL 9 [facility]Y [facility] PNEUMAT NEBULIZR DISPBL US BREAST 42689 ARJUN BERNARD REAL 9 MEDICAL DAT TIME IMAGING W/[place] [address] [facility] INFUSION 9 [facility] THERAPY INC INC PROPHYLAX IS/DX EA HOUR ANES 14971 [facility] PEGGY HASTINGS 9 ANESTH BALAJI Gladys EXTREMITI OF THE ES ANT BLUEGRASS TRUNK & PERINEUM NOS GLUC BLD 46088 [facility] GLUC MNTR 9 [facility] DEV INC INC CLEARED FDA SPEC HOME USE IMG GID 05739 ARJUN BERNARD PLMT MTLC 9 MEDICAL DAT LOCLZJ IMAGING CLIP PRQ ASSOCIATE BRST S BX/[place] [address] [facility] GUIDANCE 9 [facility] NEEDLE INC INC PLACEMENT IMG S&I INJECTION J2405 [facility] 9 [facility] ONDANSETR INC INC ON HCL PER 1 MG THERAPEUT 98408 [facility] IC 9 [facility] INJECTION INC INC IV PUSH EACH NEW DRUG RADIOLOGI 01562 [facility] PERFECTO 9 [facility] EXAMINATI INC INC ON SURGICAL SPECIMEN MAMMOGRAP 87922 [facility] BERNARD 9 MEDICAL [place] [address] [facility] INFUSION 9 [facility] THERAPY/P INC INC ROPHYLAXI S /DX 1ST TO 1 HR BIOPSY 07660 ARJUN BERNARD BREAST 9 MEDICAL DAT NEEDLE IMAGING CORE ASSOCIATE W/IMAGING S GUIDANCE PREOP 01423 [facility] PLACEMENT 9 [facility] INC INC LOCALIZAT ION WIRE BREAST BIOPSY 53114 [facility] BREAST 9 [facility] OPEN INC INC INCISIONA L EXC 65507 JATINDER TOBIAS BREAST 9 , RONNIE , RONNIE LES PREOP PLMT RAD MARKER OPEN 1 LES COLLECTIO 46561 [facility] N VENOUS 9 [facility] BLOOD INC INC VENIPUNCT URE BLOOD 78542 [facility] COUNT 9 [facility] COMPLETE INC INC AUTO&AUTO DIFRNTL WBC ECG 93219 [facility]ICK MCKEMIE ROUTINE 9 [facility] BALAJI W/LEAST PROF SERV 12 LDS I&R ONLY BASIC 36099 [facility] METABOLIC 9 [facility] PANEL INC INC CALCIUM TOTAL ECG 10040 [facility] ROUTINE 9 [facility] ECG INC INC W/LEAST 12 LDS TRCG ONLY W/O I&R NEBULIZER E0570 LACIE MEDELLIN WITH 9 HOME MED HOME MED COMPRESSO EQUIP. EQUIP. R [facility] LIPID 88004 [facility] PANEL 9 MEM [facility] HOS[facility] INC INC HEMOGLOBI 18015 [facility] N 9 [facility] GLYCOSYLA INC INC TATIANA A1C HEPATIC 93923 [facility] FUNCTION 9 MEM [facility] PANEL INC INC BASIC 59713 [facility] METABOLIC 9 [facility] PANEL INC INC CALCIUM TOTAL COLLECTIO 11910 [facility] N VENOUS 9 MEM [facility] HOSP BLOOD INC INC VENIPUNCT URE [...] DIABETIC HIGH CALIBRATO R SOLUTION/ CHIPS CULTURE 71044 M[facility] MAVERICK BACTERIAL 9 [facility] INC INC QUANTTATI VE COLONY COUNT URINE URNLS DIP 96340 FAMILY ROSA ELENA, 9 CARE R RACHEL STICK/TAB ASSOCIATE LET RGNT S NON-AUTO W/O MICRSCP ADLT SZD T4528 NURSES NURSES DISPBL 9 REGISTRY REGISTRY INCONT & HOME & HOME PROD HEALH HEALH UNDWEAR XTRA LG EA US BREAST 04-28-200 99360 [facility] REAL 9 [facility] TIME INC INC W/IMAGE DOCUMENTA TION BREAST 43058 [facility] BIOPSY 9 [facility] VACUUM INC [place]/ [place] [address] CORA CHASE 9 [facility] P NEEDLE IMAGING PLACEMENT ASSOCIATE IMG S&I S PREOP 99427 [facility] PLACEMENT 9 [facility] INC INC LOCALIZAT ION WIRE BREAST PROBE/NEE C2618 [facility] DLE 9 [facility] [place] [address] PATHOLOGY PATHOLOGY SURG 9 & & PATHOLOGY CYTOLOGY CYTOLOGY LAB LAB GROSS&[place] [address] [facility] THYROID 9 [facility] STIMULATI INC INC NG HORMONE TSH BLOOD 91421 [facility] COUNT 9 [facility] COMPLETE INC INC AUTO&[place] [address] [facility] TROPONIN 9 [facility] QUANTITAT INC INC ROSETTE NATRIURET 68939 [facility] IC 9 [facility] PEPTIDE INC INC ECG 75822 LIZETH BENNETT 9 [facility] W/LEAST PROF SERV 12 LDS I&R ONLY SUSCEPTIB 87191 [facility] LTY STDY 9 [facility] ANTIMICRB INC INC IAL MICRO/AGA R DILUTJ THER 47328 [facility] PROPH/DX 9 [facility] NJX IV INC INC PUSH SINGLE/1S T SBST/DRUG RADIOLOGI 16088 Angela CHASE 9 [facility] P EXAMINATI IMAGING ON CHEST ASSOCIATE SINGLE S VIEW FRONTAL CREATINE 65543 [facility] KINASE MB 9 [facility] FRACTION INC INC ONLY URNLS DIP 54337 [facility] 9 [facility] STICK/TAB INC INC LET REAGENT AUTO MICROSCOP Y INSJ TEMP 11809 [facility] NDWELLG 9 [facility] BLADDER INC INC CATHETER SIMPLE CREATINE 07227 [facility] KINASE 9 [facility] TOTAL INC INC CULTURE 37209 [facility] BACTERIAL 9 [facility] INC INC QUANTTATI VE COLONY COUNT URINE CULTURE 74547 [facility] BCT 9 [facility] ISOL&PRSM INC [place] [address] [facility] THYROXINE 9 [facility] TOTAL INC INC BASIC 84486 [facility] METABOLIC 9 [facility] PANEL INC INC CALCIUM TOTAL ECG 77376 [facility] ROUTINE 9 [facility] ECG INC INC W/LEAST 12 LDS TRCG ONLY W/O I&R BREAST 24853 [facility] REAL 9 [facility] TIME INC INC W/IMAGE DOCUMENTA TION MAMMOGRAP 00881 [place] JOSE ANTONIO 9 [facility] P UNILATERA IMAGING L ASSOCIATE S NEBULIZER E0570 LACIE MEDELLIN WITH 9 HOME MED HOME MED COMPRESSO EQUIP. EQU[employer]. [employer] ADLT [facility] T4528 NURSES NURSES DISPBL 9 REGISTRY REGISTRY INCONT & HOME & HOME PROD HEALH HEALH UNDWEAR XTRA LG EA OPHTHALMO 62316 SOLANGE NARVAEZ, SCPY 9 LISSY YUAN EXTENDED [...] LLC LLC RX; INITIAL 30-DAY SUPPLY ADLT [facility] T4528 NURSES NURSES DISPBL 9 REGISTRY REGISTRY INCONT & HOME & HOME PROD HEALH HEALH UNDWEAR XTRA LG EA ADLT [facility] T4528 NURSES NURSES DISPBL 9 REGISTRY REGISTRY INCONT & HOME & HOME PROD HEALH HEALH UNDWEAR XTRA LG EA SMR PRIM [id number] [facility] OF [facility] OF [facility] 9 [facility] GRAM/GIEM SA STAIN BCT FUNGI/BIJU L ADLT SZD T4528 NURSES NURSES DISPBL 9 REGISTRY REGISTRY INCONT & HOME & HOME PROD [facility] UNDWE XTRA LG EA NASL A7034 LACIE MENONRELL INTRFCE 8 HOME MED HOME MED POS ARWAY EQUIP. EQUIP. [employer] DEVC W/WO HEAD STRAP CUSHN A7032 LACIE LACIE NASAL 8 HOME MED HOME MED MASK EQUIP. EQUIP. INTERFACE [facility] REPLACEME NT ONLY EACH FILTER A7038 LACIE LACIE DISPBL 8 HOME MED HOME MED USED EQUIP. EQUIP. W/POS LLC [facility] ARWAY PRESSURE DEVICE TUBING A7037 LACIE MENONRELL USED WITH 8 HOME MED HOME MED POSITIVE EQUIP. EQUIP. AIRWAY [facility] PRESSURE DEVICE FILTER A7039 LACIE LACIE NON 8 HOME MED HOME MED DISPBL EQUIP. EQUIP. US[employer] LLC LLC W/[place] [address] COMBINED COMBINED THYROID 8 PHYSICIAN PHYSICIAN STIMULATI S LAB S LAB NG HORMONE TSH COMPREHEN 63642 COMBINED COMBINED SIVE 8 PHYSICIAN PHYSICIAN METABOLIC S LAB S LAB PANEL HEMOGLOBI 62346 COMBINED COMBINED N 8 PHYSICIAN PHYSICIAN GLYCOSYLA S LAB S LAB TATIANA A1C LIPID 46216 COMBINED COMBINED PANEL 8 PHYSICIAN PHYSICIAN S LAB S LAB URNLS DIP 27761 FAMILY MULBERRY, 8 CARE JOS T STICK/TAB ASSOCIATE LET RGNT S NON-AUTO W/O MICRSCP COLLECTIO 66505 FAMILY MULBERRY, N VENOUS 8 CARE JOS T BLOOD ASSOCIATE VENIPUNCT S URE ADLT SZD T4528 NURSES NURSES DISPBL 8 REGISTRY REGISTRY INCONT & HOME & HOME PROD [facility] XTRA LG EA CONTINUOU E0601 LACIE LACIE [...] REGISTRY INCONT & HOME & HOME PROD [facility] UNDAR XTRA LG EA FILTER A7038 LACIE LACIE DISPBL 8 HOME MED HOME MED USED EQUIP. EQUIP. W/POS LLC LLC [facility] PRESSURE DEVICE CUSHN A7032 LACIE LACIE NASAL 8 HOME MED HOME MED MASK EQUIP. EQUIP. INTERFACE LLC LLC REPLACEME NT ONLY EACH ADLT SZD T4528 NURSES NURSES DISP 8 REGISTRY REGISTRY INCONT & HOME & HOME PROD [facility] UNDWEAR XTRA LG EA COMPUTER- 78779 MAV[facility]ICK TEMPLE AIDED 8 [facility] DETECTION INC INC SCREENING MAMMOGRAP HY SCREENING 86781 M[facility]ICK LOZANOON 8 [facility] [...] REGISTRY INCONT & HOME & HOME PROD [facility] UNDAR XTRA LG EA OPHTH 23807 CAM LEVY MEDICAL 8 ROSA A ROSA [...] REGISTRY INCONT & HOME & HOME PROD [facility] UNDWEAR XTRA LG EA L HRT 72229 ELADIA TODD CATHETERI 8 NIMA Loja ZATION CLINIC [place] [address] ELADIA MAYRANNBRIANNACristina C-CATHJ 8 NIMA Loja F/SLCTV C CLINIC ANGRPH PSC I SI&R 44682 ELADIA TODD, F/NJX PX 8 NIMA Loja DURING CLINIC C-CATHJ PSC VENTR&/AT R ANGRPH I SI&R 13610 ELADIA TODD F/NJX PX 8 [facility]IMA [facility]IN[facility] C-CATHJ PSC PULM&/OR SELECT INJECTION 16544 ELADIA PEYTON CARDIAC 8 NIMA Loja CATHJ L CLINIC VENTR/L PSC ATR ANGIOGRAP H RADIOLOGI 19894 RADIOLOGY Angela CAO 8 RE Miller EXAMLUCIANO [...] REGISTRY INCONT & HOME & HOME PROD [facility] UNDWEAR XTRA LG EA ADLT SZD T4528 NURSES NURSES DISPBL 8 REGISTRY REGISTRY INCONT & HOME & HOME PROD [facility] UNDWEAR XTRA LG EA CONTINUOU E0601 LACIE MEDELLIN S 8 HOME MED HOME MED POSITIVE EQUIP. EQUIP. AIR[employer] LLC LLC PRESSURE DEVICE ADLT SZD T4528 NURSES NURSES DISPBL 8 REGISTRY REGISTRY INCONT & HOME & HOME PROD [facility] UNDWEAR XTRA LG EA [facility] BED E0260 CLEMENTE CORNEJO SEMI-ELEC 8 INC INC W/ANY TYPE SIDE RAIL W/MATTRSS ADLT SZD T4528 NURSES NURSES DISPBL 8 REGISTRY REGISTRY INCONT & HOME & HOME PROD [facility] UNDWEAR XTRA LG EA MRI BRAIN 62543 JOANA, JOANA, BRAIN 8 DAT DAT STEM W/O W/CONTRAS T MATERIAL MRI ORBIT 77521 JOANA, JOANA, FACE & 8 DAT DAT NECK W/O & W/CONTRAS T MATRL OPHTHALMO 72131 SOLANGE NARVAEZ, SCPY 8 LISSY YUAN EXTENDED RETINAL DRAWING I&R 1ST [facility] BED E0260 CLEMENTE CORNEJO, SEMI-ELEC 8 INC INC W/ANY TYPE SIDE RAIL W/MATTRSS ADLT D T4528 NURSES NURSES DISPBL 8 REGISTRY REGISTRY INCONT & HOME & HOME PROD [facility] UNDWEAR XTRA LG EA BLD GLU A4253 CLINIC CLINIC TEST/REAG 8 PHARMACY PHARMACY T STRIPS HOME BLD GLU MON-50 LANCETS A4259 CLINIC CLINIC PER BOX 8 PHARMACY PHARMACY OF 100 [facility] BED E0260 CLEMENTE CORNEJO SEMI-ELEC 8 INC INC W/ANY TYPE SIDE RAIL W/MATTRSS DOPPLER 45374 MAVERICK TEMPLE ECHOCARD 8 MEM [facility] HOS[facility] PULSE INC INC WAVE W/SPECTRA L DISPLAY ECHO 70626 MAVERICK ELLISON TRANSTHOR 8 [facility] R-T [address] [place] [address] BALAJI Graham W/WO PROF SERV M-MODE REC COMP DOP 72807 MAVERICK ELLISON ECHOCARD 8 [facility] BALAJI FLOW PROF SERV [facility] HOS BED E0260 CLEMENTE CORNEJO SEMI-ELEC 8 INC INC W/ANY TYPE SIDE RAIL W/MATTRSS PILLW A7033 LACIE LACIE NASL 8 HOME MED HOME MED CANNULA EQUIP. EQUIP. TYPE LLC LLC INTERFCE REPL ONLY PAIR US BREAST 12259 [facility] REAL 8 MEDICAL MEDICAL TIME IMAGING IMAGING W/IMAGE ASSOCIATE ASSOCIATE DOCUMENTA Nick COULTER NASL A7034 LACIE MENONRELL INTRFCE 8 HOME MED HOME MED POS ARWAY EQUIP. EQUIP. [employer] LLC DEVC W/WO HEAD STRAP FILTER A7039 LACIE MEDELLIN NON 8 HOME MED HOME MED DISPBL EQUIP. EQUIP. USED LLC LLC W/POS [facility] PRESS DEVICE TUBING A7037 LACIE LACIE USED WITH 8 HOME MED HOME MED POSITIVE EQUIP. EQUIP. AIRWAY LLC [facility] PRESSURE DEVICE Encounters Encounter Start End Date Code Location Performer Type Date [facility] - 1 1 [facility]IEN [facility] - 1 1 [facility] T OFFICE [id number] Angela TOBIAS OUTPATIEN 1 1 JATINDER Newman MD [facility] MINUTES [facility] - 1 1 [facility] T OFFICE 67990 FAMILY ROSA ELENA OUTPATIEN 1 1 CARE R H T VISIT ASSOCIATE 25 S MINUTES HOME NURSES HEALTH, 0 0 REGISTRY OUTPATIEN & HOME HE T HOME NURSES HEALTH, 0 0 REGISTRY OUTPATIEN & HOME HE T HOME NURSES HEALTH, 0 0 REGISTRY OUTPATIEN & HOME HE T OFFICE 76490 FAMILY ROSA ELENA OUTPATIEN 0 0 CARE R H T VISIT ASSOCIATE 15 S MINUTES OFFICE 92292 FAMILY ROSA ELENA OUTPATIEN 0 0 CARE R H T VISIT ASSOCIATE 25 S MINUTES HOME NURSES HEALTH, 0 0 REGISTRY OUTPATIEN & HOME HE T HOME NURSES HEALTH, 0 0 REGISTRY OUTPATIEN & HOME HE T OFFICE 89499 FAMILY ROSA ELENA OUTPATIEN 0 0 CARE R H T VISIT ASSOCIATE 25 S MINUTES HOME NURSES HEALTH, 0 0 REGISTRY OUTPATIEN & HOME HE T HOME NURSES HEALTH, 0 0 REGISTRY OUTPATIEN & HOME HE T [facility]IEN INC T OFFICE 89655 FAMILY ROSA ELENA, OUTPATIEN 0 0 CARE R RACHEL T VISIT ASSOCIATE 25 S MINUTES HOME NURSES HEALTH, 0 0 REGISTRY OUTPATIEN & HOME T [facility] HOME NURSES HEALTH, 0 0 REGISTRY OUTPATIEN & HOME T [facility] HOME NURSES HEALTH, 0 0 REGISTRY OUTPATIEN & HOME T [facility] EMERGENCY 99759 [facility] 0 0 [facility] DEPARTMEN INC T VISIT HIGH/URGE NT SEVERITY [facility] - 0 0 [facility] OUTPATIEN INC T OFFICE 57046 FAMILY MULBERRY, OUTPATIEN 0 0 CARE JOS T T VISIT ASSOCIATE 25 S MINUTES HOME NURSES HEALTH, 0 0 REGISTRY OUTPATIEN & HOME T [facility] OFFICE 77344 FAMILY ROSA ELENA, OUTPATIEN 0 0 CARE R RACHEL T VISIT ASSOCIATE 25 S MINUTES HOME NURSES HEALTH, 0 0 REGISTRY OUTPATIEN & HOME T [facility] OFFICE 94734 FAMILY ROSA ELENA, OUTPATIEN 9 9 CARE R RACHEL T VISIT ASSOCIATE 25 S MINUTES [facility] - 9 9 [facility] OUTPATIEN INC T EMERGENCY 82339 [facility] 9 9 [facility] DEPARTMEN INC T VISIT HIGH/URGE NT SEVERITY EMERGENCY 90430 MICKEY CARROLL, DEPT 9 9 EMERGENCY [facility] VISIT SERVICES HIGH SEVERITY& ASSOCIATE THREAT S [facility] HOME NURSES HEALTH, 9 9 REGISTRY OUTPATIEN & HOME T [facility] M[facility]ERICK - 9 9 [facility] OUTPATIEN INC T EMERGENCY 23145 MICKEY CARROLL, DEPT 9 9 EMERGENCY [facility] VISIT SERVICES HIGH SEVERITY& ASSOCIATE THREAT S [facility] EMERGENCY 88929 MICKEY CARROLL, DEPT 9 9 EMERGENCY [facility] VISIT SERVICES HIGH SEVERITY& ASSOCIATE THREAT S [facility] OFFICE 28622 FAMILY ROSA ELENA, OUTPATIEN 9 9 CARE R RACHEL T VISIT ASSOCIATE 25 S MINUTES OFFICE 61950 FAMILY ROSA ELENA, OUTPATIEN 9 9 CARE R RACHEL T VISIT ASSOCIATE 15 S MINUTES HOME NURSES HEALTH, 9 9 REGISTRY OUTPATIEN & HOME T [facility] NURSES HEALTH, 9 9 REGISTRY OUTPATIEN & HOME T [facility] NURSES HEALTH, 9 9 REGISTRY OUTPATIEN & HOME T [facility] OFFICE 17738 FAMILY MANJINDER, OUTPATIEN 9 9 CARE JOS T T VISIT ASSOCIATE 15 S MINUTES HOME NURSES HEALTH, 9 9 REGISTRY OUTPATIEN & HOME T [facility] - 9 9 [facility] OUTPATIEN [facility] OFFICE 85690 ARJUN BERNARD OUTPATIEN 9 9 MEDICAL DAT T NEW 10 IMAGING MINUTES ASSOCIATE [facility] - 9 9 [facility] OUTPATIEN [facility] - 9 9 [facility] OUTPATIEN [facility] OFFICE 65515 JATINDER TOBIAS CONSULTAT 9 9 , RONNIE TRUJILLO ION NEW/ESTAB PATIENT 60 MIN [facility] - 9 9 [facility] OUTPATIEN [facility] OFFICE 08164 FAMILY ROSA ELENA, OUTPATIEN 9 9 CARE R RACHEL T VISIT ASSOCIATE 25 S MINUTES HOME NURSES HEALTH, 9 9 REGISTRY OUTPATIEN & HOME T [facility] - 9 9 [facility] OUTPATIEN INC T EMERGENCY 85067 MICKEY CARROLL, DEPT 9 9 EMERGENCY [facility] VISIT SERVICES HIGH SEVERITY& ASSOCIATE THREAT S [facility] - 9 9 [facility] OUTPATIEN INC T EMERGENCY 60288 [facility] 9 9 [facility] DEPARTMEN INC T VISIT HIGH/URGE NT SEVERITY [facility] - 9 9 [facility] OUTPATIEN INC T HOME NURSES HEALTH, 9 9 REGISTRY OUTPATIEN & HOME T [facility] OFFICE 52089 SOLANGE NARVAEZ, CONSULTAT 9 9 LISSY YUAN ION NEW/ESTAB PATIENT 80 MIN OFFICE 59077 FAMILY MULBERRY, OUTPATIEN 9 9 CARE JOS T T VISIT ASSOCIATE 15 S MINUTES HOME NURSES HEALTH, 9 9 REGISTRY OUTPATIEN & HOME T [facility] OFFICE 55693 FAMILY MULBERRY, OUTPATIEN 9 9 CARE JOS T T VISIT ASSOCIATE 15 S MINUTES HOME NURSES HEALTH, 9 9 REGISTRY OUTPATIEN & HOME T [facility] OFFICE 53073 FAMILY MULBERRY, OUTPATIEN 8 8 CARE JOS T T VISIT ASSOCIATE 25 S MINUTES HOME NURSES HEALTH, 8 8 REGISTRY OUTPATIEN & HOME T [facility] OFFICE 12604 CUONG, CUONG, OUTPATIEN 8 8 LUANN LUANN T VISIT 15 MINUTES HOME NURSES HEALTH, 8 8 REGISTRY OUTPATIEN & HOME T [facility] HOME NURSES HEALTH, 8 8 REGISTRY OUTPATIEN & HOME T [facility] - 8 8 [facility] OUTPATIEN INC HOME NURSES HEALTH, 8 8 REGISTRY OUTPATIEN & HOME T [facility] NURSES HEALTH, 8 8 REGISTRY OUTPATIEN & HOME T [facility] OFFICE 22032 FAMILY MANJINDER [facility] 8 8 CARE JOS [facility] VISIT ASSOCIATE 15 S MINUTES HOME NURSES HEALTH, 8 8 REGISTRY OUTPATIEN & HOME T [facility] NURSES HEALTH, 8 8 REGISTRY OUTPATIEN & HOME T [facility] OFFICE 28945 SOLANGE NARVAEZ, CONSULTAT 8 8 LISSY BRAMBILA [facility] PATIENT 80 MIN HOME NURSES HEALTH, 8 8 REGISTRY OUTPATIEN & HOME T [facility] - 8 8 [facility] OUTPATIEN INC [facility] - 8 8 [facility]PATIEN [facility]
--- OUTSIDE RECORDS SUMMARY | 2016-08-18 02:03 | External Medical Summary Rpt ---
Author Author , Organization [employer] Address Unknown Phone Unavailable Care Team Providers Care Client Service Associate Name Role Phone DONNA VELAZCO, Unavailable Unavailable DONNA VELAZCO MD Un[facility], Unavailable Unavailable [facility]ARM[facility] [...] SHEBA CARROLL, Unavailable Unavailable SHEBA CARROLL [facility] Unavailable Unavailable INC, [facility] ROSA LEVY, Unavailable Unavailable ROSA LEVY DAVID L, Unavailable Unavailable [facility] Unavailable Unavailable [facility]AGING [facility], [facility] Unavailable Unavailable [facility], [facility] [employer] [facility], Unavailable Unavailable [facility] REKHA SARABIA, Unavailable Unavailable REKHA SARABIA [...] PHARMACY #[id number] [facility] # Unavailable Unavailable [id number], [facility] # [id number] [facility], Unavailable Unavailable [facility] [...] [facility] INC MALIGNANT NEOPLASMS COLON 49703 OBSTRUCTIVE 05-15-2010 [facility] 496 CHRONIC 05-15-2010 [facility] NEC 45543 HYPERSOMNIA 05-15-2010 YOUR [facility] UNSPECIFIED 15683 DIAB W/O 05-11-2010 C RONNIE COMP TYPE SCHULSTSYDNI II/UNS NOT MD PSC STATED UNCNTRL V7612 OTHER 05-11-2010 [place] [place] [facility] 2689 UNSPECIFIED 05-01-2010 [facility] VITAMIN D [facility] DEFICIENCY INC 2724 OTHER AND 05-01-2010 [facility] UNSPECIFIED [facility] INC HYPERLIPIDE SONU V762 SCREENING 05-01-2010 PATHOLOGY & FOR CYTOLOGY MALIGNANT LAB NEOPLASM OF THE CERVIX 4019 UNSPECIFIED 04-27-2010 [facility] HYPERTENSIO N 88930 PAIN IN 04-27-2010 [facility] JOINT[facility] LOWER LEG 7862 COUGH 04-27-2010 [facility] V0382 NEED PROPH 04-27-2010 [facility]ACCINATION [facility] AGAINST STREP PNEUMONE 7823 EDEMA 04-19-2010 NURSES REGISTRY & HOME HE 12819 UNSPECIFIED 04-19-2010 NURSES URINARY REGISTRY & [place]CONTINENC HOME [place] E 43534 OTHER 02-14-2010 [facility] MALAISE [facility] FATIGUE 9134 ELB 02-14-2010 [facility] FORARM&WRST [facility] INSECT BITE NONVENOMOUS W/O INF V0481 NEED 02-14-2010 [facility] PROPHYLACTI [facility] C VACCINATION &INOCULATIO N FLU 80892 OSTEOARTHRO 11-29-2009 [facility] S UNSPEC [facility] WHETHER GEN/LOC UNSPEC SITE 7904 NONSPEC 11-29-2009 [facility] ELEVATION [facility] OF LEVELS OF TRANSAMINAS E/LDH 5990 URINARY 10-11-2009 [facility] TRACT [facility] INFECTION SITE NOT SPECIFIED 6961 OTHER 10-11-2009 [facility] PSORIASIS [facility] AND SIMILAR DISORDERS 85103 CHEST PAIN 10-11-2009 [facility] UNSPECIFIED [facility] 55052 ESOPHAGEAL 06-24-2009 [facility] REFLUX [facility] 4619 ACUTE 06-14-2009 [facility] SINUSITIS[facility] UNSPECIFIED 2512 HYPOGLYCEMI 03-24-2009 [facility] A, [facility] UNSPECIFIED 460 ACUTE 03-24-2009 [facility] NASOPHARYNG [facility] ITIS 2449 UNSPECIFIED 01-18-2009 [facility] HYPOTHYROID INC ISM 89486 BLEPHARITIS 01-14-2009 LEVY BRETT A UNSPECIFIED 74652 COR 01-12-2009 [facility] TYPE VESSEL PROF SERV SAXMAN/PINKY T 1120 CANDIDIASIS 01-06-2009 [facility]TH [facility] 6268 OTH D/O 01-06-2009 [facility] MENSTRUATIO [facility] N&OTH ABN BLEED FE GNT TRACT 7245 UNSPECIFIED 01-06-2009 [facility] BACKACHE [facility] 4660 ACUTE 12-23-2008 [facility] BRONCHITIS [facility] 7239 UNSPEC 10-01-2008 [facility] MUSCULOSKEL [facility] D/O&SYMPTOM S REFERABLE NECK 83787 SPASM OF 10-01-2008 [facility] MUSCLE [facility] 6101 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, CYSTIC RONNIE MASTOPATHY 58786 LUMP OR 09-06-2008 SCHULSTAD, MASS IN RONNIE BREAST 31278 OTHER 09-06-2008 SCHUL[facility]AD, ABNORMAL RONNIE FINDING RADIOLOGICA L EXAM BREAST V7281 PRE-OPERATI 09-02-2008 [facility] L[facility] PROF SERV EXAMINATION 42291 UNSPECIFIED 08-31-2008 SCHULSTAD, ABNORMAL RONNIE MAMMOGRAM 91952 HYPERTONICI 08-27-2008 [facility] TY OF [facility] BLADDER 7881 DYSURIA 08-27-2008 [facility] 4280 CONGESTIVE 08-13-2008 [facility] UNSPECIFIED PROF SERV 19158 SHORTNESS 08-13-2008 [place] [facility] 78265 MIGRAINE 07-14-2008 [facility], W/AURA W/O LISSY INTRACT W/O STATUS MIGRNOSUS 70245 NONEXUDATIV 07-14-2008 Sky NARVAEZ SENILE LISSY MACULAR DEGENERATIO N RETINA 30413 TRANSIENT 07-14-2008 SOL[facility], VISUAL LOSS LISSY 7019 UNSPECIFIED 07-02-2008 [facility] HYPERTROPHI C&ATROPHIC CONDITION SKIN 28201 OTHER 05-06-2008 [facility] DYSPNEA [facility] RESPIRATORY ABNORMALITI ES 2381 NEOPLASM 04-02-2008 [facility] UNCERTAIN [facility] BHV CNCTV&OTH SOFT TISSUE 50252 MIGRAINE 03-08-2008 CUONG, W/O AURA LUANN INTRACT W/O STATUS MIGRAINOSUS 7295 PAIN IN 10-22-2007 [facility] SOFT [facility] TISSUES OF LIMB 97155 OBESITY, 10-18-2007 RADIOLOGY UNSPECIFIED ASSOCIATES PSC 4109 ACUTE 10-18-2007 [facility] PSC UNSPECIFIED SITE 00827 OTHER 10-18-2007 RADIOLOG[facility] DISEASES OF ASSOCIATES LUNG NOT PSC ELSEWHERE CLASSIFIED 54601 PAIN IN 08-08-2007 [facility] JOINT PELVIC REGION AND THIGH 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 7812 ABNORMALITY 08-08-2007 [facility] OF GAIT 3689 UNSPECIFIED 07-11-2007 JOANA, VISUAL DTA DISTURBANCE 06448 PERIPH 07-09-2007 [facility] CHORIORETIN LISSY AL SCARS Medications Na ND Rx Da Fi Fi Am Da Di Ph RX Ph St me C No te ll ll ou ys ag ar # ys at rm s nt no ma ic us Or Da si cy ia de te s n re d DI 00 10 01 4 90 30 CL 22 [place] Ac AZ 59 -0 -2 .0 IN 44 LL ti EP 15 5- 1- 00 IC 27 ER ve AM 62 20 20 01 10 11 PH CA 10 0 AR RO MA L MG CY J TA LL BL C ET DI 00 10 12 4 90 30 CL 22 [place] Ac AZ 59 -0 -2 .0 IN [...] 10 11 4 90 30 CL 22 [place] Ac AZ 59 -0 -1 .0 IN 44 LL ti EP 15 5- 9 00 IC 27 ER ve AM 62 20 20 01 10 10 PH CA 10 0 AR RO MA L MG CY J TA LL BL C ET DI 00 07 10 3 12 30 CL 21 [place] Ac AZ 59 -1 -1 0. IN 98 LL ti EP 15 00 IC 49 ER ve AM 62 20 20 0 01 10 10 PH CA 10 0 AR RO MA L MG CY J TA LL BL C ET DI 00 07 09 3 12 30 CL 21 [place] Ac [place] 59 -1 -1 0. IN [...] 07 08 3 12 30 CL 21 [place] Ac [place] 59 -1 -1 0. IN 98 LL ti EP 15 IC 49 ER ve AM 62 20 20 0 01 10 10 PH CA 10 0 AR RO MA L MG CY J TA LL BL C ET DI 00 07 07 3 12 30 CL 21 [place] Ac AZ 59 -1 -1 0. IN 98 LL ti EP 15 6 IC 49 ER ve AM 62 20 20 0 01 10 10 PH CA 10 0 AR RO MA L MG CY J TA LL BL C ET DI 00 03 06 2 12 30 CL 21 [place] Ac [place] 59 -3 -1 0. IN [...] 03 05 2 12 30 CL 21 [place] Ac [place] 59 -3 -1 0. IN 41 LL ti EP 15 0- 7- 00 IC 81 ER ve AM 62 20 20 0 01 10 10 PH CA 10 0 AR RO MA L MG CY J TA LL BL C ET ND 00 05 05 0 12 6 WA [...] 03 04 2 12 30 CL 21 [place] Ac AZ 59 -3 -1 0. IN 41 LL ti EP 15 0- 6- 00 IC 81 ER ve AM 62 20 20 0 01 10 10 PH CA 10 0 AR RO MA L MG CY J TA LL BL C ET DI 00 01 03 2 12 30 CL 20 [place] Ac [place] 59 -0 -1 0. IN [...] MA e MG CY TA BL ET ND 00 02 03 00 18 4 WA [...] Procedure [place] [address] [facility] THERAPY INC INC PROPHYLAX IS/[place] [address] [facility] THERAPY/P INC INC ROPHYLAXI S /DX 1ST TO 1 HR ANES 21355 [facility] 1 ANESTH DAVID INTESTINE OF THE BLUE ENDOSCOPY DISTAL DUODENUM COLOREC G0105 C RONNIE TOBIAS CANCR 1 JATINDER ALEJANDRE; PSC COLONSCPY INDIVIDUL @HIGH RISK PHRM Q0513 YOUR YOUR DISPENSIN 1 PHARMACY PHARMACY G FEE [facility] INHALATIO N RX; PER 30 DAYS ADMN SET A7003 YOUR YOUR SM VOL 1 PHARMACY PHARMACY NONFILTR [facility] PNEUMAT NEBULIZR DISPBL ALBUTEROL J7620 YOUR YOUR TO 2.5 1 PHARMACY PHARMACY MG [facility] IPRATROPI UM BROM TO 0.5 MG SCREENING G0202 [place] JOANA 1 MEDICAL AMANDA MAMMOGRAP IMAGING HY LISANDRO ASS INCL CAD WHEN PERFORMD COMPUTER- 399[address] [facility]ERN[facility] AIDED 1 MEDICAL AMANDA DETECTION IMAGING ASS SCREENING MAMMOGRAP HY HEMOGLOBI 00160 [facility] N 1 [facility] GLYCOSYLA INC INC TATIANA A1C 25 70758 [facility] HYDROXY 1 [facility] INCLUDES INC INC FRACTIONS IF PERFORMED LIPID 46083 [facility] PANEL 1 [facility] INC INC HEPATIC 88817 [facility] FUNCTION 1 [facility] PANEL INC INC COLLECTIO 01863 [facility] N VENOUS 1 [facility] BLOOD INC INC VENIPUNCT URE SCR G0145 PATHOLOGY PATHOLOGY CYTOPATH 1 & & CERV/VAG CYTOLOGY CYTOLOGY SCR LAB LAB AUTO&MNL RSCR PHYS PPSV23 57569 FAMILY ROSA ELENA VACCINE 2 1 CARE R H YRS OR ASSOCIATE OLDER FOR S SUBQ/IM USE ADMINISTR G0009 FAMILY ROS[facility] E[facility] ATION OF 1 CARE R H PNEUMOCOC ASSOCIATE PERFECTO S VACCINE ADLT SZD T4526 NURSES NURSES DISPBL 0 REGISTRY REGISTRY INCONT & HOME HE & HOME HE PROD UNDWEAR MED EA SPRING- A4258 DISCOUNT DISCOUNT WERED 0 DIABETIC DIABETIC [...] EQUIP. L EQUIP. L [facility] PRESSURE DEVICE NASL A7034 LACIE MEDELLIN INTRFCE 0 HOME MED HOME MED POS ARWAY EQUIP. L EQUIP. L PRSS DEVC W/WO HEAD STRAP HEADGEAR A7035 LACIE MEDELLIN USED 0 HOME MED HOME MED W/POSITIV EQUIP. L EQUIP. L E AIR[facility]AY PRESSURE DEVICE ADLT [facility] T4526 NURSES NURSES DISPBL 0 REGISTRY REGISTRY INCONT & HOME HE & HOME HE PROD UNDWEAR MED EA CONTINUOU E0601 LACIE MEDELLIN S 0 HOME MED HOME MED POSITIVE EQUIP. L EQUIP. L [facility]AY PRESSURE DEVICE ADLT [facility] T4526 NURSES NURSES DISPBL 0 REGISTRY REGISTRY INCONT & HOME HE & HOME HE PROD UNDWEAR MED EA IIV3 71977 FAMILY FAMILY VACCINE 0 CARE CARE SPLIT ASSOCIATE ASSOCIATE VIRUS 0.5 S S ML DOSAGE IM USE ADMINISTR G0008 FAMILY ROSA ELENA ATION OF 0 CARE R H INFLUENZA [place] [address] COMBINED COMBINED THYROID 0 PHYSICIAN PHYSICIAN STIMULATI S LA S LA NG HORMONE TSH COMPREHEN 57333 COMBINED COMBINED SIVE 0 PHYSICIAN PHYSICIAN METABOLIC S LA S LA PANEL CYANOCOBA 83673 COMBINED COMBINED CORETTA 0 PHYSICIAN PHYSICIAN VITAMIN S LA S LA B-12 LIPID 26008 FAMILY FAMILY PANEL 0 CARE LINUX DEVELOPER ASSOCIATE S S COLLECTIO 20068 FAMILY ROSA ELENA N VENOUS 0 CARE R H BLOOD ASSOCIATE VENIPUNCT S URE BLOOD 42348 FAMILY FAMILY COUNT 0 CARE CARE COMPLETE ASSOCIATE ASSOCIATE AUTO&AUTO S S DIFRNTL WBC HEMOGLOBI 33901 FAMILY ROSA ELENA N 0 CARE R H GLYCOSYLA ASSOCIATE TATIANA A1C S THERAPEUT 64015 FAMILY ROSA ELENA IC 0 CARE R H PROPHYLAC ASSOCIATE TIC/DX S INJECTION SUBQ/IM ADLT [facility] T4526 NURSES NURSES DISPBL 0 REGISTRY REGISTRY INCONT & HOME HE & HOME HE PROD UNDWEAR MED EA BLD GLU A4253 DISCOUNT DISCOUNT TEST/REAG 0 DIABETIC DIABETIC T STRIPS HOME BLD GLU MON-50 NORMAL A4256 DISCOUNT DISCOUNT LOW AND 0 DIABETIC DIABETIC HIGH CALIBRATO R SOLUTION/ CHIPS LANCETS A4259 DISCOUNT DISCOUNT PER BOX 0 DIABETIC DIABETIC OF 100 ADLT D T4526 NURSES NURSES DISPBL 0 REGISTRY REGISTRY INCONT & HOME HE & HOME HE PROD UNDWEAR MED EA ADMN SET A7003 YOUR YOUR SM VOL 0 PHARMACY PHARMACY NONFILTR [facility] PNEUMAT NEBULIZR DISPBL PHRM Q0513 YOUR YOUR DISPENSIN 0 PHARMACY PHARMACY G [facility] INHALATIO N RX; PER 30 DAYS ALBUTEROL J7620 YOUR YOUR TO 2.5 0 PHARMACY PHARMACY [facility] IPRATROPI UM BROM TO 0.5 MG HEPATIC 30219 COMBINED COMBINED FUNCTION 0 PHYSICIAN PHYSICIAN PANEL S LA S LA COLLECTIO 49289 FAMILY FAMILY N VENOUS 0 CARE CARE BLOOD ASSOCIATE ASSOCIATE VENIPUNCT S S URE INJECTION J3420 [facility] ROSA ELENA VIT B-12 0 CARE R H ASSOCIATE CYANOCOBA S CORETTA TO 1000 MCG THERAPEUT 44072 [facility] ROSA ELENA IC 0 CARE R H PROPHYLAC ASSOCIATE TIC/DX S INJECTION SUBQ/IM ADLT [facility] T4528 NURSES NURSES DISPBL 0 REGISTRY REGISTRY INCONT & HOME HE & HOME HE PROD UNDWEAR XTRA LG EA ADLT [facility] T4528 NURSES NURSES DISPBL 0 REGISTRY REGISTRY INCONT & HOME HE & HOME HE PROD UNDWEAR XTRA LG EA BASIC 56383 COMBINED COMBINED METABOLIC 0 PHYSICIAN PHYSICIAN PANEL S LAB S LAB CALCIUM TOTAL URNLS DIP 15088 [facility] Honey RAMOS STICK/TAB ASSOCIATE LET RGNT S NON-AUTO W/O MICRSCP COLLECTIO 37675 FAMILY ROSA ELENA, N VENOUS 0 CARE Honey RAMOS BLOOD ASSOCIATE VENIPUNCT S URE LIPID 04367 [facility] ROSA ELENA, PANEL 0 CARE Honey RAMOS ASSOCIATE S TRANSFERA 50545 [facility] ROSA ELENA, SE 0 CARE Honey RAMOS ASPARTATE ASSOCIATE AMINO S AST SGOT TRANSFERA 86526 [facility] ROSA ELENA, SE 0 CARE Honey RAMOS ALANINE ASSOCIATE AMINO ALT S SGPT RADIOLOGI 19885 [place] JOANA, C 0 MEDICAL DAT EXAMINATI IMAGING ON KNEE 3 ASSOCIATE VIEWS S COMSTOCK-PO A4258 DISCOUNT DISCOUNT WERED 0 DIABETIC DIABETIC DEVICE FOR LANCET EACH ADLT [facility] T4528 NURSES NURSES DISPBL 0 REGISTRY REGISTRY INCONT & HOME & HOME PROD [facility] XTRA LG EA BLD GLU A4253 DISCOUNT DISCOUNT TEST/REAG 0 DIABETIC DIABETIC T STRIPS HOME BLD GLU MON-50 NORMAL A4256 DISCOUNT DISCOUNT LOW AND 0 DIABETIC DIABETIC HIGH CALIBRATO R SOLUTION/ CHIPS LANCETS A4259 DISCOUNT DISCOUNT PER BOX 0 DIABETIC DIABETIC OF 100 REPL ARANZA A4233 DISCOUNT DISCOUNT ALKALINE 0 DIABETIC DIABETIC NOT J CELL SACHA BG MON OWND PT CONTINUOU E0601 LACIE MEDELLIN S 0 HOME MED HOME MED POSITIVE EQUIP. L EQUIP. L AIRWAY PRESSURE DEVICE ADLT [facility] T4528 NURSES NURSES DISPBL 0 REGISTRY REGISTRY INCONT & HOME & [facility] LG EA NASL A7034 LAICE MEDELLIN INTRFCE 0 HOME MED HOME MED POS ARWAY EQUIP. L EQUIP. L PRSS DEVC W/WO HEAD STRAP HEADGEAR A7035 LACIE MEDELLIN USED 0 HOME MED HOME MED W/POSITIV EQUIP. L EQUIP. L E AIRWAY PRESSURE DEVICE FILTER A7038 LACIE MEDELLIN DISPBL 0 HOME MED HOME MED USED EQUIP. L EQUIP. L W/POS ARWAY PRESSURE DEVICE ADLT [facility] T4528 NURSES NURSES DISPBL 0 REGISTRY REGISTRY INCONT & HOME & HOME PROD [facility] XTRA LG EA ECG 62525 [facility] ROUTINE 0 [facility] ECG INC INC W/LEAST 12 LDS TRCG ONLY W/O I&R BLOOD 24640 [facility] COUNT 0 [facility] COMPLETE INC INC AUTO&AUTO DIFRNTL WBC RADIOLOGI 57662 Angela CHASE EXAM 0 MEDICAL BEVERLY P CHEST 2 IMAGING VIEWS ASSOCIATE FRONTAL&L S ATERAL ECG 93806 [facility] SARABIA, ROUTINE 0 [facility] W/LEAST PROF SERV 12 LDS I&[place] [address] [facility] TROPONIN 0 [facility] QUANTITAT INC INC ROSETTE CREATINE 21582 [facility] KINASE MB 0 [facility] FRACTION INC INC ONLY COMPREHEN 88903 [facility] SIVE 0 [facility] METABOLIC INC INC PANEL CREATINE 26374 [facility] KINASE 0 [facility] TOTAL INC INC NEBULIZER E0570 LACIE MEDELLIN WITH 0 HOME MED HOME MED COMPRESSO EQUIP. EQUIP. R LLC [facility] ADLT D T4528 NURSES NURSES DISPBL 0 REGISTRY REGISTRY INCONT & HOME & HOME PROD [facility] UNDWEAR XTRA KIT URNLS DIP 00861 FAMILY ROSA ELENA, 0 CARE R RACHEL STICK/TAB ASSOCIATE LET RGNT S NON-AUTO W/O MICRSCP NEBULIZER E0570 LACIE MEDELLIN WITH 0 HOME MED HOME MED COMPRESSO EQUIP. EQUIP. R [facility] ADLT D T4528 NURSES NURSES DISPBL 0 REGISTRY REGISTRY INCONT & HOME & HOME PROD [facility] UNDWEAR XTRA KIT [facility] A4258 DISCOUNT DISCOUNT WERED 0 DIABETIC DIABETIC DEVICE FOR LANCET EACH DIAB ONLY A5500 CLINIC CLINIC FIT CSTM 0 PHARMACY PHARMACY PREP&SPL SHOE MX DNSITY INSRT REPL ARANZA A4233 DISCOUNT DISCOUNT ALKALINE 0 DIABETIC DIABETIC NOT J CELL SACHA BG MON OWND PT FOR DIAB A5513 CLINIC CLINIC ONLY MX 0 PHARMACY PHARMACY DNSITY INSRT CSTM MOLD CSTM EA LANCETS A4259 DISCOUNT DISCOUNT PER BOX 0 DIABETIC DIABETIC OF 100 NORMAL A4256 DISCOUNT DISCOUNT LOW AND 0 DIABETIC DIABETIC HIGH CALIBRATO R SOLUTION/ CHIPS BLD GLU A4253 DISCOUNT DISCOUNT TEST/REAG 0 DIABETIC DIABETIC T STRIPS HOME BLD GLU MON-50 FILTER A7038 LACIE MEDELLIN DISPBL 0 HOME MED HOME MED USED EQUIP. EQUIP. W/POS LLC LLC ARWAY PRESSURE DEVICE NEBULIZER E0570 LACIE MEDELLIN WITH 9 HOME MED HOME MED COMPRESSO EQUIP. EQUIP. R LLC LLC BASIC 53669 COMBINED COMBINED METABOLIC 9 PHYSICIAN PHYSICIAN PANEL S LAB S LAB CALCIUM TOTAL URNLS DIP 28290 FAMILY SEPULVEDAT, 9 GORGE RAMOS STICK/TAB ASSOCIATE LET RGNT S NON-AUTO W/O MICRSCP COLLECTIO 22254 FAMILY CUBA, N VENOUS 9 GORGE RAMOS BLOOD ASSOCIATE VENIPUNCT S URE LIPID 82370 FAMILY SEPULVEDAT, PANEL 9 GORGE RAMOS ASSOCIATE S HEMOGLOBI 12451 FAMILY SANCHEZEET, N 9 GORGE RAMOS GLYCOSYLA ASSOCIATE TATIANA A1C S BLOOD 93983 FAMILY CUBA, COUNT 9 GORGE RAMOS COMPLETE ASSOCIATE AUTO&AUTO S DIFRNTL WBC CONTINUOU E0601 LACIE MEDELLIN S 9 HOME MED HOME MED POSITIVE EQUIP. EQUIP. AIRWAY [facility] PRESSURE DEVICE FILTER A7039 LACIE MEDELLIN NON 9 HOME MED HOME MED DISPBL EQUIP. EQUIP. USED LLC LLC W/POS [facility] PRESS DEVICE FILTER A7038 LACIE MENONRELL DISPBL 9 HOME MED HOME MED USED EQUIP. EQUIP. W/POS LLC LLC ARWAY PRESSURE DEVICE NEBULIZER E0570 LACIE MEDELLIN WITH 9 HOME MED HOME MED COMPRESSO EQUIP. EQUIP. [place] [address] [facility] LOZANOON TROPONIN 9 [facility] QUANTITAT INC INC ROSETTE CREATINE 67693 [facility] TEM[facility] KINASE MB 9 [facility] FRACTION INC INC ONLY CREATINE 05411 [facility]ICK KINASE 9 [facility] TOTAL INC INC CREATINE 83415 MAV[facility]ICK M[facility]ICK KINASE 9 [facility] TOTAL INC INC CREATINE 96275 M[facility] LOZANOON KINASE MB 9 [facility] FRACTION INC INC ONLY BASIC 22936 [facility] METABOLIC 9 [facility] [place] [address] [facility] TROPONIN 9 [facility] QUANTITAT INC INC ROSETTE BLOOD 24334 [facility] COUNT 9 [facility] COMPLETE INC INC AUTO&AUTO DIFRNTL WBC RADIOLOGI 45249 Angela CHASE 9 MEDICAL BEVERLY Nesbitt EXAMINATI IMAGING ON CHEST ASSOCIATE SINGLE S VIEW FRONTAL ECG 70231 MICKEY CARLY, ROUTINE 9 EMERGENCY SHEBA S ECG SERVICES W/LEAST 12 LDS ASSOCIATE I&R ONLY S THER 52571 [facility] LOZANOON PROPH/DX 9 [facility] NJX IV INC INC PUSH SINGLE/1S T SBST/DRUG ECG 51762 [facility]ICK ROUTINE 9 [facility] ECG INC INC W/LEAST 12 LDS TRCG ONLY W/O I&R NEBULIZER E0570 LACIE MEDELLIN WITH 9 HOME MED HOME MED COMPRESSO EQUIP. EQUIP. R LLC LLC PHRM Q0513 YOUR YOUR DISPENSIN 9 PHARMACY PHARMACY G FEE [facility] INHALATIO N RX; PER 30 DAYS ALBUTEROL J7620 YOUR YOUR TO 2.5 9 PHARMACY PHARMACY [facility] IPRATROPI UM BROM TO 0.5 MG ADLT SZD T4528 NURSES NURSES DISPBL 9 REGISTRY REGISTRY INCONT & HOME & HOME PROD [facility] [place] [address] [facility] THYROID 9 [facility] STIMULATI INC INC NG HORMONE TSH BASIC 06857 [facility] METABOLIC 9 [facility] PANEL INC INC CALCIUM TOTAL HEMOGLOBI 95030 [facility] N 9 [facility] GLYCOSYLA INC INC TATIANA A1C HEPATIC 93746 [facility] TEM[facility] FUNCTION 9 [facility] PANEL INC INC LIPID 25940 [facility] PANEL 9 [facility] INC INC COLLECTIO 88096 [facility]ICK TMEPLE N VENOUS 9 [facility] BLOOD INC INC VENIPUNCT URE OPHTH 87469 CAM LEVY, [facility] 9 ROSA A ROSA A XM&EVAL COMPRHNSV ESTAB PT 1/> CUSHN A7032 LACIE MEDELLIN NASAL 9 HOME MED HOME MED MASK EQUIP. EQUIP. INTERFACE [facility] LLC REPLACEME NT ONLY EACH FILTER A7038 LACIE MEDELLIN DISPBL 9 HOME MED HOME MED USED EQUIP. EQUIP. W/POS [facility] ARWAY PRESSURE DEVICE HEADGEAR A7035 LACIE MEDELLIN USED 9 HOME MED HOME MED W/POSITIV EQUIP. EQUIP. E AIRWAY [facility] PRESSURE DEVICE NASL A7034 LACIE MEDELLIN INTRFCE 9 HOME MED HOME MED POS ARWAY EQUIP. EQUIP. PRSS [facility] DEVC W/WO HEAD STRAP TUBING A7037 LACIE MEDELLIN USED WITH 9 HOME MED HOME MED POSITIVE EQUIP. EQUIP. AIRWAY [facility] PRESSURE DEVICE RADIOLOGI 27043 Angela NAM 9 MEDICAL DAT EXAMINATI IMAGING ON CHEST ASSOCIATE SINGLE S VIEW FRONTAL ECG 65973 MICKEY CARROLL, ROUTINE 9 EMERGENCY SHEBA S ECG SERVICES W/LEAST 12 LDS ASSOCIATE I&R ONLY S ECG 86995 MICKEY CARROLL, ROUTINE 9 EMERGENCY SHEBA S ECG SERVICES W/LEAST 12 LDS ASSOCIATE I&R ONLY S URNLS DIP 04751 FAMILY ROSA ELENA, 9 CARE R RACHEL STICK/TAB ASSOCIATE LET RGNT S NON-AUTO W/O MICRSCP NEBULIZER E0570 LACIE MEDELLIN WITH 9 HOME MED HOME MED COMPRESSO EQUIP. EQUIP. R [facility] ADLT SZD T4528 NURSES NURSES DISPBL 9 REGISTRY REGISTRY INCONT & HOME & [facility] X[facility] LG EA BLD GLU A4253 DISCOUNT DISCOUNT TEST/REAG 9 DIABETIC DIABETIC T STRIPS HOME BLD GLU MON-50 NORMAL A4256 DISCOUNT DISCOUNT LOW AND 9 DIABETIC DIABETIC HIGH CALIBRATO R SOLUTION/ CHIPS LANCETS A4259 DISCOUNT DISCOUNT PER BOX 9 DIABETIC DIABETIC OF 100 NEBULIZER E0570 LACIE MEDELLIN WITH 9 HOME MED HOME MED COMPRESSO EQUIP. EQUIP. R LLC [facility] AD[facility] SZD T4528 NURSES NURSES DISPBL 9 REGISTRY REGISTRY INCONT & HOME & HOME [facility] XTRA LG EA NEBULIZER E0570 LACIE MEDELLIN WITH 9 HOME MED HOME MED COMPRESSO EQUIP. EQUIP. R [facility] ADLT SZD T4528 NURSES NURSES DISPBL 9 REGISTRY REGISTRY INCONT & HOME & [facility] X[facility] LG EA PHRM Q0513 YOUR YOUR DISPENSIN 9 PHARMACY PHARMACY G FEE [facility] INHALATIO N RX; PER 30 DAYS ADMN SET A7003 YOUR YOUR SM VOL 9 PHARMACY [facility] NEBULIZR DISPBL ALBUTEROL J7620 YOUR YOUR TO 2.5 9 PHARMACY PHARMACY MG & [facility] IPRATROPI UM BROM TO 0.5 MG NASL A7034 LACIE MEDELLIN INTRFCE 9 HOME MED HOME MED POS ARWAY EQUIP. EQUIP. PRSS [facility] DEVC W/WO HEAD STRAP FILTER A7038 LACIE LACIE DISPBL 9 HOME MED HOME MED USED EQUIP. EQUIP. W/POS [facility] ARWAY PRESSURE DEVICE CUSHN A7032 LACIE LACIE NASAL 9 HOME MED HOME MED MASK EQUIP. EQUIP. INTERFACE [facility] REPLACEME NT ONLY EACH TUBING A7037 LACIE MEDELLIN USED WITH 9 HOME MED HOME MED POSITIVE EQUIP. EQUIP. AIRWAY [facility] PRESSURE DEVICE NEBULIZER E0570 LACIE LACIE WITH 9 HOME MED HOME MED COMPRESSO EQUIP. EQUIP. R [facility] ADLT SZD T4528 NURSES NURSES AURABL 9 REGISTRY REGISTRY INCONT & HOME & HOME [facility] LG EA CONTINUOU E0601 LACIE LACIE S 9 HOME MED HOME MED POSITIVE EQUIP. EQUIP. AIRWAY [facility] PRESSURE DEVICE ADMN SET A7003 YOUR YOUR SM VOL 9 PHARMACY PHARMACY [employer] [facility] PNEUMAT NEBULIZR DISPBL PHRM Q0513 YOUR YOUR DISPENSIN 9 PHARMACY PHARMACY G FEE [facility] INHALATIO N RX; PER 30 DAYS ALBUTEROL J7613 YOUR YOUR INHAL 9 PHARMACY PHARMACY NON-CP [facility] PROD THRU DME U DOSE 1 MG [address] [facility] GUIDANCE 9 [facility] NEEDLE INC INC PLACEMENT IMG S&I ANES 77971 [facility]ST[facility], INTEG 9 ANESTH BALAJI Graham EXTREMITI OF THE ES ANT BLUEGRASS TRUNK & PERINEUM NOS IMG GID 35068 ARJUN BERNARD PLVA MTLC 9 MEDICAL DAT LOCLZJ IMAGING CLIP PRQ ASSOCIATE BRST S BX/ASPIR GLUC BLD 99656 [facility] GLUC MNTR 9 [facility] DEV INC INC CLEARED FDA SPEC HOME USE BIOPSY 57752 ARJUN BERNARD BREAST 9 MEDICAL DAT NEEDLE IMAGING CORE ASSOCIATE W/IMAGING S GUIDANCE PREOP 67661 [facility] PLACEMENT 9 [facility] INC INC LOCALIZAT ION WIRE BREAST INJECTION J2405 [facility] 9 [facility] ONDANSETR INC INC ON HCL PER 1 MG THERAPEUT 94968 [facility] IC 9 [facility] INJECTION INC INC IV PUSH EACH NEW DRUG RADIOLOGI 58088 [facility] PERFECTO 9 [facility] EXAMINATI INC INC ON SURGICAL SPECIMEN MAMMOGRAP 24110 [facility] BERNARD 9 MEDICAL [place] [address] [facility] INFUSION 9 [facility] THERAPY/P INC INC ROPHYLAXI S /DX 1ST TO 1 [place] [address] [facility] INFUSION 9 [facility] THERAPY INC INC PROPHYLAX IS/DX EA HOUR BIOPSY 90288 [facility] BREAST 9 [facility] OPEN INC INC INCISIONA L EXC 36183 JATINDER TOBIAS BREAST 9 , RONNIE , RONNIE LES PREOP PLVA RAD MARKER OPEN 1 LES US BREAST 96321 ARJUN BERNARD REAL 9 MEDICAL DAT TIME IMAGING W/IMAGE ASSOCIATE DOCUMENTA S TION BASIC 25299 [facility] METABOLIC 9 [facility] PANEL INC INC CALCIUM TOTAL COLLECTIO 60748 [facility] N VENOUS 9 [facility] BLOOD INC INC VENIPUNCT URE ECG 62332 [facility] ELLISON ROUTINE 9 [facility] BALAJI Graham W/LEAST PROF SERV 12 LDS I&R ONLY ECG 67398 [facility] ROUTINE 9 [facility] ECG INC INC W/LEAST 12 LDS TRCG ONLY W/O I&R BLOOD 15087 [facility] COUNT 9 [facility] COMPLETE INC INC AUTO&AUTO DIFRNTL WBC NEBULIZER E0570 LACIE MEDELLIN WITH 9 HOME MED HOME MED COMPRESSO EQUIP. EQUIP. R LLC LLC COLLECTIO 84384 [facility] N VENOUS 9 [facility] BLOOD INC INC VENIPUNCT URE HEMOGLOBI 00666 [facility] N 9 [facility] GLYCOSYLA INC INC [place] A1C LIPID 69842 [facility] PANEL 9 [facility] INC INC HEPATIC 60863 [facility] FUNCTION 9 [facility] PANEL INC INC BASIC 10740 [facility] METABOLIC 9 [facility] PANEL INC INC CALCIUM TOTAL BLD GLU A4253 DISCOUNT DISCOUNT TEST/REAG 9 [...] 9 DIABETIC DIABETIC DEVICE FOR LANCET EACH CULTURE 75259 [facility] BACTERIAL 9 [facility] INC INC QUANTTATI VE COLONY COUNT URINE URNLS DIP 05626 FAMILY ROSA ELENA, 9 CARE R RACHEL STICK/TAB ASSOCIATE LET RGNT S NON-AUTO W/O MICRSCP ADLT SZD T4528 NURSES NURSES DISPBL 9 REGISTRY REGISTRY INCONT & HOME & HOME PROD HEALH [place] [address] PATHOLOGY PATHOLOGY SURG 9 & & PATHOLOGY CYTOLOGY CYTOLOGY LAB LAB GROSS&MEGHA ROSCOPIC EXAM PROBE/NEE C2618 [facility] DLE 9 [facility] [place] [address] CORA CHASE 9 MEDICAL BEVERLY P NEEDLE IMAGING PLACEMENT ASSOCIATE IMG S&I S US BREAST 34608 [facility] REAL 9 [facility] TIME INC INC W/IMAGE DOCUMENTA TION PREOP 05786 [facility] PLACEMENT 9 [facility] INC INC LOCALIZAT ION WIRE BREAST BREAST 58241 [facility] BIOPSY 9 [facility] VACUUM INC INC ASSISTED/ ROTATING DEVICE CREATINE 38539 [facility] KINASE 9 [facility] TOTAL INC INC URNLS DIP 01741 [facility] 9 [facility] STICK/TAB INC INC LET REAGENT AUTO MICROSCOP Y BASIC 58869 [facility] METABOLIC 9 [facility] PANEL INC INC CALCIUM TOTAL CREATINE 81854 [facility] KINASE MB 9 [facility] FRACTION INC INC ONLY RADIOLOGI 73072 Angela CHASE 9 BARBARA Nesbitt EXAMINATI IMAGING ON CHEST ASSOCIATE SINGLE S VIEW FRONTAL ECG 29043 [facility] VELAZCO, ROUTINE 9 [facility] W/LEAST PROF SERV 12 LDS I&[place] [address] AMVER[facility] TEM[facility] THYROXINE 9 [facility] TOTAL INC INC INSJ TEMP 39444 [facility] NDWELLG 9 [facility] [place] [address] [facility] TROPONIN 9 [facility] QUANTITAT INC INC ROSETTE NATRIURET 41476 [facility] IC 9 [facility] PEPTIDE INC INC SUSCEPTIB 32775 [facility] LTY STDY 9 [facility] ANTIMICRB INC INC IAL MICRO/AGA R DILUTJ BLOOD 65509 [facility] COUNT 9 [facility] COMPLETE INC INC AUTO&AUTO DIFRNTL WBC CULTURE 91497 [facility] BACTERIAL 9 [facility] INC INC QUANTTATI VE COLONY COUNT URINE CULTURE 16538 [facility] BCT 9 [facility] ISOL&PRSM INC INC PTV ID ISOLATE EA URINE THER 93637 [facility] PROPH/DX 9 [facility] NJX IV INC INC PUSH SINGLE/1S T SBST/DRUG ECG 75008 [facility] ROUTINE 9 [facility] ECG INC INC W/LEAST 12 LDS TRCG ONLY W/O I&[place] [address] [facility] ETMPLE THYROID 9 [facility] STIMULATI INC INC NG HORMONE TSH US BREAST 69158 [facility] REAL 9 [facility] TIME INC INC W/IMAGE DOCUMENTA TION MAMMOGRAP 58883 [facility] JOSE ANTONIO, 9 MEDICAL BEVERLY P UNILATERA IMAGING L ASSOCIATE S NEBULIZER E0570 LACIE MEDELLIN WITH 9 HOME MED HOME MED COMPRESSO EQUIP. EQUIP. R LLC LLC ADLT SZD T4528 NURSES NURSES DISPBL 9 REGISTRY REGISTRY INCONT & HOME & HOME PROD HEALH HEAL UNDWEAR XTRA KIT EA OPHTHALMO 37758 SOLANGE NARVAEZ, SCPY 9 LISSY YUAN EXTENDED RETINAL DRAWING I&R 1ST ALBUTEROL J7620 YOUR YOUR TO 2.5 9 PHARMACY PHARMACY MG & LLC LLC IPRATROPI UM BROM TO 0.5 MG NEBULIZER E0570 LACIE MEDELLIN WITH 9 HOME MED HOME MED COMPRESSO EQUIP. EQUIP. R LLC LLC ADMN SET A7003 LACIE MEDELLIN SM VOL 9 HOME MED HOME MED NONFILTR EQUIP. EQUIP. PNEUMAT LLC LLC NEBULIZR DISPBL PHARM G0333 YOUR YOUR DISPEN 9 PHARMACY PHARMACY FEE INHAL LLC LLC RX; INITIAL 30-DAY SUPPLY ADLT SZD T4528 NURSES NURSES DISPBL 9 REGISTRY REGISTRY INCONT & HOME & HOME PROD HEALH HEALH UNDWEAR XTRA LG EA ADLT SZD T4528 NURSES NURSES DISPBL 9 REGISTRY REGISTRY INCONT & HOME & HOME PROD HEALH HEALH UNDWEAR XTRA LG EA SMR PRIM 37205 [facility] 9 [facility] GRAM/GIEM SA STAIN BCT FUNGI/BIJU L ADLT SZD T4528 NURSES NURSES DISPBL 9 REGISTRY REGISTRY INCONT & HOME & HOME PROD [facility] UNDWEAR XTRA LG EA NASL A7034 LACIE LACIE INTRFCE 8 HOME MED HOME MED POS ARWAY EQUIP. EQUIP. PRSS LLC LLC DEVC W/WO HEAD STRAP TUBING A7037 LACIE LACIE USED WITH 8 HOME MED HOME MED POSITIVE EQUIP. EQUIP. AIRWAY [facility] PRESSURE DEVICE FILTER A7039 LACIE LACIE NON 8 HOME MED HOME MED DISPBL EQUIP. EQUIP. USED LLC LLC W/POS AR[facility] PRESS DEVICE FILTER A7038 LACIE LACIE DISPBL 8 HOME MED HOME MED USED EQUIP. EQUIP. W/POS LLC LLC ARWAY PRESSURE DEVICE CUSHN A7032 LACIE LACIE NASAL 8 HOME MED HOME MED MASK EQUIP. EQUIP. INTERFACE [facility] REPLACEME NT ONLY EACH COMPREHEN 55449 COMBINED COMBINED SIVE 8 PHYSICIAN PHYSICIAN METABOLIC S LAB S LAB PANEL HEMOGLOBI 82152 COMBINED COMBINED N 8 PHYSICIAN PHYSICIAN GLYCOSYLA S LAB S LAB TATIANA A1C LIPID 14605 COMBINED COMBINED PANEL 8 PHYSICIAN [place] [address] COMBINED COMBINED THYROID 8 PHYSICIAN PHYSICIAN STIMULATI S LAB S LAB NG HORMONE TSH COLLECTIO 08383 FAMILY MULBERRY, N VENOUS 8 CARE JOS T BLOOD ASSOCIATE VENIPUNCT S URE URNLS DIP 80396 FAMILY MULBERRY, 8 CARE JOS T STICK/TAB ASSOCIATE LET RGNT S NON-AUTO W/O MICRSCP ADLT SZD T4528 NURSES NURSES DISPBL 8 REGISTRY REGISTRY INCONT & HOME & HOME PROD [facility] XTRA LG EA CONTINUOU E0601 LACIE LACIE S 8 HOME MED HOME MED POSITIVE EQUIP. EQUIP. AIRWAY [facility] PRESSURE DEVICE FILTER A7038 LACIE LACIE DISPBL 8 HOME MED HOME MED USED EQUIP. EQUIP. W/POS [facility] ARWAY PRESSURE DEVICE CUSHN A7032 LACIE LACIE NASAL 8 HOME MED HOME MED MASK EQUIP. EQUIP. INTERFACE [facility] REPLACEME NT ONLY EACH ADLT SZD T4528 NURSES NURSES DISPBL 8 REGISTRY REGISTRY INCONT & HOME & HOME PROD [facility] UNDWEAR XTRA LG EA FILTER A7038 LACIE LACIE DISPBL 8 HOME MED HOME MED USED EQUIP. EQUIP. W/POS LLC LLC ARWAY PRESSURE DEVICE CUSHN A7032 LACIE LACIE NASAL 8 HOME MED HOME MED MASK EQUIP. EQUIP. INTERFACE LLC LLC REPLACEME NT ONLY EACH ADLT SZD T4528 NURSES NURSES DISPBL 8 REGISTRY REGISTRY INCONT & HOME & HOME PROD [facility] UNDWEAR XTRA LG EA COMPUTER- 81931 [facility] AIDED 8 [facility] DETECTION INC INC SCREENING MAMMOGRAP HY SCREENING 57945 [facility] LOZANOON 8 [facility] [...] REGISTRY INCONT & HOME & HOME PROD [facility] UNDWEAR XTRA EA OPHTH 66204 CAM, CAM, MEDICAL 8 ROSA A ROSA [...] REGISTRY INCONT & HOME & HOME PROD [facility] UNDWEAR XTRA EA RADIOLOGI 14629 RADIOLOGY KILEY, C 8 RE Angela BEYER ASSOCIATE ON CHEST S PSC SINGLE VIEW FRONTAL INJECTION 38331 ELADIA MARYANNCARON CARDIAC 8 NIMA Loja CATHJ L CLINIC VENTR/L PSC ATR ANGIOGRAP H L HRT 55026 ELADIA PEYTON CATHETERI 8 NIMA Loja ZATION CLINIC [place] [address] ELADIA MARYANNCARON C-CATHJ 8 NIMA Loja F/SLCTV C CLINIC ANGRPH PSC I SI&R 94458 ELADIA TODD, F/NJX PX 8 NIMA Loja DURING CLINIC C-CATHJ PSC VENTR&/AT R ANGRPH I SI&R 69071 ELADIA TODD, F/NJX PX 8 NIMA Loja D[facility]ING CLINIC C-CATHJ PSC PULM&/OR SELECT FILTER A7038 LACIE MEDELLIN DISPBL 8 HOME MED HOME MED USED EQUIP. EQUIP. W/POS LLC [facility] ARWAY PRESSURE DEVICE CUSHN A7032 LACIE MEDELLIN NASAL 8 HOME MED HOME MED MASK EQUIP. EQUIP. INTERFACE [facility] REPLACEME NT ONLY EACH NASL A7034 LACIE MEDELLIN INTRFCE 8 HOME MED HOME MED POS ARWAY EQUIP. EQUIP. PRSS LLC LLC DEVC W/WO HEAD STRAP TUBING A7037 LACIE MEDELLIN USED WITH 8 HOME MED HOME MED POSITIVE EQUIP. EQUIP. AIRWAY LLC [facility] PRESSURE DEVICE ADLT D T4528 NURSES NURSES DISPBL 8 REGISTRY REGISTRY INCONT & HOME & HOME PROD [facility] UNDWEAR XTRA LG EA ADLT SZD T4528 NURSES NURSES DISPBL 8 REGISTRY REGISTRY INCONT & HOME & HOME PROD [facility] UNDWEAR XTRA LG EA CONTINUOU E0601 LACIE MEDELLIN S 8 HOME MED HOME MED POSITIVE EQUIP. EQUIP. AIRWAY [facility] PRESSURE DEVICE ADLT SZD T4528 NURSES NURSES DISPBL 8 REGISTRY REGISTRY INCONT & HOME & HOME PROD [facility] UNDWEAR XTRA LG EA HOS BED E0260 CLEMENTE CORNEJO, SEMI-ELEC 8 INC INC W/ANY TYPE SIDE RAIL W/MATTRSS ADLT SZD T4528 NURSES NURSES DISPBL 8 REGISTRY REGISTRY INCONT & HOME & HOME PROD HEALH HEAL UNDWEAR XTRA LG EA MRI ORBIT 81321 JOANA, JOANA, FACE & 8 DAT DAT NECK W/O & W/CONTRAS T MATRL MRI BRAIN 64976 JOANA, JOANA, BRAIN 8 DAT DAT STEM W/O W/CONTRAS T MATERIAL OPHTHALMO 29514 SOLANGE NARVAEZ, SCPY 8 LISSY YUAN EXTENDED RETINAL DRAWING I&R 1ST HOS BED E0260 CLEEMNTE CORNEJO SEMI-ELEC 8 INC INC W/ANY TYPE SIDE RAIL W/MATTRSS ADLT SZD T4528 NURSES NURSES DISPBL 8 REGISTRY REGISTRY INCONT & HOME & HOME PROD HEAL HEAL UNDWEAR XTRA LG EA BLD GLU A4253 CLINIC CLINIC TEST/REAG 8 PHARMACY PHARMACY T STRIPS HOME BLD GLU MON-50 LANCETS A4259 CLINIC CLINIC PER BOX 8 PHARMACY PHARMACY OF 100 HOS BED E0260 CLEMENTE CORNEJO SEMI-ELEC 8 INC INC W/ANY TYPE SIDE RAIL W/MATTRSS DOPPLER 73202 [facility] ECHOCARD 8 [facility] PULSE INC INC WAVE W/SPECTRA L DISPLAY ECHO 29117 [facility] ELLISON TRANSTHOR 8 [facility] R-T [address] [place] [address] Gladys W/WO PROF SERV M-MODE REC COMP DOP 56752 [facility] ELLISON ECHOCARD 8 [facility] FLOW PROF SERV VELOCITY MAPPING HOS BED E0260 CLEMENTE CORNEJO SEMI-ELEC 8 INC INC W/ANY TYPE SIDE RAIL W/MATTRSS TUBING A7037 LACIE MEDELLIN USED WITH 8 HOME MED HOME MED POSITIVE EQUIP. EQUIP. AIRWAY [facility] PRESSURE DEVICE NASL A7034 LACIE MEDELLIN INTRFCE 8 HOME MED HOME MED POS ARWAY EQUIP. EQUIP. PRSS [facility] LLC DEVC W/WO HEAD STRAP FILTER A7039 LACIE LACIE NON 8 HOME MED HOME MED DISPBL EQUIP. EQUIP. USED LLC LLC W/POS ARWAY PRESS DEVICE US BREAST 77380 [facility] REAL 8 MEDICAL MEDICAL TIME IMAGING IMAGING W/IMAGE ASSOCIATE ASSOCIATE DOCUMENTA Nick COULTER PILLW A7033 LACIE LACIE NASL 8 HOME MED HOME MED CANNULA EQUIP. EQUIP. TYPE LLC LLC INTERFCE REPL ONLY PAIR Encounters Encounter Start End Date Code Location Performer Type Date [facility] OFF[facility] 85565 C RONNIE TOBIAS OUTPATIEN 1 1 JATINDER Newman MD [facility] MINUTES [facility] - 1 1 [facility]PATIEN INC T OFFICE 58780 FAMILY ROSA ELENA OUTPATIEN 1 1 CARE R H T VISIT ASSOCIATE 25 S MINUTES HOME NURSES HEALTH, 0 0 REGISTRY OUTPATIEN & HOME HE T HOME NURSES HEALTH, 0 0 REGISTRY OUTPATIEN & HOME HE T HOME NURSES HEALTH, 0 0 REGISTRY OUTPATIEN & HOME HE T OFFICE 13373 FAMILY ROSA ELENA OUTPATIEN 0 0 CARE R H T VISIT ASSOCIATE 15 S MINUTES OFFICE 13282 FAMILY ROSA ELENA OUTPATIEN 0 0 CARE R H T VISIT ASSOCIATE 25 S MINUTES HOME NURSES HEALTH, 0 0 REGISTRY OUTPATIEN & HOME HE T HOME NURSES HEALTH, 0 0 REGISTRY OUTPATIEN & HOME HE T OFFICE 48548 FAMILY ROSA ELENA OUTPATIEN 0 0 CARE R H T VISIT ASSOCIATE 25 S MINUTES HOME NURSES HEALTH, 0 0 REGISTRY OUTPATIEN & HOME HE T HOME NURSES HEALTH, 0 0 REGISTRY OUTPATIEN & HOME HE T OFFICE 59148 FAMILY ROSA ELENA, OUTPATIEN 0 0 CARE R RACHEL T VISIT ASSOCIATE 25 S MINUTES [facility] 0 0 [facility]EN INC T HOME NURSES HEALTH, 0 0 REGISTRY OUTPATIEN & HOME T [facility] HOME NURSES HEALTH, 0 0 REGISTRY OUTPATIEN & HOME T [facility] HOME NURSES HEALTH, 0 0 REGISTRY OUTPATIEN & HOME T [facility] EMERGENCY 09643 [facility] 0 0 [facility] DEPARTMEN INC T VISIT HIGH/URGE NT SEVERITY [facility] - 0 0 [facility] OUTPATIEN INC T OFFICE 37519 FAMILY MANJINDER, OUTPATIEN 0 0 CARE JOS T T VISIT ASSOCIATE 25 S MINUTES HOME NURSES HEALTH, 0 0 REGISTRY OUTPATIEN & HOME T [facility] OFFICE 62291 FAMILY ROSA ELENA, OUTPATIEN 0 0 CARE R RACHEL T VISIT ASSOCIATE 25 S MINUTES HOME NURSES HEALTH, 0 0 REGISTRY OUTPATIEN & HOME T [facility] OFFICE 54961 FAMILY ROSA ELENA, OUTPATIEN 9 9 CARE R RACHEL T VISIT ASSOCIATE 25 S MINUTES EMERGENCY 69595 [facility] 9 9 [facility] DEPARTMEN INC T VISIT HIGH/URGE NT SEVERITY EMERGENCY 30211 MICKEY CARROLL, DEPT 9 9 EMERGENCY SHEBA S VISIT SERVICES HIGH SEVERITY& ASSOCIATE THREAT S [facility] - 9 9 [facility] OUTPATIEN INC T HOME NURSES HEALTH, 9 9 REGISTRY OUTPATIEN & HOME T [facility] - 9 9 [facility] OUTPATIEN INC T EMERGENCY 86278 MICKEY CARROLL, DEPT 9 9 EMERGENCY SHEBA S VISIT SERVICES HIGH SEVERITY& ASSOCIATE THREAT S [facility] 93251 MICKEY CARROLL, DEPT 9 9 EMERGENCY SHEBA S VISIT SERVICES HIGH SEVERITY& ASSOCIATE THREAT S FUN OFFICE 96828 FAMILY ROSA ELENA, OUTPATIEN 9 9 CARE R RACHEL T VISIT ASSOCIATE 25 S MINUTES OFFICE 25212 FAMILY ROSA ELENA, OUTPATIEN 9 9 CARE R RACHEL T VISIT ASSOCIATE 15 S MINUTES HOME NURSES HEALTH, 9 9 REGISTRY OUTPATIEN & HOME T [facility] NURSES HEALTH, 9 9 REGISTRY OUTPATIEN & HOME T [facility] NURSES HEALTH, 9 9 REGISTRY OUTPATIEN & HOME T [facility] OFFICE 99135 FAMILY MANJINDER, OUTPATIEN 9 9 CARE JOS T T VISIT ASSOCIATE 15 S MINUTES HOME NURSES HEALTH, 9 9 REGISTRY OUTPATIEN & HOME T [facility] - 9 9 [facility]PATIEN INC [facility]ICE 34238 [facility] BERN[facility] OUTPATIEN 9 9 MEDICAL DAT T NEW 10 IMAGING MINUTES [facility] - 9 9 [facility] OUTPATIEN INC [facility] 9 9 [facility] OUTPATIEN INC OFFICE 55684 JATINDER TOBIAS CONSULTAT 9 9 , RONNIERONNIE Loja ION NEW/ESTAB PATIENT 60 MIN OFFICE 76840 FAMILY ROSA ELENA, OUTPATIEN 9 9 CARE R RACHEL T VISIT ASSOCIATE 25 S MINUTES [facility] - 9 9 [facility] OUTPATIEN INC T HOME NURSES HEALTH, 9 9 REGISTRY OUTPATIEN & HOME T [facility] - 9 9 [facility] OUTPATIEN INC T EMERGENCY 01731 MICKEY CARROLL, DEPT 9 9 EMERGENCY SHEBA S VISIT SERVICES HIGH SEVERITY& ASSOCIATE THREAT S [facility] - 9 9 [facility] OUTPATIEN INC T EMERGENCY 80942 [facility] 9 9 [facility] DEPARTMEN INC T VISIT HIGH/URGE NT SEVERITY [facility] - 9 9 [facility] OUTPATIEN INC T HOME NURSES HEALTH, 9 9 REGISTRY OUTPATIEN & HOME T [facility] OFFICE 19208 SOLANGE NARVAEZ, CONSULTAT 9 9 LISSY YUAN ION NEW/ESTAB PATIENT 80 MIN OFFICE 49081 FAMILY MULBERRY, OUTPATIEN 9 9 CARE JOS T T VISIT ASSOCIATE 15 S MINUTES HOME NURSES HEALTH, 9 9 REGISTRY OUTPATIEN & HOME T [facility] OFFICE 02080 FAMILY MULBERRY, OUTPATIEN 9 9 CARE JOS T T VISIT ASSOCIATE 15 S MINUTES HOME NURSES HEALTH, 9 9 REGISTRY OUTPATIEN & HOME T [facility] OFFICE 68311 FAMILY MULBERRY, OUTPATIEN 8 8 CARE JOS T T VISIT ASSOCIATE 25 S MINUTES HOME NURSES HEALTH, 8 8 REGISTRY OUTPATIEN & HOME T [facility] OFFICE 56549 CUONG, CUONG, OUTPATIEN 8 8 LUANN LUANN T VISIT 15 MINUTES HOME NURSES HEALTH, 8 8 REGISTRY OUTPATIEN & HOME T [facility] HOME NURSES HEALTH, 8 8 REGISTRY OUTPATIEN & HOME T [facility] - 8 8 [facility] OUTPATIEN INC T HOME NURSES HEALTH, 8 8 REGISTRY OUTPATIEN & HOME T [facility] HOME NURSES HEALTH, 8 8 REGISTRY OUTPATIEN & HOME T [facility] OFFICE 71154 [facility] CARE JOS T VISIT ASSOCIATE 15 S MINUTES HOME NURSES HEALTH, 8 8 REGISTRY OUTPATIEN & HOME T [facility] NURSES HEALTH, 8 8 REGISTRY OUTPATIEN & HOME T [facility] OFFICE 31650 SOLANGE NARVAEZ, CONSULTAT 8 8 LISSY BRAMBILA [facility] PATIENT 80 MIN HOME NURSES HEALTH, 8 8 REGISTRY OUTPATIEN & HOME T [facility] - 8 8 [facility] OUTPATIEN [facility] - 8 8 [facility]
--- OUTSIDE RECORDS SUMMARY | 2016-08-18 02:03 | External Medical Summary Rpt ---
Author Author , Organization [employer] Address Unknown Phone Unavailable Care Team Providers Care Exchange Administrator Name Role Phone DONNA VELAZCO, Unavailable Unavailable DONNA VELAZCO MD Un[facility], Unavailable Unavailable [facility] [...] SHEBA CARROLL, Unavailable Unavailable SHEBA CARROLL [facility] Unavailable Unavailable INC, [facility] ROSA LEVY, Unavailable Unavailable ROSA LEVY DAVID L, Unavailable Unavailable KHUSHI TODD [facility] Unavailable Unavailable [facility], [facility] Unavailable Unavailable [facility], [facility], Unavailable Unavailable [facility] REKHA SARABIA, Unavailable Unavailable REKHA SARABIA [...] RE CAO JATINDER LI, Unavailable Unavailable SCHULRONNIE LOEMLI, Unavailable Unavailable RONNIE TOBIAS [facility] Unavailable Unavailable [facility] Unavailable Unavailable [facility], [facility] NICANOR GIMENEZ Unavailable Unavailable DAVID [facility], [facility], Unavailable Unavailable INC [facility] Unavailable Unavailable #[id number], [facility] # Unavailable Unavailable [id number], [facility] # [id number] [facility], Unavailable Unavailable [facility] [...] [facility] MALIGNANT NEOPLASMS COLON 91503 OBSTRUCTIVE 05-15-2010 [facility] 496 CHRONIC 05-15-2010 [facility] NEC 73811 HYPERSOMNIA 05-15-2010 YOUR WITH SLEEP PHARMACY [facility] UNSPECIFIED 48700 DIAB W/O 05-11-2010 C RONNIE COMP TYPE SCHULSTSYDNI II/UNS NOT MD PSC STATED UNCNTRL V7612 OTHER 05-11-2010 [facility] 2689 UNSPECIFIED 05-01-2010 [facility] VITAMIN D [facility] DEFICIENCY [facility] 2724 OTHER AND 05-01-2010 [facility] UNSPECIFIED [facility] HYPERLIPIDE SONU V762 SCREENING 05-01-2010 PATHOLOGY & FOR CYTOLOGY MALIGNANT LAB NEOPLASM OF THE CERVIX 4019 UNSPECIFIED 04-27-2010 [facility] HYPERTENSIO N 91229 PAIN IN 04-27-2010 [facility] JOINT[facility] LOWER LEG 7862 COUGH 04-27-2010 [facility] V0382 NEED PROPH 04-27-2010 [facility] VACCINATION [facility] AGAINST STREP PNEUMONE 7823 EDEMA 04-19-2010 NURSES REGISTRY & HOME HE 51246 UNSPECIFIED 04-19-2010 NURSES URINARY REGISTRY & [place] E [address] OTHER 02-14-2010 [facility] MALAISE [facility] FATIGUE 9134 ELB 02-14-2010 [facility] FORARM&WRST [facility] INSECT BITE NONVENOMOUS W/O INF V0481 NEED 02-14-2010 [facility] PROPHYLACTI [facility] C VACCINATION &INOCULATIO N FLU 22695 OSTEOARTHRO 11-29-2009 [facility] S UNSPEC [facility] WHETHER GEN/LOC UNSPEC SITE 7904 NONSPEC 11-29-2009 [facility] ELEVATION [facility] OF LEVELS OF TRANSAMINAS E/LDH 5990 URINARY 10-11-2009 [facility] TRACT [facility] INFECTION SITE NOT SPECIFIED 6961 OTHER 10-11-2009 [facility] PSORIASIS [facility] AND SIMILAR DISORDERS 09037 CHEST PAIN 10-11-2009 [facility] UNSPECIFIED [facility] 04756 ESOPHAGEAL 06-24-2009 [facility] REFLUX [facility] 4619 ACUTE 06-14-2009 [facility] SINUSITIS[facility] UNSPECIFIED 2512 HYPOGLYCEMI 03-24-2009 [facility] A, [facility] UNSPECIFIED 460 ACUTE 03-24-2009 [facility] NASOPHARYNG [facility] ITIS 2449 UNSPECIFIED 01-18-2009 [facility] HOSP HYPOTHYROID INC ISM 39977 BLEPHARITIS 01-14-2009 LEVY BRETT A UNSPECIFIED 71568 COR 01-12-2009 [facility] TYPE VESSEL PROF SERV [place]/PINKY T 1120 CANDIDIASIS 01-06-2009 [facility]TH [facility] 6268 OTH D/O 01-06-2009 [facility] MENSTRUATIO [facility] N&OTH ABN BLEED FE GNT TRACT 7245 UNSPECIFIED 01-06-2009 [facility] BACKACHE [facility] 4660 ACUTE 12-23-2008 [facility] BRONCHITIS [facility] 7239 UNSPEC 10-01-2008 [facility] MUSCULOSKEL [facility] D/O&SYMPTOM S REFERABLE NECK 50987 SPASM OF 10-01-2008 [facility]CLE [facility] 6101 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, CYSTIC RONNIE MASTOPATHY 33061 LUMP OR 09-06-2008 SCHULSTAD, MASS IN RONNIE BREAST 85091 OTHER 09-06-2008 SCHULSTAD, ABNORMAL RONNIE FINDING RADIOLOGICA L EXAM BREAST V7281 PRE-OPERATI 09-02-2008 [facility] PROF SERV EXAMINATION 98615 UNSPECIFIED 08-31-2008 SCHULSTAD, ABNORMAL RONNIE MAMMOGRAM 18661 HYPERTONICI 08-27-2008 [facility] TY OF [facility] BLADDER 7881 DYSURIA 08-27-2008 [facility] 4280 CONGESTIVE 08-13-2008 [facility] UNSPECIFIED PROF SERV 64921 SHORTNESS 08-13-2008 [facility] 67823 MIGRAINE 07-14-2008 SOL[facility], W/AURA W/O LISSY INTRACT W/O STATUS MIGRNOSUS 16568 NONEXUDATIV 07-14-2008 Sky NARVAEZ SENILE LISSY MACULAR DEGENERATIO N RETINA 48797 TRANSIENT 07-14-2008 SOLANGE, VISUAL LOSS LISSY 7019 UNSPECIFIED 07-02-2008 [facility] HYPERTROPHI C&ATROPHIC CONDITION SKIN 52928 OTHER 05-06-2008 [facility] DYSPNEA [facility] RESPIRATORY ABNORMALITI ES 2381 NEOPLASM 04-02-2008 [facility] UNCERTAIN [facility] BHV CNCTV&OTH SOFT TISSUE 35243 MIGRAINE 03-08-2008 CUONG, W/O AURA LUANN INTRACT W/O STATUS MIGRAINOSUS 7295 PAIN IN 10-22-2007 [facility] SOFT [facility] TISSUES OF LIMB 33547 OBESITY, 10-18-2007 RADIOLOG[facility] UNSPECIFIED ASSOCIATES PSC 4109 ACUTE 10-18-2007 [facility] PSC UNSPECIFIED SITE 55646 OTHER 10-18-2007 RADIOLOG[facility] DISEASES OF ASSOCIATES LUNG NOT PSC ELSEWHERE CLASSIFIED 03601 PAIN IN 08-08-2007 [facility] JOINT PELVIC REGION AND THIGH 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 7812 ABNORMALITY 08-08-2007 [facility] OF GAIT 3689 UNSPECIFIED 07-11-2007 JOANA, VISUAL DAT DISTURBANCE 49430 PERIPH 07-09-2007 [facility] CHORIORETIN LISSY AL SCARS Medications Na ND Rx Da Fi Fi Am Da Di Ph RX Ph St me C No te ll ll ou ys ag ar # ys at rm s nt no ma ic us Or Da si cy ia de te s n re d DI 00 10 01 4 90 30 CL 22 PR Ac AZ 59 -0 -2 .0 IN 44 LL ti EP 15 5- 1- 00 IC 27 ER ve AM 62 20 20 01 10 11 PH CA 10 0 AR RO MA L MG CY J TA LL BL C ET DI 00 10 12 4 90 30 CL 22 PR Ac AZ 59 -0 -2 .0 IN [...] 10 11 4 90 30 CL 22 PR Ac AZ 59 -0 -1 .0 IN 44 LL ti EP 15 5- 9 00 IC 27 ER ve AM 62 20 20 01 10 10 PH CA 10 0 AR RO MA L MG CY J TA LL BL C ET DI 00 07 10 3 12 30 CL 21 PR Ac AZ 59 -1 -1 0. IN 98 LL ti EP 15 00 IC 49 ER ve AM 62 20 20 0 01 10 10 PH CA 10 0 AR RO MA L MG CY J TA LL BL C ET DI 00 07 09 3 12 30 CL 21 PR Ac AZ 59 -1 -1 0. IN [...] 07 08 3 12 30 CL 21 PR Ac AZ 59 -1 -1 0. IN 98 LL ti EP 15 IC 49 ER ve AM 62 20 20 0 01 10 10 PH CA 10 0 AR RO MA L MG CY J TA LL BL C ET DI 00 07 07 3 12 30 CL 21 PR Ac AZ 59 -1 -1 0. IN 98 LL ti EP 15 6 IC 49 ER ve AM 62 20 20 0 01 10 10 PH CA 10 0 AR RO MA L MG CY J TA LL BL C ET DI 00 03 06 2 12 30 CL 21 PR Ac AZ 59 -3 -1 0. IN [...] 03 05 2 12 30 CL 21 PR Ac AZ 59 -3 -1 0. IN 41 LL ti EP 15 0- 7- 00 IC 81 ER ve AM 62 20 20 0 01 10 10 PH CA 10 0 AR RO MA L MG CY J TA LL BL C ET MA 00 05 05 0 12 6 WA [...] 03 04 2 12 30 CL 21 PR Ac AZ 59 -3 -1 0. IN 41 LL ti EP 15 0- 6- 00 IC 81 ER ve AM 62 20 20 0 01 10 10 PH CA 10 0 AR RO MA L MG CY J TA LL BL C ET DI 00 01 03 2 12 30 CL 20 PR Ac AZ 59 -0 -1 0. IN [...] MA e MG CY TA BL ET MA 00 02 03 00 18 4 WA [...] Procedure [place] [address] [facility] THERAPY INC INC PROPHYLAX IS/[place] [address] [facility] THERAPY/P INC INC ROPHYLAXI S /DX 1ST TO [address] [facility] 1 ANESTH DAVID INTESTINE OF THE BLUE ENDOSCOPY DISTAL DUODENUM COLOREC G0105 C RONNIE TOBIAS CANCR 1 JATINDER ALEJANDRE; PSC COLONSCPY INDIVIDUL @HIGH RISK PHRM Q0513 YOUR YOUR DISPENSIN 1 PHARMACY PHARMACY G FEE [employer] INHALATIO N RX; PER 30 DAYS ADMN SET A7003 YOUR YOUR SM VOL 1 PHARMACY PHARMACY NONFILTR [employer] PNEUMAT NEBULIZR DISPBL ALBUTEROL J7620 YOUR YOUR TO 2.5 1 PHARMACY PHARMACY [facility] [employer] IPRATROPI UM BROM TO 0.5 MG SCREENING G0202 [place] JOANA 1 MEDICAL AMANDA MAMMOGRAP IMAGING HY LISANDRO ASS INCL CAD WHEN PERFORMD COMPUTER- 41449 [facility] BERNARD AIDED 1 MEDICAL AMANDA DETECTION IMAGING ASS SCREENING MAMMOGRAP HY HEMOGLOBI 18771 [facility] N 1 [facility] GLYCOSYLA INC INC TATIANA A1C 25 25372 [facility] HYDROXY 1 [facility] INCLUDES INC INC FRACTIONS IF PERFORMED LIPID 88473 [facility] PANEL 1 [facility] INC INC HEPATIC 77225 [facility] FUNCTION 1 [facility] PANEL INC INC COLLECTIO 05101 [facility] N VENOUS 1 [facility] BLOOD INC INC VENIPUNCT URE SCR G0145 PATHOLOGY PATHOLOGY CYTOPATH 1 & & CERV/VAG CYTOLOGY CYTOLOGY SCR LAB LAB AUTO&MNL RSCR PHYS PPSV23 95112 FAMILY ROSA ELENA VACCINE 2 1 CARE [...] EQUIP. L E AIRWAY PRESSURE DEVICE ADLT [facility] T4526 NURSES NURSES DISPBL 0 REGISTRY REGISTRY INCONT & HOME HE & HOME HE PROD UNDWEAR MED EA CONTINUOU E0601 LACIE MEDELLIN S 0 HOME MED HOME MED POSITIVE EQUIP. L EQUIP. L AIRWAY PRESSURE DEVICE ADLT [facility] T4526 NURSES NURSES DISPBL 0 REGISTRY REGISTRY INCONT & HOME HE & HOME HE PROD UNDWEAR MED EA IIV3 54414 FAMILY FAMILY VACCINE 0 CARE CARE SPLIT ASSOCIATE ASSOCIATE VIRUS 0.5 S S ML DOSAGE IM USE ADMINISTR G0008 FAMILY ROSA ELENA ATION OF 0 CARE R H INFLUENZA [place] V[place] [address] COMBINED COMBINED THYROID 0 PHYSICIAN PHYSICIAN STIMULATI S LA S LA NG HORMONE TSH COMPREHEN 15229 COMBINED COMBINED SIVE 0 PHYSICIAN PHYSICIAN METABOLIC S LA S LA PANEL CYANOCOBA 09353 COMBINED COMBINED CORETTA 0 PHYSICIAN PHYSICIAN VITAMIN S LA S LA B-12 LIPID 61929 FAMILY FAMILY PANEL 0 CARE SEISMOGRAPH CHIEF ASSOCIATE S S COLLECTIO 65351 FAMILY ROSA ELENA N VENOUS 0 CARE R H BLOOD ASSOCIATE VENIPUNCT S URE BLOOD 38568 FAMILY FAMILY COUNT 0 CARE CARE COMPLETE ASSOCIATE ASSOCIATE AUTO&AUTO S S DIFRNTL WBC HEMOGLOBI 36495 FAMILY ROSA ELENA N 0 CARE R H GLYCOSYLA ASSOCIATE TATIANA A1C S THERAPEUT 78167 FAMILY ROSA ELENA IC 0 CARE R H PROPHYLAC ASSOCIATE TIC/DX S INJECTION SUBQ/IM ADLT [facility] T4526 NURSES NURSES DISPBL 0 REGISTRY REGISTRY [...] YOUR SM VOL 0 PHARMACY PHARMACY NONFILTR [employer] PNEUMAT NEBULIZR DISPBL PHRM Q0513 YOUR YOUR DISPENSIN 0 PHARMACY PHARMACY G FEE [employer] INHALATIO N RX; PER 30 DAYS ALBUTEROL J7620 YOUR YOUR TO 2.5 0 PHARMACY PHARMACY MG & LLC LLC IPRATROPI UM BROM TO 0.5 MG HEPATIC 64135 COMBINED COMBINED FUNCTION 0 PHYSICIAN PHYSICIAN PANEL S LA S LA COLLECTIO 69123 FAMILY FAMILY N VENOUS 0 CARE CARE BLOOD ASSOCIATE ASSOCIATE VENIPUNCT S S URE INJECTION J3420 [employer] ROSA ELENA VIT B-12 0 CARE R H ASSOCIATE CYANOCOBA S CORETTA TO 1000 MCG THERAPEUT 16078 [facility] ROSA ELENA IC 0 CARE R H PROPHYLAC ASSOCIATE TIC/DX S INJECTION SUBQ/IM ADLT [facility] T4528 NURSES NURSES DISPBL 0 REGISTRY REGISTRY INCONT & HOME HE & HOME HE PROD UNDWEAR XTRA LG EA ADLT [facility] T4528 NURSES NURSES DISPBL 0 REGISTRY REGISTRY INCONT & HOME HE & HOME HE PROD UNDWEAR XTRA LG EA BASIC 42762 COMBINED COMBINED METABOLIC 0 PHYSICIAN PHYSICIAN PANEL S LAB S LAB CALCIUM TOTAL URNLS DIP 69209 [facility] CARE Honey RAMOS STICK/TAB ASSOCIATE LET RGNT S NON-AUTO W/O MICRSCP COLLECTIO 50128 FAMILY ROSA ELENA, N VENOUS 0 CARE Honey RAMOS BLOOD ASSOCIATE VENIPUNCT S URE LIPID 37187 [facility] ROSA ELENA, PANEL 0 CARE Honey RAMOS ASSOCIATE S TRANSFERA 14980 [facility] ROSA ELENA, SE 0 CARE Honey RAMOS ASPARTATE ASSOCIATE AMINO S AST SGOT TRANSFERA 87011 [facility] ROSA ELENA, SE 0 CARE Honey RAMOS ALANINE ASSOCIATE AMINO ALT S SGPT RADIOLOGI 98500 [place] JOANA, C 0 MEDICAL DAT EXAMINATI IMAGING ON KNEE 3 ASSOCIATE VIEWS S MALVERN-PO A4258 DISCOUNT DISCOUNT WERED 0 DIABETIC DIABETIC DEVICE FOR LANCET EACH ADLT [facility] T4528 NURSES NURSES DISPBL 0 REGISTRY REGISTRY INCONT & HOME & HOME PROD [facility] XTRA LG EA BLD GLU A4253 DISCOUNT [...] L EQUIP. L AIRWAY PRESSURE DEVICE ADLT [facility] T4528 NURSES NURSES DISPBL 0 REGISTRY REGISTRY INCONT & HOME & HOME [facility] X[facility] LG EA NASL A7034 LACIE [...] EQUIP. L W/POS ARWAY PRESSURE DEVICE ADLT [facility] T4528 NURSES NURSES DISPBL 0 REGISTRY REGISTRY INCONT & HOME & HOME PROD [facility] XTRA LG EA ECG 44955 [facility] ROUTINE 0 [facility] ECG INC INC W/LEAST 12 LDS TRCG ONLY W/O I&R BLOOD 59718 [facility] COUNT 0 [facility] COMPLETE INC INC AUTO&AUTO DIFRNTL WBC RADIOLOGI 18392 Angela CHASE EXAM 0 MEDICAL BEVERLY P CHEST 2 IMAGING VIEWS ASSOCIATE FRONTAL&L S ATERAL ECG 61144 [facility] SARABIA, ROUTINE 0 [facility] W/LEAST PROF SERV 12 LDS I&[place] [address] [facility] TROPONIN 0 [facility] QUANTITAT INC INC ROSETTE CREATINE 54083 [facility] KINASE MB 0 [facility] FRACTION INC INC ONLY COMPREHEN 30468 [facility] SIVE 0 [facility] METABOLIC INC INC PANEL CREATINE 70504 [facility] KINASE 0 [facility] TOTAL INC INC NEBULIZER E0570 LACIE MEDELLIN WITH 0 HOME MED HOME MED COMPRESSO EQUIP. EQUIP. R LLC [employer] ADLT D T4528 NURSES NURSES DISPBL 0 REGISTRY REGISTRY INCONT & HOME & HOME PROD [facility] UNDWEAR XTRA KIT URNLS DIP 11408 FAMILY ROSA ELENA, 0 CARE R RACHEL STICK/TAB ASSOCIATE LET RGNT S NON-AUTO W/O MICRSCP NEBULIZER E0570 LACIE MEDELLIN WITH 0 HOME MED HOME MED COMPRESSO EQUIP. EQUIP. R [employer] ADLT D T4528 NURSES NURSES DISPBL 0 REGISTRY REGISTRY INCONT & HOME & HOME PROD [facility] UNDWEAR XTRA KIT [facility] A4258 DISCOUNT DISCOUNT WERED 0 [...] COMPRESSO EQUIP. EQUIP. R LLC LLC BASIC 05349 COMBINED COMBINED METABOLIC 9 PHYSICIAN PHYSICIAN PANEL S LAB S LAB CALCIUM TOTAL URNLS DIP 31343 FAMILY SEPULVEDAT, 9 GORGE RAMOS STICK/TAB ASSOCIATE LET RGNT S NON-AUTO W/O MICRSCP COLLECTIO 51182 FAMILY CUBA, N VENOUS 9 GORGE RAMOS BLOOD ASSOCIATE VENIPUNCT S URE LIPID 97203 FAMILY SEPULVEDAT, PANEL 9 GORGE RAMOS ASSOCIATE S HEMOGLOBI 54651 FAMILY SANCHEZEET, N 9 GORGE RAMOS GLYCOSYLA ASSOCIATE TATIANA A1C S BLOOD 06849 FAMILY CUBA, COUNT 9 GORGE RAMOS COMPLETE ASSOCIATE AUTO&AUTO S DIFRNTL WBC CONTINUOU E0601 LACIE MEDELLIN S 9 HOME MED HOME MED POSITIVE EQUIP. EQUIP. AIRWAY [facility] PRESSURE DEVICE FILTER A7039 LACIE MEDELLIN NON 9 HOME MED HOME MED DISPBL EQUIP. EQUIP. USED LLC LLC W/POS ARWAY PRESS DEVICE FILTER A7038 LACIE MENONRELL DISPBL 9 HOME MED HOME MED USED EQUIP. EQUIP. W/POS LLC LLC ARWAY PRESSURE DEVICE NEBULIZER E0570 LACIE MEDELLIN WITH 9 HOME MED HOME MED COMPRESSO EQUIP. EQUIP. [place] [address] [facility] LOZANOON TROPONIN 9 [facility] QUANTITAT INC INC ROSETTE CREATINE 07997 [facility] KINASE MB 9 [facility] FRACTION INC INC ONLY CREATINE 89205 [facility] KINASE 9 [facility] TOTAL INC INC CREATINE 57100 [facility] KINASE 9 [facility] TOTAL INC INC CREATINE 67872 M[facility] LOZANOON KINASE MB 9 [facility] FRACTION INC INC ONLY BASIC 10716 [facility] METABOLIC 9 [facility] [place] [address] [facility] TROPONIN 9 [facility] QUANTITAT INC INC ROSETTE BLOOD 95715 [facility] COUNT 9 [facility] COMPLETE INC INC AUTO&AUTO DIFRNTL WBC RADIOLOGI 93441 Angela CHASE 9 MEDICAL BEVERLY Nesbitt EXAMINATI IMAGING ON CHEST ASSOCIATE SINGLE S VIEW FRONTAL ECG 85124 MICKEY CARLY, ROUTINE 9 EMERGENCY SHEBA S ECG SERVICES W/LEAST 12 LDS ASSOCIATE I&R ONLY S THER 22192 [facility] LZOANOON PROPH/DX 9 [facility] NJX IV INC INC PUSH SINGLE/1S T SBST/DRUG ECG 02661 [facility] ROUTINE 9 [facility] ECG INC INC W/LEAST 12 LDS TRCG ONLY W/O I&R NEBULIZER E0570 LACIE MEDELLIN WITH 9 HOME MED HOME MED COMPRESSO EQUIP. EQUIP. R LLC LLC PHRM Q0513 YOUR YOUR DISPENSIN 9 PHARMACY PHARMACY G FEE [employer] INHALATIO N RX; PER 30 DAYS ALBUTEROL J7620 YOUR YOUR TO 2.5 9 PHARMACY PHARMACY MG & LLC LLC IPRATROPI UM BROM TO 0.5 MG ADLT SZD T4528 NURSES NURSES DISPBL 9 REGISTRY REGISTRY INCONT & HOME & HOME PROD [facility] [place] [address] [facility] THYROID 9 [facility] STIMULATI INC INC NG HORMONE TSH BASIC 17575 [facility] METABOLIC 9 [facility] PANEL INC INC CALCIUM TOTAL HEMOGLOBI 32817 [facility] N 9 [facility] GLYCOSYLA INC INC TATIANA A1C HEPATIC 50547 [facility] FUNCTION 9 [facility] PANEL INC INC LIPID 02676 [facility] PANEL 9 [facility] INC INC COLLECTIO 98379 [facility] N VENOUS 9 [facility] BLOOD INC INC VENIPUNCT URE OPHTH 90890 CAM LEVY, [facility] 9 ROSA A ROSA A XM&EVAL COMPRHNSV ESTAB PT 1/> CUSHN A7032 LACIE MEDELLIN NASAL 9 HOME MED HOME MED MASK EQUIP. EQUIP. INTER[employer] LLC LLC REPLACEME NT ONLY EACH FILTER A7038 LACIE MEDELLIN DISPBL 9 HOME MED HOME MED USED EQUIP. EQUIP. W/POS [facility] ARWAY PRESSURE DEVICE HEADGEAR A7035 LACIE MEDELLIN USED 9 HOME MED HOME MED W/POSITIV EQUIP. EQUIP. E AIRWAY [facility] PRESSURE DEVICE NASL A7034 LACIE MEDELLIN INTRFCE 9 HOME MED HOME MED POS ARWAY EQUIP. EQUIP. PRSS [facility] DEVC W/WO HEAD STRAP TUBING A7037 LACIE MEDELLIN USED WITH 9 HOME MED HOME MED POSITIVE EQUIP. EQUIP. AIRWAY [facility] PRESSURE DEVICE RADIOLOGI 43659 Angela NAM 9 MEDICAL DAT EXAMINATI IMAGING ON CHEST ASSOCIATE SINGLE S VIEW FRONTAL ECG 46897 MICKEY CARROLL, ROUTINE 9 EMERGENCY SHEBA S ECG SERVICES W/LEAST 12 LDS ASSOCIATE I&R ONLY S ECG 86694 MICKEY CARROLL, ROUTINE 9 EMERGENCY SHEBA S ECG SERVICES W/LEAST 12 LDS ASSOCIATE I&R ONLY S URNLS DIP 98174 FAMILY ROSA ELENA, 9 CARE R RACHEL STICK/TAB ASSOCIATE LET RGNT S NON-AUTO W/O MICRSCP NEBULIZER E0570 LACIE MEDELLIN WITH 9 HOME MED HOME MED COMPRESSO EQUIP. EQUIP. R [employer] [facility] ADLT SZD T4528 NURSES NURSES DISPBL 9 REGISTRY REGISTRY INCONT & HOME & [facility] LG EA BLD GLU A4253 DISCOUNT DISCOUNT TEST/REAG 9 DIABETIC DIABETIC T STRIPS HOME BLD GLU MON-50 NORMAL A4256 DISCOUNT DISCOUNT LOW AND 9 DIABETIC DIABETIC HIGH CALIBRATO R SOLUTION/ CHIPS LANCETS A4259 DISCOUNT DISCOUNT PER BOX 9 DIABETIC DIABETIC OF 100 NEBULIZER E0570 LACIE MEDELLIN WITH 9 HOME MED HOME MED COMPRESSO EQUIP. EQUIP. R LLC [facility] ADLT SZD T4528 NURSES NURSES DISPBL 9 REGISTRY REGISTRY INCONT & HOME & HOME PROD [facility] UNDWEAR XTRA LG EA NEBULIZER E0570 LACIE MEDELLIN WITH 9 HOME MED HOME MED COMPRESSO EQUIP. EQUIP. R [facility] ADLT SZD T4528 NURSES NURSES DISPBL 9 REGISTRY REGISTRY INCONT & HOME & [facility] XTRA LG EA PHRM Q0513 YOUR YOUR DISPENSIN 9 PHARMACY PHARMACY G FEE [facility] INHALATIO N RX; PER 30 DAYS ADMN SET A7003 YOUR YOUR SM VOL 9 PHARMACY [facility] PNEUM[facility] NEBULIZR DISPBL ALBUTEROL J7620 YOUR YOUR TO 2.5 9 PHARMACY PHARMACY MG & [facility] IPRATROPI UM BROM TO 0.5 MG NASL A7034 LACIE MEDELLIN INTRFCE 9 HOME MED HOME MED POS ARWAY EQUIP. EQUIP. PRSS [facility] DEVC W/WO HEAD STRAP FILTER A7038 LACIE LACIE DISPBL 9 HOME MED HOME MED USED EQUIP. EQUIP. W/POS [facility] ARWAY PRESSURE DEVICE CUSHN A7032 LACIE LACIE NASAL 9 HOME MED HOME MED MASK EQUIP. EQUIP. INTERFACE [facility] REPLACEME NT ONLY EACH TUBING A7037 LACIE MEDELLIN USED WITH 9 HOME MED HOME MED POSITIVE EQUIP. EQUIP. AIRWAY [facility] PRESSURE DEVICE NEBULIZER E0570 LACIE LACIE WITH 9 HOME MED HOME MED COMPRESSO EQUIP. EQUIP. R [facility] ADLT SZD T4528 NURSES NURSES AURABL 9 REGISTRY REGISTRY INCONT & HOME & HOME [facility]OD [facility]A ASCENCIO LG EA CONTINUOU E0601 LACIE LACIE S 9 HOME MED HOME MED POSITIVE EQUIP. EQUIP. [facility] PRESSURE DEVICE ADMN SET [id number] YOUR YOUR SM VOL 9 PHARMACY PHARMACY [employer] PNEUMAT NEBULIZR DISPBL PHRM [id number] YOUR YOUR DISPENSIN 9 PHARMACY PHARMACY G FEE [employer] [facility] INHALATIO N RX; PER 30 DAYS ALBUTEROL [id number] YOUR YOUR INHAL 9 PHARMACY PHARMACY NON-CP [employer] [facility] PROD THRU DME U DOSE 1 MG [address]1320 [facility] GUIDANCE 9 [facility] NEEDLE INC INC PLACEMENT IMG S&I ANES 77215 [facility]ST[facility], INTEG 9 ANESTH BALAJI Graham EXTREMITI OF THE ES ANT [place]UEGRASS TRUNK & PERINEUM NOS IMG GID 31818 ARJUN BERNARD PLIA MTLC 9 MEDICAL DAT LOCLZJ IMAGING CLIP PRQ ASSOCIATE BRST S BX/ASPIR GLUC BLD 16511 [facility] GLUC MNTR 9 [facility] DEV INC INC CLEARED FDA SPEC HOME USE BIOPSY 34652 ARJUN BERNARD BREAST 9 MEDICAL DAT NEEDLE IMAGING CORE ASSOCIATE W/IMAGING S GUIDANCE PREOP 31748 [facility] PLACEMENT 9 [facility] INC INC LOCALIZAT ION WIRE BREAST INJECTION J2405 [facility] 9 [facility] ONDANSETR INC INC ON HCL PER 1 MG THERAPEUT 00830 [facility] IC 9 [facility] INJECTION INC INC IV PUSH EACH NEW DRUG RADIOLOGI 02769 [facility] PERFECTO 9 [facility] EXAMINATI INC INC ON SURGICAL SPECIMEN MAMMOGRAP 90091 [facility] BERANRD 9 MEDICAL [place] [address] [facility] INFUSION 9 [facility] THERAPY/P INC INC ROPHYLAXI S /DX 1ST TO 1 [place] [address] [facility] INFUSION 9 [facility] THERAPY INC INC PROPHYLAX IS/DX EA HOUR BIOPSY 00019 [facility] BREAST 9 [facility] OPEN INC INC INCISIONA L EXC 47286 JATINDER TOBIAS BREAST 9 , RONNIE , RONNIE LES PREOP PLIA RAD MARKER OPEN 1 LES US BREAST 87708 ARJUN BERNARD REAL 9 MEDICAL DAT TIME IMAGING W/IMAGE ASSOCIATE DOCUMENTA S TION BASIC 39498 [facility] METABOLIC 9 [facility] PANEL INC INC CALCIUM TOTAL COLLECTIO 42458 [facility] N VENOUS 9 [facility] BLOOD INC INC VENIPUNCT URE ECG 86795 [facility] ROUTINE 9 [facility] BALAJI Graham W/LEAST PROF SERV 12 LDS I&R ONLY ECG 65785 [facility] ROUTINE 9 [facility] ECG INC INC W/LEAST 12 LDS TRCG ONLY W/O I&R BLOOD 07461 [facility] COUNT 9 [facility] COMPLETE INC INC AUTO&AUTO DIFRNTL WBC NEBULIZER E0570 LACIE MEDELLIN WITH 9 HOME MED HOME MED COMPRESSO [facility]QU[employer]. [employer] COLLECTIO 77825 [facility] N VENOUS 9 [facility] BLOOD INC INC VENIPUNCT URE HEMOGLOBI 34554 [facility] N 9 [facility] GLYCOSYLA INC INC [place] A1C LIPID 27220 [facility] PANEL 9 [facility] INC INC HEPATIC 28536 [facility] FUNCTION 9 [facility] PANEL INC INC BASIC 85970 [facility] METABOLIC 9 [facility] PANEL INC INC CALCIUM TOTAL BLD [...] DIABETIC DIABETIC DEVICE FOR LANCET EACH CULTURE 17522 [facility] BACTERIAL 9 [facility] [facility] QUANTTATI VE COLONY COUNT URINE URNLS DIP 28131 FAMILY ROSA ELENA, 9 CARE R RACHEL STICK/TAB ASSOCIATE LET RGNT S NON-AUTO W/O MICRSCP ADLT SZD T4528 NURSES NURSES DISPBL 9 REGISTRY REGISTRY INCONT & HOME & HOME PROD HEALH [place] [address] PATHOLOGY PATHOLOGY SURG 9 & & PATHOLOGY CYTOLOGY CYTOLOGY LAB LAB GROSS&MEGHA ROSCOPIC EXAM PROBE/NEE C2618 [facility] DLE 9 [facility] [place] [address] CORA CHASE 9 MEDICAL BEVERLY P NEEDLE IMAGING PLACEMENT ASSOCIATE IMG S&I S US BREAST 79985 [facility] REAL 9 [facility] TIME INC INC W/IMAGE DOCUMENTA TION PREOP 82990 [facility] PLACEMENT 9 [facility] INC INC LOCALIZAT ION WIRE BREAST BREAST 55552 [facility] BIOPSY 9 [facility] VACUUM INC INC ASSISTED/ ROTATING DEVICE CREATINE 62509 [facility] KINASE 9 [facility] TOTAL INC INC URNLS DIP 11767 [facility] TEMPLE 9 [facility] STICK/TAB INC INC LET REAGENT AUTO MICROSCOP Y BASIC 64125 [facility] METABOLIC 9 [facility] PANEL INC INC CALCIUM TOTAL CREATINE 11229 [facility] KINASE MB 9 [facility] FRACTION INC INC ONLY RADIOLOGI 01745 Angela CHASE 9 BARBARA Nesbitt EXAMINATI IMAGING ON CHEST ASSOCIATE SINGLE S VIEW FRONTAL ECG 23348 M[facility] VELAZCO, ROUTINE 9 [facility] W/LEAST PROF SERV 12 LDS I&[place] [address] [facility] THYROXINE 9 [facility] TOTAL INC INC INSJ TEMP 00345 [facility] NDWELLG 9 [facility] [place] [address] [facility] TROPONIN 9 [facility] QUANTITAT INC INC ROSETTE NATRIURET 07504 [facility] IC 9 [facility] PEPTIDE INC INC SUSCEPTIB 42275 [facility] LTY STDY 9 [facility] ANTIMICRB INC INC IAL MICRO/AGA R DILUTJ BLOOD 34184 [facility] COUNT 9 [facility] COMPLETE INC INC AUTO&AUTO DIFRNTL WBC CULTURE 96968 [facility] BACTERIAL 9 [facility] INC INC QUANTTATI VE COLONY COUNT URINE CULTURE 75798 [facility] BCT 9 [facility] ISOL&PRSM INC INC PTV ID ISOLATE EA URINE THER 90141 [facility] PROPH/DX 9 [facility] NJX IV INC INC PUSH SINGLE/1S T SBST/DRUG ECG 83603 [facility] ROUTINE 9 [facility] ECG INC INC W/LEAST 12 LDS TRCG ONLY W/O I&[place] [address] [facility] THYROID 9 [facility] STIMULATI INC INC NG HORMONE TSH US BREAST 02185 [facility] REAL 9 [facility] TIME INC INC W/IMAGE DOCUMENTA TION MAMMOGRAP 19879 [facility] JOSE ANTONIO, 9 MEDICAL BEVERLY P UNILATERA IMAGING L ASSOCIATE S NEBULIZER E0570 LACIE MEDELLIN WITH 9 HOME MED HOME MED COMPRESSO EQUIP. EQUIP. R LLC LLC ADLT SZD T4528 NURSES NURSES DISPBL 9 REGISTRY REGISTRY INCONT & HOME & HOME PROD HEALH HEAL UNDWEAR XTRA KIT EA OPHTHALMO 60706 SOLANGE NARVAEZ, SCPY 9 LISSY YUAN EXTENDED [...] HEALH UNDWEAR XTRA LG EA SMR PRIM 89746 LABONE OF [facility] 9 [place] [facility] GRAM/GIEM SA STAIN BCT FUNGI/BIJU L ADLT SZD T4528 NURSES NURSES DISPBL 9 REGISTRY REGISTRY INCONT & HOME & HOME PROD [facility] UNDWEAR XTRA LG EA NASL A7034 LACIE LACIE INTRFCE 8 HOME MED HOME MED POS ARWAY EQUIP. EQUIP. PRSS LLC LLC DEVC W/WO HEAD STRAP TUBING A7037 LACIE LACIE USED WITH 8 HOME MED HOME MED POSITIVE EQUIP. EQUIP. AIRWAY [facility] PRESSURE DEVICE FILTER A7039 LACIE LACIE NON 8 HOME MED HOME MED DISPBL EQUIP. EQUIP. USED LLC LLC W/POS ARWAY PRESS DEVICE FILTER A7038 LACIE LACIE DISPBL 8 HOME MED HOME MED USED EQUIP. EQUIP. W/POS LLC LLC ARWAY PRESSURE DEVICE CUSHN A7032 LACIE LACIE NASAL 8 HOME MED HOME MED MASK EQUIP. EQUIP. INTERFACE [facility] REPLACEME NT ONLY EACH COMPREHEN 49755 COMBINED COMBINED SIVE 8 PHYSICIAN PHYSICIAN METABOLIC S LAB S LAB PANEL HEMOGLOBI 88125 COMBINED COMBINED N 8 PHYSICIAN PHYSICIAN GLYCOSYLA S LAB S LAB TATIANA A1C LIPID 05004 COMBINED COMBINED PANEL 8 PHYSICIAN [place] [address] COMBINED COMBINED THYROID 8 PHYSICIAN PHYSICIAN STIMULATI S LAB S LAB NG HORMONE TSH COLLECTIO 27223 FAMILY MULBERRY, N VENOUS 8 CARE JOS T BLOOD ASSOCIATE VENIPUNCT S URE URNLS DIP 06768 FAMILY MULBERRY, 8 CARE JOS T STICK/TAB ASSOCIATE LET RGNT S NON-AUTO W/O MICRSCP ADLT SZD T4528 NURSES NURSES DISPBL 8 REGISTRY REGISTRY INCONT & HOME & HOME PROD [facility] XTRA LG EA CONTINUOU E0601 LACIE LACIE S 8 HOME MED HOME MED POSITIVE EQUIP. EQUIP. AIRWAY [facility] PRESSURE DEVICE FILTER A7038 LACIE LACIE DISPBL 8 HOME MED HOME MED USED EQUIP. EQUIP. W/POS [facility] ARWAY PRESSURE DEVICE CUSHN A7032 LACIE LACIE NASAL 8 HOME MED HOME MED MASK EQUIP. EQUIP. INTERFACE [facility] REPLACEME NT ONLY EACH ADLT SZD T4528 NURSES NURSES DISPBL 8 REGISTRY REGISTRY INCONT & HOME & HOME PROD [facility] UNDWEAR XTRA LG EA FILTER A7038 LACIE LACIE DISPBL 8 HOME MED HOME MED USED EQUIP. EQUIP. W/POS LLC LLC ARWAY PRESSURE DEVICE CUSHN A7032 LACIE LACIE NASAL 8 HOME MED HOME MED MASK EQUIP. EQUIP. INTERFACE LLC LLC REPLACEME NT ONLY EACH ADLT SZD T4528 NURSES NURSES DISPBL 8 REGISTRY REGISTRY INCONT & HOME & HOME PROD [facility] UNDWEAR XTRA LG EA COMPUTER- 79166 [facility] TEM[facility] AIDED 8 [facility] DETECTION INC INC SCREENING MAMMOGRAP HY SCREENING 79533 [facility] LOZANOON 8 [facility] [...] INCONT & HOME & HOME PROD [facility] UNDWEAR XTRA EA OPHTH 96904 CAM, CAM, MEDICAL 8 ROSA A ROSA [...] INCONT & HOME & HOME PROD [facility] UNDWEAR XTRA EA RADIOLOGI 52451 RADIOLOGY KILYE, C 8 RE Angela BEYER ASSOCIATE ON CHEST S PSC SINGLE VIEW FRONTAL INJECTION 47385 ELADIA MARYANNCARON CARDIAC 8 NIMA Loja CATHJ L CLINIC VENTR/L PSC ATR ANGIOGRAP H L HRT 19848 ELADIA PEYTON CATHETERI 8 NIMA Loja ZATION CLINIC [place] [address] ELADIA MARYANNCARON C-CATHJ 8 NIMA Loja F/SLCTV C CLINIC ANGRPH PSC I SI&R 24295 ELADIA TODD, F/NJX PX 8 NIMA Loja DURING CLINIC C-CATHJ PSC VENTR&/AT R ANGRPH I SI&R 07972 ELADIA TODD, F/NJX PX 8 NIMA Loja DURING CLINIC C-CATHJ PSC PULM&/OR SELECT FILTER A7038 LACIE MEDELLIN DISPBL 8 HOME MED HOME MED USED EQUIP. EQUIP. W/POS LLC [facility] ARWAY PRESSURE DEVICE CUSHN A7032 LACIE MEDELLIN NASAL 8 HOME MED HOME MED MASK EQUIP. EQUIP. INTERFACE [employer] [facility] REPLACEME NT ONLY EACH NASL A7034 LACIE MEDELLIN INTRFCE 8 HOME MED HOME MED POS ARWAY EQUIP. EQUIP. PRSS LLC LLC DEVC W/WO HEAD STRAP TUBING A7037 LACIE MEDELLIN USED WITH 8 HOME MED HOME MED POSITIVE EQUIP. EQUIP. AIRWAY LLC [facility] PRESSURE DEVICE ADLT D T4528 NURSES NURSES DISPBL 8 REGISTRY REGISTRY INCONT & HOME & HOME PROD [facility] UNDWEAR XTRA LG EA ADLT SZD T4528 NURSES NURSES DISPBL 8 REGISTRY REGISTRY INCONT & HOME & HOME PROD [facility] UNDWEAR XTRA LG EA CONTINUOU E0601 LACIE MEDELLIN S 8 HOME MED HOME MED POSITIVE EQUIP. EQUIP. AIRWAY [facility] PRESSURE DEVICE ADLT SZD T4528 NURSES NURSES DISPBL 8 REGISTRY REGISTRY INCONT & HOME & HOME PROD [facility] UNDWEAR XTRA LG EA HOS BED E0260 CLEMENTE CORNEJO, SEMI-ELEC 8 INC INC W/ANY TYPE SIDE RAIL W/MATTRSS ADLT SZD T4528 NURSES NURSES DISPBL 8 REGISTRY REGISTRY INCONT & HOME & HOME PROD HEALH HEAL UNDWEAR XTRA LG EA MRI ORBIT 91005 JOANA, JOANA, FACE & 8 DAT DAT NECK W/O & W/CONTRAS T MATRL MRI BRAIN 69535 JOANA, JOANA, BRAIN 8 DAT DAT STEM W/O W/CONTRAS T MATERIAL OPHTHALMO 99502 SOLANGE NARVAEZ, SCPY 8 LISSY YUAN EXTENDED [...] INC W/ANY TYPE SIDE RAIL W/MATTRSS DOPPLER 17100 [facility] TEMPLE ECHOCARD 8 [facility] PULSE INC INC WAVE W/SPECTRA L DISPLAY ECHO 81103 M[facility] ELLISON TRANSTHOR 8 [facility] R-T [address] [place] [address] Gladys W/WO PROF SERV M-MODE REC COMP DOP 83955 M[facility]ICK ELLISON ECHOCARD 8 [facility] FLOW PROF SERV VELOCITY MAPPING HOS BED E0260 CLEMENTE CORNEJO SEMI-ELEC 8 INC INC W/ANY TYPE SIDE RAIL W/MATTRSS TUBING A7037 LACIE MEDELLIN USED WITH 8 HOME MED HOME MED POSITIVE EQUIP. EQUIP. AIRWAY [facility] PRESSURE DEVICE NASL A7034 LACIE MEDELLIN INTRFCE 8 HOME MED HOME MED POS ARWAY EQUIP. EQUIP. PRSS [facility] LLC DEVC W/WO HEAD STRAP FILTER A7039 LACIE LACIE NON 8 HOME MED HOME MED DISPBL EQUIP. EQUIP. USED LLC LLC W/POS AR[facility]AY PRESS DEVICE US BREAST 17491 [facility] REAL 8 MEDICAL MEDICAL TIME IMAGING IMAGING W/IMAGE ASSOCIATE ASSOCIATE DOCUMENTA Nick COULTER PILLW A7033 LACIE LACIE NASL 8 HOME MED HOME MED CANNULA EQUIP. EQUIP. TYPE LLC LLC INTERFCE REPL ONLY PAIR Encounters Encounter Start End Date Code Location Performer Type Date [facility] T OFFICE 26840 C RONNIE TOBIAS OUTPATIEN 1 1 JATINDER Newman MD [facility] MINUTES [facility]OSP[facility] - 1 1 [facility] OUTPATIEN INC T OFFICE 25340 FAMILY ROSA ELENA OUTPATIEN 1 1 CARE R H T VISIT ASSOCIATE 25 S MINUTES HOME NURSES HEALTH, 0 0 REGISTRY OUTPATIEN & HOME HE T HOME NURSES HEALTH, 0 0 REGISTRY OUTPATIEN & HOME HE T HOME NURSES HEALTH, 0 0 REGISTRY OUTPATIEN & HOME HE T OFFICE 96465 FAMILY ROSA ELENA OUTPATIEN 0 0 CARE R H T VISIT ASSOCIATE 15 S MINUTES OFFICE 23251 FAMILY ROSA ELENA OUTPATIEN 0 0 CARE R H T VISIT ASSOCIATE 25 S MINUTES HOME NURSES HEALTH, 0 0 REGISTRY OUTPATIEN & HOME HE T HOME NURSES HEALTH, 0 0 REGISTRY OUTPATIEN & HOME HE T OFFICE 82354 FAMILY ROSA ELENA OUTPATIEN 0 0 CARE R H T VISIT ASSOCIATE 25 S MINUTES HOME NURSES HEALTH, 0 0 REGISTRY OUTPATIEN & HOME HE T HOME NURSES HEALTH, 0 0 REGISTRY OUTPATIEN & HOME HE T OFFICE 95457 FAMILY ROSA ELENA, OUTPATIEN 0 0 CARE R RACHEL T VISIT ASSOCIATE 25 S MINUTES [facility] - 0 0 [facility] OUTPATIEN INC T HOME NURSES HEALTH, 0 0 REGISTRY OUTPATIEN & HOME T [facility] HOME NURSES HEALTH, 0 0 REGISTRY OUTPATIEN & HOME T [facility] HOME NURSES HEALTH, 0 0 REGISTRY OUTPATIEN & HOME T [facility] EMERGENCY 39775 [facility] 0 0 [facility] DEPARTMEN INC T VISIT HIGH/URGE NT SEVERITY [facility]OS[facility] - 0 0 [facility] OUTPATIEN INC T OFFICE 54668 FAMILY MANJINDER, OUTPATIEN 0 0 CARE JOS T T VISIT ASSOCIATE 25 S MINUTES HOME NURSES HEALTH, 0 0 REGISTRY OUTPATIEN & HOME T [facility] OFFICE 66342 FAMILY ROSA ELENA, OUTPATIEN 0 0 CARE R RACHEL T VISIT ASSOCIATE 25 S MINUTES HOME NURSES HEALTH, 0 0 REGISTRY OUTPATIEN & HOME T [facility] OFFICE 96781 FAMILY ROSA ELENA, OUTPATIEN 9 9 CARE R RACHEL T VISIT ASSOCIATE 25 S MINUTES EMERGENCY 16094 [facility] 9 9 [facility] DEPARTMEN INC T VISIT HIGH/URGE NT SEVERITY EMERGENCY 05801 MICKEY CARROLL, DEPT 9 9 EMERGENCY SHEBA S VISIT SERVICES HIGH SEVERITY& ASSOCIATE THREAT S [facility] - 9 9 [facility] OUTPATIEN INC T HOME NURSES HEALTH, 9 9 REGISTRY OUTPATIEN & HOME T [facility] - 9 9 [facility] OUTPATIEN INC T EMERGENCY 57405 MICKEY CARROLL, DEPT 9 9 EMERGENCY SHEBA S VISIT SERVICES HIGH SEVERITY& ASSOCIATE THREAT S [facility] EMERGENCY 11987 MICKEY CARROLL, DEPT 9 9 EMERGENCY SHEBA S VISIT SERVICES HIGH SEVERITY& ASSOCIATE THREAT S FUN OFFICE 62997 FAMILY ROSA ELENA, OUTPATIEN 9 9 CARE R RACHEL T VISIT ASSOCIATE 25 S MINUTES OFFICE 59545 FAMILY ROSA ELENA, OUTPATIEN 9 9 CARE R RACHEL T VISIT ASSOCIATE 15 S MINUTES HOME NURSES HEALTH, 9 9 REGISTRY OUTPATIEN & HOME T [facility] NURSES HEALTH, 9 9 REGISTRY OUTPATIEN & HOME T [facility] NURSES HEALTH, 9 9 REGISTRY OUTPATIEN & HOME T [facility] OFFICE 42683 FAMILY MANJINDER, OUTPATIEN 9 9 CARE JOS T T VISIT ASSOCIATE 15 S MINUTES HOME NURSES HEALTH, 9 9 REGISTRY OUTPATIEN & HOME T [facility] - 9 9 [facility] OUTPATIEN INC [facility]ICE 19697 [facility] OUT[facility] 9 9 MEDICAL DAT T NEW 10 IMAGING MINUTES [facility] - 9 9 [facility] OUTPATIEN INC [facility] - 9 9 [facility] OUTPATIEN INC OFFICE 10576 JATINDER TOBIAS CONSULTAT 9 9 , RONNIERONNIE Loja ION NEW/ESTAB PATIENT 60 MIN OFFICE 75206 FAMILY ROSA ELENA, OUTPATIEN 9 9 CARE R RACHEL T VISIT ASSOCIATE 25 S MINUTES [facility]OSP[facility] - 9 9 [facility] OUTPATIEN INC T HOME NURSES HEALTH, 9 9 REGISTRY OUTPATIEN & HOME T [facility] - 9 9 [facility] OUTPATIEN INC T EMERGENCY 36392 MICKEY CARROLL, DEPT 9 9 EMERGENCY SHEBA S VISIT SERVICES HIGH SEVERITY& ASSOCIATE THREAT S [facility] - 9 9 [facility] OUTPATIEN INC T EMERGENCY 14313 [facility] 9 9 [facility] DEPARTMEN INC T VISIT HIGH/URGE NT SEVERITY [facility]OSPITAL [facility] - 9 9 [facility] OUTPATIEN INC T HOME NURSES HEALTH, 9 9 REGISTRY OUTPATIEN & HOME T [facility] OFFICE 48783 SOLANGE NARVAEZ, CONSULTAT 9 9 LISSY YUAN ION NEW/ESTAB PATIENT 80 MIN OFFICE 01307 FAMILY MULBERRY, OUTPATIEN 9 9 CARE JOS T T VISIT ASSOCIATE 15 S MINUTES HOME NURSES HEALTH, 9 9 REGISTRY OUTPATIEN & HOME T [facility] OFFICE 75642 FAMILY MULBERRY, OUTPATIEN 9 9 CARE JOS T T VISIT ASSOCIATE 15 S MINUTES HOME NURSES HEALTH, 9 9 REGISTRY OUTPATIEN & HOME T [facility] OFFICE 55119 FAMILY MULBERRY, OUTPATIEN 8 8 CARE JOS T T VISIT ASSOCIATE 25 S MINUTES HOME NURSES HEALTH, 8 8 REGISTRY OUTPATIEN & HOME T [facility] OFFICE 10170 CUONG, CUONG, OUTPATIEN 8 8 LUANN LUANN T VISIT 15 MINUTES HOME NURSES HEALTH, 8 8 REGISTRY OUTPATIEN & HOME T [facility] HOME NURSES HEALTH, 8 8 REGISTRY OUTPATIEN & HOME T [facility] H[facility]PITAL [facility] - 8 8 [facility] OUTPATIEN INC T HOME NURSES HEALTH, 8 8 REGISTRY OUTPATIEN & HOME T [facility] HOME NURSES HEALTH, 8 8 REGISTRY OUTPATIEN & HOME T [facility] OFFICE 96866 [facility] CARE JOS T VISIT ASSOCIATE 15 S MINUTES HOME NURSES HEALTH, 8 8 REGISTRY OUTPATIEN & HOME T [facility] NURSES HEALTH, 8 8 REGISTRY OUTPATIEN & HOME T [facility] OFFICE 22230 SOLANGE NARVAEZ, CONSULTAT 8 8 LISSY [facility] PATIENT 80 MIN HOME NURSES HEALTH, 8 8 REGISTRY OUTPATIEN & HOME T [facility] - 8 8 [facility]EN [facility] - 8 8 [facility]
--- OUTSIDE RECORDS SUMMARY | 2016-08-18 02:05 | External Medical Summary Rpt ---
Demographics Preferred Language Fijian Marital Status Unknown Episcopalian Affiliation Unknown Race Unknown Ethnic Group Unknown Author Author , Organization [employer] Address Unknown Phone Unavailable Purpose Continuity of Care Document - through 2016 Immunization No patient found.
--- OUTSIDE RECORDS SUMMARY | 2016-08-18 02:05 | External Medical Summary Rpt ---
Demographics Preferred Language New Zealander Marital Status Unknown Restorationism Affiliation Unknown Race Unknown Ethnic Group Unknown Author Author , Organization [employer] Address Unknown Phone Unavailable Purpose Continuity of Care Document - through 2016 Immunization No patient found.
== END 2016-08-08 14:00 | disposition home or self-care (01) ==
LOC: ER 20:48 → 2ND 22:39
PROVIDERS: Emergency Medicine
DX: R07.9 Chest pain, unspecified (principal); R55 Syncope and collapse; I10 Essential (primary) hypertension; E11.9 Type 2 diabetes mellitus without complications; N39.0 Urinary tract infection, site not specified; J44.1 Chronic obstructive pulmonary disease with (acute) exacerbation; Z72.0 Tobacco use
CPT/HCPCS: G0378

== ENCOUNTER → 2016-08-21 | Outpatient (CLI) | payer MEDICARE ==
[~2016-08-21] MED LIST changes: +ATENOLOL25 MG PO; +CARAFATE 1GM TAB1 GM PO; +CRESTOR10 MG PO; +LEVOFLOXACIN 5500 M1 PO; +LEVOTHYROXINE0.05 M3 NG; +NITROGLYCERIN0.4 M1 SL; +NORCO 325 MG-101 TAB PO; +ROSUVASTATIN CA10 MG PO; +VALIUM10 M1 PO
--- NOTE | 2016-08-21 15:11 | RADIOLOGY REPORT PS360 ---
History and Indications: Diabetes, tobacco use, family history, chest pain and shortness of breath Procedure: Patient received 0.4 mg of Lexiscan, resting heart rate was 78 bpm, resting blood pressure 139/68, with Lexiscan maximum heart rate achieved was 97 bpm which is less than 85% of the maximum predicted heart rate and a blood pressure was 134/41, with Lexiscan patient complained of lightheadedness, shortness of breath and stomach discomfort Electrocardiogram: Resting electrocardiogram showed sinus rhythm, with Lexiscan there is less than 1.[address] segment depression noted from the baseline EKG. The EKG portion of the Lexiscan is nondiagnostic. Cardiac stress and resting SPECT images: Cardiac stress and the suspect images were obtained using technetium 99 Myoview 10.9 mCi at rest, and 31.2 mCi at stress, gated SPECT further analysis of segmental wall motion and calculation of the ejection fraction was also done. Cardiac stress and the suspect show mild decreased tracer activity in the anterior wall with normal contractility in the gated SPECT and the perfusion of the apex being normal is likely secondary to soft tissue attenuation from the breast, no reversible ischemia seen. Computer derived ejection fraction is 65% with no obvious regional wall motion abnormality. Right ventricle is normal size and contractility. Conclusion: 1. The EKG portion of the Lexiscan is nondiagnostic. 2. No obvious scintigraphic evidence of reversible ischemia seen, computer derived ejection fraction is 65% with no obvious regional wall motion abnormality, right ventricle is normal size and contractility.
== END ==
LOC: RAD 07:10
DX: R07.2 Precordial pain (principal)
CPT/HCPCS: A9502; J2785

== ENCOUNTER 2017-01-28 06:09 | Day surgery (SDC) | payer MEDICARE ==
[~2017-01-28] VITALS: Ht 157.5 cm; Wt 110.7 kg
[2017-01-28 06:56] LABS: LYMPH # 2.1 K/mm3 (0.7-4.5)
[2017-01-28 07:01] LABS: BUN 9 mg/dL (7-18)
[2017-01-28 07:02] LABS: GFR (ESTIMATED) 73 ML/MIN (59-)
--- NOTE | 2017-01-28 08:08 | Operative Note ---
Procedure/Operative Record Procedure Date of procedure: 01/28/17 Pre-Op Dx: Post menopausal bleeding, and endometrial polyp Post-Op Dx: Postoperative menopausal bleeding, endometrial polyp Procedure performed: Hysteroscopy, D and C, myosure Surgeon: Dr. Reji Dudley Director Diabetes(s): None Anesthesia: Paul Bender EBL (ml): 50 Clinical note: She is a 61-year-old lady who complains of postmenopausal bleeding. She had an endometrial biopsy in my office that showed an endometrial polyp. As result of that she was offered hysteroscopy, D and C and myosure Operative findings: She had 2 small submucosal polyps on the LEFT side of the uterus near the fundus. The endometrium was somewhat lush for a postmenopausal woman. Otherwise uterus is small and anteverted. Operative note: She was taken the operating room where LMA anesthesia was found be adequate. She was prepped and draped in normal sterile fashion in the lithotomy position. A weighted speculum was placed in the vagina and the anterior lip of the cervix was grasped with a tenaculum. Pederson dilators used to dilate cervix to approximately 6 mm. I then inserted the hysteroscope into the uterine cavity and the findings were as previous see dictated. Using a myosure device I then obtained samples from the entire endometrium. The polyps were removed. I then performed a gentle curettage. She tolerated the procedure well and was taken to the recovery room in excellent condition. All sponge instrument and needle counts were correct. Estimate a blood loss was less than 50 mL. Conplications: None Specimens: Endometrial curettings at 0808
--- NOTE | 2017-01-28 08:21 | Anesthesia Record ---
Anesthesia Record Part II Discharge time: 0850 Destination: Same day surgery PACU nurse assessment review? Yes Patient is: Stable Anesthesia complications? No at 0821
--- NOTE | 2017-01-28 08:21 | Anesthesia Record ---
Anesthesia Record Part I Total IV fluids: 500 EBL (ml): 50 Urine Output: 25 B/P: 129/76 % SaO2: 96 Pulse: 64 Resps: 16 Temp: 97.1 Patient is: Drowsy, Nasal O2, Stable Stable to PACU at: 0820 at 0821
[2017-01-28 09:39] VITALS: BP 106/51
== END 2017-01-28 09:35 | disposition home or self-care (01) ==
LOC: SDC 06:09
PROVIDERS: Nurse Practitioner Obstetrics & Gynecology
PROC: 0UDB8ZZ Extraction of Endometrium, Via Natural or Artificial Opening Endoscopic (ICD-10-PCS; principal; 2017-01-28)
DX: N95.0 Postmenopausal bleeding (principal); N84.0 Polyp of corpus uteri; E11.9 Type 2 diabetes mellitus without complications

== ENCOUNTER → 2017-03-19 | Outpatient (CLI) | payer MEDICARE ==
[~2017-03-19] MED LIST changes: +CARAFATE1 GM PO; -LEVOTHYROXINE0.05 M3 NG; +LEVOTHYROXINE0.05 M3 PO; +METFORMIN 500M500 MG PO; -METFORMIN1000 MG PO
== END ==
LOC: LAB 17:52
DX: N39.0 Urinary tract infection, site not specified (principal)